=== PATIENT | male | born 1950 | race Caucasian/White ===

== ENCOUNTER 2020-02-24 12:11 | Inpatient (IN) ==
[2020-02-24] MEDS ORDERED: SODIUM CHLORIDE 0.9% 1000ML 1,000 ML IV ONE (12:25)
--- NOTE | 2020-02-24 12:32 | Emergency Department Note ---
Impression & Plan Atrial fibrillation with RVR, Hypertension, Abnormal CT of the abdomen ED Provider Note NAME: ISABELLA RIVAS AGE: 69 SEX: M : 1950 ARRIVES VIA: Walk-In INFORMANT: Patient ED PROVIDER(S): Dominic Victoria DO CHIEF COMPLAINT: Referred in for abnormal CT HPI: Patient is a 69-year-old male who presents to the ER who was referred in as he had a CT of the abdomen pelvis for previous urinary issues. He was referred in for possible gallbladder issue. He has no abdominal pain in the right upper quadrant. He has no pain with eating or drinking. He denies any nausea or vomiting. He has no complaints in regards to his belly or gallbladder at this time. He denies any headache or change in vision. No chest pain or shortness of breath. He denies any palpitations. Denies any history of A. fib or blood thinners. ROS: See above HPI for pertinent positives & negatives. A total of 10 systems reviewed and were otherwise negative. PAST MEDICAL HISTORY:See Below PAST SURGICAL HISTORY:See Below FAMILY HISTORY:See Below SOCIAL HISTORY:See Below HOME MEDICATIONS:See Below ALLERGIES:See Below VITALS:See Below PHYSICAL EXAMINATION: GENERAL: Sitting up in bed, alert, well appearing, well nourished, no distress, non-toxic EYE EXAM: normal conjunctiva. OROPHARYNX: no exudate, no erythema, lips, buccal mucosa, and tongue normal and mucous membranes are moist NECK: supple, no nuchal rigidity, no adenopathy, non-tender LUNGS: Clear to auscultation. Normal chest wall mechanics HEART: Tachycardic and irregular regular, S1 normal and S2 normal ABDOMEN: abdomen soft, non-tender, normo-active bowel sounds, no masses, no rebound or guarding. BACK: Back is symmetrical on inspection and there is no deformity, no midline tenderness, no CVA tenderness. SKIN: no rashes and no bruising UPPER EXTREMITIES: upper extremities are grossly normal. LOWER EXTREMITIES: No pitting edema. NEURO EXAM: Normal sensorium, cranial nerves II-XII grossly intact, normal s peech, no gross weakness of arms, no gross weakness of legs. MEDICAL DECISION MAKING: Patient is a 69-year-old male who was referred in for abnormal CT of his abdomen/pelvis. The CT showed a slightly distended gallbladder with possible cholelithiasis. This gentleman has absolutely no symptoms in regards to his gallbladder. He has completly benign abdomen. However his heart rate was up at 146 he was hypertensive and EKG was obtained which did show A. fib with RVR. Based on this blood work was obtained IV was established. Labs showed no significant leukocytosis or anemia. INR unremarkable. BMP with a slightly elevated glucose. Troponin was negative. Lipase unremarkable. Covid was negative. He was placed on a Cardizem drip and given a Cardizem bolus. Heart rate trended down. He was updated bedside. Discussed with the hospitalist admitted for further work-up of his new onset A. fib with RVR. Discussed with Pt concerning signs and symptoms to watch out for. Pt was instructed to follow up with their PCP and discussed with the patient their option to return to the ED at anytime for persistent or worsening symptoms. The appropriate anticipatory guidance and out-patient management, including indications for return to the emergency department, were explained at length to the patient and understood. Triage Nursing notes reviewed. Prior medical records reviewed Vital Signs: reviewed and remarkable for HTN and tachy Differential diagnosis: Differential diagnoses includes but is not limited to acute coronary syndrome, myocardial infarction, pericarditis, pulmonary embolus, aortic dissection, pneumonia, pneumothorax, musculoskeletal, shingles, esophageal. ER treatment provided: See below Diagnostics interpreted by me: ECG: A. fib RVR rate of 135 Left axis No PVCs QTC 393 Cardiac Monitoring: An order was placed for continuous cardiac monitoring. The monitor shows a rate of 141 with A. fib RVR rhythm. Laboratory studies: As stated above and show below. Imaging studies: Portable AP upright 1 view chest shows no focal infiltrate or pneumothorax Consultation(s): Discussed with the hospitalist for further evaluation ED COURSE: Procedures: none Critical Care: I have personally spent 35 minutes of critical care time in the direct management of this patient. This includes bedside care, interpretation of diagnostic studies, and testing, discussion with consultants, patient, and family members, and other required patient management activities. This 35 minutes is in excess of all separately billable procedures. Past Med/Surg History Medical History Acquired hallux valgus of left foot BPH loc w urin obs/LUTS Calcaneal fracture Diabetes mellitus with diabetic neuropathy Erectile dysfunction Gout Hallux valgus of right foot Hyperlipidemia Hypertension Metabolic syndrome Traumatic rupture of right Achilles tendon Type 2 diabetes mellitus with diabetic polyneuropathy Type 2 diabetes mellitus with foot ulcer Ulcer of left midfoot Surgical History (Updated 02/24/20 @ 14:16 by Haleigh Lawrence PA-C) History of tonsillectomy S/P ORIF (open reduction internal fixation) fracture Family History (Updated 02/24/20 @ 15:13 by Haleigh Lawrence PA-C) Brother Prostate cancer Father Heart disease Brother Melanoma Social History Smoking Status: Current some day smoker Tobacco Type: Cigars Hx Alcohol Use: Yes Alcohol type: hard liquor Hx Substance Use: No Communication Ability: Effective Visual Impairment: Limited Hearing Ability: Normal Beliefs That Will Affect Care: None marital status: Current Living Situation: Spouse current occupational status: employed Feels Safe at Home: Yes Allergies Allergies Allergy/AdvReac Type Severity Reaction Status Date / Time cephalexin [From Keflex] Allergy Unknown Unknown Verified 02/24/20 13:35 amoxicillin AdvReac Severe Gastrointestinal Verified 02/24/20 13:35 Upset Tetanus Vaccines and Toxoid AdvReac Fever Verified 02/24/20 13:35 Home Meds Home Medications Medication Instructions Recorded Confirmed allopurinol [Zyloprim] 100 mg PO DAILY 01/12/19 02/24/20 amlodipine [Norvasc] 10 mg PO DAILY 01/12/19 02/24/20 atorvastatin [Lipitor] 20 mg PO DAILY 01/12/19 02/24/20 benazepril [Lotensin] 40 mg PO DAILY 01/12/19 02/24/20 carvedilol [Coreg] 6.25 mg PO BID 01/12/19 02/24/20 cholecalciferol (vitamin D3) 1,000 unit PO DAILY 01/12/19 02/24/20 [Vitamin D3] cyanocobalamin (vitamin B-12) 1,000 mcg PO DAILY 01/12/19 02/24/20 [Vitamin B-12] epinephrine [EpiPen] 0.3 mg IM UD PRN 01/12/19 02/24/20 furosemide [Lasix] 20 mg PO DAILY 01/12/19 02/24/20 hydralazine 100 mg PO TID 01/12/19 02/24/20 metformin [Glucophage] 1,000 mg PO BID 01/12/19 02/24/20 omeprazole 20 mg PO QAM 01/12/19 02/24/20 tadalafil [Cialis] 5 mg PO UD PRN 01/12/19 02/24/20 thiamine mononitrate (vit B1) 100 mg PO DAILY 01/12/19 02/24/20 [Vitamin B-1 (mononitrate)] folic acid 1 mg tablet 1 mg PO DAILY tab 01/16/19 02/24/20 aspirin [Aspirin Low Dose] 81 mg PO DAILY 02/24/20 02/24/20 tamsulosin 0.4 mg PO HS 02/24/20 02/24/20 Results & Data (ED) Vital Signs Vital Signs - 24 hr 02/24/20 12:12 02/24/20 12:25 02/24/20 12:30 Temperature 36.5 C Temperature Source Oral Pulse Rate 146 H 130 H Pulse Rate from SpO2 Sensor Respiratory Rate 20 12 Blood Pressure 174/116 H 153/118 H Blood Pressure Mean 135 126 Pulse Oximetry 99 97 Oxygen Delivery Method Room Air Sepsis Recent Fever Within 48 Hours No Sepsis New/Unexplained Change in Mental Status N/A Sepsis Action Taken by Nursing No Action Required 02/24/20 12:45 02/24/20 13:00 02/24/20 13:15 Temperature Temperature Source Pulse Rate 128 H 132 H 126 H Pulse Rate from SpO2 Sensor 123 H 122 H 119 H Respiratory Rate Blood Pressure 154/114 H Blood Pressure Mean 122 Pulse Oximetry 96 96 96 Oxygen Delivery Method Sepsis Recent Fever Within 48 Hours Sepsis New/Unexplained Change in Mental Status Sepsis Action Taken by Nursing 02/24/20 13:30 02/24/20 13:45 Temperature Temperature Source Pulse Rate 95 H 97 H Pulse Rate from SpO2 Sensor 121 H 85 Respiratory Rate 15 16 Blood Pressure 174/120 H Blood Pressure Mean 134 Pulse Oximetry 97 96 Oxygen Delivery Method Sepsis Recent Fever Within 48 Hours Sepsis New/Unexplained Change in Mental Status Sepsis Action Taken by Nursing Laboratory Data Result diagrams: 02/24/20 12:35 02/24/20 12:35 Lab Results 02/24/20 02/24/20 02/24/20 Range/Units 12:35 12:35 12:35 WBC 6.81 (4.8-10.8) K/uL RBC 4.89 (4.7-6.1) M/uL Hgb 13.9 L (14.0-18.0) g/dL Hct 42.0 (42-52) % MCV 85.9 (80-100) fL MCH 28.4 (25-34) pg MCHC 33.1 (32-36) g/dL RDW Std Deviation 42.9 (36.4-46.3) fL RDW Coeff of Riley 13.8 (11.5-14.5) % Plt Count 154 (130-400) K/uL MPV 10.0 (7.4-10.4) fL Immature Gran % (Auto) 0.1 % Neut % (Auto) 61.7 % Lymph % (Auto) 23.9 % [place] % (Auto) 10.4 % Eos % (Auto) 3.5 % Baso % (Auto) 0.4 % Neut # (Auto) 4.19 (1.4-6.5) K/uL Lymph # (Auto) 1.63 (1.2-3.4) K/uL [place] # (Auto) 0.71 H (0.11-0.59) K/uL Eos # (Auto) 0.24 (0-0.5) K/uL Baso # (Auto) 0.03 (0-0.2) K/uL Immature Gran # (Auto) 0.01 (0.00-0.02) K/uL PT 10.9 (9.0-12.0) Seconds INR 1.0 (0.9-1.1) APTT 24.2 (21.0-31.0) Seconds PTT Ratio 0.9 Sodium 140 (136-145) mmol/L Potassium 3.8 (3.5-5.1) mmol/L Chloride 106 (98-107) mmol/L Carbon Dioxide 27 (21-32) mmol/L Anion Gap 7.0 (3-11) BUN 11 (7-18) mg/dl Creatinine 1.05 (0.6-1.4) mg/dl Est Cr Clr Drug Dosing 79.1 ml/min Est GFR ( Amer) 83.5 Est GFR (Non-Af Amer) 72.1 BUN/Creatinine Ratio 10.8 (10-20) Glucose 150 H (70-99) mg/dl Calcium 8.9 (8.5-10.1) mg/dl Total Bilirubin 0.9 (0.2-1) mg/dl AST 28 (15-37) U/L ALT 31 (12-78) U/L Alkaline Phosphatase 65 (45-117) U/L Troponin I < 0.015 (0-0.045) ng/ml Total Protein 7.2 (6.4-8.2) gm/dl Albumin 3.7 (3.4-5.0) gm/dl Globulin 3.5 (2.5-4.0) gm/dl Albumin/Globulin Ratio 1.1 (0.9-2) Lipase 229 (73-393) U/L Administered Medications Diltiazem HCl 125 mg/ Dextrose 125 mls @ 5 mls/hr IV .Q24H [facility]; Protocol Stop: 03/25/20 12:59 Last Admin: 02/24/20 13:29 Dose: 5 mg/hr, 5 mls/hr Documented by: [id number] Cosigned by: [id number] Discontinued Medications Diltiazem HCl (Diltiazem Hcl 5 Mg/Ml 5 Ml Vial) 10 mg IV NOW STA Stop: 02/24/20 12:56 Last Admin: 02/24/20 13:28 Dose: 10 mg Documented by: [id number] Cosigned by: [id number] Sodium Chloride (Nss 1000ml) 1,000 mls @ 999 mls/hr IV .Q1H1M ONE Stop: 02/24/20 13:25 Last Infusion: 02/24/20 16:13 Dose: 0 mls/hr Documented by: [id number] Admin: 02/24/20 13:28 Dose: 999 mls/hr Documented by: [id number] Miscellaneous (Stat Iv Infusion Titration Per Protocol) 1 ea N/A NOW STA Stop: 02/24/20 12:56 Last Admin: 02/24/20 13:29 Dose: Not Given Documented by: [id number] Discharge Plan Visit Data Chief Complaint: Abnormal Labs/Diagnostic Testing Stated Complaint: ABNORMAL LAB ED Provider: Dominic Victoria Discharge Problem: Atrial fibrillation with RVR, Hypertension, Abnormal CT of the abdomen Patient Disposition: Admitted As Inpatient Discharge Instructions Interventions: ED Discharge Assessment Last Done: 02/24/20 16:17 Discharge Problem: Hypertension Qualifiers: Hypertension type: unspecified Qualified Code(s): I10 - Essential (primary) hypertension
[2020-02-24 12:48] LABS: Basophils # (auto) 0.03 K/uL (0-0.2); Basophils % (auto) 0.4 %; Eosinophils # (auto) 0.24 K/uL (0-0.5); Eosinophils % (auto) 3.5 %; Hemoglobin 13.9 g/dL (14.0-18.0); Immature Granulocytes # (auto) 0.01 K/uL (0.00-0.02); Immature Granulocytes % (auto) 0.1 %; Lymphocytes # (auto) 1.63 K/uL (1.2-3.4); Lymphocytes % (auto) 23.9 %; Mean Corpuscular Hemoglobin 28.4 pg (25-34); Mean Corpuscular Hgb Conc 33.1 g/dL (32-36); Mean Corpuscular Volume 85.9 fL (80-100); Monocytes # (auto) 0.71 K/uL (0.11-0.59); Monocytes % (auto) 10.4 %; Neutrophils # (auto) 4.19 K/uL (1.4-6.5); Neutrophils % (auto) 61.7 %; Platelet Count 154 K/uL (130-400); RDW Coefficient of Variation 13.8 % (11.5-14.5); RDW Standard Deviation 42.9 fL (36.4-46.3); Red Blood Count 4.89 M/uL (4.7-6.1); White Blood Count 6.81 K/uL (4.8-10.8)
[2020-02-24] MEDS ORDERED: STAT IV Infusion **Titration per Protocol STA (12:55)
[2020-02-24] MEDS ORDERED: dilTIAZem HCl 5 MG/ML 5 ML VIAL IV STA (12:55)
--- NOTE | 2020-02-24 12:55 | XRay Report ---
XR chest 1V portable CLINICAL HISTORY: Atypical chest pain COMPARISON STUDY: 08/02/2015 FINDINGS: The cardiac and mediastinal contours are normal. There is no evidence of focal pulmonary co nsolidation. There is no evidence of failure. No pleural effusions are visualized.[There is no pneumo thorax. Minimal increased left basilar markings likely represent a summation with vessels and rib. IMPRESSION: No active disease in the chest. ACT 112: Negative or not required by law. Electronically signed by: Juan Ramon Velez M.D. 02/24/2020 12:54 PM
[2020-02-24] MEDS ORDERED: dilTIAZem HCL 125 MG in DEXTROSE 5% 100 ML IV SCH (13:00)
[2020-02-24 13:01] LABS: Partial Thromboplastin Ratio 0.9; Partial Thromboplastin Time 24.2 Seconds (21.0-31.0); Prothrombin Time 10.9 Seconds (9.0-12.0)
[2020-02-24 13:06] LABS: Alanine Aminotransferase 31 U/L (12-78); Albumin Level 3.7 gm/dl (3.4-5.0); Aspartate Aminotransferase 28 U/L (15-37); BUN Creatinine Ratio 10.8 (10-20); Blood Urea Nitrogen 11 mg/dl (7-18); Calcium 8.9 mg/dl (8.5-10.1); Carbon Dioxide 27 mmol/L (21-32); Chloride 106 mmol/L (98-107); Creatinine Clr Calc Pharmacy 79.1 ml/min; Est GFR (African American) 83.5; Est GFR (Non-African American) 72.1; Glucose 150 mg/dl (70-99); Lipase 229 U/L (73-393); Potassium 3.8 mmol/L (3.5-5.1); Sodium 140 mmol/L (136-145)
[2020-02-24 13:11] LABS: Albumin Globulin Ratio 1.1 (0.9-2); Alkaline Phosphatase 65 U/L (45-117); Bilirubin,Total 0.9 mg/dl (0.2-1); Globulin 3.5 gm/dl (2.5-4.0); Total Protein 7.2 gm/dl (6.4-8.2); Troponin I < 0.015 ng/ml (0-0.045)
--- NOTE | 2020-02-24 14:12 | History & Physical Report ---
Date of Service February 24, 2020 Assessment & Plan (1) Atrial fibrillation with RVR: Pt is asymptomatic at present - cannot recall every being diagnosed with this previously. - Cardizem gtt - Monitor on telemetry - Cardiology consult - Check ECHO - Heparin gtt until seen by cardiology (2) Abnormal CT of the abdomen: CT with possible GB wall thickening and choledocholithiasis but pt currently completely asymptomatic - will defer additional work-up to outpatient. (3) BPH loc w urin obs/LUTS: - Continue Flomax as patient has noted dramatic improvement on this medication (4) Hypertension: - Continue home meds and cardizem gtt for now - await cardiology input - Elevated at present - continue to monitor (5) Diabetes: HOLD Metformin x [address] - Sliding scale insulin - Diabetic diet (6) Hyperlipidemia: - Continue outpatient statin therapy (7) Gout: - Continue allopurinol Pt seen and reviewed with collaborating physician, Dr. Pena. Plan of care discussed and as outlined above. Felipa Lawrence PA-C History of Present Illness Chief Complaint: Abnormal CT Primary Care Provider: Eloy Mcgraw MD This is a 69 y/o male with a PMH of DM2 with polyneuropathy, HTN, traumatic rupture of right Achilles tendon, gout, and alcohol use who presented to the ED today after he was found to have a thickened GB wall with potential choledocholithiasis on CT done outpatient today. In the ED, pt was found to be in new-onset atrial fibrillation with RVR in the 140s. In the ED, pt currently reports feeling well. He is on a cardizem gtt with improvement in the rate to the 90s to low 100s. He denies chest pain, palpitations, sensation of heart racing, dyspnea, syncope or feeling light-headed at present. He did have a transient episode of lightheadedness around Thanksgiving but this resolved within a few minutes without intervention. He does not recall ever being hayley gnosed with atrial fibrillation before. He also denies any GI symptoms including nausea, vomiting, abdominal pain, change in bowel habits, acholic stools or hematochezia. Appetite is at baseline. Denies prior history of gallbladder problems. He does have a history of diabetes but does not routinely check his blood sugar at home. He does drink three whiskeys daily, smokes the occasional cigar (last time today). Allergies Allergy/AdvReac Type Severity Reaction Status Date / Time cephalexin [From Keflex] Allergy Unknown Unknown Verified 02/24/20 13:35 amoxicillin AdvReac Severe Gastrointestinal Verified 02/24/20 13:35 Upset Tetanus Vaccines and Toxoid AdvReac Fever Verified 02/24/20 13:35 Home Medications Medication Instructions Recorded Confirmed Type allopurinol [Zyloprim] 100 mg PO DAILY 01/12/19 02/24/20 History amlodipine [Norvasc] 10 mg PO DAILY 01/12/19 02/24/20 History atorvastatin [Lipitor] 20 mg PO DAILY 01/12/19 02/24/20 History benazepril [Lotensin] 40 mg PO DAILY 01/12/19 02/24/20 History carvedilol [Coreg] 6.25 mg PO BID 01/12/19 02/24/20 History cholecalciferol (vitamin D3) 1,000 unit PO DAILY 01/12/19 02/24/20 History [Vitamin D3] cyanocobalamin (vitamin B-12) 1,000 mcg PO DAILY 01/12/19 02/24/20 History [Vitamin B-12] epinephrine [EpiPen] 0.3 mg IM UD PRN 01/12/19 02/24/20 History furosemide [Lasix] 20 mg PO DAILY 01/12/19 02/24/20 History hydralazine 100 mg PO TID 01/12/19 02/24/20 History metformin [Glucophage] 1,000 mg PO BID 01/12/19 02/24/20 History omeprazole 20 mg PO QAM 01/12/19 02/24/20 History tadalafil [Cialis] 5 mg PO UD PRN 01/12/19 02/24/20 History thiamine mononitrate (vit B1) 100 mg PO DAILY 01/12/19 02/24/20 History [Vitamin B-1 (mononitrate)] folic acid 1 mg tablet 1 mg PO DAILY tab 01/16/19 02/24/20 History aspirin [Aspirin Low Dose] 81 mg PO DAILY 02/24/20 02/24/20 History tamsulosin 0.4 mg PO HS 02/24/20 02/24/20 History Past Med/Surg History Medical History Acquired hallux valgus of left foot BPH loc w urin obs/LUTS Calcaneal fracture Diabetes mellitus with diabetic neuropathy Erectile dysfunction Gout Hallux valgus of right foot Hyperlipidemia Hypertension Metabolic syndrome Traumatic rupture of right Achilles tendon Type 2 diabetes mellitus with diabetic polyneuropathy Type 2 diabetes mellitus with foot ulcer Ulcer of left midfoot Surgical History (Updated 02/24/20 @ 14:16 by Haleigh Lawrence PA-C) History of tonsillectomy S/P ORIF (open reduction internal fixation) fracture Family History (Updated 02/24/20 @ 15:13 by Haleigh Lawrence PA-C) Brother Prostate cancer Father Heart disease Brother Melanoma Social History Smoking Status: Current some day smoker Tobacco Type: Cigars Hx Alcohol Use: Yes Alcohol type: hard liquor Hx Substance Use: No Communication Ability: Effective Visual Impairment: Limited Hearing Ability: Normal Beliefs That Will Affect Care: None marital status: Current Living Situation: Spouse current occupational status: employed Feels Safe at Home: Yes Review of Systems Review of Systems: All systems reviewed & are unremarkable except as noted in HPI & below Constitutional: no fever, no chills, no sweats, no fatigue and no anorexia Eyes: no diplopia Ear, Nose, Mouth, Throat: no nasal congestion, no nasal discharge and no sore throat Respiratory: no cough, no dyspnea, no hemoptysis and no wheezing Cardiovascular: as per Subjective / HPI; no chest pain, no palpitations, no syncope and no edema Gastrointestinal: no abdominal pain, no heartburn, no nausea, no vomiting, no change in bowel habits and no blood in stools Genitourinary: + nocturia (dramatic improvement with Flomax - now resolved as long as continues the medication); no dysuria and no hematuria Musculoskeletal: no back pain, no neck pain, no myalgia and no muscle weakness Integumentary: no rash Neurologic: no localized weakness, no tremor(s), no seizure-like activity and no headache(s) Chronic neuropathy in lower extremities Physical Exam Constitutional: WD/WN, vitals as above no acute distress Eyes: + anicteric sclerae Neck: trachea midline Respiratory: no respiratory distress and no labored breathing Auscultation: lungs clear to auscultation bilaterally; no rales, no rhonchi and no wheezes Cardiovascular: Rate/Rhythm: + tachycardic and + irregularly irregular Vessels: dorsalis pedis pulses present Extremities: no pedal edema Gastrointestinal (Abdomen): Inspection/Auscultation: normal bowel sounds; abdomen not distended Percussion/Palpation: abdomen soft; abdomen nontender Musculoskeletal: Head/Neck/Chest: normocephalic, head atraumatic and neck supple Extremities: no cyanosis and no clubbing Skin: no rashes, warm and dry Neurologic: no focal motor deficits Speech / Cognition: normal speech Psychiatric: A+Ox3, euthymic affect Results & Data Results & Data ([facility]) Vital Signs (Past 12 Hours) Vital Signs Temp Pulse Resp BP Pulse Ox 02/24/20 14:00 91 H 178/95 H 97 02/24/20 13:45 97 H 16 96 02/24/20 13:30 95 H 15 174/120 H 97 02/24/20 13:15 126 H 96 02/24/20 13:00 132 H 154/114 H 96 02/24/20 12:45 128 H 96 02/24/20 12:30 130 H 12 153/118 H 02/24/20 12:25 97 02/24/20 12:12 36.5 C 146 H 20 174/116 H 99 Laboratory Results Laboratory Results - last 24 hr 02/24/20 02/24/20 02/24/20 12:35 12:35 12:35 WBC 6.81 RBC 4.89 Hgb 13.9 L Hct 42.0 MCV 85.9 MCH 28.4 MCHC 33.1 RDW Std Deviation 42.9 RDW Coeff of Riley 13.8 Plt Count 154 MPV 10.0 Immature Gran % (Auto) 0.1 Neut % (Auto) 61.7 Lymph % (Auto) 23.9 [place] % (Auto) 10.4 Eos % (Auto) 3.5 Baso % (Auto) 0.4 Neut # (Auto) 4.19 Lymph # (Auto) 1.63 [place] # (Auto) 0.71 H Eos # (Auto) 0.24 Baso # (Auto) 0.03 Immature Gran # (Auto) 0.01 PT 10.9 INR 1.0 APTT 24.2 PTT Ratio 0.9 Sodium 140 Potassium 3.8 Chloride 106 Carbon Dioxide 27 Anion Gap 7.0 BUN 11 Creatinine 1.05 Est Cr Clr Drug Dosing 79.1 Est GFR ( Amer) 83.5 Est GFR (Non-Af Amer) 72.1 BUN/Creatinine Ratio 10.8 Glucose 150 H Calcium 8.9 Total Bilirubin 0.9 AST 28 ALT 31 Alkaline Phosphatase 65 Troponin I < 0.015 Total Protein 7.2 Albumin 3.7 Globulin 3.5 Albumin/Globulin Ratio 1.1 Lipase 229 Diagnostic Findings Chest X-ray 02/24/20 - IMPRESSION: No active disease in the chest. CT Abd/Pel 02/24/20 - IMPRESSION: 1. Unremarkable CT urogram assessment of the kidneys and ureters. 2. Prostatomegaly with evidence of chronic bladder outlet obstruction. 3. The gallbladder wall is mildly thickened and choledocholithiasis is suspected. No surrounding inflammation is seen and clinical correlation will be required. Consider GI follow-up. 4. Mild to moderate colonic diverticulosis without CT evidence of acute diverticulitis. 5. Additional findings as above. Medications Administered Diltiazem HCl 125 mg/ Dextrose 125 mls @ 5 mls/hr IV .Q24H [facility]; Protocol Stop: 03/25/20 12:59 Last Admin: 02/24/20 13:29 Dose: 5 mg/hr, 5 mls/hr Documented by: [id number] Cosigned by: [id number] Discontinued Medications Diltiazem HCl (Diltiazem Hcl 5 Mg/Ml 5 Ml Vial) 10 mg IV NOW STA Stop: 02/24/20 12:56 Last Admin: 02/24/20 13:28 Dose: 10 mg Documented by: [id number] Cosigned by: [id number] Sodium Chloride (Nss 1000ml) 1,000 mls @ 999 mls/hr IV .Q1H1M ONE Stop: 02/24/20 13:25 Last Admin: 02/24/20 13:28 Dose: 999 mls/hr Documented by: [id number] Miscellaneous (Stat Iv Infusion Titration Per Protocol) 1 ea N/A NOW STA Stop: 02/24/20 12:56 Last Admin: 02/24/20 13:29 Dose: Not Given Documented by: [id number] Code Status & VTE Plan VTE Prophylaxis Plan VTE Prophylaxis will be ordered: Yes Supervising Physician Co-Signing Physician Notes Pt was seen and examined. Agreed with Pavel ELDER exam, assessment and plan. 69 y/o male with a PMH of DM2 with polyneuropathy, HTN, traumatic rupture of right Achilles tendon, gout, and alcohol use was sent to the ER for abnormal outpatient CT scan that showed thickened GB wall with potential choledocholithiasis; then he was found to be in afib with RVR in the 140's. Pt said that he does not have any symptom. He said that he had the CT scan was ordered by urology after developing urinary symptoms few weeks ago. He said that he feels good now. He said that during gi he had a brief episode of dizziness nut that resolved. Denies any chest pain, palpitation, dizziness and SOB. EKG on admission showed Afib with RVR. Received Cardizem IV 10mg x1 then starting on IV cardizem drip. Continue beta iron for now. Will get a resting ECHO. [id number] score 3, will start on heparin drip while in the hospital. Denies any hematuria or blood in stool . Will monitor for any bleeding while on heparin drip. Cardiology consult. Will monitor closely in tele. MD Becky (1) Diabetes Diabetes mellitus complication detail: with polyneuropathy Diabetes mellitus complication status: with neurologic complications Diabetes mellitus terminal carman insulin use: without shelter use Diabetes mellitus type: type 2 Qualified Code(s): E11.42 - Type 2 diabetes mellitus with diabetic polyneuropathy (2) Gout Chronicity: unspecified Gout etiology: unspecified cause Gout site: unspecified site Qualified Code(s): M10.9 - Gout, unspecified (3) Hyperlipidemia Hyperlipidemia type: unspecified Qualified Code(s): E78.5 - Hyperlipidemia, unspecified (4) Hypertension Hypertension type: essential hypertension Qualified Code(s): I10 - Essential (primary) hypertension
[2020-02-24] MEDS ORDERED: LORazepam 1 MG TAB PO PRN (16:58)
[2020-02-24] MEDS ORDERED: CARBOHYDRATES FOR HYPOGLYCEMIA PO PRN (16:58)
[2020-02-24] MEDS ORDERED: GLUCOSE 10 TABS/TUBE PO PRN (16:58)
[2020-02-24] MEDS ORDERED: GLUCOSE 40% GEL 15 GM TUBE PO PRN (16:58)
[2020-02-24] MEDS ORDERED: GLUCAGON FOR INJ 1 MG VIAL SQ PRN (16:58)
[2020-02-24] MEDS ORDERED: DEXTROSE 50% 50 ML SYRINGE IV PRN (16:58)
[2020-02-24] MEDS ORDERED: HEPARIN IV BOLUS 7,000 UNITS in SYRINGE 0 ML IV STA (18:43)
[2020-02-24] MEDS: THIAMINE HCL 100 MG TAB PO SCH (19:02)
[2020-02-24] MEDS: FOLIC ACID 1 MG TAB PO SCH (19:02)
[2020-02-24] MEDS: HEPARIN SODIUM/DEXTROSE 25,000 UNITS/500 ML BAG IV SCH (19:03)
[2020-02-24] MEDS: INSULIN ASPART 100 UNITS/ML 3 ML PEN SC SCH ×2 (19:06→21:08)
[2020-02-24] MEDS: hydrALAZINE TAB 50 MG TAB PO SCH (21:09)
[2020-02-24] MEDS: carvediloL 6.25 MG TAB PO SCH (21:10)
[2020-02-24] MEDS: TAMSULOSIN HCL 0.4 MG CAP PO SCH (21:11)
[2020-02-25 01:22] LABS: Partial Thromboplastin Ratio 2.8
[2020-02-25 01:48] LABS: Partial Thromboplastin Time 79.1 Seconds (21.0-31.0)
--- NOTE | 2020-02-25 06:44 | Electrocardiogram Report ---
Test Reason : Blood Pressure : / mmHG Vent. Rate : 135 BPM Atrial Rate : 441 BPM P-R Int : 000 ms QRS Dur : 082 ms QT Int : 262 ms P-R-T Axes : 000 -27 086 degrees QTc Int : 393 ms Atrial fibrillation with rapid ventricular response Anteroseptal infarct (cited on or before 03-JUN-2012) Possible Inferior infarct Abnormal ECG When compared with ECG of 02-AUG-2015 17:32, Atrial fibrillation has replaced Sinus rhythm Questionable change in initial forces of Anterior leads Confirmed by Bryce Rome ([id number]) on 02/25/2020 6:44:45 AM Referred By: Confirmed By:Bryce Rome
[2020-02-25] MEDS: INSULIN ASPART 100 UNITS/ML 3 ML PEN SC SCH ×5 (08:00→20:54)
[2020-02-25] MEDS: ASPIRIN 81 MG ECTAB PO SCH (08:15)
[2020-02-25] MEDS: amLODIPine BESYLATE 5 MG TAB PO SCH (08:15)
[2020-02-25] MEDS: ATORVASTATIN 20 MG TAB PO SCH (08:16)
[2020-02-25] MEDS: allopurinoL 100 MG TAB PO SCH (08:16)
[2020-02-25] MEDS: FOLIC ACID 1 MG TAB PO SCH (08:16)
[2020-02-25] MEDS: THIAMINE HCL 100 MG TAB PO SCH (08:16)
[2020-02-25] MEDS: CHOLECALCIFEROL 1,000 UNITS 25 MCG TAB PO SCH (08:16)
[2020-02-25] MEDS: CYANOCOBALAMIN 500 MCG TABLET (VITAMIN B-12) PO SCH (08:16)
[2020-02-25] MEDS: carvediloL 6.25 MG TAB PO SCH (08:16)
[2020-02-25] MEDS: PANTOprazole 40 MG TAB PO SCH (08:17)
[2020-02-25] MEDS: hydrALAZINE TAB 50 MG TAB PO SCH ×3 (08:17→20:52)
[2020-02-25] MEDS: ENALAPRIL MALEATE 10 MG TAB PO SCH (08:17)
[2020-02-25] MEDS: FUROSEMIDE 20 MG TAB PO SCH (08:17)
[2020-02-25 09:19] LABS: Basophils # (auto) 0.01 K/uL (0-0.2); Basophils % (auto) 0.3 %; Eosinophils # (auto) 0.19 K/uL (0-0.5); Eosinophils % (auto) 4.9 %; Hematocrit (blood only) 36.8 % (42-52); Hemoglobin 12.3 g/dL (14.0-18.0); Immature Granulocytes # (auto) 0.01 K/uL (0.00-0.02); Immature Granulocytes % (auto) 0.3 %; Lymphocytes # (auto) 1.27 K/uL (1.2-3.4); Lymphocytes % (auto) 32.6 %; Mean Corpuscular Hemoglobin 28.7 pg (25-34); Mean Corpuscular Hgb Conc 33.4 g/dL (32-36); Mean Corpuscular Volume 85.8 fL (80-100); Mean Platelet Volume 10.7 fL (7.4-10.4); Monocytes # (auto) 0.37 K/uL (0.11-0.59); Monocytes % (auto) 9.5 %; Neutrophils # (auto) 2.04 K/uL (1.4-6.5); Neutrophils % (auto) 52.4 %; Platelet Count 128 K/uL (130-400); RDW Standard Deviation 43.3 fL (36.4-46.3); Red Blood Count 4.29 M/uL (4.7-6.1); White Blood Count 3.89 K/uL (4.8-10.8)
[2020-02-25 09:40] LABS: Partial Thromboplastin Ratio 2.1
[2020-02-25 09:45] LABS: Partial Thromboplastin Time 57.5 Seconds (21.0-31.0)
[2020-02-25 09:50] LABS: Calcium 8.5 mg/dl (8.5-10.1); Creatinine Clr Calc Pharmacy 84.7 ml/min; Est GFR (African American) 91.9; Est GFR (Non-African American) 79.3; Potassium 3.6 mmol/L (3.5-5.1)
[2020-02-25 09:53] LABS: Albumin Globulin Ratio 0.9 (0.9-2); Bilirubin,Total 0.6 mg/dl (0.2-1); Globulin 3.2 gm/dl (2.5-4.0); Total Protein 6.2 gm/dl (6.4-8.2)
[2020-02-25] MEDS ORDERED: POTASSIUM CHLORIDE CRTAB 20 MEQ TABCR PO ONE (10:15)
[2020-02-25] MEDS: carvediloL 12.5 MG TAB PO SCH ×2 (10:25→20:52)
[2020-02-25] MEDS: HEPARIN SODIUM/DEXTROSE 25,000 UNITS/500 ML BAG IV SCH (11:20)
--- NOTE | 2020-02-25 15:15 | Cardiology Consultation ---
Date of Consultation February 25, 2020 Assessment & Plan (1) Atrial fibrillation with RVR: This patient has newly discovered asymptomatic atrial fibrillation. His echocardiogram does not show any significant valvular pathology and he has normal left and right ventricular function. It is uncertain as to how long he has been in the atrial fibrillation so he can either be anticoagulated for several weeks and then return for an elective cardioversion or we would have to proceed with a ELLEN guided cardioversion before discharge. The patient would like to go home and I think a good option would be to put him on Eliquis along with his current dosage of Coreg. His heart rates are controlled on this dosage and I am told by nursing that his diltiazem drip was stopped earlier in the day. So he could go home on the current dose of carvedilol. I explained the pathophysiology of atrial fibrillation and potential treatments including just rate control and anticoagulation. I would see him in follow-up and then arrange for an elective cardioversion. History of Present Illness Attending Physician: Eduardo Haddad MD History of Present Illness This is a 69-year-old male patient with no prior history of heart disease. He has had some orthopedic problems with a torn Achilles tendon but states he has been very active including hunting and performing chores around the house without difficulty. He has had no shortness of breath, orthopnea, chest pain, dizziness or lightheadedness. This past summer he traveled to [place] and finished and when he returned he developed Covid. He was sick with a fever for approximately 3 days and then it completely resolved. The patient had a CT of the abdomen. Uncertain to me why this study was completed, however after returning home he was called by radiology and told that he had a bad gallbladder and needed to go right to the hospital. Seems like the work-up has been thus far benign. He was noted after admission to be in atrial fibrillation which comes as a complete surprise to the patient. Uncertain as to how long the patient has been in atrial fibrillation but currently he is on carvedilol with rate control. Allergies Allergy/AdvReac Type Severity Reaction Status Date / Time cephalexin [From Keflex] Allergy Unknown Unknown Verified 02/24/20 13:35 amoxicillin AdvReac Severe Gastrointestinal Verified 02/24/20 13:35 Upset Tetanus Vaccines and Toxoid AdvReac Fever Verified 02/24/20 13:35 Home Medications Medication Instructions Recorded Confirmed Type allopurinol [Zyloprim] 100 mg PO DAILY 01/12/19 02/24/20 History amlodipine [Norvasc] 10 mg PO DAILY 01/12/19 02/24/20 History atorvastatin [Lipitor] 20 mg PO DAILY 01/12/19 02/24/20 History benazepril [Lotensin] 40 mg PO DAILY 01/12/19 02/24/20 History carvedilol [Coreg] 6.25 mg PO BID 01/12/19 02/24/20 History cholecalciferol (vitamin D3) 1,000 unit PO DAILY 01/12/19 02/24/20 History [Vitamin D3] cyanocobalamin (vitamin B-12) 1,000 mcg PO DAILY 01/12/19 02/24/20 History [Vitamin B-12] epinephrine [EpiPen] 0.3 mg IM UD PRN 01/12/19 02/24/20 History furosemide [Lasix] 20 mg PO DAILY 01/12/19 02/24/20 History hydralazine 100 mg PO TID 01/12/19 02/24/20 History metformin [Glucophage] 1,000 mg PO BID 01/12/19 02/24/20 History omeprazole 20 mg PO QAM 01/12/19 02/24/20 History tadalafil [Cialis] 5 mg PO UD PRN 01/12/19 02/24/20 History thiamine mononitrate (vit B1) 100 mg PO DAILY 01/12/19 02/24/20 History [Vitamin B-1 (mononitrate)] folic acid 1 mg tablet 1 mg PO DAILY tab 01/16/19 02/24/20 History aspirin [Aspirin Low Dose] 81 mg PO DAILY 02/24/20 02/24/20 History tamsulosin 0.4 mg PO HS 02/24/20 02/24/20 History apixaban [Eliquis] 5 mg PO BID #60 tab 02/26/20 Rx carvedilol 12.5 mg PO BID #60 tab 02/26/20 Rx Patient History Medical History Acquired hallux valgus of left foot BPH loc w urin obs/LUTS Calcaneal fracture Diabetes mellitus with diabetic neuropathy Erectile dysfunction Gout Hallux valgus of right foot Hyperlipidemia Hypertension Metabolic syndrome Traumatic rupture of right Achilles tendon Type 2 diabetes mellitus with diabetic polyneuropathy Type 2 diabetes mellitus with foot ulcer Ulcer of left midfoot Surgical History History of tonsillectomy S/P ORIF (open reduction internal fixation) fracture Family History Brother Prostate cancer Father Heart disease Brother Melanoma Social History Smoking Status: Current some day smoker Tobacco Type: Cigars Hx Alcohol Use: Yes Alcohol type: hard liquor Hx Substance Use: No Preferred Language: Kazakh Communication Ability: Effective Visual Impairment: Limited Hearing Ability: Normal Beliefs That Will Affect Care: None marital status: Current Living Situation: Spouse current occupational status: employed Feels Safe at Home: Yes Safety Concerns: Feels Safe At This Time Assistive Devices: Glasses Review of Systems Review of Systems: All systems reviewed & are unremarkable except as noted in HPI & below Nothing additional to add Physical Exam Physical Exam: General: no acute distress and stated age Head: normocephalic, no masses, lesions, tenderness or abnormalities Eyes: conjunctiva are pink and non-injected, sclera clear Neck: supple, no adenopathy, no bruits, normal jugular venous pulse, no hepatojugular reflux Chest: normal shape and normal respiratory effort Lungs: clear to auscultation and percussion Cardiac Exam: - regular rate & rhythm, no murmurs gallops or rubs - normal S1, normal S2 Pulses: 2(+) throughout Abdomen: abdomen soft, non-tender, no abnormal masses and no hepatosplenomegaly Musculoskeletal: no gait disturbance, no joint inflammation, no deforming arthritis Extremities: no edema and no cyanosis Neuro: grossly normal exam Results & Data ([facility]) Vital Signs (Past 12 Hours) Vital Signs Temp Pulse Pulse Resp BP Pulse Ox 02/25/20 15:01 36.7 C 107 H 81 18 125/87 97 02/25/20 10:53 36.5 C 101 H 18 150/85 H 99 02/25/20 09:01 94 H 02/25/20 07:45 36.7 C 94 H 18 146/91 H 97 Laboratory Results Laboratory Results - last 24 hr 02/24/20 02/24/20 02/25/20 17:00 20:36 00:44 WBC RBC Hgb Hct MCV MCH MCHC RDW Std Deviation RDW Coeff of Riley Plt Count MPV Immature Gran % (Auto) Neut % (Auto) Lymph % (Auto) Grainger % (Auto) Eos % (Auto) Baso % (Auto) Neut # (Auto) Lymph # (Auto) Grainger # (Auto) Eos # (Auto) Baso # (Auto) Immature Gran # (Auto) APTT 79.1 H* PTT Ratio 2.8 Sodium Potassium Chloride Carbon Dioxide Anion Gap BUN Creatinine Est Cr Clr Drug Dosing Est GFR ( Amer) Est GFR (Non-Af Amer) BUN/Creatinine Ratio Glucose POC Glucose 122 H 151 H Calcium Total Bilirubin AST ALT Alkaline Phosphatase Total Protein Albumin Globulin Albumin/Globulin Ratio 02/25/20 02/25/20 02/25/20 07:14 08:49 08:49 WBC 3.89 L RBC 4.29 L Hgb 12.3 L Hct 36.8 L MCV 85.8 MCH 28.7 MCHC 33.4 RDW Std Deviation 43.3 RDW Coeff of Riley 14.0 Plt Count 128 L MPV 10.7 H Immature Gran % (Auto) 0.3 Neut % (Auto) 52.4 Lymph % (Auto) 32.6 Grainger % (Auto) 9.5 Eos % (Auto) 4.9 Baso % (Auto) 0.3 Neut # (Auto) 2.04 Lymph # (Auto) 1.27 Grainger # (Auto) 0.37 Eos # (Auto) 0.19 Baso # (Auto) 0.01 Immature Gran # (Auto) 0.01 APTT PTT Ratio Sodium 141 Potassium 3.6 Chloride 107 Carbon Dioxide 26 Anion Gap 8.0 BUN 9 Creatinine 0.97 Est Cr Clr Drug Dosing 84.7 Est GFR ( Amer) 91.9 Est GFR (Non-Af Amer) 79.3 BUN/Creatinine Ratio 9.0 L Glucose 204 H POC Glucose 140 H Calcium 8.5 Total Bilirubin 0.6 AST 23 ALT 26 Alkaline Phosphatase 55 Total Protein 6.2 L Albumin 3.0 L Globulin 3.2 Albumin/Globulin Ratio 0.9 02/25/20 02/25/20 02/25/20 08:49 11:03 11:03 WBC RBC Hgb Hct MCV MCH MCHC RDW Std Deviation RDW Coeff of Riley Plt Count MPV Immature Gran % (Auto) Neut % (Auto) Lymph % (Auto) Grainger % (Auto) Eos % (Auto) Baso % (Auto) Neut # (Auto) Lymph # (Auto) Grainger # (Auto) Eos # (Auto) Baso # (Auto) Immature Gran # (Auto) APTT 57.5 H* PTT Ratio 2.1 Sodium Potassium Chloride Carbon Dioxide Anion Gap BUN Creatinine Est Cr Clr Drug Dosing Est GFR ( Amer) Est GFR (Non-Af Amer) BUN/Creatinine Ratio Glucose POC Glucose 185 H 185 H Calcium Total Bilirubin AST ALT Alkaline Phosphatase Total Protein Albumin Globulin Albumin/Globulin Ratio Diagnostic Findings Echocardiogram reveals normal cardiac chamber sizes with normal left and right ventricular systolic function and no significant valvular pathology. Medications Administered Current Inpatient Medications Allopurinol (Allopurinol 100 Mg Tab) 100 mg PO DAILY LATA Stop: 03/26/20 08:59 Last Admin: 02/25/20 08:16 Dose: 100 mg Documented by: Amlodipine Besylate (Amlodipine Besylate 5 Mg Tab) 10 mg PO DAILY LATA Stop: 03/26/20 08:59 Last Admin: 02/25/20 08:15 Dose: 10 mg Documented by: Aspirin (Aspirin 81 Mg Ectab) 81 mg PO DAILY LATA Stop: 03/26/20 08:59 Last Admin: 02/25/20 08:15 Dose: 81 mg Documented by: Atorvastatin Calcium (Atorvastatin 20 Mg Tab) 20 mg PO DAILY LATA Stop: 03/26/20 08:59 Last Admin: 02/25/20 08:16 Dose: 20 mg Documented by: Carvedilol (Carvedilol 12.5 Mg Tab) 12.5 mg PO BID LATA Stop: 03/26/20 09:29 Last Admin: 02/25/20 10:25 Dose: 12.5 mg Documented by: Cyanocobalamin (Cyanocobalamin 500 Mcg Tablet (Vitamin B-12)) 1,000 mcg PO DAILY LATA Stop: 03/26/20 08:59 Last Admin: 02/25/20 08:16 Dose: 1,000 mcg Documented by: Dextrose (Dextrose 50% 50 Ml Syringe) 25 - 50 ml IV UD PRN; Protocol PRN Reason: Hypoglycemia Protocol Stop: 03/25/20 16:57 Enalapril Maleate (Enalapril Maleate 10 Mg Tab) 40 mg PO DAILY [facility] Stop: 03/26/20 08:59 Last Admin: 02/25/20 08:17 Dose: 40 mg Documented by: Folic Acid (Folic Acid 1 Mg Tab) 1 mg PO QAM [facility] Stop: 03/25/20 16:57 Last Admin: 02/25/20 08:16 Dose: 1 mg Documented by: Furosemide (Furosemide 20 Mg Tab) 20 mg PO DAILY [facility]ATA Stop: 03/26/20 08:59 Last Admin: 02/25/20 08:17 Dose: 20 mg Documented by: Glucagon (Glucagon For Inj 1 Mg Vial) 1 mg SQ UD PRN; Protocol PRN Reason: Hypoglycemia Protocol Stop: 03/25/20 16:57 Glucose (Glucose 10 Tabs/Tube) 4 - 8 tabs PO UD PRN; Protocol PRN Reason: Hypoglycemia Protocol Stop: 03/25/20 16:57 Glucose (Glucose 40% Gel 15 Gm Tube) 15 - 30 gm PO UD PRN; Protocol PRN Reason: Hypoglycemia Protocol Stop: 03/25/20 16:57 Hydralazine HCl (Hydralazine Tab 50 Mg Tab) 100 mg PO TID [facility] Stop: 03/25/20 20:59 Last Admin: 02/25/20 13:32 Dose: 100 mg Documented by: Diltiazem HCl 125 mg/ Dextrose 125 mls @ 0 mls/hr IV .Q0M [facility]; Protocol Stop: 03/25/20 12:59 Last Titration: 02/24/20 23:14 Dose: 0 mg/hr, 0 mls/hr Documented by: Heparin Sodium/Dextrose (Heparin Sodium/Dextrose) 25,000 units in 500 mls @ 28 mls/hr IV .[id number] [facility]; Protocol Stop: 03/25/20 16:57 Last Admin: 02/25/20 11:20 Dose: 1,400 units/hr, 28 mls/hr Documented by: Insulin Aspart (Insulin Aspart 100 Units/Ml 3 Ml Pen) 0 units SC ACHS [facility] Stop: 03/25/20 17:44 Last Admin: 02/25/20 11:13 Dose: Not Given Documented by: Lorazepam (Lorazepam 1 Mg Tab) 1 mg PO ONE PRN; Protocol PRN Reason: EtoH Withdrawal AWSS 6-10 Miscellaneous (Carbohydrates For Hypoglycemia ) 15 - 30 gm PO UD PRN PRN Reason: Hypoglycemia Protocol Stop: 03/25/20 16:57 Pantoprazole Sodium (Pantoprazole 40 Mg Tab) [facility] [place]: 03/26/20 08:59 Last Admin: 02/25/20 08:17 Dose: 40 mg Documented by: Tamsulosin HCl (Tamsulosin Hcl 0.4 Mg Cap) 0.4 mg PO HS [facility] Stop: 03/25/20 20:59 Last Admin: 02/24/20 21:11 Dose: 0.4 mg Documented by: Thiamine HCl (Thiamine Hcl 100 Mg Tab) 100 mg PO QAM [facility] Stop: 03/25/20 16:57 Last Admin: 02/25/20 08:16 Dose: 100 mg Documented by: Vitamin D (Cholecalciferol 1,000 Units 25 Mcg Tab) 1,000 units PO DAILY [facility] Stop: 03/26/20 08:59 Last Admin: 02/25/20 08:16 Dose: 1,000 units Documented by:
--- NOTE | 2020-02-25 17:10 | Hospitalist Progress Note ---
Date of Service February 25, 2020 Assessment & Plan (1) Atrial fibrillation with RVR: A. fib RVR Unclear duration of onset Asymptomatic ECHO: EF 50 to 55%. Right ventricular systolic function is normal. Left atrium is mildly dilated. Right atrial size is normal. There is mild mitral regu rgitation. Cardizem drip discontinued Continue carvedilol increased to 12.5 mg twice daily On IV heparin--plan to transition to [facility] after insurance covers Appreciate cardiology input Likely needs elective cardioversion as outpatient Needs follow-up with cardiology upon discharge Monitor and replace electrolytes as needed (2) Abnormal CT of the abdomen: --CT ABD:Unremarkable CT urogram assessment of the kidneys and ureters. Prostatomegaly with evidence of chronic bladder outlet obstruction. The gallbladder wall is mildly thickened and choledocholithiasis is suspected. No surrounding inflammation is seen and clinical correlation will be required. Consider GI follow-up. Mild to moderate colonic diverticulosis without CT evidence of acute diverticulitis. --Asymptomatic currently Advised to follow-up with GI as outpatient (3) BPH loc w urin obs/LUTS: Continue Flomax Follows with urology as outpatient (4) Hypertension: Continue amlodipine, carvedilol, Enalapril (5) Diabetes: HOLD Metformin x [address] -Sliding scale insulin -Diabetic diet (6) Hyperlipidemia: - Continue Lipitor (7) Gout: - Continue allopurinol DVT Px: On IV Heparin Code Status Full Code Disposition Plan to discharge home when stable Admission and Anticipated Discharge Date Admission Date: February 24, 2020 Subjective Patient is seen and examined at bedside Denies chest pain, shortness of breath, dizziness, nausea, abdominal pain Remains in A. fib Currently on IV heparin, no bleeding issues Eager to get discharged Discussed with cardiology today Review of Systems Review of Systems: All systems reviewed & are unremarkable except as noted in HPI & below Physical Exam Physical Exam: Physical Exam: Vitals signs as noted above General Appearance:Moderately built and nourished, no apparent distress Head: normocephalic, Atraumatic Eyes: normal inspection, EOMI Neck: supple, Trachea midline Respiratory/Chest: Normal breath sounds, CTA, No accessory muscle use Cardiovascular: Irregularly irregular, No murmur Abdomen/GI:Soft, Non tender, Bowel sounds present Extremities/Musculoskelatal:normal inspection, Trace edema Neurologic/Psych:AAOX3, grossly no focal neurological deficits Skin: normal color, warm Results & Data Results & Data ([facility]) Vital Signs (Past 12 Hours) Vital Signs Temp Pulse Pulse Resp BP Pulse Ox 02/25/20 15:01 36.7 C 107 H 81 18 125/87 97 02/25/20 10:53 36.5 C 101 H 18 150/85 H 99 02/25/20 09:01 94 H 02/25/20 07:45 36.7 C 94 H 18 146/91 H 97 Laboratory Results Short CBC 02/25/20 Range/Units 08:49 WBC 3.89 L (4.8-10.8) K/uL Hgb 12.3 L (14.0-18.0) g/dL Hct 36.8 L (42-52) % Plt Count 128 L (130-400) K/uL BMP 02/25/20 08:49 Sodium 141 Potassium 3.6 Chloride 107 Carbon Dioxide 26 BUN 9 Creatinine 0.97 Glucose 204 H Calcium 8.5 Liver Function 02/25/20 Range/Units 08:49 Total Bilirubin 0.6 (0.2-1) mg/dl AST 23 (15-37) U/L ALT 26 (12-78) U/L Alkaline Phosphatase 55 (45-117) U/L Albumin 3.0 L (3.4-5.0) gm/dl (1) Hypertension Hypertension type: essential hypertension Qualified Code(s): I10 - Essential (primary) hypertension (2) Diabetes Diabetes mellitus type: type 2 Diabetes mellitus shelter insulin use: without terminal operator use Diabetes mellitus complication status: with neurologic complications Diabetes mellitus complication detail: with polyneuropathy Qualified Code(s): E11.42 - Type 2 diabetes mellitus with diabetic polyneuropathy (3) Hyperlipidemia Hyperlipidemia type: unspecified Qualified Code(s): E78.5 - Hyperlipidemia, unspecified (4) Gout Gout site: unspecified site Gout etiology: unspecified cause Chronicity: unspecified Qualified Code(s): M10.9 - Gout, unspecified
[2020-02-25] MEDS: TAMSULOSIN HCL 0.4 MG CAP PO SCH (20:52)
[2020-02-26] MEDS: HEPARIN SODIUM/DEXTROSE 25,000 UNITS/500 ML BAG IV SCH (05:19)
[2020-02-26 06:55] LABS: Partial Thromboplastin Ratio 1.8
[2020-02-26 07:02] LABS: Partial Thromboplastin Time 51.4 Seconds (21.0-31.0)
[2020-02-26 07:04] LABS: BUN Creatinine Ratio 9.5 (10-20); Calcium 8.9 mg/dl (8.5-10.1); Creatinine Clr Calc Pharmacy 79.3 ml/min; Est GFR (African American) 85.5; Est GFR (Non-African American) 73.8; Magnesium 1.7 mg/dl (1.8-2.4); Potassium 3.5 mmol/L (3.5-5.1)
[2020-02-26] MEDS: hydrALAZINE TAB 50 MG TAB PO SCH ×2 (08:01→13:10)
[2020-02-26] MEDS: THIAMINE HCL 100 MG TAB PO SCH (08:01)
[2020-02-26] MEDS: CYANOCOBALAMIN 500 MCG TABLET (VITAMIN B-12) PO SCH (08:01)
[2020-02-26] MEDS: ASPIRIN 81 MG ECTAB PO SCH (08:01)
[2020-02-26] MEDS: CHOLECALCIFEROL 1,000 UNITS 25 MCG TAB PO SCH (08:01)
[2020-02-26] MEDS: ATORVASTATIN 20 MG TAB PO SCH (08:01)
[2020-02-26] MEDS: FOLIC ACID 1 MG TAB PO SCH (08:01)
[2020-02-26] MEDS: amLODIPine BESYLATE 5 MG TAB PO SCH (08:01)
[2020-02-26] MEDS: ENALAPRIL MALEATE 10 MG TAB PO SCH (08:02)
[2020-02-26] MEDS: PANTOprazole 40 MG TAB PO SCH (08:02)
[2020-02-26] MEDS: FUROSEMIDE 20 MG TAB PO SCH (08:02)
[2020-02-26] MEDS: allopurinoL 100 MG TAB PO SCH (08:02)
[2020-02-26] MEDS: carvediloL 12.5 MG TAB PO SCH (08:02)
[2020-02-26] MEDS: INSULIN ASPART 100 UNITS/ML 3 ML PEN SC SCH ×2 (08:15→12:43)
[2020-02-26] MEDS ORDERED: POTASSIUM CHLORIDE CRTAB 20 MEQ TABCR PO ONE (09:30)
[2020-02-26] MEDS ORDERED: MAGNESIUM SULFATE / D5W 1 GM/100 ML BAG IV ONE (09:45)
--- NOTE | 2020-02-26 12:06 | Hospitalist Progress Note ---
Date of Service February 26, 2020 Assessment & Plan (1) Atrial fibrillation with RVR: A. fib RVR Unclear duration of onset Asymptomatic ECHO: EF 50 to 55%. Right ventricular systolic function is normal. Left atrium is mildly dilated. Right atrial size is normal. There is mild mitral regu rgitation. Cardizem drip discontinued Continue carvedilol increased to 12.5 mg twice daily On IV heparin--plan to transition to Eliquis today Appreciate cardiology input Likely needs elective cardioversion as outpatient Needs follow-up with cardiology upon discharge Monitor and replace electrolytes as needed Hypomagnesemia Replace electrolytes as needed (2) Abnormal CT of the abdomen: --CT ABD:Unremarkable CT urogram assessment of the kidneys and ureters. Prostatomegaly with evidence of chronic bladder outlet obstruction. The gallbladder wall is mildly thickened and choledocholithiasis is suspected. No surrounding inflammation is seen and clinical correlation will be required. Consider GI follow-up. Mild to moderate colonic diverticulosis without CT evidence of acute diverticulitis. --Asymptomatic currently Advised to follow-up with GI as outpatient (3) BPH loc w urin obs/LUTS: Continue Flomax Follows with urology as outpatient (4) Hypertension: Continue amlodipine, carvedilol, Enalapril (5) Diabetes: HOLD Metformin x [address] -Sliding scale insulin -Diabetic diet (6) Hyperlipidemia: - Continue Lipitor (7) Gout: - Continue allopurinol DVT Px: Eliquis Code Status Full Code Disposition Plan to discharge home today Admission and Anticipated Discharge Date Admission Date: February 24, 2020 Subjective Patient is seen and examined at bedside Offers no complaints Eager to get discharged Denies chest pain, dyspnea, dizziness, nausea, abdominal pain, bleeding issues Review of Systems Review of Systems: All systems reviewed & are unremarkable except as noted in HPI & below Physical Exam Physical Exam: Physical Exam: Vitals signs as noted above General Appearance:Moderately built and nourished, no apparent distress Head: normocephalic, Atraumatic Eyes: normal inspection, EOMI Neck: supple, Trachea midline Respiratory/Chest: Normal breath sounds, CTA, No accessory muscle use Cardiovascular: Irregularly irregular, No murmur Abdomen/GI:Soft, Non tender, Bowel sounds present Extremities/Musculoskelatal:normal inspection, Trace edema Neurologic/Psych:AAOX3, grossly no focal neurological deficits Skin: normal color, warm Results & Data Results & Data ([facility]) Vital Signs (Past 12 Hours) Vital Signs Temp Pulse Resp BP Pulse Ox 02/26/20 11:09 37.0 C 81 20 137/79 96 02/26/20 08:11 36.7 C 86 20 161/99 H 96 02/26/20 03:24 36.7 C 71 16 121/82 96 02/26/20 00:31 36.6 C 74 16 148/80 H 95 Laboratory Results [facility] 02/26/20 06:01 Sodium 143 Potassium 3.5 Chloride 110 H Carbon Dioxide 27 BUN 10 Creatinine 1.03 Glucose 136 H Calcium 8.9 (1) Hypertension Hypertension type: essential hypertension Qualified Code(s): I10 - Essential (primary) hypertension (2) Diabetes Diabetes mellitus type: type 2 Diabetes mellitus middle or intermediate school principal insulin use: without care home use Diabetes mellitus complication status: with neurologic co mplications Diabetes mellitus complication detail: with polyneuropathy Qualified Code(s): E11.42 - Type 2 diabetes mellitus with diabetic polyneuropathy (3) Hyperlipidemia Hyperlipidemia type: unspecified Qualified Code(s): E78.5 - Hyperlipidemia, unspecified (4) Gout Gout site: unspecified site Gout etiology: unspecified cause Chronicity: unspecified Qualified Code(s): M10.9 - Gout, unspecified
[2020-02-26] MEDS ORDERED: APIXABAN 5 MG TABLET PO SCH (12:30)
--- NOTE | 2020-02-26 12:56 | Cardiology Progress Note ---
Date of Service February 26, 2020 Assessment & Plan (1) Atrial fibrillation with controlled ventricular response: The patient is doing well and should continue with carvedilol for heart rate control. He will need to go home on anticoagulation. I would prefer Eliquis if his insurance company will allow. Is a previously noted, I have discussed options with the patient and he would prefer to return home and come back in a few weeks for an elective cardioversion after he has been anticoag ulated for several weeks. I do not believe that this is a bad option and I will arrange follow-up through our office. Admission and Anticipated Discharge Date Admission Date: February 24, 2020 Subjective The patient had an uneventful night. He is in a rate controlled atrial fibrillation. Review of Systems Review of Systems: All systems reviewed & are unremarkable except as noted in Subjective Physical Exam Physical Exam: General: no acute distress and stated age Head: normocephalic, no masses, lesions, tenderness or abnormalities Eyes: conjunctiva are pink and non-injected, sclera clear Neck: supple, no adenopathy, no bruits, normal jugular venous pulse, no hepatojugular reflux Chest: normal shape and normal respiratory effort Lungs: clear to auscultation and percussion Cardiac Exam: - irregular rate & rhythm, no murmurs gallops or rubs - normal S1, normal S2 Pulses: 2(+) throughout Abdomen: abdomen soft, non-tender, no abnormal masses and no hepatosplenomegaly Musculoskeletal: no gait disturbance, no joint inflammation, no deforming arthritis Extremities: no edema and no cyanosis Neuro: grossly normal exam Results & Data ([facility]) Vital Signs (Past 12 Hours) Vital Signs Temp Pulse Resp BP Pulse Ox 02/26/20 11:09 37.0 C 81 20 137/79 96 02/26/20 08:11 36.7 C 86 20 161/99 H 96 02/26/20 03:24 36.7 C 71 16 121/82 96 Laboratory Results Laboratory Results - last 24 hr 02/25/20 02/25/20 02/26/20 15:57 20:02 06:01 APTT PTT Ratio Sodium 143 Potassium 3.5 Chloride 110 H Carbon Dioxide 27 Anion Gap 6.0 BUN 10 Creatinine 1.03 Est Cr Clr Drug Dosing 79.3 Est GFR ( Amer) 85.5 Est GFR (Non-Af Amer) 73.8 BUN/Creatinine Ratio 9.5 L Glucose 136 H POC Glucose 158 H 133 H Calcium 8.9 Magnesium 1.7 L 02/26/20 02/26/20 02/26/20 06:01 07:12 11:15 APTT 51.4 H* PTT Ratio 1.8 Sodium Potassium Chloride Carbon Dioxide Anion Gap BUN Creatinine Est Cr Clr Drug Dosing Est GFR ( Amer) Est GFR (Non-Af Amer) BUN/Creatinine Ratio Glucose POC Glucose 148 H 231 H Calcium Magnesium Medications Administered Current Inpatient Medications Allopurinol (Allopurinol 100 Mg Tab) 100 mg PO DAILY LATA Stop: 03/26/20 08:59 Last Admin: 02/26/20 08:02 Dose: 100 mg Documented by: Amlodipine Besylate (Amlodipine Besylate 5 Mg Tab) 10 mg PO DAILY LATA Stop: 03/26/20 08:59 Last Admin: 02/26/20 08:01 Dose: 10 mg Documented by: Apixaban (Apixaban 5 Mg Tablet) 5 mg PO BID LATA Stop: 03/27/20 12:29 Aspirin (Aspirin 81 Mg Ectab) 81 mg PO DAILY LATA Stop: 03/26/20 08:59 Last Admin: 02/26/20 08:01 Dose: 81 mg Documented by: Atorvastatin Calcium (Atorvastatin 20 Mg Tab) 20 mg PO DAILY LATA Stop: 03/26/20 08:59 Last Admin: 02/26/20 08:01 Dose: 20 mg Documented by: Carvedilol (Carvedilol 12.5 Mg Tab) 12.5 mg PO BID LATA Stop: 03/26/20 09:29 Last Admin: 02/26/20 08:02 Dose: 12.5 mg Documented by: Cyanocobalamin (Cyanocobalamin 500 Mcg Tablet (Vitamin B-12)) 1,000 mcg PO DAILY LATA Stop: 03/26/20 08:59 Last Admin: 02/26/20 08:01 Dose: 1,000 mcg Documented by: Dextrose (Dextrose 50% 50 Ml Syringe) 25 - 50 ml IV UD PRN; Protocol PRN Reason: Hypoglycemia Protocol Stop: 03/25/20 16:57 Enalapril Maleate (Enalapril Maleate 10 Mg Tab) 40 mg PO DAILY LATA Stop: 03/26/20 08:59 Last Admin: 02/26/20 08:02 Dose: 40 mg Documented by: Folic Acid (Folic Acid 1 Mg Tab) 1 mg PO QAM [facility] Stop: 03/25/20 16:57 Last Admin: 02/26/20 08:01 Dose: 1 mg Documented by: Furosemide (Furosemide 20 Mg Tab) 20 mg PO DAILY [facility] Stop: 03/26/20 08:59 Last Admin: 02/26/20 08:02 Dose: 20 mg Documented by: Glucagon (Glucagon For Inj 1 Mg Vial) 1 mg SQ UD PRN; Protocol PRN Reason: Hypoglycemia Protocol Stop: 03/25/20 16:57 Glucose (Glucose 10 Tabs/Tube) 4 - 8 tabs PO UD PRN; Protocol PRN Reason: Hypoglycemia Protocol Stop: 03/25/20 16:57 Glucose (Glucose 40% Gel 15 Gm Tube) 15 - 30 gm PO UD PRN; Protocol PRN Reason: Hypoglycemia Protocol Stop: 03/25/20 16:57 Hydralazine HCl (Hydralazine Tab 50 Mg Tab) 100 mg PO TID [facility] Stop: 03/25/20 20:59 Last Admin: 02/26/20 08:01 Dose: 100 mg Documented by: Insulin Aspart (Insulin Aspart 100 Units/Ml 3 Ml Pen) 0 units SC ACHS [facility] Stop: 03/25/20 17:44 Last Admin: 02/26/20 12:43 Dose: Not Given Documented by: Lorazepam (Lorazepam 1 Mg Tab) 1 mg PO ONE PRN; Protocol PRN Reason: EtoH Withdrawal AWSS 6-10 Miscellaneous (Carbohydrates For Hypoglycemia ) 15 - 30 gm PO UD PRN PRN Reason: Hypoglycemia Protocol Stop: 03/25/20 16:57 Pantoprazole Sodium (Pantoprazole 40 Mg Tab) 40 mg PO QAM [facility] Stop: 03/26/20 08:59 Last Admin: 02/26/20 08:02 Dose: 40 mg Documented by: Tamsulosin HCl (Tamsulosin Hcl 0.4 Mg Cap) 0.4 mg PO HS [facility] Stop: 03/25/20 20:59 Last Admin: 02/25/20 20:52 Dose: 0.4 mg Documented by: Thiamine HCl (Thiamine Hcl 100 Mg Tab) 100 mg PO QAM [facility] Stop: 03/25/20 16:57 Last Admin: 02/26/20 08:01 Dose: 100 mg Documented by: Vitamin D (Cholecalciferol 1,000 Units 25 Mcg Tab) 1,000 units PO DAILY [facility] Stop: 03/26/20 08:59 Last Admin: 02/26/20 08:01 Dose: 1,000 units Documented by:
--- NOTE | 2020-02-26 12:59 | Discharge Summary ---
Date of Service February 26, 2020 Admission HPI Per Admitting Provider This is a 69 y/o male with a PMH of DM2 with polyneuropathy, HTN, traumatic rupture of right Achilles tendon, gout, and alcohol use who presented to the ED today after he was found to have a thickened GB wall with potential choledocholithiasis on CT done outpatient today. In the ED, pt was found to be in new-onset atrial fibrillation with RVR in the 140s. In the ED, pt currently reports feeling well. He is on a cardizem gtt with improvement in the rate to the 90s to low 100s. He denies chest pain, palpitations, sensation of heart racing, dyspnea, syncope or feeling light-headed at present. He did have a transient episode of lightheadedness around Thanksgiving but this resolved within a few minutes without intervention. He does not recall ever being diagnosed with atrial fibrillation before. He also denies any GI symptoms including nausea, vomiting, abdominal pain, change in bowel habits, acholic stools or hematochezia. Appetite is at baseline. Denies prior history of gallbladder problems. He does have a history of diabetes but does not routinely check his blood sugar at home. He does drink three whiskeys daily, smokes the occasional cigar (last time today). Principal Diagnosis Atrial fibrillation with RVR Choledocholithiasis Discharge Data Allergies Allergy/AdvReac Type Severity Reaction Status Date / Time cephalexin [From Keflex] Allergy Unknown Unknown Verified 02/24/20 13:35 amoxicillin AdvReac Severe Gastrointestinal Verified 02/24/20 13:35 Upset Tetanus Vaccines and Toxoid AdvReac Fever Verified 02/24/20 13:35 Consultations 02/24/20 13:22 ED Decision to Admit Stat 02/24/20 15:00 Consult Cardiology Routine Hospital Course (1) Atrial fibrillation with RVR: A. fib RVR Unclear duration of onset Asymptomatic ECHO: EF 50 to 55%. Right ventricular systolic function is normal. Left atrium is mildly dilated. Right atrial size is normal. There is mild mitral regurgitation. Cardizem drip discontinued Continue carvedilol increased to 12.5 mg twice daily On IV heparin--plan to transition to Eliquis today Appreciate cardiology input Likely needs elective cardioversion as outpatient Needs follow-up with cardiology upon discharge Monitor and replace electrolytes as needed Hypomagnesemia Replace electrolytes as needed (2) Abnormal CT of the abdomen: --CT ABD:Unremarkable CT urogram assessment of the kidneys and ureters. Prostatomegaly with evidence of chronic bladder outlet obstruction. The gallbladder wall is mildly thickened and choledocholithiasis is suspected. No surrounding inflammation is seen and clinical correlation will be required. Consider GI follow-up. Mild to moderate colonic diverticulosis without CT evidence of acute diverticulitis. --Asymptomatic currently Advised to follow-up with GI as outpatient (3) BPH loc w urin obs/LUTS: Continue Flomax Follows with urology as outpatient (4) Hypertension: Continue amlodipine, carvedilol, Enalapril (5) Diabetes: HOLD Metformin x [address] -Sliding scale insulin -Diabetic diet (6) Hyperlipidemia: - Continue Lipitor (7) Gout: - Continue allopurinol DVT Px: Eliquis Code Status Full Code Disposition Plan to discharge home today Total Time Total Time Spent Total Time Spent (In Minutes): 38 minutes Total Time Includes: Examination of the Patient, Discharge Planning, Medication Reconciliation, Communication With Other Providers and Other Discharge Plan Discharge Items Patient Disposition: Home - Self-Care Reason For Visit: AFIB WITH RVR Discharge Diagnosis: Atrial fibrillation with RVR Choledocholithiasis Activity: Per Instructions section Exercise/Sports: Gradually increase as tolerated Non-emergency contact: Primary Care Provider, Food Checker and Tassel Making Machine Operator Call non-emergency contact if: you have any medication questions, your symptoms worsen, your pain is not controlled, your pain is worsening, your pain is unusual for you, your pain is concerning for you and you have a fever Follow-up/Referrals: Eloy Mcgraw MD [Primary Care Provider] - (Date & Time 03/02/2020 10:00 AM Provider Eloy Mcgraw MD Department Family Practice [facility] ) Diet: Carb Consistent or DM2 and Heart Healthy Addtl Attending Provider Instructions: Follow up with your Primary Care Physician on 03/02/2020 10:00 AM Follow up with your Food Checker Reba Urena in 2 weeks as recommended Follow up with your Tassel Making Machine Operator for further evaluation of gall bladder wall thickening and choledocholithiasis--Incidentally noted on CT scan Get Blood test (Basic Metabolic Panel and Magnesium levels) in 1 week and follow up with your physician Seek immediate medical attention if your symptoms reoccur or worsen Pending Studies at Discharge: No Stand-Alone Forms: My [facility], Smoking Cessation Medications and DC Order Prescriptions: New Eliquis 5 mg Tablet 5 mg PO BID Qty: 60 RF: 1 carvedilol 12.5 mg Tablet 12.5 mg PO BID Qty: 60 RF: 1 Continued atorvastatin [Lipitor] 20 mg tablet 20 mg PO DAILY RF: 0 cyanocobalamin (vitamin B-12) [Vitamin B-12] 1,000 mcg Tablet 1,000 mcg PO DAILY RF: 0 allopurinol [Zyloprim] 100 mg tablet 100 mg PO DAILY RF: 0 amlodipine [Norvasc] 10 mg tablet 10 mg PO DAILY RF: 0 hydralazine 100 mg tablet 100 mg PO TID RF: 0 metformin [Glucophage] 1,000 mg tablet 1,000 mg PO BID RF: 0 omeprazole 20 mg capsule,delayed release(DR/EC) 20 mg PO QAM RF: 0 furosemide [Lasix] 20 mg tablet 20 mg PO DAILY RF: 0 epinephrine [EpiPen] 0.3 mg/0.3 mL Auto-Injector 0.3 mg IM UD PRN (Reason: Allergic Reaction) RF: 0 benazepril [Lotensin] 40 mg tablet 40 mg PO DAILY RF: 0 cholecalciferol (vitamin D3) [Vitamin D3] 1,000 unit Capsule 1,000 unit PO DAILY RF: 0 tadalafil [Cialis] 5 mg tablet 5 mg PO UD PRN (Reason: before sex) RF: 0 thiamine mononitrate (vit B1) [Vitamin B-1 (mononitrate)] 100 mg tablet 100 mg PO DAILY RF: 0 folic acid 1 mg tablet 1 mg PO DAILY RF: 0 aspirin [Aspirin Low Dose] 81 mg Tablet,Delayed Release (Dr/Ec) 81 mg PO DAILY RF: 0 tamsulosin 0.4 mg capsule 0.4 mg PO HS RF: 0 Discontinued carvedilol [Coreg] 6.25 mg tablet 6.25 mg PO BID RF: 0 Discharge Orders: Discharge Order (Routine); Ordered 02/26/20 Ordered By: Eduardo Haddad Admission Data Admit Date/Time: 02/24/20 13:53 Attending Provider: Eduardo Haddad Admit Provider: Bella Pena Primary Care Provider: Eloy Mcgraw Other Providers: Sathish Britton ; Bella Pena Other Interventions: Discharge Summary Assessment (RN) Last Done: 02/26/20 13:14
== END 2020-02-26 14:18 | disposition home or self-care (01) | DRG 310 ==
LOC: ED 12:11 → 2S 13:53 → SUATTDRO 13:53 → 2S 16:17

== ENCOUNTER 2020-06-06 10:50 | Inpatient (IN) ==
[2020-06-06] MEDS ORDERED: ALUMINUM/MAGNESIUM SUSP 30 ML UDC PO PRN (11:16)
[2020-06-06] MEDS ORDERED: NITROGLYCERIN SL 0.4 MG/TAB TAB SL PRN (11:16)
[2020-06-06] MEDS ORDERED: ONDANSETRON INJ 2 MG/ML 2 ML VIAL IV PRN (11:16)
[2020-06-06] MEDS ORDERED: POLYETHYLENE (MIRALAX) 17 GM PACK PO PRN (11:16)
[2020-06-06] MEDS ORDERED: ACETAMINOPHEN 325 MG TAB PO PRN (11:16)
[2020-06-06] MEDS ORDERED: MAGNESIUM HYDROXIDE SUSP 30 ML UDC PO PRN (11:16)
--- NOTE | 2020-06-06 11:37 | History & Physical Report ---
Date of Service June 06, 2020 Assessment & Plan (1) Atrial fibrillation: The patient is here for a sotalol load. His carvedilol will be decreased to 12.5 mg twice daily for the start of sotalol. He will receive sotalol 80 mg twice daily. We will check a QT interval daily by EKG. If all goes well the plan is to repeat the cardioversion this hospital admission. Patient is taking Eliquis as an outpatient which she will continue. (2) Diabetes: Continue Metformin. (3) Hypertension: Continue antihypertensive medications. History of Present Illness Chief Complaint: Admission for antiarrhythmic start Primary Care Provider: Eloy Mcgraw MD This is a 69-year-old male patient with history of diabetes and persistent atrial fibrillation. Several weeks ago we attempted a cardioversion which was successful in placing the patient back in sinus mechanism. He returned to the office and was once again in atrial fibrillation. After long discussion explained the risk versus benefits of starting antiarrhythmic medication and repeating the cardioversion, the patient in a shared decision-making process wanted to be admitted to the hospital for the start of sotalol and repeat cardioversion if possible. Allergies Allergy/AdvReac Type Severity Reaction Status Date / Time cephalexin [From Keflex] Allergy Unknown Unknown Verified 06/06/20 11:47 amoxicillin AdvReac Severe Gastrointestinal Verified 06/06/20 11:47 Upset Tetanus Vaccines and Toxoid AdvReac Fever Verified 06/06/20 11:47 Home Medications Medication Instructions Recorded Confirmed Type allopurinol [Zyloprim] 100 mg PO QAM 01/12/19 06/06/20 History amlodipine [Norvasc] 10 mg PO HS 01/12/19 06/06/20 History atorvastatin [Lipitor] 20 mg PO QAM 01/12/19 06/06/20 History benazepril [Lotensin] 40 mg PO QAM 01/12/19 06/06/20 History cholecalciferol (vitamin D3) 1,000 unit PO QAM 01/12/19 06/06/20 History [Vitamin D3] cyanocobalamin (vitamin B-12) 1,000 mcg PO QAM 01/12/19 06/06/20 History [Vitamin B-12] metformin [Glucophage] 1,000 mg PO BID 01/12/19 06/06/20 History tadalafil [Cialis] 5 mg PO UD PRN 01/12/19 06/06/20 History thiamine mononitrate (vit B1) 100 mg PO QAM 01/12/19 06/06/20 History [Vitamin B-1 (mononitrate)] folic acid 1 mg tablet 1 mg PO QAM tab 01/16/19 06/06/20 History Eliquis 5 mg PO BID #60 tab 02/26/20 06/06/20 Rx carvedilol 25 mg PO BID 06/06/20 06/06/20 History epinephrine [EpiPen] 0.3 mg IM Q4H PRN 06/06/20 06/06/20 History furosemide 20 mg PO DAILY 06/06/20 06/06/20 History gabapentin 100 mg PO TID 06/06/20 06/06/20 History hydralazine 100 mg PO BID 06/06/20 06/06/20 History omeprazole 20 mg PO DAILY 06/06/20 06/06/20 History tamsulosin 0.4 mg PO DAILY 06/06/20 06/06/20 History Past Med/Surg History Medical History (Updated 06/06/20 @ 14:37 by Corrie Mackay PA-C) Atrial fibrillation new onset BPH (benign prostatic hyperplasia) Diabetes mellitus, type II GERD (gastroesophageal reflux disease) Gout Hyperlipidemia Hypertension On anticoagulant therapy Type 2 diabetes mellitus with diabetic polyneuropathy NIDDM Surgical History History of colonoscopy History of tonsillectomy S/P ORIF (open reduction internal fixation) fracture Left Ankle/Heel Family History Brother Prostate cancer Father Heart disease Brother Melanoma Social History Smoking Status: Never smoker Tobacco Type: Cigars Cigarettes Per Day: 5-7 cigars weekly; Second Hand Exposure: No; Hx Alcohol Use: Yes Alcohol type: hard liquor Hx Substance Use: No Preferred Language: Salvadorean Communication Ability: Effective Visual Impairment: Limited Hearing Ability: Normal Fibreglass Lay Up Worker Required: No Beliefs That Will Affect Care: None marital status: Current Living Situation: Spouse current occupational status: employed Other Information That Helps Us Care for You: No Feels Safe at Home: Yes Safety Concerns: Feels Safe At This Time Assistive Devices: Glasses Review of Systems Review of Systems: All systems reviewed & are unremarkable except as noted in HPI & below Nothing additional to add Physical Exam Physical Exam: General: no acute distress and stated age Head: normocephalic, no masses, lesions, tenderness or abnormalities Eyes: conjunctiva are pink and non-injected, sclera clear Neck: supple, no adenopathy, no bruits, normal jugular venous pulse, no hepatojugular reflux Chest: normal shape and normal respiratory effort Lungs: clear to auscultation and percussion Cardiac Exam: - irregular rate & rhythm, no murmurs gallops or rubs - normal S1, normal S2 Pulses: 2(+) throughout Abdomen: abdomen soft, non-tender, no abnormal masses and no hepatosplenomegaly Musculoskeletal: no gait disturbance, no joint inflammation, no deforming arthritis Extremities: no edema and no cyanosis Neuro: grossly normal exam Results & Data Results & Data ([facility]) Vital Signs (Past 12 Hours) Vital Signs Temp Pulse Resp BP Pulse Ox 06/06/20 11:00 36.8 C 116 H 18 114/65 96 Code Status & VTE Plan VTE Prophylaxis Plan VTE Prophylaxis will be ordered: Yes (1) Diabetes Diabetes mellitus complication detail: with polyneuropathy Diabetes mellitus complication status: with neurologic complications Diabetes mellitus half-way insulin use: without half-way use Diabetes mellitus type: type 2 Qualified Code(s): E11.42 - Type 2 diabetes mellitus with diabetic polyneuropathy (2) Hypertension Hypertension type: essential hypertension Qualified Code(s): I10 - Essential (primary) hypertension
[2020-06-06 12:39] LABS: Hematocrit (blood only) 40.4 % (42-52); Hemoglobin 13.5 g/dL (14.0-18.0); Mean Corpuscular Hemoglobin 28.5 pg (25-34); Mean Corpuscular Hgb Conc 33.4 g/dL (32-36); Mean Corpuscular Volume 85.2 fL (80-100); Mean Platelet Volume 11.1 fL (7.4-10.4); Platelet Count 168 K/uL (130-400); RDW Coefficient of Variation 13.9 % (11.5-14.5); RDW Standard Deviation 43.4 fL (36.4-46.3); Red Blood Count 4.74 M/uL (4.7-6.1); White Blood Count 6.37 K/uL (4.8-10.8)
[2020-06-06 12:44] LABS: Albumin Level 3.5 gm/dl (3.4-5.0); BUN Creatinine Ratio 9.4 (10-20); Creatinine Clr Calc Pharmacy 71.2 ml/min; Est GFR (African American) 78.1; Est GFR (Non-African American) 67.4; Potassium 4.1 mmol/L (3.5-5.1)
[2020-06-06 12:47] LABS: Bilirubin,Total 0.6 mg/dl (0.2-1); Globulin 3.5 gm/dl (2.5-4.0)
--- NOTE | 2020-06-06 12:48 | Electrocardiogram Report ---
Test Reason : Blood Pressure : / mmHG Vent. Rate : 077 BPM Atrial Rate : 138 BPM P-R Int : 000 ms QRS Dur : 088 ms QT Int : 354 ms P-R-T Axes : 000 -16 032 degrees QTc Int : 400 ms Atrial fibrillation Anteroseptal infarct (cited on or before 03-JUN-2012) Abnormal ECG When compared with ECG of 30-MAR-2020 07:43, Atrial fibrillation has replaced Sinus rhythm Vent. rate has increased BY 29 BPM Serial changes of Anteroseptal infarct Present Confirmed by Dontae Gonzalez ([id number]) on 06/06/2020 12:47:56 PM Referred By: Confirmed By:Dontae Gonzalez
[2020-06-06 12:51] LABS: Influenza A virus by PCR Negative (Neg); Influenza B virus by PCR Negative (Neg); RSV by PCR Negative (Neg); SARS CoV2 RNA(COVID-19) InHosp NEGATIVE (Negative)
[2020-06-06] MEDS ORDERED: DEXTROSE 50% 50 ML SYRINGE IV PRN (13:57)
[2020-06-06] MEDS ORDERED: GLUCAGON FOR INJ 1 MG VIAL SQ PRN (13:57)
[2020-06-06] MEDS ORDERED: GLUCOSE 10 TABS/TUBE PO PRN (13:57)
[2020-06-06] MEDS ORDERED: GLUCOSE 40% GEL 15 GM TUBE PO PRN (13:57)
[2020-06-06] MEDS ORDERED: CARBOHYDRATES FOR HYPOGLYCEMIA PO PRN (13:57)
--- NOTE | 2020-06-06 13:58 | Hospitalist Consultation ---
Date of Consultation June 06, 2020 Assessment & Plan (1) Persistent atrial fibrillation: This is a 69yo M with a PMH of persistent atrial fibrillation, DM II, HTN, history of alcohol abuse and other medical problems listed below who was admitted by Dr. Britton for sotalol loading for persistent A Fib. Sotalol load per by Dr. Britton Decreased Carvedilol dose to 12.5mg BID Checking QT interval with daily ECG Plan to repeat cardioversion during admission Continue Eliquis for anticoagulation Monitor on telemetry (2) Hypertension: Continue Hydralazine, Carvedilol, Benazepril (3) Diabetes mellitus, type II: A1c 6.8 in 02/27. 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 Plan to return home once medically stable. Patient seen in collaboration with Dr. Camacho. Please see addendum. Supervising Physician Co-Signing Physician Notes Care coordinated with Corrie Mackay PA-C. Agree with above note. Patient seen and examined. Please refer to her notes for full details. Vital signs reviewed. Physical exam: General exam: Alert and oriented. Not in acute distress. CVS: S1 and S2 heard, regular rate and rhythm, no murmurs. RS: Clear to auscultation, no wheezing or crackles. ABD: Soft, bowel sounds present, nontender, no distention. RESIDENTIAL COORDINATOR: Nonfocal. EXT: No edema, no erythema. Labs: Reviewed. Assessment and plan: Admitted for sotalol loading. A fib started on sotalol qt monitoring coreq dose adjustment on eliquis cardiology to optimize meds DM iss will follow Other diagnosis and plan of care as per Corrie Mackay PA-C. Tobi aclles MD. History of Present Illness Reason for Consultation: diabetes mgmt Attending Physician: Sathish Britton DO History of Present Illness This is a 69yo M with a PMH of persistent atrial fibrillation, DM II, HTN, history of alcohol abuse and other medical problems listed below who was admitted by Dr. Britton for sotalol loading for persistent A Fib. Underwent a cardioversion several weeks ago that successfully converted patient into sinus rhythm. When he returned to the office which was successful in placing the patient back in sinus mechanism. He has since returned to the office and was once again in atrial fibrillation. Was admitted by way of ED for sotalol loading and repeat cardioversion if possible. Seen on the floor in 238-1. Feeling well. Denies any lightheadedness, visual changes, chest pain or palpitations. No SOB. No nausea, vomiting, abdominal paim, dysuria, hematuria or diarrhea. Only new medication is gabapentin. Has not been drinking any alcohol over Lent. Allergies Allergy/AdvReac Type Severity Reaction Status Date / Time cephalexin [From Keflex] Allergy Unknown Unknown Verified 06/06/20 11:47 amoxicillin AdvReac Severe Gastrointestinal Verified 06/06/20 11:47 Upset Tetanus Vaccines and Toxoid AdvReac Fever Verified 06/06/20 11:47 Home Medications Medication Instructions Recorded Confirmed Type allopurinol [Zyloprim] 100 mg PO QAM 01/12/19 06/06/20 History amlodipine [Norvasc] 10 mg PO HS 01/12/19 06/06/20 History atorvastatin [Lipitor] 20 mg PO QAM 01/12/19 06/06/20 History benazepril [Lotensin] 40 mg PO QAM 01/12/19 06/06/20 History cholecalciferol (vitamin D3) 1,000 unit PO QAM 01/12/19 06/06/20 History [Vitamin D3] cyanocobalamin (vitamin B-12) 1,000 mcg PO QAM 01/12/19 06/06/20 History [Vitamin B-12] metformin [Glucophage] 1,000 mg PO BID 01/12/19 06/06/20 History tadalafil [Cialis] 5 mg PO UD PRN 01/12/19 06/06/20 History thiamine mononitrate (vit B1) 100 mg PO QAM 01/12/19 06/06/20 History [Vitamin B-1 (mononitrate)] folic acid 1 mg tablet 1 mg PO QAM tab 01/16/19 06/06/20 History Eliquis 5 mg PO BID #60 tab 02/26/20 06/06/20 Rx carvedilol 25 mg PO BID 06/06/20 06/06/20 History epinephrine [EpiPen] 0.3 mg IM Q4H PRN 06/06/20 06/06/20 History furosemide 20 mg PO DAILY 06/06/20 06/06/20 History gabapentin 100 mg PO TID 06/06/20 06/06/20 History hydralazine 100 mg PO BID 06/06/20 06/06/20 History omeprazole 20 mg PO DAILY 06/06/20 06/06/20 History tamsulosin 0.4 mg PO DAILY 06/06/20 06/06/20 History Patient History Medical History (Updated 06/06/20 @ 14:37 by Corrie Mackay PA-C) Atrial fibrillation new onset BPH (benign prostatic hyperplasia) Diabetes mellitus, type II GERD (gastroesophageal reflux disease) Gout Hyperlipidemia Hypertension On anticoagulant therapy Type 2 diabetes mellitus with diabetic polyneuropathy NIDDM Surgical History History of colonoscopy History of tonsillectomy S/P ORIF (open reduction internal fixation) fracture Left Ankle/Heel Family History Brother Prostate cancer Father Heart disease Brother Melanoma Social History Smoking Status: Never smoker Tobacco Type: Cigars Cigarettes Per Day: 5-7 cigars weekly; Second Hand Exposure: No; Hx Alcohol Use: Yes Alcohol type: hard liquor Hx Substance Use: No Preferred Language: Maldivian Communication Ability: Effective Visual Impairment: Limited Hearing Ability: Normal 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 Physical Exam Physical Exam: General Appearance: WD/WN, vitals as above, NAD, sitting up in bed, pleasant, conversing easily Head: normocephalic, atraumatic Eyes: normal inspection, PERRL, conjunctivae normal, anicteric sclerae ENT: external ear and nose normal, oropharynx normal Neck: normal visual inspection, trachea midline, no thyromegaly Respiratory: normal respiratory effort, lungs clear to auscultation, no wheeze, rales, rhonchi. No accessory muscle use Cardiovascular: irregular rate & rhythm, no murmur appreciated, normal peripheral pulses, no BLE edema. Vessels: no JVD Chest: normal inspection of chest Abdomen/GI: normal bowel sounds, soft, nontender, no hepatosplenomegaly Extremities/Musculoskeletal: no cyanosis or clubbing, extremities motor strength 5/5 Neurologic: PERRL, EOMI, accommodation nl, no face palsy, no dysarthria, CN's II-XI intact bilaterally and moves all extremities Psychiatric: A+Ox3, euthymic affect Skin: no rashes, normal color, warm/dry Results & Data Results & Data ([facility]) Vital Signs (Past 12 Hours) Vital Signs Temp Pulse Resp BP Pulse Ox 06/06/20 13:31 88 11 L 96 06/06/20 13:30 88 13 138/93 96 06/06/20 13:01 81 14 98 06/06/20 13:00 79 12 136/85 97 06/06/20 12:31 86 12 99 06/06/20 12:30 89 18 140/85 98 06/06/20 12:01 79 16 96 06/06/20 12:00 89 145/74 H 97 06/06/20 11:31 66 12 97 06/06/20 11:30 86 12 131/75 98 06/06/20 11:13 79 10 L 134/84 98 06/06/20 11:12 92 H 26 H 06/06/20 11:00 36.8 C 116 H 18 114/65 96 Laboratory Results Short CBC 06/06/20 Range/Units 11:13 WBC 6.37 (4.8-10.8) K/uL Hgb 13.5 L (14.0-18.0) g/dL Hct 40.4 L (42-52) % Plt Count 168 (130-400) K/uL BMP 06/06/20 11:13 Sodium 140 Potassium 4.1 Chloride 107 Carbon Dioxide 29 BUN 10 Creatinine 1.11 Glucose 199 H Calcium 9.0 Liver Function 06/06/20 Range/Units 11:13 Total Bilirubin 0.6 (0.2-1) mg/dl AST 14 L (15-37) U/L ALT 25 (12-78) U/L Alkaline Phosphatase 61 (45-117) U/L Albumin 3.5 (3.4-5.0) gm/dl (1) Gout Chronicity: unspecified Gout etiology: unspecified cause Gout site: unspecified site Qualified Code(s): M10.9 - Gout, unspecified (2) Hyperlipidemia Hyperlipidemia type: unspecified Qualified Code(s): E78.5 - Hyperlipidemia, unspecified (3) Hypertension Hypertension type: essential hypertension Qualified Code(s): I10 - Essential (primary) hypertension
[2020-06-06] MEDS ORDERED: MAGNESIUM SULFATE / D5W 1 GM/100 ML BAG IV ONE (14:45)
[2020-06-06] MEDS: INSULIN ASPART 100 UNITS/ML 3 ML PEN SC SCH ×2 (16:50→20:21)
[2020-06-06] MEDS: SOTALOL HCL 80 MG TAB PO SCH (16:55)
[2020-06-06] MEDS ORDERED: metFORMIN HCL 500 MG TAB PO SCH (17:00)
[2020-06-06] MEDS: TAMSULOSIN HCL 0.4 MG CAP PO SCH (19:51)
[2020-06-06] MEDS: carvediloL 12.5 MG TAB PO SCH (19:51)
[2020-06-06] MEDS: APIXABAN 5 MG TABLET PO SCH (19:51)
[2020-06-06] MEDS: hydrALAZINE TAB 50 MG TAB PO SCH (19:52)
[2020-06-06] MEDS ORDERED: carvediloL 12.5 MG TAB PO SCH (21:00)
[2020-06-06] MEDS ORDERED: APIXABAN 5 MG TABLET PO SCH (21:00)
[2020-06-06] MEDS ORDERED: amLODIPine BESYLATE 5 MG TAB PO SCH (21:00)
[2020-06-06] MEDS ORDERED: APIXABAN 2.5 MG TAB PO SCH (21:00)
[2020-06-06] MEDS ORDERED: hydrALAZINE TAB 50 MG TAB PO SCH (21:00)
[2020-06-06] MEDS: GABAPENTIN 100 MG CAP PO SCH (21:39)
[2020-06-07 07:03] LABS: Hematocrit (blood only) 36.2 % (42-52); Hemoglobin 11.9 g/dL (14.0-18.0); Mean Corpuscular Hemoglobin 28.1 pg (25-34); Mean Corpuscular Hgb Conc 32.9 g/dL (32-36); Mean Corpuscular Volume 85.4 fL (80-100); Mean Platelet Volume 10.3 fL (7.4-10.4); Platelet Count 133 K/uL (130-400); RDW Coefficient of Variation 13.9 % (11.5-14.5); RDW Standard Deviation 43.4 fL (36.4-46.3); Red Blood Count 4.24 M/uL (4.7-6.1); White Blood Count 5.95 K/uL (4.8-10.8)
[2020-06-07 07:36] LABS: Estimated Average Glucose 148 mg/dl; Hemoglobin A1C 6.8 % (4.5-5.6)
[2020-06-07] MEDS: INSULIN ASPART 100 UNITS/ML 3 ML PEN SC SCH ×4 (07:40→20:23)
[2020-06-07 07:46] LABS: Calcium 8.3 mg/dl (8.5-10.1); Creatinine Clr Calc Pharmacy 79.8 ml/min; Est GFR (African American) 85.5; Est GFR (Non-African American) 73.8; Magnesium 1.9 mg/dl (1.8-2.4); Potassium 3.6 mmol/L (3.5-5.1)
[2020-06-07] MEDS: THIAMINE HCL 100 MG TAB PO SCH (08:46)
[2020-06-07] MEDS: ATORVASTATIN 20 MG TAB PO SCH (08:46)
[2020-06-07] MEDS: PANTOprazole 40 MG TAB PO SCH (08:46)
[2020-06-07] MEDS: ENALAPRIL MALEATE 10 MG TAB PO SCH (08:46)
[2020-06-07] MEDS: FUROSEMIDE 20 MG TAB PO SCH (08:46)
[2020-06-07] MEDS: GABAPENTIN 100 MG CAP PO SCH ×3 (08:46→20:20)
[2020-06-07] MEDS: CYANOCOBALAMIN 500 MCG TABLET (VITAMIN B-12) PO SCH (08:46)
[2020-06-07] MEDS: allopurinoL 100 MG TAB PO SCH (08:46)
[2020-06-07] MEDS: FOLIC ACID 1 MG TAB PO SCH (08:46)
[2020-06-07] MEDS: amLODIPine BESYLATE 5 MG TAB PO SCH (08:46)
[2020-06-07] MEDS: SOTALOL HCL 80 MG TAB PO SCH ×2 (08:47→20:19)
[2020-06-07] MEDS: hydrALAZINE TAB 50 MG TAB PO SCH ×2 (08:47→20:20)
[2020-06-07] MEDS: carvediloL 12.5 MG TAB PO SCH ×2 (08:47→20:21)
[2020-06-07] MEDS: APIXABAN 5 MG TABLET PO SCH ×2 (08:47→20:21)
[2020-06-07] MEDS: CHOLECALCIFEROL 1,000 UNITS 25 MCG TAB PO SCH (08:47)
[2020-06-07] MEDS ORDERED: PRILOSEC 20 MG PO SCH (09:00)
[2020-06-07] MEDS ORDERED: allopurinoL 100 MG TAB PO SCH (09:00)
[2020-06-07] MEDS ORDERED: ATORVASTATIN 20 MG TAB PO SCH (09:00)
[2020-06-07] MEDS ORDERED: TAMSULOSIN HCL 0.4 MG CAP PO SCH (09:00)
[2020-06-07] MEDS ORDERED: FUROSEMIDE 20 MG TAB PO SCH (09:00)
[2020-06-07] MEDS ORDERED: FOLIC ACID 1 MG TAB PO SCH (09:00)
[2020-06-07] MEDS ORDERED: [UNRECOGNIZED DRUG - OTHER] PO SCH (09:00)
--- NOTE | 2020-06-07 09:02 | Hospitalist Progress Note ---
Date of Service June 07, 2020 Assessment & Plan (1) Persistent atrial fibrillation: Sotalol load per by Dr. Britton Decreased Carvedilol dose to 12.5mg BID Checking QT interval with daily ECG Plan to repeat cardioversion during admission if no spontaneous conversion Continue Eliquis for anticoagulation Monitor on telemetry (2) Hypertension: Continue Hydralazine, Carvedilol, Benazepril (3) Diabetes mellitus, type II: A1c 6.8 in 02/27. Repeat a1c in AM Hold home agents SSI while in-patient BSG AC HS (4) Hyperlipidemia: Continue statin (5) Gout: Continue allopurinol (6) BPH (benign prostatic hyperplasia): Continue Flomax (7) DVT prophylaxis: DVT Ppx: Eliquis Code status: FULL PCP: Mariluz Dispo: Admitted to PCU. Plan to return home once medically stable. Thank you for this consultation. We will continue to follow this patient throughout the hospital stay. Arlet Clayton DO [facility] Hospitalist Admission and Anticipated Discharge Date Admission Date: June 06, 2020 Subjective 69 yo M with h/o atrial fibrillation with recent unsuccessful cardioversion as outpatient, here for sotalol loading. He is asymptomatic and doing well today Telemetry review reveals persistent atrial fibrillation overnight. Review of Systems Review of Systems: All systems reviewed & are unremarkable except as noted in Subjective Physical Exam Physical Exam: CONSTITUTIONAL: WNWD, vitals as above, generally well- appearing EYES: normal conjunctivae, no scleral icterus ENT: external ear and nose normal, MMM RESPIRATORY: clear to auscultation bilaterally, no crackles, rales or wheezes, normal respiratory effort CARDIOVASCULAR: regular rate and irreg rhythm, S1 and 2 heard without murmurs, gallops or rubs, no JVD, no peripheral edema GASTROINTESTINAL: soft, nontender, nondistended MUSCULOSKELETAL: strength 5/5 throughout, head is normocephalic and atraumatic SKIN: warm and dry NEUROLOGIC: CN 2-12 grossly intact, no sensory deficit, normal cognition, normal speech PSYCHIATRIC: alert cooperative and oriented to person, place and time. Results & Data Results & Data ([facility]) Vital Signs (Past 12 Hours) Vital Signs Temp Pulse Pulse Resp BP Pulse Ox 06/07/20 07:00 92 H 06/07/20 06:59 36.7 C 114 H 20 146/75 H 95 06/07/20 03:15 36.7 C 83 18 128/74 95 06/07/20 00:29 77 06/06/20 23:33 37.0 C 99 H 18 121/74 95 Laboratory Results Short CBC 06/06/20 06/07/20 Range/Units 11:13 06:20 WBC 6.37 5.95 (4.8-10.8) K/uL Hgb 13.5 L 11.9 L (14.0-18.0) g/dL Hct 40.4 L 36.2 L (42-52) % Plt Count 168 133 (130-400) K/uL BMP 06/06/20 06/07/20 11:13 06:20 Sodium 140 141 Potassium 4.1 3.6 Chloride 107 108 H Carbon Dioxide 29 28 BUN 10 11 Creatinine 1.11 1.03 Glucose 199 H 129 H Calcium 9.0 8.3 L Liver Function 06/06/20 Range/Units 11:13 Total Bilirubin 0.6 (0.2-1) mg/dl AST 14 L (15-37) U/L ALT 25 (12-78) U/L Alkaline Phosphatase 61 (45-117) U/L Albumin 3.5 (3.4-5.0) gm/dl Medications Administered Current Inpatient Medications Acetaminophen (Acetaminophen 325 Mg Tab) 650 mg PO Q4H PRN PRN Reason: Pain or Fever Stop: 07/06/20 11:15 Al Hydrox/Mg Hydrox/Simethicone (Aluminum/Magnesium Susp 30 Ml Udc) 15 ml PO Q4H PRN PRN Reason: Dyspepsia Stop: 07/06/20 11:15 Allopurinol (Allopurinol 100 Mg Tab) 100 mg PO DAILY [facility] Stop: 07/07/20 08:59 Last Admin: 06/07/20 08:46 Dose: 100 mg Documented by: Amlodipine Besylate (Amlodipine Besylate 5 Mg Tab) 10 mg PO QAM [facility] Stop: 07/07/20 08:59 Last Admin: 06/07/20 08:46 Dose: 10 mg Documented by: Apixaban (Apixaban 5 Mg Tablet) 5 mg PO BID [facility] Stop: 07/06/20 20:59 Last Admin: 06/07/20 08:47 Dose: 5 mg Documented by: Atorvastatin Calcium (Atorvastatin 20 Mg Tab) 20 mg PO QAM [facility] Stop: 07/07/20 08:59 Last Admin: 06/07/20 08:46 Dose: 20 mg Documented by: Carvedilol (Carvedilol 12.5 Mg Tab) 12.5 mg PO BID [facility] Stop: 07/06/20 20:59 Last Admin: 06/07/20 08:47 Dose: 12.5 mg Documented by: Cyanocobalamin (Cyanocobalamin 500 Mcg Tablet (Vitamin B-12)) 1,000 mcg PO QAM [facility] Stop: 07/07/20 08:59 Last Admin: 06/07/20 08:46 Dose: 1,000 mcg Documented by: Dextrose (Dextrose 50% 50 Ml Syringe) 25 - 50 ml IV UD PRN; Protocol PRN Reason: Hypoglycemia Protocol Stop: 07/06/20 13:56 Enalapril Maleate (Enalapril Maleate 10 Mg Tab) 40 mg PO [facility]; Protocol Stop: 07/07/20 08:59 Last Admin: 06/07/20 08:46 Dose: 40 mg Documented by: Folic Acid (Folic Acid 1 Mg Tab) [facility] [place]: 07/07/20 08:59 Last Admin: 06/07/20 08:46 Dose: 1 mg Documented by: Furosemide (Furosemide 20 Mg Tab) 20 mg PO [facility] Stop: 07/07/20 08:59 Last Admin: 06/07/20 08:46 Dose: 20 mg Documented by: Gabapentin (Gabapentin 100 Mg Cap) 100 mg PO TID [facility] Stop: 07/06/20 20:59 Last Admin: 06/07/20 08:46 Dose: 100 mg Documented by: Glucagon (Glucagon For Inj 1 Mg Vial) 1 mg SQ UD PRN; Protocol PRN Reason: Hypoglycemia Protocol Stop: 07/06/20 13:56 Glucose (Glucose 10 Tabs/Tube) 4 - 8 tabs PO UD PRN; Protocol PRN Reason: Hypoglycemia Protocol Stop: 07/06/20 13:56 Glucose (Glucose 40% Gel 15 Gm Tube) 15 - 30 gm PO UD PRN; Protocol PRN Reason: Hypoglycemia Protocol Stop: 07/06/20 13:56 Hydralazine HCl (Hydralazine Tab 50 Mg Tab) 100 mg PO BID [facility] Stop: 07/06/20 20:59 Last Admin: 06/07/20 08:47 Dose: 100 mg Documented by: Insulin Aspart (Insulin Aspart 100 Units/Ml 3 Ml Pen) 0 units SC ACHS [facility] Stop: 07/06/20 16:29 Last Admin: 06/06/20 20:21 Dose: Not Given Documented by: Magnesium Hydroxide (Magnesium Hydroxide Susp 30 Ml Udc) 30 ml PO Q12H PRN PRN Reason: Constipation Stop: 07/06/20 11:15 Miscellaneous (Carbohydrates For Hypoglycemia ) 15 - 30 gm PO UD PRN PRN Reason: Hypoglycemia Protocol Stop: 07/06/20 13:56 Nitroglycerin (Nitroglycerin Sl 0.4 Mg/Tab Tab) 0.4 mg SL UD PRN PRN Reason: Chest Pain Stop: 07/06/20 11:15 Pantoprazole Sodium (Pantoprazole 40 Mg Tab) 40 mg PO [facility]; Protocol Stop: 07/07/20 08:59 Last Admin: 06/07/20 08:46 Dose: 40 mg Documented by: Polyethylene Glycol (Polyethylene (Miralax) 17 Gm Pack) 17 gm PO DAILY PRN PRN Reason: Constipation Stop: 07/06/20 11:15 Sotalol HCl (Sotalol Hcl 80 Mg Tab) 80 mg PO BID [facility] Stop: 07/06/20 15:59 Last Admin: 06/07/20 08:47 Dose: 80 mg Documented by: Tamsulosin HCl (Tamsulosin Hcl 0.4 Mg Cap) 0.4 mg PO HS [facility] Stop: 07/06/20 20:59 Last Admin: 06/06/20 19:51 Dose: 0.4 mg Documented by: Thiamine HCl (Thiamine Hcl 100 Mg Tab) 100 mg PO [facility] Stop: 07/07/20 08:59 Last Admin: 06/07/20 08:46 Dose: 100 mg Documented by: Vitamin D (Cholecalciferol 1,000 Units 25 Mcg Tab) 1,000 units PO [facility] Stop: 07/07/20 08:59 Last Admin: 06/07/20 08:47 Dose: 1,000 units Documented by: (1) Gout Chronicity: unspecified Gout etiology: unspecified cause Gout site: unspecified site Qualified Code(s): M10.9 - Gout, unspecified (2) Hyperlipidemia Hyperlipidemia type: unspecified Qualified Code(s): E78.5 - Hyperlipidemia, unspecified (3) Hypertension Hypertension type: essential hypertension Qualified Code(s): I10 - Essential (primary) hypertension
--- NOTE | 2020-06-07 09:19 | Cardiology Progress Note ---
Date of Service June 07, 2020 Assessment & Plan (1) Persistent atrial fibrillation: The patient has received a second dose of sotalol. His QTC this morning is 450. He remains in atrial fibrillation with a controlled heart rate. At this point we will continue the sotalol load. (2) Diabetes mellitus, type II: Patient had been on Metformin as an outpatient. Medicine service has been consulted to manage diabetes (3) BPH (benign prostatic hyperplasia): Continue current medications. Admission and Anticipated Discharge Date Admission Date: June 06, 2020 Subjective The patient had an uneventful night. He just received his second sotalol dose. He is tolerating medication so far. Review of Systems Review of Systems: All systems reviewed & are unremarkable except as noted in Subjective Physical Exam Physical Exam: General: no acute distress and stated age Head: normocephalic, no masses, lesions, tenderness or abnormalities Eyes: conjunctiva are pink and non-injected, sclera clear Neck: supple, no adenopathy, no bruits, normal jugular venous pulse, no hepatojugular reflux Chest: normal shape and normal respiratory effort Lungs: clear to auscultation and percussion Cardiac Exam: - irregular rate & rhythm, no murmurs gallops or rubs - normal S1, normal S2 Pulses: 2(+) throughout Abdomen: abdomen soft, non-tender, no abnormal masses and no hepatosplenomegaly Musculoskeletal: no gait disturbance, no joint inflammation, no deforming arthritis Extremities: no edema and no cyanosis Neuro: grossly normal exam Results & Data ([facility]) Vital Signs (Past 12 Hours) Vital Signs Temp Pulse Pulse Resp BP Pulse Ox 06/07/20 07:00 92 H 06/07/20 06:59 36.7 C 114 H 20 146/75 H 95 06/07/20 03:15 36.7 C 83 18 128/74 95 06/07/20 00:29 77 06/06/20 23:33 37.0 C 99 H 18 121/74 95 Laboratory Results Laboratory Results - last 24 hr 06/06/20 06/06/20 06/06/20 11:13 11:13 11:13 WBC 6.37 RBC 4.74 Hgb 13.5 L Hct 40.4 L MCV 85.2 MCH 28.5 MCHC 33.4 RDW Std Deviation 43.4 RDW Coeff of Riley 13.9 Plt Count 168 MPV 11.1 H Sodium 140 Potassium 4.1 Chloride 107 Carbon Dioxide 29 Anion Gap 4.0 BUN 10 Creatinine 1.11 Est Cr Clr Drug Dosing 71.2 Est GFR ( Amer) 78.1 Est GFR (Non-Af Amer) 67.4 BUN/Creatinine Ratio 9.4 L Glucose 199 H POC Glucose Estimat Average Glucose Hemoglobin A1c Calcium 9.0 Magnesium 1.7 L Total Bilirubin 0.6 AST 14 L ALT 25 Alkaline Phosphatase 61 Total Protein 7.0 Albumin 3.5 Globulin 3.5 Albumin/Globulin Ratio 1.0 COVID-19 Eval Order SARS-CoV-2 (PCR) Influenza Type A (PCR) Influenza Type B (PCR) RSV (RT-PCR) 06/06/20 06/06/20 06/06/20 11:44 11:44 13:52 WBC RBC Hgb Hct MCV MCH MCHC RDW Std Deviation RDW Coeff of Riley Plt Count MPV Sodium Potassium Chloride Carbon Dioxide Anion Gap BUN Creatinine Est Cr Clr Drug Dosing Est GFR ( Amer) Est GFR (Non-Af Amer) BUN/Creatinine Ratio Glucose POC Glucose 123 H Estimat Average Glucose Hemoglobin A1c Calcium Magnesium Total Bilirubin AST ALT Alkaline Phosphatase Total Protein Albumin Globulin Albumin/Globulin Ratio COVID-19 Eval Order CovFluRsv at [facility] SARS-CoV-2 (PCR) NEGATIVE Influenza Type A (PCR) Negative Influenza Type B (PCR) Negative RSV (RT-PCR) Negative 06/06/20 06/07/20 06/07/20 20:07 04:17 06:20 WBC RBC Hgb Hct MCV MCH MCHC RDW Std Deviation RDW Coeff of Riley Plt Count MPV Sodium 141 Potassium 3.6 Chloride 108 H Carbon Dioxide 28 Anion Gap 5.0 BUN 11 Creatinine 1.03 Est Cr Clr Drug Dosing 79.8 Est GFR ( Amer) 85.5 Est GFR (Non-Af Amer) 73.8 BUN/Creatinine Ratio 11.0 Glucose 129 H POC Glucose 160 H 135 H Estimat Average Glucose Hemoglobin A1c Calcium 8.3 L Magnesium 1.9 Total Bilirubin AST ALT Alkaline Phosphatase Total Protein Albumin Globulin Albumin/Globulin Ratio COVID-19 Eval Order SARS-CoV-2 (PCR) Influenza Type A (PCR) Influenza Type B (PCR) RSV (RT-PCR) 06/07/20 06/07/20 06/07/20 06:20 06:20 07:11 WBC 5.95 RBC 4.24 L Hgb 11.9 L Hct 36.2 L MCV 85.4 MCH 28.1 MCHC 32.9 RDW Std Deviation 43.4 RDW Coeff of Riley 13.9 Plt Count 133 MPV 10.3 Sodium Potassium Chloride Carbon Dioxide Anion Gap BUN Creatinine Est Cr Clr Drug Dosing Est GFR ( Amer) Est GFR (Non-Af Amer) BUN/Creatinine Ratio Glucose POC Glucose 133 H Estimat Average Glucose 148 Hemoglobin A1c 6.8 H Calcium Magnesium Total Bilirubin AST ALT Alkaline Phosphatase Total Protein Albumin Globulin Albumin/Globulin Ratio COVID-19 Eval Order SARS-CoV-2 (PCR) Influenza Type A (PCR) Influenza Type B (PCR) RSV (RT-PCR) Medications Administered Current Inpatient Medications Acetaminophen (Acetaminophen 325 Mg Tab) 650 mg PO Q4H PRN PRN Reason: Pain or Fever Stop: 07/06/20 11:15 Al Hydrox/Mg Hydrox/Simethicone (Aluminum/Magnesium Susp 30 Ml Udc) 15 ml PO Q4H PRN PRN Reason: Dyspepsia Stop: 07/06/20 11:15 Allopurinol (Allopurinol 100 Mg Tab) 100 mg PO DAILY [facility] Stop: 07/07/20 08:59 Last Admin: 06/07/20 08:46 Dose: 100 mg Documented by: Amlodipine Besylate (Amlodipine Besylate 5 Mg Tab) 10 mg PO QAM [facility] Stop: 07/07/20 08:59 Last Admin: 06/07/20 08:46 Dose: 10 mg Documented by: Apixaban (Apixaban 5 Mg Tablet) 5 mg PO BID [facility] Stop: 07/06/20 20:59 Last Admin: 06/07/20 08:47 Dose: 5 mg Documented by: Atorvastatin Calcium (Atorvastatin 20 Mg Tab) 20 mg PO QAM [facility] Stop: 07/07/20 08:59 Last Admin: 06/07/20 08:46 Dose: 20 mg Documented by: Carvedilol (Carvedilol 12.5 Mg Tab) 12.5 mg PO BID [facility] Stop: 07/06/20 20:59 Last Admin: 06/07/20 08:47 Dose: 12.5 mg Documented by: Cyanocobalamin (Cyanocobalamin 500 Mcg Tablet (Vitamin B-12)) 1,000 mcg PO QAM [facility] Stop: 07/07/20 08:59 Last Admin: 06/07/20 08:46 Dose: 1,000 mcg Documented by: Dextrose (Dextrose 50% 50 Ml Syringe) 25 - 50 ml IV UD PRN; Protocol PRN Reason: Hypoglycemia Protocol Stop: 07/06/20 13:56 Enalapril Maleate (Enalapril Maleate 10 Mg Tab) 40 mg PO [facility]; Protocol Stop: 07/07/20 08:59 Last Admin: 06/07/20 08:46 Dose: 40 mg Documented by: Folic Acid (Folic Acid 1 Mg Tab) 1 mg PO [facility] Stop: 07/07/20 08:59 Last Admin: 06/07/20 08:46 Dose: 1 mg Documented by: Furosemide (Furosemide 20 Mg Tab) 20 mg PO [facility] Stop: 07/07/20 08:59 Last Admin: 06/07/20 08:46 Dose: 20 mg Documented by: Gabapentin (Gabapentin 100 Mg Cap) 100 mg PO TID [facility] Stop: 07/06/20 20:59 Last Admin: 06/07/20 08:46 Dose: 100 mg Documented by: Glucagon (Glucagon For Inj 1 Mg Vial) 1 mg SQ UD PRN; Protocol PRN Reason: Hypoglycemia Protocol Stop: 07/06/20 13:56 Glucose (Glucose 10 Tabs/Tube) 4 - 8 tabs PO UD PRN; Protocol PRN Reason: Hypoglycemia Protocol Stop: 07/06/20 13:56 Glucose (Glucose 40% Gel 15 Gm Tube) 15 - 30 gm PO UD PRN; Protocol PRN Reason: Hypoglycemia Protocol Stop: 07/06/20 13:56 Hydralazine HCl (Hydralazine Tab 50 Mg Tab) 100 mg PO BID [facility] Stop: 07/06/20 20:59 Last Admin: 06/07/20 08:47 Dose: 100 mg Documented by: Insulin Aspart (Insulin Aspart 100 Units/Ml 3 Ml Pen) 0 units SC ACHS [facility] Stop: 07/06/20 16:29 Last Admin: 06/07/20 07:40 Dose: Not Given Documented by: Magnesium Hydroxide (Magnesium Hydroxide Susp 30 Ml Udc) 30 ml PO Q12H PRN PRN Reason: Constipation Stop: 07/06/20 11:15 Miscellaneous (Carbohydrates For Hypoglycemia ) 15 - 30 gm PO UD PRN PRN Reason: Hypoglycemia Protocol Stop: 07/06/20 13:56 Nitroglycerin (Nitroglycerin Sl 0.4 Mg/Tab Tab) 0.4 mg SL UD PRN PRN Reason: Chest Pain Stop: 07/06/20 11:15 Pantoprazole Sodium (Pantoprazole 40 Mg Tab) 40 mg PO [facility]; Protocol Stop: 07/07/20 08:59 Last Admin: 06/07/20 08:46 Dose: 40 mg Documented by: Polyethylene Glycol (Polyethylene (Miralax) 17 Gm Pack) 17 gm PO DAILY PRN PRN Reason: Constipation Stop: 07/06/20 11:15 Sotalol HCl (Sotalol Hcl 80 Mg Tab) 80 mg PO BID [facility] Stop: 07/06/20 15:59 Last Admin: 06/07/20 08:47 Dose: 80 mg Documented by: Tamsulosin HCl (Tamsulosin Hcl 0.4 Mg Cap) 0.4 mg PO HS [facility] Stop: 07/06/20 20:59 Last Admin: 06/06/20 19:51 Dose: 0.4 mg Documented by: Thiamine HCl (Thiamine Hcl 100 Mg Tab) 100 mg PO [facility] Stop: 07/07/20 08:59 Last Admin: 06/07/20 08:46 Dose: 100 mg Documented by: Vitamin D (Cholecalciferol 1,000 Units 25 Mcg Tab) 1,000 units PO [facility] Stop: 07/07/20 08:59 Last Admin: 06/07/20 08:47 Dose: 1,000 units Documented by:
--- NOTE | 2020-06-07 15:09 | Electrocardiogram Report ---
Test Reason : Blood Pressure : / mmHG Vent. Rate : 077 BPM Atrial Rate : 202 BPM P-R Int : 000 ms QRS Dur : 092 ms QT Int : 398 ms P-R-T Axes : 000 -18 035 degrees QTc Int : 450 ms Atrial fibrillation Septal infarct (cited on or before 03-JUN-2012) Abnormal ECG When compared with ECG of 06-JUN-2020 11:09, No significant change was found Confirmed by Dontae Gonzalez ([id number]) on 06/07/2020 3:09:10 PM Referred By: Sathish Britton Confirmed By:Dontae Gonzalez
[2020-06-07] MEDS: TAMSULOSIN HCL 0.4 MG CAP PO SCH (20:22)
[2020-06-08 08:24] LABS: BUN Creatinine Ratio 11.4 (10-20); Calcium 8.4 mg/dl (8.5-10.1); Creatinine Clr Calc Pharmacy 79.8 ml/min; Est GFR (African American) 85.5; Est GFR (Non-African American) 73.8; Magnesium 1.9 mg/dl (1.8-2.4); Potassium 3.9 mmol/L (3.5-5.1)
--- NOTE | 2020-06-08 08:44 | Hospitalist Progress Note ---
Date of Service June 08, 2020 Assessment & Plan (1) Persistent atrial fibrillation: Sotalol load per cardiology (Dr. Britton) Decreased Carvedilol dose to 12.5mg BID Checking QT interval with daily ECG Plan to repeat cardioversion during admission if no spontaneous conversion Continue Eliquis for anticoagulation Monitor on telemetry (2) Hypertension: Continue Hydralazine, Carvedilol, Benazepril (3) Diabetes mellitus, type II: A1c 6.8 in 02/27. Repeat a1c in AM Hold home agents SSI while in-patient BSG AC HS (4) Hyperlipidemia: Continue statin (5) Gout: Continue allopurinol (6) BPH (benign prostatic hyperplasia): Continue Flomax (7) DVT prophylaxis: DVT Ppx: Eliquis Code status: FULL PCP: Maril[facility] Dispo: Admitted to PCU. Plan to return home once medically stable. Thank you for this consultation. We will continue to follow this patient throughout the hospital stay. Admission and Anticipated Discharge Date Admission Date: June 06, 2020 Subjective 69 yo M with h/o atrial fibrillation with recent unsuccessful cardioversion as outpatient, here for sotalol loading. He is asymptomatic and doing well today No acute events overnight. Pt denies any palpitations, chest pain, shortness of breath or headache. Review of Systems Review of Systems: All systems reviewed & are unremarkable except as noted in HPI & below Constitutional: no fever and no chills Respiratory: no cough and no dyspnea Cardiovascular: no chest pain, no palpitations and no edema Gastrointestinal: no abdominal pain, no nausea and no vomiting Physical Exam Physical Exam: CONSTITUTIONAL: WNWD, vitals as above, generally well-appearing EYES: normal conjunctivae, no scleral icterus ENT: external ear and nose normal, MMM RESPIRATORY: clear to auscultation bilaterally, no crackles, rales or wheezes, normal respiratory effort CARDIOVASCULAR: irregular rhythm, S1 and 2 heard without murmurs, gallops or rubs, no JVD, no peripheral edema GASTROINTESTINAL: soft, nontender, nondistended MUSCULOSKELETAL: strength 5/5 throughout, head is normocephalic and atraumatic SKIN: warm and dry NEUROLOGIC: CN 2-12 grossly intact, no sensory deficit, normal cognition, normal speech, moves extremities spontaneously PSYCHIATRIC: alert cooperative and oriented to person, place and time. Results & Data Results & Data ([facility]) Vital Signs (Past 12 Hours) Vital Signs Temp Pulse Pulse Resp BP BP Pulse Ox 06/08/20 07:56 36.6 C 78 18 141/77 H 100 06/08/20 04:06 36.7 C 99 H 16 143/80 H 92 06/08/20 00:01 36.7 C 97 H 18 134/80 97 06/08/20 00:00 92 H Laboratory Results 06/08/20 06/08/20 06/07/20 Range/Units 07:25 07:05 20:17 Sodium 141 (136-145) mmol/L Potassium 3.9 (3.5-5.1) mmol/L Chloride 109 H (98-107) mmol/L Carbon Dioxide 27 (21-32) mmol/L Anion Gap 4.0 (3-11) BUN 12 (7-18) mg/dl Creatinine 1.03 (0.6-1.4) mg/dl Est Cr Clr Drug Dosing 79.8 ml/min Est GFR ( Amer) 85.5 Est GFR (Non-Af Amer) 73.8 BUN/Creatinine Ratio 11.4 (10-20) Glucose 138 H (70-99) mg/dl POC Glucose 140 H 144 H (70-99) mg/dl Calcium 8.4 L (8.5-10.1) mg/dl Magnesium 1.9 (1.8-2.4) mg/dl 06/07/20 06/07/20 Range/Units 16:13 11:17 Sodium (136-145) mmol/L Potassium (3.5-5.1) mmol/L Chloride (98-107) mmol/L Carbon Dioxide (21-32) mmol/L Anion Gap (3-11) BUN (7-18) mg/dl Creatinine (0.6-1.4) mg/dl Est Cr Clr Drug Dosing ml/min Est GFR ( Amer) Est GFR (Non-Af Amer) BUN/Creatinine Ratio (10-20) Glucose (70-99) mg/dl POC Glucose 273 H 198 H (70-99) mg/dl Calcium (8.5-10.1) mg/dl Magnesium (1.8-2.4) mg/dl Medications Administered Current Inpatient Medications Acetaminophen (Acetaminophen 325 Mg Tab) 650 mg PO Q4H PRN PRN Reason: Pain or Fever Stop: 07/06/20 11:15 Al Hydrox/Mg Hydrox/Simethicone (Aluminum/Magnesium Susp 30 Ml Udc) 15 ml PO Q4H PRN PRN Reason: Dyspepsia Stop: 07/06/20 11:15 Allopurinol (Allopurinol 100 Mg Tab) 100 mg PO DAILY [facility] Stop: 07/07/20 08:59 Last Admin: 06/07/20 08:46 Dose: 100 mg Documented by: Amlodipine Besylate (Amlodipine Besylate 5 Mg Tab) [facility] Stop: 07/07/20 08:59 Last Admin: 06/07/20 08:46 Dose: 10 mg Documented by: Apixaban (Apixaban 5 Mg Tablet) 5 mg PO BID [facility] Stop: 07/06/20 20:59 Last Admin: 06/07/20 20:21 Dose: 5 mg Documented by: Atorvastatin Calcium (Atorvastatin 20 Mg Tab) 20 mg PO [facility] Stop: 07/07/20 08:59 Last Admin: 06/07/20 08:46 Dose: 20 mg Documented by: Carvedilol (Carvedilol 12.5 Mg Tab) 12.5 mg PO BID [facility] Stop: 07/06/20 20:59 Last Admin: 06/07/20 20:21 Dose: 12.5 mg Documented by: Cyanocobalamin (Cyanocobalamin 500 Mcg Tablet (Vitamin B-12)) 1,000 mcg PO [facility] Stop: 07/07/20 08:59 Last Admin: 06/07/20 08:46 Dose: 1,000 mcg Documented by: Dextrose (Dextrose 50% 50 Ml Syringe) 25 - 50 ml IV UD PRN; Protocol PRN Reason: Hypoglycemia Protocol Stop: 07/06/20 13:56 Enalapril Maleate (Enalapril Maleate 10 Mg Tab) 40 mg PO [facility]; Protocol Stop: 07/07/20 08:59 Last Admin: 06/07/20 08:46 Dose: 40 mg Documented by: Folic Acid (Folic Acid 1 Mg Tab) [facility] Stop: 07/07/20 08:59 Last Admin: 06/07/20 08:46 Dose: 1 mg Documented by: Furosemide (Furosemide 20 Mg Tab) 20 mg PO [facility] Stop: 07/07/20 08:59 Last Admin: 06/07/20 08:46 Dose: 20 mg Documented by: Gabapentin (Gabapentin 100 Mg Cap) 100 mg PO TID [facility] Stop: 07/06/20 20:59 Last Admin: 06/07/20 20:20 Dose: 100 mg Documented by: Glucagon (Glucagon For Inj 1 Mg Vial) 1 mg SQ UD PRN; Protocol PRN Reason: Hypoglycemia Protocol Stop: 07/06/20 13:56 Glucose (Glucose 10 Tabs/Tube) 4 - 8 tabs PO UD PRN; Protocol PRN Reason: Hypoglycemia Protocol Stop: 07/06/20 13:56 Glucose (Glucose 40% Gel 15 Gm Tube) 15 - 30 gm PO UD PRN; Protocol PRN Reason: Hypoglycemia Protocol Stop: 07/06/20 13:56 Hydralazine HCl (Hydralazine Tab 50 Mg Tab) 100 mg PO BID [facility] Stop: 07/06/20 20:59 Last Admin: 06/07/20 20:20 Dose: 100 mg Documented by: Insulin Aspart (Insulin Aspart 100 Units/Ml 3 Ml Pen) 0 units SC ACHS [facility] Stop: 07/06/20 16:29 Last Admin: 06/07/20 20:23 Dose: Not Given Documented by: Magnesium Hydroxide (Magnesium Hydroxide Susp 30 Ml Udc) 30 ml PO Q12H PRN PRN Reason: Constipation Stop: 07/06/20 11:15 Miscellaneous (Carbohydrates For Hypoglycemia ) 15 - 30 gm PO UD PRN PRN Reason: Hypoglycemia Protocol Stop: 07/06/20 13:56 Nitroglycerin (Nitroglycerin Sl 0.4 Mg/Tab Tab) 0.4 mg SL UD PRN PRN Reason: Chest Pain Stop: 07/06/20 11:15 Pantoprazole Sodium (Pantoprazole 40 Mg Tab) 40 mg PO QAM [facility]; Protocol Stop: 07/07/20 08:59 Last Admin: 06/07/20 08:46 Dose: 40 mg Documented by: Polyethylene Glycol (Polyethylene (Miralax) 17 Gm Pack) 17 gm PO DAILY PRN PRN Reason: Constipation Stop: 07/06/20 11:15 Sotalol HCl (Sotalol Hcl 80 Mg Tab) 80 mg PO BID [facility] Stop: 07/06/20 15:59 Last Admin: 06/07/20 20:19 Dose: 80 mg Documented by: Tamsulosin HCl (Tamsulosin Hcl 0.4 Mg Cap) 0.4 mg PO HS [facility] Stop: 07/06/20 20:59 Last Admin: 06/07/20 20:22 Dose: 0.4 mg Documented by: Thiamine HCl (Thiamine Hcl 100 Mg Tab) 100 mg PO QAM [facility] Stop: 07/07/20 08:59 Last Admin: 06/07/20 08:46 Dose: 100 mg Documented by: Vitamin D (Cholecalciferol 1,000 Units 25 Mcg Tab) 1,000 units PO QAM [facility] Stop: 07/07/20 08:59 Last Admin: 06/07/20 08:47 Dose: 1,000 units Documented by: (1) Hypertension Hypertension type: essential hypertension Qualified Code(s): I10 - Essential (primary) hypertension (2) Hyperlipidemia Hyperlipidemia type: unspecified Qualified Code(s): E78.5 - Hyperlipidemia, unspecified (3) Gout Gout site: unspecified site Gout etiology: unspecified cause Chronicity: unspecified Qualified Code(s): M10.9 - Gout, unspecified
[2020-06-08] MEDS: FUROSEMIDE 20 MG TAB PO SCH (08:58)
[2020-06-08] MEDS: allopurinoL 100 MG TAB PO SCH (08:58)
[2020-06-08] MEDS: APIXABAN 5 MG TABLET PO SCH ×2 (08:59→19:48)
[2020-06-08] MEDS: GABAPENTIN 100 MG CAP PO SCH ×4 (08:59→19:48)
[2020-06-08] MEDS: PANTOprazole 40 MG TAB PO SCH (08:59)
[2020-06-08] MEDS: hydrALAZINE TAB 50 MG TAB PO SCH ×2 (08:59→19:48)
[2020-06-08] MEDS: CHOLECALCIFEROL 1,000 UNITS 25 MCG TAB PO SCH (08:59)
[2020-06-08] MEDS: carvediloL 12.5 MG TAB PO SCH ×2 (08:59→19:48)
[2020-06-08] MEDS: THIAMINE HCL 100 MG TAB PO SCH (09:00)
[2020-06-08] MEDS: amLODIPine BESYLATE 5 MG TAB PO SCH (09:00)
[2020-06-08] MEDS: SOTALOL HCL 80 MG TAB PO SCH ×2 (09:00→19:48)
[2020-06-08] MEDS: CYANOCOBALAMIN 500 MCG TABLET (VITAMIN B-12) PO SCH (09:00)
[2020-06-08] MEDS: ATORVASTATIN 20 MG TAB PO SCH (09:00)
[2020-06-08] MEDS: FOLIC ACID 1 MG TAB PO SCH (09:00)
[2020-06-08] MEDS: ENALAPRIL MALEATE 10 MG TAB PO SCH (09:01)
[2020-06-08] MEDS: INSULIN ASPART 100 UNITS/ML 3 ML PEN SC SCH ×4 (09:06→20:19)
[2020-06-08] MEDS ORDERED: POTASSIUM CHLORIDE CRTAB 20 MEQ TABCR PO STA (10:08)
--- NOTE | 2020-06-08 10:39 | Cardiology Progress Note ---
Date of Service June 08, 2020 Assessment & Plan (1) Persistent atrial fibrillation: The patient has now had 4 doses of sotalol. By my calculation from the telemetry and utilizing Bizzet and Hodgeson method the QTc interval is 44 ms. The plan is to continue the sotalol and recheck the QTC tomorrow. I will also plan for cardioversion in the morning. Plan to supplement the potassium today. Heart rates are adequate. He did have 1 4 beat wide-complex in the middle the night that was asymptomatic. Otherwise his rhythm has been a steady and persistent atrial fibrillation with rate control. (2) Diabetes mellitus, type II: Patient had been on Metformin as an outpatient. Medicine service has been consulted to manage diabetes (3) BPH (benign prostatic hyperplasia): Continue current medications. Admission and Anticipated Discharge Date Admission Date: June 06, 2020 Subjective The patient had an uneventful night. He is tolerating his medications. Review of Systems Review of Systems: All systems reviewed & are unremarkable except as noted in Subjective Physical Exam Physical Exam: General: no acute distress and stated age Head: normocephalic, no masses, lesions, tenderness or abnormalities Eyes: conjunctiva are pink and non-injected, sclera clear Neck: supple, no adenopathy, no bruits, normal jugular venous pulse, no hepatojugular reflux Chest: normal shape and normal respiratory effort Lungs: clear to auscultation and percussion Cardiac Exam: - irregular rate & rhythm, no murmurs gallops or rubs - normal S1, normal S2 Pulses: 2(+) throughout Abdomen: abdomen soft, non-tender, no abnormal masses and no hepatosplenomegaly Musculoskeletal: no gait disturbance, no joint inflammation, no deforming arthritis Extremities: no edema and no cyanosis Neuro: grossly normal exam Results & Data ([facility]) Vital Signs (Past 12 Hours) Vital Signs Temp Pulse Pulse Resp BP BP Pulse Ox 06/08/20 07:56 36.6 C 78 18 141/77 H 100 06/08/20 04:06 36.7 C 99 H 16 143/80 H 92 06/08/20 00:01 36.7 C 97 H 18 134/80 97 06/08/20 00:00 92 H Laboratory Results Laboratory Results - last 24 hr 06/07/20 06/07/20 06/07/20 11:17 16:13 20:17 Sodium Potassium Chloride Carbon Dioxide Anion Gap BUN Creatinine Est Cr Clr Drug Dosing Est GFR ( Amer) Est GFR (Non-Af Amer) BUN/Creatinine Ratio Glucose POC Glucose 198 H 273 H 144 H Calcium Magnesium 06/08/20 06/08/20 07:05 07:25 Sodium 141 Potassium 3.9 Chloride 109 H Carbon Dioxide 27 Anion Gap 4.0 BUN 12 Creatinine 1.03 Est Cr Clr Drug Dosing 79.8 Est GFR ( Amer) 85.5 Est GFR (Non-Af Amer) 73.8 BUN/Creatinine Ratio 11.4 Glucose 138 H POC Glucose 140 H Calcium 8.4 L Magnesium 1.9 Medications Administered Current Inpatient Medications Acetaminophen (Acetaminophen 325 Mg Tab) 650 mg PO Q4H PRN PRN Reason: Pain or Fever Stop: 07/06/20 11:15 Al Hydrox/Mg Hydrox/Simethicone (Aluminum/Magnesium Susp 30 Ml Udc) 15 ml PO Q4H PRN PRN Reason: Dyspepsia Stop: 07/06/20 11:15 Allopurinol (Allopurinol 100 Mg Tab) 100 mg PO DAILY [facility] Stop: 07/07/20 08:59 Last Admin: 06/08/20 08:58 Dose: 100 mg Documented by: Amlodipine Besylate (Amlodipine Besylate 5 Mg Tab) 10 mg PO QAM [facility] Stop: 07/07/20 08:59 Last Admin: 06/08/20 09:00 Dose: 10 mg Documented by: Apixaban (Apixaban 5 Mg Tablet) 5 mg PO BID [facility] Stop: 07/06/20 20:59 Last Admin: 06/08/20 08:59 Dose: 5 mg Documented by: Atorvastatin Calcium (Atorvastatin 20 Mg Tab) 20 mg PO QAM [facility] Stop: 07/07/20 08:59 Last Admin: 06/08/20 09:00 Dose: 20 mg Documented by: Carvedilol (Carvedilol 12.5 Mg Tab) 12.5 mg PO BID [facility] Stop: 07/06/20 20:59 Last Admin: 06/08/20 08:59 Dose: 12.5 mg Documented by: Cyanocobalamin (Cyanocobalamin 500 Mcg Tablet (Vitamin B-12)) 1,000 mcg PO QAM [facility] Stop: 07/07/20 08:59 Last Admin: 06/08/20 09:00 Dose: 1,000 mcg Documented by: Dextrose (Dextrose 50% 50 Ml Syringe) 25 - 50 ml IV UD PRN; Protocol PRN Reason: Hypoglycemia Protocol Stop: 07/06/20 13:56 Enalapril Maleate (Enalapril Maleate 10 Mg Tab) [facility] [place] Protocol Stop: 07/07/20 08:59 Last Admin: 06/08/20 09:01 Dose: 40 mg Documented by: Folic Acid (Folic Acid 1 Mg Tab) 1 mg PO QAM [facility] Stop: 07/07/20 08:59 Last Admin: 06/08/20 09:00 Dose: 1 mg Documented by: Furosemide (Furosemide 20 Mg Tab) 20 mg PO QAM [facility] Stop: 07/07/20 08:59 Last Admin: 06/08/20 08:58 Dose: 20 mg Documented by: Gabapentin (Gabapentin 100 Mg Cap) 100 mg PO TID [facility] Stop: 07/06/20 20:59 Last Admin: 06/08/20 08:59 Dose: 100 mg Documented by: Glucagon (Glucagon For Inj 1 Mg Vial) 1 mg SQ UD PRN; Protocol PRN Reason: Hypoglycemia Protocol Stop: 07/06/20 13:56 Glucose (Glucose 10 Tabs/Tube) 4 - 8 tabs PO UD PRN; Protocol PRN Reason: Hypoglycemia Protocol Stop: 07/06/20 13:56 Glucose (Glucose 40% Gel 15 Gm Tube) 15 - 30 gm PO UD PRN; Protocol PRN Reason: Hypoglycemia Protocol Stop: 07/06/20 13:56 Hydralazine HCl (Hydralazine Tab 50 Mg Tab) 100 mg PO BID [facility] Stop: 07/06/20 20:59 Last Admin: 06/08/20 08:59 Dose: 100 mg Documented by: Insulin Aspart (Insulin Aspart 100 Units/Ml 3 Ml Pen) 0 units SC ACHS [facility] Stop: 07/06/20 16:29 Last Admin: 06/08/20 09:06 Dose: Not Given Documented by: Magnesium Hydroxide (Magnesium Hydroxide Susp 30 Ml Udc) 30 ml PO Q12H PRN PRN Reason: Constipation Stop: 07/06/20 11:15 Miscellaneous (Carbohydrates For Hypoglycemia ) 15 - 30 gm PO UD PRN PRN Reason: Hypoglycemia Protocol Stop: 07/06/20 13:56 Nitroglycerin (Nitroglycerin Sl 0.4 Mg/Tab Tab) 0.4 mg SL UD PRN PRN Reason: Chest Pain Stop: 07/06/20 11:15 Pantoprazole Sodium (Pantoprazole 40 Mg Tab) 40 mg PO [facility]; Protocol Stop: 07/07/20 08:59 Last Admin: 06/08/20 08:59 Dose: 40 mg Documented by: Polyethylene Glycol (Polyethylene (Miralax) 17 Gm Pack) 17 gm PO DAILY PRN PRN Reason: Constipation Stop: 07/06/20 11:15 Sotalol HCl (Sotalol Hcl 80 Mg Tab) 80 mg PO BID [facility] Stop: 07/06/20 15:59 Last Admin: 06/08/20 09:00 Dose: 80 mg Documented by: Tamsulosin HCl (Tamsulosin Hcl 0.4 Mg Cap) 0.4 mg PO [facility] Stop: 07/06/20 20:59 Last Admin: 06/07/20 20:22 Dose: 0.4 mg Documented by: Thiamine HCl (Thiamine Hcl 100 Mg Tab) 100 mg PO [facility] Stop: 07/07/20 08:59 Last Admin: 06/08/20 09:00 Dose: 100 mg Documented by: Vitamin D (Cholecalciferol 1,000 Units 25 Mcg Tab) 1,000 units PO [facility] Stop: 07/07/20 08:59 Last Admin: 06/08/20 08:59 Dose: 1,000 units Documented by:
--- NOTE | 2020-06-08 14:38 | Electrocardiogram Report ---
Test Reason : Blood Pressure : / mmHG Vent. Rate : 084 BPM Atrial Rate : 117 BPM P-R Int : 000 ms QRS Dur : 096 ms QT Int : 404 ms P-R-T Axes : 000 200 163 degrees QTc Int : 477 ms Suspect arm lead reversal, interpretation assumes no reversal Atrial fibrillation Septal infarct (cited on or before 03-JUN-2012) Lateral infarct (cited on or before 03-JUN-2012) Abnormal ECG When compared with ECG of 07-JUN-2020 04:13, QRS axis Shifted left Serial changes of Septal infarct Present Confirmed by Dontae Gonzalez ([id number]) on 06/08/2020 2:38:48 PM Referred By: Sathish Britton Confirmed By:Dontae Gonzalez
[2020-06-08] MEDS: TAMSULOSIN HCL 0.4 MG CAP PO SCH (19:48)
[2020-06-09] MEDS: INSULIN ASPART 100 UNITS/ML 3 ML PEN SC SCH (05:45)
[2020-06-09] MEDS ORDERED: LIDOCAINE HCL 2% 2 ML VIAL/AMP(20MG/ML) INFIL ONE (06:22)
[2020-06-09] MEDS ORDERED: PROPOFOL IV EMULSION 10 MG/ML 20 ML VIAL IV ONE (06:22)
[2020-06-09] MEDS ORDERED: ATROPINE SULFATE 0.1 MG/ML 10ML SYR IV PRN (07:34)
[2020-06-09] MEDS ORDERED: ePHEDrine sulfate 50 MG/ML AMP IV PRN (07:34)
--- NOTE | 2020-06-09 07:34 | Anesthesiology Consultation ---
Date of Service June 09, 2020 Assessment & Plan Chart Review Chart Review: Acceptable Risk for Surgery and Patient NOT seen in Pre Admission Testing Consults Requested none ASA ASA4 Proposed Anesthesia Anesthesia Type: General Risk / Benefits Reviewed With: PT / POA / Parent / Guardian, Accepts Plan and Informed Consent Obtained Additional Comments: covid test negtive History Surgery Operation Date: 06/09/20 07:30 Proposed Procedures p Cardioversion Knapsack Sprayer w/Anesthesia - Sathish Britton, DO Height/Weight Height: 5 ft 10 in Weight: 99 kg Allergies Allergy/AdvReac Type Severity Reaction Status Date / Time cephalexin [From Keflex] Allergy Unknown Unknown Verified 06/06/20 11:47 amoxicillin AdvReac Severe Gastrointestinal Verified 06/06/20 11:47 Upset Tetanus Vaccines and Toxoid AdvReac Fever Verified 06/06/20 11:47 Medications Home Medications Medication Instructions Recorded Confirmed Last Taken allopurinol [Zyloprim] 100 mg PO QAM 01/12/19 06/06/20 06/06/20 amlodipine [Norvasc] 10 mg PO HS 01/12/19 06/06/20 06/05/20 atorvastatin [Lipitor] 20 mg PO QAM 01/12/19 06/06/20 06/06/20 benazepril [Lotensin] 40 mg PO QAM 01/12/19 06/06/20 06/06/20 cholecalciferol (vitamin D3) 1,000 unit PO QAM 01/12/19 06/06/20 06/06/20 [Vitamin D3] cyanocobalamin (vitamin B-12) 1,000 mcg PO QAM 01/12/19 06/06/20 06/06/20 [Vitamin B-12] metformin [Glucophage] 1,000 mg PO BID 01/12/19 06/06/20 06/06/20 tadalafil [Cialis] 5 mg PO UD PRN 01/12/19 06/06/20 Unknown thiamine mononitrate (vit B1) 100 mg PO QAM 01/12/19 06/06/20 06/06/20 [Vitamin B-1 (mononitrate)] folic acid 1 mg tablet 1 mg PO QAM tab 01/16/19 06/06/20 06/06/20 Eliquis 5 mg PO BID #60 tab 02/26/20 06/06/2006/06/21 carvedilol 25 mg PO BID 06/06/20 06/06/20 Unknown epinephrine [EpiPen] 0.3 mg IM Q4H PRN 06/06/20 06/06/20 Unknown furosemide 20 mg PO DAILY 06/06/20 06/06/20 Unknown gabapentin 100 mg PO TID 06/06/20 06/06/20 Unknown hydralazine 100 mg PO BID 06/06/20 06/06/20 Unknown omeprazole 20 mg PO DAILY 06/06/20 06/06/20 Unknown tamsulosin 0.4 mg PO DAILY 06/06/20 06/06/20 Unknown Active Medications Generic Name Dose Route Start Last Admin Trade Name Freq PRN Reason Stop Dose Admin Allopurinol 100 mg 06/07/20 09:00 06/08/20 08:58 Allopurinol 100 Mg Tab PO 07/07/20 08:59 100 mg DAILY [facility] Administration Amlodipine Besylate 10 mg 06/07/20 09:00 06/08/20 09:00 Amlodipine Besylate 5 Mg Tab PO 07/07/20 08:59 10 mg QAM [facility] Administration Apixaban 5 mg 06/06/20 21:00 06/08/20 19:48 Apixaban 5 Mg Tablet PO 07/06/20 20:59 5 mg BID [facility] Administration Atorvastatin Calcium 20 mg 06/07/20 09:00 06/08/20 09:00 Atorvastatin 20 Mg Tab PO 07/07/20 08:59 20 mg QAM [facility] Administration Carvedilol 12.5 mg 06/06/20 21:00 06/08/20 19:48 Carvedilol 12.5 Mg Tab PO 07/06/20 20:59 12.5 mg BID [facility]ATA Administration Cyanocobalamin 1,000 mcg 06/07/20 09:00 06/08/20 09:00 Cyanocobalamin 500 Mcg Tablet (Vitamin B-12) PO 07/07/20 08:59 1,000 mcg QAM [facility] Administration Enalapril Maleate 40 mg 06/07/20 09:00 06/08/20 09:01 Enalapril Maleate 10 Mg Tab PO 07/07/20 08:59 40 mg QAM [facility] Administration Protocol Folic Acid 1 mg 06/07/20 09:00 06/08/20 09:00 Folic Acid 1 Mg Tab PO 07/07/20 08:59 1 mg QAM [facility] Administration Furosemide 20 mg 06/07/20 09:00 06/08/20 08:58 Furosemide 20 Mg Tab PO 07/07/20 08:59 20 mg QAM [facility] Administration Gabapentin 100 mg 06/06/20 21:00 06/08/20 19:48 Gabapentin 100 Mg Cap PO 07/06/20 20:59 100 mg TID [facility] Administration Hydralazine HCl 100 mg 06/06/20 21:00 06/08/20 19:48 Hydralazine Tab 50 Mg Tab PO 07/06/20 20:59 100 mg BID [facility] Administration Insulin Aspart 0 units 06/06/20 16:30 06/09/20 05:45 Insulin Aspart 100 Units/Ml 3 Ml Pen SC 07/06/20 16:29 Not Given ACHS [facility] Pantoprazole Sodium 40 mg 06/07/20 09:00 06/08/20 08:59 Pantoprazole 40 Mg Tab PO 07/07/20 08:59 40 mg QAM [facility] Administration Protocol Sotalol HCl 80 mg 06/06/20 16:00 06/08/20 19:48 Sotalol Hcl 80 Mg Tab PO 07/06/20 15:59 80 mg BID [facility] Administration Tamsulosin HCl 0.4 mg 06/06/20 21:00 06/08/20 19:48 Tamsulosin Hcl 0.4 Mg Cap PO 07/06/20 20:59 0.4 mg HS LATA Administration Thiamine HCl 100 mg 06/07/20 09:00 06/08/20 09:00 Thiamine Hcl 100 Mg Tab PO 07/07/20 08:59 100 mg QAM [facility] Administration Vitamin D 1,000 units 06/07/20 09:00 06/08/20 08:59 Cholecalciferol 1,000 Units 25 Mcg Tab PO 07/07/20 08:59 1,000 units QAM [facility] Administration NPO Date Last Intake of Fluids: 06/08/20 Time Last Intake of Fluids: 23:45 Date Last Intake of Solids: 06/08/20 Time Last Intake of Solids: 18:00 Past Medical History Medical History Atrial fibrillation new onset BPH (benign prostatic hyperplasia) Diabetes mellitus, type II GERD (gastroesophageal reflux disease) Gout Hyperlipidemia Hypertension On anticoagulant therapy Type 2 diabetes mellitus with diabetic polyneuropathy NIDDM Exercise / Class Metabolic Activity III < 4 Walking/Shop/Light housework Past Family History Family History Brother Prostate cancer Father Heart disease Brother Melanoma Past Surgical History Surgical History History of colonoscopy History of tonsillectomy S/P ORIF (open reduction internal fixation) fracture Left Ankle/Heel Past Anesthesia History No Hx of Anesthesia Complications and No Family Hx of Anesthesia Complications History of PONV No Hx of PONV and No Hx of Motion Sickness Social History Smoking Status: Current some day smoker tobacco type: cigars Smoking cigarettes per day: 5-7 cigars weekly Hx Alcohol Use: Yes Alcohol type: hard liquor alcohol intake frequency: holidays/special occasions only Hx Substance Use: No substance use type: does not use Physical Exam Vital Signs Last Vital Signs Temp 36.7 C 06/09/20 03:50 Pulse 73 06/09/20 07:11 Resp 16 06/09/20 07:11 BP 146/98 H 06/09/20 07:11 Pulse Ox 96 06/09/20 07:11 Constitutional + obese ENMT Mouth: + poor dentition; no dentition abnormality Thyromental Distance: > or= 3.5 Finger Breadths Mallampati Class: II Neck normal visual inspection, trachea midline and + limited neck extension Respiratory normal respiratory effort Auscultation: lungs clear to auscultation bilaterally Cardiovascular Rate/Rhythm: + irregularly irregular; + abnormal rate (irregular/afib) and + abnormal rhythm (irregular/afib) Heart Sounds: no murmur Vessels: no carotid bruit Musculoskeletal Spine: normal cervical ROM Extremities: extremities normal to inspection Neurologic moves all extremities Motor/Sensory: + sensory deficit (feet) Psychiatric Orientation: alert and oriented x 3 Testing Laboratory Results 06/07/20 06:20 Hemoglobin A1c 6.8 % (4.5-5.6) H 06/07/20 06:20 06/09/20 06/08/20 05:38 20:13 POC Glucose 126 H 191 H Electrocardiogram Date: 06/09/20 Findings: + AFIB @ (at 75) Echocardiogram Date: 12/16/20 EF: 50% LV Function: normal RWMA: + none Other Findings: + atrial enlargement (LA mild) Valvular Disease: + MR (mild MR)
[2020-06-09 07:42] LABS: BUN Creatinine Ratio 10.7 (10-20); Calcium 8.2 mg/dl (8.5-10.1); Creatinine Clr Calc Pharmacy 79.1 ml/min; Est GFR (African American) 84.5; Est GFR (Non-African American) 72.9; Potassium 3.6 mmol/L (3.5-5.1)
--- NOTE | 2020-06-09 07:48 | Cardioversion ---
Date of Service June 09, 2020 Electrical Cardioversion Rpt Electrical Cardioversion Report The patient was brought to the [facility] recovery area. Sedation was given by anesthesia. The patient then received 300 J of synchronized energy which converted him to a sinus mechanism. The patient was recovered and then returned to his room in stable condition.
--- NOTE | 2020-06-09 08:05 | Anesthesiology Progress Note ---
Date of Service June 09, 2020 Anesthesia Post Procedure Vital Signs Vital Signs: Temp Pulse Pulse Resp BP Pulse Ox 06/09/20 07:11 73 16 146/98 H 96 06/09/20 03:50 36.7 C 78 18 129/77 98 06/08/20 23:38 36.8 C 81 16 134/97 95 06/08/20 18:53 36.7 C 87 18 149/76 H 97 06/08/20 15:32 36.9 C 88 18 124/69 99 06/08/20 12:00 36.8 C 78 18 117/80 97 Transfer of Care Handoff Completed per policy Notes Mental Status: alert / awake / arousable Patient Amnestic to Procedure: Yes Nausea / Vomiting: adequately controlled Pain: adequately controlled Airway Patency, RR, SpO2: stable & adequate BP & HR: stable & adequate Hydration State: stable & adequate Anesthetic Complications: no major complications apparent
[2020-06-09] MEDS: allopurinoL 100 MG TAB PO SCH (08:22)
[2020-06-09] MEDS: FOLIC ACID 1 MG TAB PO SCH (08:22)
[2020-06-09] MEDS: GABAPENTIN 100 MG CAP PO SCH (08:22)
[2020-06-09] MEDS: SOTALOL HCL 80 MG TAB PO SCH (08:23)
[2020-06-09] MEDS: amLODIPine BESYLATE 5 MG TAB PO SCH (08:23)
[2020-06-09] MEDS: APIXABAN 5 MG TABLET PO SCH (08:23)
[2020-06-09] MEDS: hydrALAZINE TAB 50 MG TAB PO SCH (08:23)
[2020-06-09] MEDS: ENALAPRIL MALEATE 10 MG TAB PO SCH (08:24)
[2020-06-09] MEDS: CHOLECALCIFEROL 1,000 UNITS 25 MCG TAB PO SCH (08:24)
[2020-06-09] MEDS: carvediloL 12.5 MG TAB PO SCH (08:24)
[2020-06-09] MEDS: ATORVASTATIN 20 MG TAB PO SCH (08:24)
[2020-06-09] MEDS: THIAMINE HCL 100 MG TAB PO SCH (08:25)
[2020-06-09] MEDS: CYANOCOBALAMIN 500 MCG TABLET (VITAMIN B-12) PO SCH (08:25)
[2020-06-09] MEDS: FUROSEMIDE 20 MG TAB PO SCH (08:25)
[2020-06-09] MEDS: PANTOprazole 40 MG TAB PO SCH (08:25)
[2020-06-09] MEDS ORDERED: POTASSIUM CHLORIDE CRTAB 20 MEQ TABCR PO STA (09:30)
--- NOTE | 2020-06-09 09:31 | Hospitalist Progress Note ---
Date of Service June 09, 2020 Assessment & Plan (1) Persistent atrial fibrillation: Sotalol load per cardiology (Dr. Britton) Checking QT interval with daily ECG Patient is now status post cardioversion on 06/09/20 STOP Carvedilol on discharge. Plan to discharge on sotalol 80 mg twice daily Continue Eliquis for anticoagulation Monitor on telemetry (2) Hypertension: Continue Hydralazine, Carvedilol, Benazepril (3) Diabetes mellitus, type II: A1c 6.8 in 02/27. 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 Mcgraw Dispo: Admitted to PCU. Plan to return home today. Thank you for this consultation. Admission and Anticipated Discharge Date Admission Date: June 06, 2020 Subjective Patient seen in follow-up of persistent A. fib, now status post cardioversion this morning Patient is sitting up in bed, in no acute distress Reports he is feeling well, no chest pain, palpitations, shortness of breath Discussed with Dr. Britton, from cardiology, likely discharge this afternoon Review of Systems Review of Systems: All systems reviewed & are unremarkable except as noted in HPI & below Constitutional: no fever and no chills Respiratory: no cough and no dyspnea Cardiovascular: no chest pain and no palpitations Gastrointestinal: no abdominal pain, no nausea and no vomiting Physical Exam Physical Exam: CONSTITUTIONAL: WNWD, vitals as above, generally well-appearing EYES: normal conjunctivae, no scleral icterus ENT: external ear and nose normal, MMM RESPIRATORY: clear to auscultation bilaterally, no crackles, rales or wheezes, normal respiratory effort CARDIOVASCULAR: regular, HR in 50s, S1 and 2 heard without murmurs, gallops or rubs, no JVD, no peripheral edema GASTROINTESTINAL: soft, nontender, nondistended MUSCULOSKELETAL: strength 5/5 throughout, head is normocephalic and atraumatic SKIN: warm and dry NEUROLOGIC: CN 2-12 grossly intact, no sensory deficit, normal cognition, normal speech, moves extremities spontaneously PSYCHIATRIC: alert cooperative and oriented to person, place and time. Results & Data Results & Data ([facility]) Vital Signs (Past 12 Hours) Vital Signs Temp Pulse Pulse Resp BP Pulse Ox 06/09/20 08:33 36.5 C 47 L 18 134/69 94 06/09/20 07:11 73 16 146/98 H 96 06/09/20 03:50 36.7 C 78 18 129/77 98 06/08/20 23:38 36.8 C 81 16 134/97 95 Laboratory Results 06/09/20 06/09/20 06/08/20 Range/Units 06:01 05:38 20:13 Sodium 143 (136-145) mmol/L Potassium 3.6 (3.5-5.1) mmol/L Chloride 112 H (98-107) mmol/L Carbon Dioxide 27 (21-32) mmol/L Anion Gap 4.0 (3-11) BUN 11 (7-18) mg/dl Creatinine 1.04 (0.6-1.4) mg/dl Est Cr Clr Drug Dosing 79.1 ml/min Est GFR ( Amer) 84.5 Est GFR (Non-Af Amer) 72.9 BUN/Creatinine Ratio 10.7 (10-20) Glucose 124 H (70-99) mg/dl POC Glucose 126 H 191 H (70-99) mg/dl Calcium 8.2 L (8.5-10.1) mg/dl Magnesium 2.0 (1.8-2.4) mg/dl 06/08/20 Range/Units 16:20 Sodium (136-145) mmol/L Potassium (3.5-5.1) mmol/L Chloride (98-107) mmol/L Carbon Dioxide (21-32) mmol/L Anion Gap (3-11) BUN (7-18) mg/dl Creatinine (0.6-1.4) mg/dl Est Cr Clr Drug Dosing ml/min Est GFR ( Amer) Est GFR (Non-Af Amer) BUN/Creatinine Ratio (10-20) Glucose (70-99) mg/dl POC Glucose 132 H (70-99) mg/dl Calcium (8.5-10.1) mg/dl Magnesium (1.8-2.4) mg/dl Medications Administered Current Inpatient Medications Acetaminophen (Acetaminophen 325 Mg Tab) 650 mg PO Q4H PRN PRN Reason: Pain or Fever Stop: 07/06/20 11:15 Al Hydrox/Mg Hydrox/Simethicone (Aluminum/Magnesium Susp 30 Ml Udc) 15 ml PO Q4H PRN PRN Reason: Dyspepsia Stop: 07/06/20 11:15 Allopurinol (Allopurinol 100 Mg Tab) 100 mg PO DAILY [facility] Stop: 07/07/20 08:59 Last Admin: 06/09/20 08:22 Dose: 100 mg Documented by: Amlodipine Besylate (Amlodipine Besylate 5 Mg Tab) 10 mg PO QAM [facility] Stop: 07/07/20 08:59 Last Admin: 06/09/20 08:23 Dose: 10 mg Documented by: Apixaban (Apixaban 5 Mg Tablet) 5 mg PO BID [facility] Stop: 07/06/20 20:59 Last Admin: 06/09/20 08:23 Dose: 5 mg Documented by: Atorvastatin Calcium (Atorvastatin 20 Mg Tab) 20 mg PO QAM [facility] Stop: 07/07/20 08:59 Last Admin: 06/09/20 08:24 Dose: 20 mg Documented by: Atropine Sulfate (Atropine Sulfate 0.1 Mg/Ml 10ml Syr) 0.5 mg IV Q1M PRN PRN Reason: PACU Use-HR<40 &/or Bradycardi Stop: 06/09/20 15:34 Carvedilol (Carvedilol 12.5 Mg Tab) 12.5 mg PO BID [facility] Stop: 07/06/20 20:59 Last Admin: 06/09/20 08:24 Dose: 12.5 mg Documented by: Cyanocobalamin (Cyanocobalamin 500 Mcg Tablet (Vitamin B-12)) 1,000 mcg PO QAM [facility] Stop: 07/07/20 08:59 Last Admin: 06/09/20 08:25 Dose: 1,000 mcg Documented by: Dextrose (Dextrose 50% 50 Ml Syringe) 25 - 50 ml IV UD PRN; Protocol PRN Reason: Hypoglycemia Protocol Stop: 07/06/20 13:56 Enalapril Maleate (Enalapril Maleate 10 Mg Tab) 40 mg PO QAM [facility]; Protocol Stop: 07/07/20 08:59 Last Admin: 06/09/20 08:24 Dose: 40 mg Documented by: Ephedrine Sulfate (Ephedrine Sulfate 50 Mg/Ml Amp) 5 mg IV Q5M PRN PRN Reason: PACU Use Only-SBP<90 mmHg Stop: 06/09/20 15:34 Folic Acid (Folic Acid 1 Mg Tab) 1 mg PO QAM [facility] Stop: 07/07/20 08:59 Last Admin: 06/09/20 08:22 Dose: 1 mg Documented by: Furosemide (Furosemide 20 Mg Tab) 20 mg PO QAM [facility] Stop: 07/07/20 08:59 Last Admin: 06/09/20 08:25 Dose: 20 mg Documented by: Gabapentin (Gabapentin 100 Mg Cap) 100 mg PO TID [facility] Stop: 07/06/20 20:59 Last Admin: 06/09/20 08:22 Dose: 100 mg Documented by: Glucagon (Glucagon For Inj 1 Mg Vial) 1 mg SQ UD PRN; Protocol PRN Reason: Hypoglycemia Protocol Stop: 07/06/20 13:56 Glucose (Glucose 10 Tabs/Tube) 4 - 8 tabs PO UD PRN; Protocol PRN Reason: Hypoglycemia Protocol Stop: 07/06/20 13:56 Glucose (Glucose 40% Gel 15 Gm Tube) 15 - 30 gm PO UD PRN; Protocol PRN Reason: Hypoglycemia Protocol Stop: 07/06/20 13:56 Hydralazine HCl (Hydralazine Tab 50 Mg Tab) 100 mg PO BID [facility] Stop: 07/06/20 20:59 Last Admin: 06/09/20 08:23 Dose: 100 mg Documented by: Insulin Aspart (Insulin Aspart 100 Units/Ml 3 Ml Pen) 0 units SC ACHS [facility] Stop: 07/06/20 16:29 Last Admin: 06/09/20 05:45 Dose: Not Given Documented by: Magnesium Hydroxide (Magnesium Hydroxide Susp 30 Ml Udc) 30 ml PO Q12H PRN PRN Reason: Constipation Stop: 07/06/20 11:15 Miscellaneous (Carbohydrates For Hypoglycemia ) 15 - 30 gm PO UD PRN PRN Reason: Hypoglycemia Protocol Stop: 07/06/20 13:56 Nitroglycerin (Nitroglycerin Sl 0.4 Mg/Tab Tab) 0.4 mg SL UD PRN PRN Reason: Chest Pain Stop: 07/06/20 11:15 Pantoprazole Sodium (Pantoprazole 40 Mg Tab) 40 mg PO QAM [facility]; Protocol Stop: 07/07/20 08:59 Last Admin: 06/09/20 08:25 Dose: 40 mg Documented by: Polyethylene Glycol (Polyethylene (Miralax) 17 Gm Pack) 17 gm PO DAILY PRN PRN Reason: Constipation Stop: 07/06/20 11:15 Potassium Chloride (Potassium Chloride Crtab 20 Meq Tabcr) 20 meq PO NOW STA Stop: 06/09/20 09:31 Sotalol HCl (Sotalol Hcl 80 Mg Tab) 80 mg PO BID LATA Stop: 07/06/20 15:59 Last Admin: 06/09/20 08:23 Dose: 80 mg Documented by: Tamsulosin HCl (Tamsulosin Hcl 0.4 Mg Cap) 0.4 mg PO HS LATA Stop: 07/06/20 20:59 Last Admin: 06/08/20 19:48 Dose: 0.4 mg Documented by: Thiamine HCl (Thiamine Hcl 100 Mg Tab) 100 mg PO QAM LATA Stop: 07/07/20 08:59 Last Admin: 06/09/20 08:25 Dose: 100 mg Documented by: Vitamin D (Cholecalciferol 1,000 Units 25 Mcg Tab) 1,000 units PO QAM LATA Stop: 07/07/20 08:59 Last Admin: 06/09/20 08:24 Dose: 1,000 units Documented by: (1) Gout Chronicity: unspecified Gout etiology: unspecified cause Gout site: unspecified site Qualified Code(s): M10.9 - Gout, unspecified (2) Hyperlipidemia Hyperlipidemia type: unspecified Qualified Code(s): E78.5 - Hyperlipidemia, unspecified (3) Hypertension Hypertension type: essential hypertension Qualified Code(s): I10 - Essential (primary) hypertension
--- NOTE | 2020-06-09 10:50 | Electrocardiogram Report ---
Test Reason : Blood Pressure : / mmHG Vent. Rate : 075 BPM Atrial Rate : 258 BPM P-R Int : 000 ms QRS Dur : 088 ms QT Int : 394 ms P-R-T Axes : 000 -17 031 degrees QTc Int : 439 ms Atrial fibrillation Anteroseptal infarct (cited on or before 03-JUN-2012) Abnormal ECG When compared with ECG of 08-JUN-2020 04:12, QRS axis Shifted right (likely lead reversal on prior EKG) Serial changes of Anteroseptal infarct Present Confirmed by Fidel Kelly ([id number]) on 06/09/2020 10:49:57 AM Referred By: Sathish Britton Confirmed By:Ken Kelly
--- NOTE | 2020-06-09 11:06 | Electrocardiogram Report ---
Test Reason : Blood Pressure : / mmHG Vent. Rate : 044 BPM Atrial Rate : 044 BPM P-R Int : 188 ms QRS Dur : 088 ms QT Int : 436 ms P-R-T Axes : 042 -27 019 degrees QTc Int : 372 ms Marked sinus bradycardia Poor R wave progression, consider anterior SD vs. lead placement vs. LVH Abnormal ECG When compared with ECG of 09-JUN-2020 04:10, (unconfirmed) Sinus rhythm has replaced Atrial fibrillation Vent. rate has decreased BY 31 BPM Nonspecific T wave abnormality, worse in Lateral leads Slight change in R wave progression QT has shortened Confirmed by Fidel Kelly ([id number]) on 06/09/2020 11:06:08 AM Referred By: Sathish Britton Confirmed By:Ken Kelly
--- NOTE | 2020-06-09 11:28 | Discharge Summary ---
Date of Service June 09, 2020 Admission HPI Per Admitting Provider The patient was admitted for sotalol load and potential cardioversion for persistent atrial fibrillation. Principal Diagnosis Persistent atrial fibrillation Discharge Exam General: no acute distress and stated age Head: normocephalic, no masses, lesions, tenderness or abnormalities Eyes: conjunctiva are pink and non-injected, sclera clear Neck: supple, no adenopathy, no bruits, normal jugular venous pulse, no hepatojugular reflux Chest: normal shape and normal respiratory effort Lungs: clear to auscultation and percussion Cardiac Exam: - regular rate & rhythm, no murmurs gallops or rubs - normal S1, normal S2 Pulses: 2(+) throughout Abdomen: abdomen soft, non-tender, no abnormal masses and no hepatosplenomegaly Musculoskeletal: no gait disturbance, no joint inflammation, no deforming arthritis Extremities: no edema and no cyanosis Neuro: grossly normal exam Discharge Data Allergies Allergy/AdvReac Type Severity Reaction Status Date / Time cephalexin [From Keflex] Allergy Unknown Unknown Verified 06/06/20 11:47 amoxicillin AdvReac Severe Gastrointestinal Verified 06/06/20 11:47 Upset Tetanus Vaccines and Toxoid AdvReac Fever Verified 06/06/20 11:47 Consultations 06/06/20 12:35 Consult Hospitalist Stat 06/08/20 10:39 Consult Anesthesiology Routine Procedures Performed Operation Date: 06/09/20 07:30 Actual Procedures p Cardioversion Marking Clerk w/Anesthesia - Sathish Britton DO Hospital Course (1) Persistent atrial fibrillation: The patient was admitted for sotalol load. His QTC was monitored throughout his hospital stay. After the required loading dose of sotalol he underwent a successful cardioversion to sinus rhythm. (2) Diabetes mellitus, type II: The patient can restart Metformin after discharge. (3) BPH (benign prostatic hyperplasia): Continue current medications. Total Time Total Time Spent Total Time Spent (In Minutes): 30 minutes Discharge Plan Discharge Items Patient Disposition: Home - Self-Care Reason For Visit: AFIB Discharge Diagnosis: Persistent atrial fibrillation now status post cardioversion Activity: Per Instructions section Non-emergency contact: Primary Care Provider and Employee Benefits Administrator Call non-emergency contact if: you have any medication questions and your symptoms worsen Follow-up/Referrals: Eloy Mcgraw MD [Primary Care Provider] - (Date & Time 06/14/2020 12:20 PM Provider Eloy Mcgraw MD Department Family [facility] ) Diet: Carb Consistent or DM2 and Heart Healthy Addtl Attending Provider Instructions: Follow-up with your primary care doctor, the appointment was scheduled for you for June 14. 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 Start taking your new medication, sotalol, 80 mg twice a day. Stop taking carvedilol/Coreg. Make sure to bring all your medications to your next appointments, so it is clear what you are taking. Pending Studies at Discharge: No Stand-Alone Forms: My [facility] [employer], Smoking Cessation Medications and DC Order Prescriptions: New atorvastatin 20 mg Tablet 20 mg PO QAM Qty: 30 RF: 0 sotalol 80 mg Tablet 80 mg PO BID Qty: 60 RF: 0 Continued atorvastatin [Lipitor] 20 mg tablet 20 mg PO QAM RF: 0 cyanocobalamin (vitamin B-12) [Vitamin B-12] 1,000 mcg Tablet 1,000 mcg PO QAM RF: 0 allopurinol [Zyloprim] 100 mg tablet 100 mg PO QAM RF: 0 amlodipine [Norvasc] 10 mg tablet 10 mg PO HS RF: 0 metformin [Glucophage] 1,000 mg tablet 1,000 mg PO BID RF: 0 benazepril [Lotensin] 40 mg tablet 40 mg PO QAM RF: 0 cholecalciferol (vitamin D3) [Vitamin D3] 1,000 unit Capsule 1,000 unit PO QAM RF: 0 tadalafil [Cialis] 5 mg tablet 5 mg PO UD PRN (Reason: before sex) RF: 0 thiamine mononitrate (vit B1) [Vitamin B-1 (mononitrate)] 100 mg tablet 100 mg PO QAM RF: 0 folic acid 1 mg tablet 1 mg PO QAM RF: 0 Eliquis 5 mg Tablet 5 mg PO BID Qty: 60 RF: 1 epinephrine [EpiPen] 0.3 mg/0.3 mL Auto-Injector 0.3 mg IM Q4H PRN (Reason: Anaphylaxis) RF: 0 tamsulosin 0.4 mg capsule 0.4 mg PO DAILY RF: 0 hydralazine 100 mg tablet 100 mg PO BID RF: 0 omeprazole 20 mg capsule,delayed release(DR/EC) 20 mg PO DAILY RF: 0 furosemide 20 mg tablet 20 mg PO DAILY RF: 0 gabapentin 100 mg capsule 100 mg PO TID RF: 0 Discontinued carvedilol 25 mg tablet 25 mg PO BID RF: 0 Discharge Orders: Discharge Order (Routine); Ordered 06/09/20 Ordered By: Sathish Bailey/Other Patient Handouts: Managing Type 2 Diabetes, Managing Diabetes: The A1C Test Admission Data Admit Date/Time: 06/06/20 11:16 Attending Provider: Sathish Britton Admit Provider: Sathish Britton Primary Care Provider: Eloy Mcgraw Other Providers: Bárbara Antonio ; Aida Cummins ; Bella Pena ; Akosua Aguilera ; Haleigh Lawrence ; Mercedes Woods ; Kerry Colbert ; Corrie Mackay ; Carlos Walker ; Tobi Camacho ; Livan Ding ; Sharon Porter ; Eduardo Haddad ; Letty Hoskins ; Yumiko Morton ; Vitaly Doan ; Buffy Urrutia ; Brenda Zarate ; Rocio Ortiz ; Madison Reynolds I. ; Douglas Calabrese ; Pete Webb
== END 2020-06-09 14:06 | disposition home or self-care (01) | DRG 310 ==
LOC: ED 10:50 → 2S 11:16

== ENCOUNTER 2024-12-17 23:05 | Inpatient (IN) ==
--- NOTE | 2024-12-17 23:23 | Emergency Department Note ---
Impression & Plan GIB (gastrointestinal bleeding) ADMIT ED Provider Note HPI: History obtained from patient. The patient is a 74-year-old gentleman with history of persistent atrial fibrillation, currently on Eliquis, hypertension, hyperlipidemia, who presents to the emergency department with chief complaint of hematemesis. Patient states that he had an EGD on Saturday morning with Dr. Pee Davalos at [facility], he states that he had several biopsies performed of polyps in his stomach. Patient states that he has not resumed his Eliquis since the procedure. Patient states that earlier this evening he was watching TV when he felt an acute onset episode of nausea and some diaphoresis. Patient states he had an episode of emesis at that time that had blood in it. Patient states that he had not had any previous episodes of hematemesis until this evening. On arrival here to the ED the patient is mildly tachycardic with blood pressure of 93/69. He is saturating well on room air on arrival and otherwise appears to be in no acute distress. Patient denies any current abdominal pain. ROS: - Per HPI Differential Diagnosis: Upper GI bleeding, perforated viscus, small bowel obstruction, esophageal variceal bleed, peptic ulcer disease, viral gastroenteritis, acute appendicitis, acute cholecystitis, amongst other potential pathologies. *Outpatient medications and allergy history reviewed. PE: General: Alert HEENT: Normocephalic, trachea midline Eyes: Extraocular eye movement is intact, no scleral erythema Pulmonary: Clear to auscultation bilaterally, no wheezing Cardio: Tachycardic rate with irregular rhythm GI: Abdomen is soft to palpation, nondistended : No suprapubic tenderness MSK: No evidence of trauma or malformation of the extremities, no edema Skin: No evidence of rash Neuro: Alert, no focal deficits Psychiatric: Cooperative INDEPENDENT INTERPRETATIONS: hall monitor: (As interpreted by myself): - An order was placed for continuous cardiac monitoring - Patient was noted to be in atrial fibrillation with a rate of 122 EKG: (As interpreted by myself): Rate: 138 Rhythm: Atrial fibrillation Intervals: Within normal limits ST changes: No ST elevation Time: 2333 Interventions provided in ED: - IV Protonix bolus and drip, IV fluid bolus Medical Decision Making: IV was established and lab work obtained, patient was placed on hall monitor. Lab work shows no leukocytosis, hemoglobin is stable at 12.8, platelet count is normal, CMP does not show any evidence of any critical findings. There is note of an elevated creatinine of 2.15 which appears to be above the patient's baseline, BUN is also elevated at 27. CT imaging of the abdomen pelvis was obtained that shows some nonspecific debris within the stomach, also changes of gastritis. Patient was placed on a Protonix bolus and drip as well as IV fluids. Blood pressure remained mostly in the 90 systolic and tachycardia improved into the low 100s. On my reassessment the patient remains well- appearing, he is alert and appears to be in no acute distress. He has not had any further hematemesis here in the ED. He states he has not taken his Eliquis for the past 5 days. I did reach out to on-call gastroenterology, Dr. Knapp, he recommends admission and continuation of Protonix drip, at this time he recommends holding off on blood transfusion given that the patient has a stable hemoglobin. I discussed this with the patient and his family, they are in agreement for admission. They expressed an understanding of the above. I then discussed the patient's presentation with the on-call hospitalist for [facility], Dr. Camacho, and the patient was placed for admission in stable condition with gastroenterology consultation. Consultants/Discussions held with other healthcare providers: - Gastroenterology, Dr. Knapp - Hospitalist, Dr. Camacho Disposition discussion held by myself with: - Patient and patient's family at the bedside Diagnosis: 1. Upper GI bleed, acute 2. Acute kidney injury 3. Elevated BUN Disposition: Admission Jesu Del Valle DO Emergency Medicine Past Med/Surg History Problem List (Updated 12/18/24 @ 04:46 by Jesu Del Valle DO) GIB (gastrointestinal bleeding) (Acute) COVID-19 (Acute) DVT prophylaxis Persistent atrial fibrillation BPH (benign prostatic hyperplasia) Diabetes mellitus, type II (Chronic) Atrial fibrillation (Acute) Hypertension (Chronic) Gout Hyperlipidemia (Chronic) Medical History Atrial fibrillation new onset BPH (benign prostatic hyperplasia) Diabetes mellitus, type II GERD (gastroesophageal reflux disease) Gout Hyperlipidemia Hypertension On anticoagulant therapy Type 2 diabetes mellitus with diabetic polyneuropathy NIDDM Surgical History History of colonoscopy History of tonsillectomy S/P ORIF (open reduction internal fixation) fracture Left Ankle/Heel Family History Brother Prostate cancer Father Heart disease Brother Melanoma Social History Smoking Status: Never smoker Tobacco Type: Cigars Cigarettes Per Day: 5-7 cigars weekly; Second Hand Exposure: No; Do You Dip or Chew Tobacco: No; Hx Alcohol Use: Yes Alcohol type: hard liquor Hx Substance Use: No Preferred Language: Pakistani Communication Ability: Effective Visual Impairment: Limited Hearing Ability: Normal Automotive Exhaust Emissions Technician Required: No Beliefs That Will Affect Care: None marital status: Current Living Situation: Spouse current occupational status: employed Feels Safe at Home: Yes Assistive Devices: None Allergies Allergies Allergy/AdvReac Type Severity Reaction Status Date / Time amoxicillin Allergy Intermediate Rash Verified 12/17/24 23:38 cephalexin [From Keflex] Allergy Unknown ON Verified 12/17/24 23:38 [facility] Tetanus Vaccines and Toxoid AdvReac Intermediate FEVER 104F Verified 12/17/24 23:38 Home Meds Home Medications Medication Instructions Recorded Confirmed allopurinol 100 mg tablet 100 mg PO QAM 01/12/19 12/18/24 (Zyloprim) amlodipine 10 mg tablet (Norvasc) 10 mg PO HS 01/12/19 12/18/24 atorvastatin 20 mg tablet (Lipitor) 20 mg PO QAM 01/12/19 12/18/24 benazepril 40 mg tablet (Lotensin) 40 mg PO QAM 01/12/19 12/18/24 cholecalciferol (vitamin D3) 25 1,000 unit PO QAM 01/12/19 12/18/24 mcg (1,000 unit) capsule (Vitamin D3) cyanocobalamin (vitamin B-12) 1,000 mcg PO QAM 01/12/19 12/18/24 1,000 mcg tablet (Vitamin B-12) tadalafil 5 mg tablet (Cialis) 5 mg PO DIRECTED PRN Sexual 01/12/19 12/18/24 Activity thiamine mononitrate (vit B1) 100 100 mg PO QAM 01/12/19 12/18/24 mg tablet (Vitamin B-1 (mononitrate)) folic acid 1 mg tablet 1 mg PO QAM 01/16/19 12/18/24 epinephrine 0.3 mg/0.3 mL 0.3 mg IM DIRECTED PRN 06/06/20 12/18/24 injection, auto-injector (EpiPen) Anaphylaxis furosemide 20 mg tablet 20 mg PO BID 06/06/20 12/18/24 gabapentin 100 mg capsule 100 mg PO TID 06/06/20 12/18/24 hydralazine 100 mg tablet 100 mg PO TID 06/06/20 12/18/24 omeprazole 20 mg capsule,delayed 20 mg PO DAILYBB 06/06/20 12/18/24 release tamsulosin 0.4 mg capsule 0.4 mg PO HS 06/06/20 12/18/24 carvedilol 12.5 mg tablet 12.5 mg PO BID 12/17/24 12/18/24 metformin 1,000 mg tablet 1,000 mg PO BIDM 12/17/24 12/18/24 naproxen sodium 220 mg tablet 220 mg PO BIDM 12/17/24 12/18/24 (Aleve) omega 7-[id number]-[id number]-fish oil 1,000 mg 1 cap PO DAILY 12/17/24 12/18/24 (120 mg-180 mg) capsule (Fish Oil) pantoprazole 40 mg tablet,delayed 40 mg PO BID 12/17/24 12/18/24 release Previous Rx's Medication Instructions Recorded apixaban 5 mg tablet (Eliquis) 5 mg PO BID #60 tabs 02/26/20 Results & Data (ED) Vital Signs Vital Signs - 24 hr 12/17/24 23:09 12/17/24 23:09 12/17/24 23:27 Temperature 36.6 C Temperature Source Oral Pulse Rate 121 H Pulse Rate [Apical] Pulse Rate from SpO2 Sensor Pulse Rhythm Regular Pulse Strength Normal Respiratory Rate 18 Respiratory Effort / Characteristics Non-Labored Spontaneous Respiratory Depth Normal Respiratory Pattern Regular Blood Pressure 93/69 L Blood Pressure [Right Arm] Blood Pressure Mean 77 Blood Pressure Mean [Right Arm] Blood Pressure Position Semi-fowlers Pulse Oximetry 97 97 Oxygen Delivery Method Room Air Room Air Room Air Sepsis Recent Fever Within 48 Hours No Sepsis New/Unexplained Change in Mental Status N/A Sepsis Action Taken by Nursing Physician Notified 12/18/24 01:02 12/18/24 03:00 12/18/24 03:00 Temperature Temperature Source Pulse Rate 103 H Pulse Rate [Apical] 119 H 120 H Pulse Rate from SpO2 Sensor 91 H Pulse Rhythm Pulse Strength Respiratory Rate 18 18 17 Respiratory Effort / Characteristics Respiratory Depth Respiratory Pattern Blood Pressure 140/68 Blood Pressure [Right Arm] 93/65 L 140/68 Blood Pressure Mean 92 Blood Pressure Mean [Right Arm] 74 92 Blood Pressure Position Pulse Oximetry 97 95 96 Oxygen Delivery Method Room Air Sepsis Recent Fever Within 48 Hours Sepsis New/Unexplained Change in Mental Status Sepsis Action Taken by Nursing 12/18/24 03:45 Temperature Temperature Source Pulse Rate 108 H Pulse Rate [Apical] Pulse Rate from SpO2 Sensor Pulse Rhythm Pulse Strength Respiratory Rate 16 Respiratory Effort / Characteristics Respiratory Depth Respiratory Pattern Blood Pressure 130/89 Blood Pressure [Right Arm] Blood Pressure Mean 102 Blood Pressure Mean [Right Arm] Blood Pressure Position Pulse Oximetry 97 Oxygen Delivery Method Room Air Sepsis Recent Fever Within 48 Hours Sepsis New/Unexplained Change in Mental Status Sepsis Action Taken by Nursing Laboratory Data 12/17/24 23:16 12/17/24 23:16 Lab Results 12/17/24 12/17/24 Range/Units 23:16 23:21 WBC 10.49 (4.8-10.8) K/ul RBC 4.09 L (4.70-6.10) M/uL Hgb 12.8 L (14.0-18.0) g/dl POC Hgb 12.9 L (14.0-18.0) g/dl Hct 37.9 L (42.0-52.0) % POC Hct 38 L (42-52) % MCV 92.7 (80.0-100.0) fL MCH 31.3 (25.0-34.0) pg MCHC 33.8 (32.0-36.0) g/dL RDW Std Deviation 45.3 (36.4-46.3) fL RDW Coeff of Riley 13.4 (11.5-14.5) % Plt Count 184 (130-400) K/uL MPV 11.4 (9.4-12.4) fL Immature Gran % (Auto) 0.7 % Neut % (Auto) 78.8 % Lymph % (Auto) 11.2 % [place] % (Auto) 7.2 % Eos % (Auto) 1.7 % Baso % (Auto) 0.4 % Neut # (Auto) 8.26 H (1.40-6.50) K/uL Lymph # (Auto) 1.18 L (1.20-3.40) K/uL [place] # (Auto) 0.76 H (0.11-0.59) K/uL Eos # (Auto) 0.18 (0.00-0.50) K/uL Baso # (Auto) 0.04 (0.00-0.20) K/uL Immature Gran # (Auto) 0.07 (0.01-0.20) K/uL PT 11.9 (9.0-12.0) Seconds INR 1.1 (0.9-1.1) POC Sodium 140 (135-144) mmol/L Sodium 139 (136-145) mmol/L POC Potassium 3.4 (3.3-5.0) mmol/L Potassium 3.5 (3.5-5.1) mmol/L POC Chloride 104 (101-112) mmol/L Chloride 103 (98-107) mmol/L Carbon Dioxide 21 (21-32) mmol/L POC Total CO2 20 L (24-31) mmol/L Anion Gap 15 H (3-11) POC Anion Gap 21.0 (16-25) mmol/L POC BUN 27 H (7-18) mg/dl BUN 27 H (6-23) mg/dl Creatinine 2.15 H (0.6-1.4) mg/dl POC Creatinine 2.3 H (0.6-1.3) mg/dl Est Cr Clr Drug Dosing Not Reportable eGFR 31.52 BUN/Creatinine Ratio 12.6 (10-20) Glucose 253 H (70-99(Fasting)) mg/dl POC Glucose (other) 248 H (70-99) mg/dl Calcium 8.8 (8.6-10.3) mg/dl POC Ioniz Calcium Ko 1.05 L (1.12-1.32) mmol/l Total Bilirubin 1.1 H (0.2-1.0) mg/dl AST 16 (13-39) U/L ALT 13 (7-52) U/L Alkaline Phosphatase 47 (34-104) U/L Troponin I High Sens 10.4 (0-20) pg/ml Total Protein 6.3 (6.0-8.3) gm/dl Albumin 3.2 L (3.4-5.0) gm/dl Globulin 3.1 (2.5-4.0) gm/dl Albumin/Globulin Ratio 1.0 (0.9-2) Lipase 47 (11-82) U/L Blood Type O Positive Antibody Screen NEGATIVE Administered Medications Pantoprazole Sodium 40 mg/ (Dextrose) 100 mls @ 20 mls/hr IV Q5H LATA Stop: 01/16/25 23:44 Last Admin: 12/18/24 00:18 Dose: 8 mg/hr, 20 mls/hr Documented By: PANCHO Discontinued Medications Sodium Chloride (Nss) 500 mls @ 999 mls/hr IV .Q31M STA Stop: 12/17/24 23:39 Last Infusion: 12/18/24 00:22 Dose: Infused Documented By: Admin: 12/17/24 23:51 Dose: 999 mls/hr Documented By: PANCHO Pantoprazole Sodium 80 mg/ (Dextrose) 120 mls @ 480 mls/hr IV NOW ONE Stop: 12/17/24 23:34 Last Infusion: 12/18/24 00:06 Dose: Infused Documented By: Admin: 12/17/24 23:51 Dose: 480 mls/hr Documented By: PANCHO Sodium Chloride (Nss) 1,000 mls @ 999 mls/hr IV .Q1H1M ONE Stop: 12/18/24 02:54 Last Infusion: 12/18/24 03:00 Dose: Infused Documented By: Admin: 12/18/24 01:59 Dose: 999 mls/hr Documented By: PANCHO Pantoprazole Sodium (Pantoprazole Bolus/Drip) 1 each IV NOW STA Stop: 12/17/24 23:21 Last Admin: 12/18/24 00:18 Dose: 1 each Documented By: PANCHO Imaging Data Radiologist's Impression: Abdomen/Pelvis CT 12/17/24 23:20 EXAM: CT abd pelvis wo con CLINICAL HISTORY: recent endoscopy, hematemesis TECHNIQUE: Contiguous axial images were obtained from the level of the diaphragm to the pubic symphysis without intravenous or oral contrast. Coronal and sagittal reconstructions were also performed and are indicated to increase the sensitivity for detecting clinically relevant pathology. The CT scan was performed according to MAGED (as low as reasonably achievable) guidelines. 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 FINDINGS: The visualized lung bases are clear. Evaluation of the abdominal and pelvic visceral organs is limited without intravenous contrast. The unenhanced liver, spleen, pancreas, and adrenal glands are grossly unremarkable. The gallbladder is present. The kidneys are normal in size and attenuation without obvious calcification. There is no hydronephrosis. Mild bilateral perinephric stranding is noted. A 5 x 4 cm cyst is noted involving or in relation to the right kidney, which is stable. The ureters are normal in caliber. No adenopathy or fluid collections are seen. No evidence of focal or diffuse bowel wall thickening or evidence of bowel obstruction is identified. No imaging evidence of appendicitis. The aorta is normal in caliber. The urinary bladder is normal in contour. The pelvic viscera are grossly unremarkable. No aggressive appearing osseous lesions are identified. The stomach is grossly distended and demonstrates intraluminal hyperdense foreign bodies/material. Clinical correlation is suggested. The stomach shows concentric mural thickening, predominantly involving the antrum, with a maximum wall thickness measuring approximately 19 mm. This may represent changes of gastritis. There are multiple small uncomplicated colonic diverticula. The prostate is enlarged, measuring approximately 50 x 48 mm. There are bilateral fat-containing inguinal hernias. IMPRESSION: The stomach is grossly distended and demonstrates intraluminal hyperdense foreign bodies/material. Clinical correlation is suggested. The stomach shows concentric mural thickening, predominantly involving the antrum, with a maximum wall thickness measuring approximately 19 mm. This may represent changes of gastritis. Endoscopic correlation is suggested. This is a new finding. There are multiple small uncomplicated colonic diverticula, stable. The prostate is enlarged, measuring approximately 50 x 48 mm; stable. Bilateral fat-containing inguinal hernias, stable. Mild bilateral perinephric stranding, stable. Electronically signed by Sebastian Trujillo 12-18-2024 01:[address] 12/18/24 00:07 EXAM: CT chest diagnostic wo con CLINICAL HISTORY: Hematemesis, recent EGD. TECHNIQUE: Contiguous axial images were obtained from the base of the neck through the upper abdomen without contrast. In addition, sagittal and coronal reconstructions were performed to potentially increase the sensitivity for the detection of disease. CT scan was performed according to ALARA (as low as reasonably achievable). COMPARISON: None. FINDINGS: Mild interlobular septal thickening are noted involving bilateral lung bases. The remainder of both lungs is clear. The central airways are patent. There are no pleural effusions. No pneumothorax is seen. Evaluation of the mediastinum and cody is limited due to the lack of intravenous contrast. No axillary or mediastinal adenopathy is identified. The thyroid is unremarkable. The heart, aorta, and pulmonary arteries are of normal size and configuration. Atherosclerotic changes in arch of aorta. No pericardial effusion is identified. Imaged portions of the upper abdomen are unremarkable. No aggressive-appearing osseous lesions are identified. IMPRESSION: Mild interlobular septal thickening are noted involving bilateral lung bases.- sequelae of previous infection likely. No other abnormality seen. Electronically signed by Sebastian Trujillo 12-18-2024 01:13 AM Discharge Plan Visit Data Chief Complaint: Weakness Stated Complaint: Weakness, Nausea, Vomiting Blood ED Provider: Jesu Del Valle Discharge Problem: GIB (gastrointestinal bleeding) Patient Disposition: Admitted As Inpatient Condition: Fair Forms Stand Alone Forms: [facility] Prescriptions Prescriptions: No Action atorvastatin [Lipitor] 20 mg tablet 20 mg PO QAM cyanocobalamin (vitamin B-12) [Vitamin B-12] 1,000 mcg Tablet 1,000 mcg PO QAM allopurinol [Zyloprim] 100 mg tablet 100 mg PO QAM amlodipine [Norvasc] 10 mg tablet 10 mg PO HS benazepril [Lotensin] 40 mg tablet 40 mg PO QAM cholecalciferol (vitamin D3) [Vitamin D3] 1,000 unit Capsule 1,000 unit PO QAM tadalafil [Cialis] 5 mg tablet 5 mg PO DIRECTED PRN (Reason: Sexual Activity) thiamine mononitrate (vit B1) [Vitamin B-1 (mononitrate)] 100 mg tablet 100 mg PO QAM folic acid 1 mg tablet 1 mg PO QAM Eliquis 5 mg Tablet 5 mg PO BID Qty: 60 1RF epinephrine [EpiPen] 0.3 mg/0.3 mL Auto-Injector 0.3 mg IM DIRECTED PRN (Reason: Anaphylaxis) Rx Instructions: FOR BEE STINGS tamsulosin 0.4 mg capsule 0.4 mg PO HS hydralazine 100 mg tablet 100 mg PO TID omeprazole 20 mg capsule,delayed release(DR/EC) 20 mg PO DAILYBB furosemide 20 mg tablet 20 mg PO BID gabapentin 100 mg capsule 100 mg PO TID carvedilol 12.5 mg tablet 12.5 mg PO BID pantoprazole 40 mg tablet,delayed release (DR/EC) 40 mg PO BID metformin 1,000 mg tablet 1,000 mg PO BIDM naproxen sodium [Aleve] 220 mg Tablet 220 mg PO BIDM omega [id number]-fish oil [Fish Oil] 1,000 (120-180) mg Capsule 1 cap PO DAILY Referrals Referrals: Eloy Mcgraw MD [Primary Care Provider] -
[2024-12-17 23:49] LABS: Hematocrit (blood only) 37.9 % (42.0-52.0); Hemoglobin 12.8 g/dl (14.0-18.0); Immature Granulocytes # (auto) 0.07 K/uL (0.01-0.20); Immature Granulocytes % (auto) 0.7 %; Mean Corpuscular Hemoglobin 31.3 pg (25.0-34.0); Mean Corpuscular Volume 92.7 fL (80.0-100.0); Platelet Count 184 K/uL (130-400); RDW Standard Deviation 45.3 fL (36.4-46.3); Red Blood Count 4.09 M/uL (4.70-6.10); White Blood Count 10.49 K/ul (4.8-10.8)
[2024-12-17] MEDS: SODIUM CHLORIDE 0.9% 500 ML IV STA (23:51)
[2024-12-18 00:05] LABS: Alanine Aminotransferase 13 U/L (7-52); Albumin Globulin Ratio 1.0 (0.9-2); Albumin Level 3.2 gm/dl (3.4-5.0); Alkaline Phosphatase 47 U/L (34-104); Anion Gap 15 (3-11); Bilirubin,Total 1.1 mg/dl (0.2-1.0); Blood Urea Nitrogen 27 mg/dl (6-23); Calcium 8.8 mg/dl (8.6-10.3); Carbon Dioxide 21 mmol/L (21-32); Chloride 103 mmol/L (98-107); Globulin 3.1 gm/dl (2.5-4.0); Glucose 253 mg/dl (70-99(Fasting)); Lipase 47 U/L (11-82); Potassium 3.5 mmol/L (3.5-5.1); Sodium 139 mmol/L (136-145); Total Protein 6.3 gm/dl (6.0-8.3)
[2024-12-18] MEDS: PANTOPRAZOLE BOLUS/DRIP IV STA (00:18)
[2024-12-18] MEDS: PANTOprazole 40 MG in DEXTROSE 5% MINI-B 100 ML IV SCH (00:18)
[2024-12-18 00:22] LABS: INR 1.1 (0.9-1.1); Prothrombin Time 11.9 Seconds (9.0-12.0)
--- NOTE | 2024-12-18 01:14 | CT Scan Report ---
EXAM: CT chest diagnostic wo con CLINICAL HISTORY: Hematemesis, recent EGD. TECHNIQUE: Contiguous axial images were obtained from the base of the neck through the upper abdomen without contrast. In addition, sagittal and coronal reconstructions were performed to potentially increase the sensitivity for the detection of disease. CT scan was performed according to ALARA (as low as reasonably achievable). COMPARISON: None. FINDINGS: Mild interlobular septal thickening are noted involving bilateral lung bases. The remainder of both lungs is clear. The central airways are patent. There are no pleural effusions. No pneumothorax is seen. Evaluation of the mediastinum and cody is limited due to the lack of intravenous contrast. No axillary or mediastinal adenopathy is identified. The thyroid is unremarkable. The heart, aorta, and pulmonary arteries are of normal size and configuration. Atherosclerotic changes in arch of aorta. No pericardial effusion is identified. Imaged portions of the upper abdomen are unremarkable. No aggressive-appearing osseous lesions are identified. IMPRESSION: Mild interlobular septal thickening are noted involving bilateral lung bases.- sequelae of previous infection likely. No other abnormality seen. Electronically signed by Sebastian Trujillo 12-18-2024 01:13 AM
--- NOTE | 2024-12-18 01:22 | CT Scan Report ---
EXAM: CT abd pelvis wo con CLINICAL HISTORY: recent endoscopy, hematemesis TECHNIQUE: Contiguous axial images were obtained from the level of the diaphragm to the pubic symphysis without intravenous or oral contrast. Coronal and sagittal reconstructions were also performed and are indicated to increase the sensitivity for detecting clinically relevant pathology. The CT scan was performed according to ALARA (as low as reasonably achievable) guidelines. 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 FINDINGS: The visualized lung bases are clear. Evaluation of the abdominal and pelvic visceral organs is limited without intravenous contrast. The unenhanced liver, spleen, pancreas, and adrenal glands are grossly unremarkable. The gallbladder is present. The kidneys are normal in size and attenuation without obvious calcification. There is no hydronephrosis. Mild bilateral perinephric stranding is noted. A 5 x 4 cm cyst is noted involving or in relation to the right kidney, which is stable. The ureters are normal in caliber. No adenopathy or fluid collections are seen. No evidence of focal or diffuse bowel wall thickening or evidence of bowel obstruction is identified. No imaging evidence of appendicitis. The aorta is normal in caliber. The urinary bladder is normal in contour. The pelvic viscera are grossly unremarkable. No aggressive appearing osseous lesions are identified. The stomach is grossly distended and demonstrates intraluminal hyperdense foreign bodies/material. Clinical correlation is suggested. The stomach shows concentric mural thickening, predominantly involving the antrum, with a maximum wall thickness measuring approximately 19 mm. This may represent changes of gastritis. There are multiple small uncomplicated colonic diverticula. The prostate is enlarged, measuring approximately 50 x 48 mm. There are bilateral fat-containing inguinal hernias. IMPRESSION: The stomach is grossly distended and demonstrates intraluminal hyperdense foreign bodies/material. Clinical correlation is suggested. The stomach shows concentric mural thickening, predominantly involving the antrum, with a maximum wall thickness measuring approximately 19 mm. This may represent changes of gastritis. Endoscopic correlation is suggested. This is a new finding. There are multiple small uncomplicated colonic diverticula, stable. The prostate is enlarged, measuring approximately 50 x 48 mm; stable. Bilateral fat-containing inguinal hernias, stable. Mild bilateral perinephric stranding, stable. Electronically signed by Sebastian Trujillo 12-18-2024 01:21 AM
[2024-12-18] MEDS: SODIUM CHLORIDE 0.9% 1,000 ML IV ONE (01:59)
--- NOTE | 2024-12-18 05:11 | History & Physical Report ---
Date of Service December 18, 2024 Assessment & Plan (1) Hematemesis: Plan: 74-year-old male with past medical history significant for type 2 diabetes, metabolic syndrome, gout, dyslipidemia, chronic rhinitis, chronic atrial fibrillation, hypertension, thiamine deficiency, gallstones, right Achilles rupture, degenerative disc disease, neuropathy, iron deficiency anemia, cervical spinal stenosis, alcohol abuse presents with hematemesis. Patient recently on 12/14/2024 had an upper endoscopy for gastric polyps and 6 gastric polyps were resected and retrieved and clips were placed. Eliquis was held prior to procedure and advised to hold Eliquis for 4 more days and advised no aspirin and other NSAIDs for 5 days and the patient was placed on Protonix twice daily for 2 months. Patient has not started Eliquis yet and supposed to start it today morning. Last night around 10:30 PM patient felt dizzy, nauseous and was sweating and vomited large amount of blood. He also notes some blood coming from his nose. He had a bowel movement but not sure if any blood in the stools.. Complains of mild abdominal discomfort and nausea. When he came to the ER he was hypotensive and tachycardic, received fluids and currently hemodynamics are okay. Denies any chest pain. No shortness of breath. No cough. No runny nose or sore throat. No fevers. Normal bowel and bladder movements. States not drinking alcohol for about a week. States not taking NSAIDs for about a week. Hematemesis Recently on 12/14/2024 had EGD and 6 gastric polyps were resected and clips were placed Eliquis is on hold Not taking NSAIDs for about a week Had a large hematemesis tonight Initially tachycardic and hypotensive but improved Hemoglobin stable at 12.8 GI was notified by the ER N.p.o., IV fluids, IV Protonix drip Blood consent obtained Will follow H&H closely Telemetry GI consult Close monitoring Chronic atrial fibrillation Currently holding all p.o. medications IV Lopressor as needed Close monitor Diabetes Sliding scale Monitor Hypertension Was hypotensive on presentation Holding home p.o. medications of hydralazine, Lasix, Coreg, amlodipine, and benazepril Close monitor History of thiamine deficiency P.o. thiamine when able to take History of gout To restart allopurinol when able to Hyperlipidemia Restart Lipitor when able to. BPH Restart Flomax when able to Monitor for urinary tension Alcoholism States drinks 3 drinks every day but did not drink for last 1 week Patient does not think that he will go through withdrawal Monitor DVT prophylaxis SCDs Disposition Telemetry Full code. History of Present Illness Chief Complaint: Hematemesis Primary Care Provider: lEoy Mcgraw MD 74-year-old male with past medical history significant for type 2 diabetes, metabolic syndrome, gout, dyslipidemia, chronic rhinitis, chronic atrial fibrillation, hypertension, thiamine deficiency, gallstones, right Achilles rupture, degenerative disc disease, neuropathy, iron deficiency anemia, cervical spinal stenosis, alcohol abuse presents with hematemesis. Patient recently on 12/14/2024 had an upper endoscopy for gastric polyps and 6 gastric polyps were resected and retrieved and clips were placed. Eliquis was held prior to procedure and advised to hold Eliquis for 4 more days and advised no aspirin and other NSAIDs for 5 days and the patient was placed on Protonix twice daily for 2 months. Patient has not started Eliquis yet and supposed to start it today morning. Last night around 10:30 PM patient felt dizzy, nauseous and was sweating and vomited large amount of blood. He also notes some blood coming from his nose. He had a bowel movement but not sure if any blood in the st ools.. Complains of mild abdominal discomfort and nausea. When he came to the ER he was hypotensive and tachycardic, received fluids and currently hemodynamics are okay. Denies any chest pain. No shortness of breath. No cough. No runny nose or sore throat. No fevers. Normal bowel and bladder movements. States not drinking alcohol for about a week. States not taking NSAIDs for about a week. Past medical history. As mentioned above. Past surgical history. Colonoscopy with polypectomy. EGD. Likely cardioversion. Tonsillectomy. Bilateral cataracts. Social history. . Smokes cigars occasionally. Drinks 3 shots daily but did not drink for last 1 week. Rarely marijuana as per records. Family history. Brother had colon cancer. Brother had throat cancer. Mother had diabetes. Hypertension. Father had liver disorder. Heart disorder. Brother had prostate cancer. Allergies Allergy/AdvReac Type Severity Reaction Status Date / Time amoxicillin Allergy Intermediate Rash Verified 12/17/24 23:38 cephalexin [From Keflex] Allergy Unknown ON Verified 12/17/24 23:38 [facility] Tetanus Vaccines and Toxoid AdvReac Intermediate FEVER 104F Verified 12/17/24 23:38 Home Medications Medication Instructions Recorded Confirmed Type allopurinol 100 mg tablet 100 mg PO QAM 01/12/19 12/18/24 History (Zyloprim) amlodipine 10 mg tablet (Norvasc) 10 mg PO HS 01/12/19 12/18/24 History atorvastatin 20 mg tablet (Lipitor) 20 mg PO QAM 01/12/19 12/18/24 History benazepril 40 mg tablet (Lotensin) 40 mg PO QAM 01/12/19 12/18/24 History cholecalciferol (vitamin D3) 25 1,000 unit PO QAM 01/12/19 12/18/24 History mcg (1,000 unit) capsule (Vitamin D3) cyanocobalamin (vitamin B-12) 1,000 mcg PO QAM 01/12/19 12/18/24 History 1,000 mcg tablet (Vitamin B-12) tadalafil 5 mg tablet (Cialis) 5 mg PO DIRECTED PRN Sexual 01/12/19 12/18/24 History Activity thiamine mononitrate (vit B1) 100 100 mg PO QAM 01/12/19 12/18/24 History mg tablet (Vitamin B-1 (mononitrate)) folic acid 1 mg tablet 1 mg PO QAM 01/16/19 12/18/24 History apixaban 5 mg tablet (Eliquis) 5 mg PO BID #60 tabs 02/26/20 12/18/24 Rx epinephrine 0.3 mg/0.3 mL 0.3 mg IM DIRECTED PRN 06/06/20 12/18/24 History injection, auto-injector (EpiPen) Anaphylaxis furosemide 20 mg tablet 20 mg PO BID 06/06/20 12/18/24 History gabapentin 100 mg capsule 100 mg PO TID 06/06/20 12/18/24 History hydralazine 100 mg tablet 100 mg PO TID 06/06/20 12/18/24 History omeprazole 20 mg capsule,delayed 20 mg PO DAILYBB 06/06/20 12/18/24 History release tamsulosin 0.4 mg capsule 0.4 mg PO HS 06/06/20 12/18/24 History carvedilol 12.5 mg tablet 12.5 mg PO BID 12/17/24 12/18/24 History metformin 1,000 mg tablet 1,000 mg PO BIDM 12/17/24 12/18/24 History naproxen sodium 220 mg tablet 220 mg PO BIDM 12/17/24 12/18/24 History (Aleve) omega 2-fgf-flw-fish oil 1,000 mg 1 cap PO DAILY 12/17/24 12/18/24 History (120 mg-180 mg) capsule (Fish Oil) pantoprazole 40 mg tablet,delayed 40 mg PO BID 12/17/24 12/18/24 History release Past Med/Surg History Problem List (Updated 12/18/24 @ 05:35 by Tobi Camacho MD) Hematemesis GIB (gastrointestinal bleeding) (Acute) COVID-19 (Acute) DVT prophylaxis Persistent atrial fibrillation BPH (benign prostatic hyperplasia) Diabetes mellitus, type II (Chronic) Atrial fibrillation (Acute) Hypertension (Chronic) Gout Hyperlipidemia (Chronic) Medical History Atrial fibrillation new onset BPH (benign prostatic hyperplasia) Diabetes mellitus, type II GERD (gastroesophageal reflux disease) Gout Hyperlipidemia Hypertension On anticoagulant therapy Type 2 diabetes mellitus with diabetic polyneuropathy NIDDM Surgical History History of colonoscopy History of tonsillectomy S/P ORIF (open reduction internal fixation) fracture Left Ankle/Heel Family History Brother Prostate cancer Father Heart disease Brother Melanoma Social History Smoking Status: Current some day smoker Tobacco Type: Cigars Cigarettes Per Day: 5-7 cigars weekly; Second Hand Exposure: No; Do You Dip or Chew Tobacco: No; Tobacco Cessation Education Requested by Patient: No Hx Alcohol Use: Yes Alcohol type: hard liquor Hx Substance Use: No Preferred Language: Danish Communication Ability: Effective Visual Impairment: Limited Hearing Ability: Normal Real Estate Asset Manager Required: No Beliefs That Will Affect Care: None marital status: Current Living Situation: Spouse Current Living Situation Comment: lives at home w/ current occupational status: employed Other Information That Helps Us Care for You: No Feels Safe at Home: Yes Safety Concerns: Feels Safe At This Time Assistive Devices: Glasses Review of Systems Review of Systems: All systems reviewed & are unremarkable except as noted in HPI & below Physical Exam Physical Exam: General- Not in acute distress. Head- atraumatic Eyes- PERRL. ENT- oropharynx clear Neck- supple, no JVD. Lungs- clear to auscultation no wheezing or crackles Heart- regular rhythm;tachycardia no murmur, no gallop. Abdomen- normal bowel sounds, soft, mild diffuse discomfort, no distension. Extremities- no pretibial edema, no erythema seen. Neuro- alert, oriented PERRL, no facial palsy; no dysarthria; moves extremities Results & Data Results & Data Vital Signs (Past 12 Hours) Vital Signs Temp Pulse Pulse Resp BP BP Pulse Ox 12/18/24 03:45 108 H 16 130/89 97 12/18/24 03:00 103 H 17 140/68 96 12/18/24 03:00 120 H 18 140/68 95 12/18/24 01:02 119 H 18 93/65 L 97 12/17/24 23:27 12/17/24 23:09 97 12/17/24 23:09 36.6 C 121 H 18 93/69 L 97 O2 Del Method 12/18/24 03:45 Room Air 12/18/24 03:00 Room Air 12/18/24 03:00 12/18/24 01:02 12/17/24 23:27 Room Air 12/17/24 23:09 Room Air 12/17/24 23:09 Room Air Diagnostic Findings Laboratory Results WBC 10.49 K/ul (4.8-10.8) 12/17/24 23:16 RBC 4.09 M/uL (4.70-6.10) L 12/17/24 23:16 Hgb 12.8 g/dl (14.0-18.0) L 12/17/24 23:16 POC Hgb 12.9 g/dl (14.0-18.0) L 12/17/24 23:21 Hct 37.9 % (42.0-52.0) L 12/17/24 23:16 POC Hct 38 % (42-52) L 12/17/24 23:21 MCV 92.7 fL (80.0-100.0) 12/17/24 23:16 MCH 31.3 pg (25.0-34.0) 12/17/24 23:16 MCHC 33.8 g/dL (32.0-36.0) 12/17/24 23:16 RDW Std Deviation 45.3 fL (36.4-46.3) 12/17/24 23:16 RDW Coeff of Riley 13.4 % (11.5-14.5) 12/17/24 23:16 Plt Count 184 K/uL (130-400) 12/17/24 23:16 MPV 11.4 fL (9.4-12.4) 12/17/24 23:16 Immature Gran % (Auto) 0.7 % 12/17/24 23:16 Neut % (Auto) 78.8 % 12/17/24 23:16 Lymph % (Auto) 11.2 % 12/17/24 23:16 [place] % (Auto) 7.2 % 12/17/24 23:16 Eos % (Auto) 1.7 % 12/17/24 23:16 Baso % (Auto) 0.4 % 12/17/24 23:16 Neut # (Auto) 8.26 K/uL (1.40-6.50) H 12/17/24 23:16 Lymph # (Auto) 1.18 K/uL (1.20-3.40) L 12/17/24 23:16 [place] # (Auto) 0.76 K/uL (0.11-0.59) H 12/17/24 23:16 Eos # (Auto) 0.18 K/uL (0.00-0.50) 12/17/24 23:16 Baso # (Auto) 0.04 K/uL (0.00-0.20) 12/17/24 23:16 Immature Gran # (Auto) 0.07 K/uL (0.01-0.20) 12/17/24 23:16 PT 11.9 Seconds (9.0-12.0) 12/17/24 23:16 INR 1.1 (0.9-1.1) 12/17/24 23:16 POC Sodium 140 mmol/L (135-144) 12/17/24 23:21 Sodium 139 mmol/L (136-145) 12/17/24 23:16 POC Potassium 3.4 mmol/L (3.3-5.0) 12/17/24 23:21 Potassium 3.5 mmol/L (3.5-5.1) 12/17/24 23:16 POC Chloride 104 mmol/L (101-112) 12/17/24 23:21 Chloride 103 mmol/L (98-107) 12/17/24 23:16 Carbon Dioxide 21 mmol/L (21-32) 12/17/24 23:16 POC Total CO2 20 mmol/L (24-31) L 12/17/24 23:21 Anion Gap 15 (3-11) H 12/17/24 23:16 POC Anion Gap 21.0 mmol/L (16-25) 12/17/24 23:21 POC BUN 27 mg/dl (7-18) H 12/17/24 23:21 BUN 27 mg/dl (6-23) H 12/17/24 23:16 Creatinine 2.15 mg/dl (0.6-1.4) H 12/17/24 23:16 POC Creatinine 2.3 mg/dl (0.6-1.3) H 12/17/24 23:21 Est Cr Clr Drug Dosing Not Reportable 12/17/24 23:16 eGFR 31.52 12/17/24 23:16 BUN/Creatinine Ratio 12.6 (10-20) 12/17/24 23:16 Glucose 253 mg/dl (70-99(Fasting)) H 12/17/24 23:16 POC Glucose (other) 248 mg/dl (70-99) H 12/17/24 23:21 Calcium 8.8 mg/dl (8.6-10.3) 12/17/24 23:16 POC Ioniz Calcium Ko 1.05 mmol/l (1.12-1.32) L 12/17/24 23:21 Total Bilirubin 1.1 mg/dl (0.2-1.0) H 12/17/24 23:16 AST 16 U/L (13-39) 12/17/24 23:16 ALT 13 U/L (7-52) 12/17/24 23:16 Alkaline Phosphatase 47 U/L (34-104) 12/17/24 23:16 Troponin I High Sens 10.4 pg/ml (0-20) 12/17/24 23:16 Total Protein 6.3 gm/dl (6.0-8.3) 12/17/24 23:16 Albumin 3.2 gm/dl (3.4-5.0) L 12/17/24 23:16 Globulin 3.1 gm/dl (2.5-4.0) 12/17/24 23:16 Albumin/Globulin Ratio 1.0 (0.9-2) 12/17/24 23:16 Lipase 47 U/L (11-82) 12/17/24 23:16 Blood Type O Positive 12/17/24 23:16 Antibody Screen NEGATIVE 12/17/24 23:16 Impressions Abdomen/Pelvis CT 12/17/24 23:20 EXAM: CT abd pelvis wo con CLINICAL HISTORY: recent endoscopy, hematemesis TECHNIQUE: Contiguous axial images were obtained from the level of the diaphragm to the pubic symphysis without intravenous or oral contrast. Coronal and sagittal reconstructions were also performed and are indicated to increase the sensitivity for detecting clinically relevant pathology. The CT scan was performed according to ALARA (as low as reasonably achievable) guidelines. COMPARISON: 09:19:18 PRODUCTION DISPATCHER. FINDINGS: The visualized lung bases are clear. Evaluation of the abdominal and pelvic visceral organs is limited without intravenous contrast. The unenhanced liver, spleen, pancreas, and adrenal glands are grossly unremarkable. The gallbladder is present. The kidneys are normal in size and attenuation without obvious calcification. There is no hydronephrosis. Mild bilateral perinephric stranding is noted. A 5 x 4 cm cyst is noted involving or in relation to the right kidney, which is stable. The ureters are normal in caliber. No adenopathy or fluid collections are seen. No evidence of focal or diffuse bowel wall thickening or evidence of bowel obstruction is identified. No imaging evidence of appendicitis. The aorta is normal in caliber. The urinary bladder is normal in contour. The pelvic viscera are grossly unremarkable. No aggressive appearing osseous lesions are identified. The stomach is grossly distended and demonstrates intraluminal hyperdense foreign bodies/material. Clinical correlation is suggested. The stomach shows concentric mural thickening, predominantly involving the antrum, with a maximum wall thickness measuring approximately 19 mm. This may represent changes of gastritis. There are multiple small uncomplicated colonic diverticula. The prostate is enlarged, measuring approximately 50 x 48 mm. There are bilateral fat-containing inguinal hernias. IMPRESSION: The stomach is grossly distended and demonstrates intraluminal hyperdense foreign bodies/material. Clinical correlation is suggested. The stomach shows concentric mural thickening, predominantly involving the antrum, with a maximum wall thickness measuring approximately 19 mm. This may represent changes of gastritis. Endoscopic correlation is suggested. This is a new finding. There are multiple small uncomplicated colonic diverticula, stable. The prostate is enlarged, measuring approximately 50 x 48 mm; stable. Bilateral fat-containing inguinal hernias, stable. Mild bilateral perinephric stranding, stable. Electronically signed by Sebastian Trujillo 12-18-2024 01:[address] 12/18/24 00:07 EXAM: CT chest diagnostic wo con CLINICAL HISTORY: Hematemesis, recent EGD. TECHNIQUE: Contiguous axial images were obtained from the base of the neck through the upper abdomen without contrast. In addition, sagittal and coronal reconstructions were performed to potentially increase the sensitivity for the detection of disease. CT scan was performed according to ALARA (as low as reasonably achievable). COMPARISON: None. FINDINGS: Mild interlobular septal thickening are noted involving bilateral lung bases. The remainder of both lungs is clear. The central airways are patent. There are no pleural effusions. No pneumothorax is seen. Evaluation of the mediastinum and cody is limited due to the lack of intravenous contrast. No axillary or mediastinal adenopathy is identified. The thyroid is unremarkable. The heart, aorta, and pulmonary arteries are of normal size and configuration. Atherosclerotic changes in arch of aorta. No pericardial effusion is identified. Imaged portions of the upper abdomen are unremarkable. No aggressive-appearing osseous lesions are identified. IMPRESSION: Mild interlobular septal thickening are noted involving bilateral lung bases.- sequelae of previous infection likely. No other abnormality seen. Electronically signed by Sebastian Trujillo 12-18-2024 01:13 AM ECG Additional Comments: ECG. Atrial fibrillation with rapid ventricular response rate of 132. No acute ST changes seen. Code Status & VTE Plan VTE Prophylaxis Plan VTE Prophylaxis will be ordered: Yes
[2024-12-18] MEDS ORDERED: METOPROLOL TARTRATE 1 MG/ML VIAL IV PRN (06:21)
[2024-12-18] MEDS ORDERED: GLUCOSE 10 TAB/TUBE PO PRN (06:21)
[2024-12-18] MEDS ORDERED: ACETAMINOPHEN 325 MG TAB PO PRN (06:21)
[2024-12-18] MEDS ORDERED: GLUCOSE 40% GEL 15 GM TUBE PO PRN (06:21)
[2024-12-18] MEDS ORDERED: NITROGLYCERIN SL 0.4 MG/TAB TAB SL PRN (06:21)
[2024-12-18] MEDS ORDERED: POLYETHYLENE (MIRALAX) 17 GM PACK PO PRN (06:21)
[2024-12-18] MEDS ORDERED: CARBOHYDRATES FOR HYPOGLYCEMIA PO PRN (06:21)
[2024-12-18] MEDS ORDERED: GLUCAGON FOR INJ 1 MG VIAL SQ PRN (06:21)
[2024-12-18] MEDS ORDERED: DEXTROSE 50% 50 ML SYRINGE IV PRN (06:21)
[2024-12-18] MEDS: SODIUM CHLORIDE 0.9% 1,000 ML IV SCH (06:53)
[2024-12-18] MEDS: INSULIN ASPART PER UNIT CHARGE SC SCH (06:58)
[2024-12-18 07:11] LABS: Hematocrit (blood only) 30.5 % (42.0-52.0); Hemoglobin 10.6 g/dl (14.0-18.0); Immature Granulocytes # (auto) 0.05 K/uL (0.01-0.20); Immature Granulocytes % (auto) 0.7 %; Mean Corpuscular Hemoglobin 32.4 pg (25.0-34.0); Mean Corpuscular Volume 93.3 fL (80.0-100.0); Platelet Count 136 K/uL (130-400); RDW Standard Deviation 44.9 fL (36.4-46.3); Red Blood Count 3.27 M/uL (4.70-6.10); White Blood Count 7.21 K/ul (4.8-10.8)
[2024-12-18 07:30] LABS: Anion Gap 6.0 (3-11); Blood Urea Nitrogen 44.0 mg/dl (6-23); Calcium 8.2 mg/dl (8.6-10.3); Carbon Dioxide 28.0 mmol/L (21-32); Chloride 108.0 mmol/L (98-107); Creatinine Clr Calc Pharmacy 35.8 ml/min; Glucose 111.0 mg/dl (70-99(Fasting)); Magnesium 1.2 mg/dl (1.7-2.4); Potassium 4.0 mmol/L (3.5-5.1); Sodium 142.0 mmol/L (136-145)
[2024-12-18 07:43] LABS: Hemoglobin A1C 5.6 % (4.5-5.6)
[2024-12-18] MEDS: MAGNESIUM SULFATE / D5W 1 GM/100 ML BAG IV SCH (08:59)
--- NOTE | 2024-12-18 10:22 | Gastrointestinal Consultation ---
Date of Consultation December 18, 2024 Assessment & Plan (1) GIB (gastrointestinal bleeding): -Keep NPO for EGD today. -Continue to hold Eliquis. -Continue IV PPI gtt. -Continue to monitor H/H. -Continue to monitor for overt GI bleeding. Supervising Physician Co-Signing Physician Notes I saw and examined this patient with our nurse practitioner and agree with her assessment and plan. Hemodynamically stable no further hematemesis or melena. Suspect post polypectomy bleeding status post gastric polyp resection several days ago. Will proceed with endoscopy. History of Present Illness Reason for Consultation: GIB/Hematemesis Attending Physician: Irasema Head MD History of Present Illness Patient is a 74 yo male who presented to the ED with an abrupt onset of hematemesis. On 12/14/24 he underwent an EGD with Dr. Escamilla of [facility] during which 6 gastric polyps were removed. Biopsies were performed and results are still pending. Clips were placed. Patient notes he was feeling well, but then on the evening of 12/17/24, he developed chills, nausea, and hematemesis. He notes dark red blood. No further emesis today. He notes he had held his Eliquis from 12/11 to present. He had not yet restarted it after the EGD. His current H/H is 10.6/30.5. BUN 44/Cr 1.93. He does take Pantoprazole 40 mg BID at home, and notes that this dosage was recently increased to the BID dosing from once daily. Patient's medical history otherwise includes permanent A fib and DM2. He notes he feels bloated, but does not have lingering abdominal pain. He denies melena or hematochezia. IMPRESSION: The stomach is grossly distended and demonstrates intraluminal hyperdense foreign bodies/material. Clinical correlation is suggested. The stomach shows concentric mural thickening, predominantly involving the antrum, with a maximum wall thickness measuring approximately 19 mm. This may represent changes of gastritis. Endoscopic correlation is suggested. This is a new finding. There are multiple small uncomplicated colonic diverticula, stable. The prostate is enlarged, measuring approximately 50 x 48 mm; stable. Bilateral fat-containing inguinal hernias, stable. Mild bilateral perinephric stranding, stable. Allergies Allergy/AdvReac Type Severity Reaction Status Date / Time amoxicillin Allergy Intermediate Rash Verified 12/17/24 23:38 cephalexin [From Keflex] Allergy Unknown ON Verified 12/17/24 23:38 [facility] LIST Tetanus Vaccines and Toxoid AdvReac Intermediate FEVER 104F Verified 12/17/24 23:38 Home Medications Medication Instructions Recorded Confirmed Type allopurinol 100 mg tablet 100 mg PO QAM 01/12/19 12/18/24 History (Zyloprim) amlodipine 10 mg tablet (Norvasc) 10 mg PO HS 01/12/19 12/18/24 History atorvastatin 20 mg tablet (Lipitor) 20 mg PO QAM 01/12/19 12/18/24 History benazepril 40 mg tablet (Lotensin) 40 mg PO QAM 01/12/19 12/18/24 History cholecalciferol (vitamin D3) 25 1,000 unit PO QAM 01/12/19 12/18/24 History mcg (1,000 unit) capsule (Vitamin D3) cyanocobalamin (vitamin B-12) 1,000 mcg PO QAM 01/12/19 12/18/24 History 1,000 mcg tablet (Vitamin B-12) tadalafil 5 mg tablet (Cialis) 5 mg PO DIRECTED PRN Sexual 01/12/19 12/18/24 History Activity thiamine mononitrate (vit B1) 100 100 mg PO QAM 01/12/19 12/18/24 History mg tablet (Vitamin B-1 (mononitrate)) folic acid 1 mg tablet 1 mg PO QAM 01/16/19 12/18/24 History apixaban 5 mg tablet (Eliquis) 5 mg PO BID #60 tabs 02/26/20 12/18/24 Rx epinephrine 0.3 mg/0.3 mL 0.3 mg IM DIRECTED PRN 06/06/20 12/18/24 History injection, auto-injector (EpiPen) Anaphylaxis furosemide 20 mg tablet 20 mg PO BID 06/06/20 12/18/24 History gabapentin 100 mg capsule 100 mg PO TID 06/06/20 12/18/24 History hydralazine 100 mg tablet 100 mg PO TID 06/06/20 12/18/24 History omeprazole 20 mg capsule,delayed 20 mg PO DAILYBB 06/06/20 12/18/24 History release tamsulosin 0.4 mg capsule 0.4 mg PO HS 06/06/20 12/18/24 History carvedilol 12.5 mg tablet 12.5 mg PO BID 12/17/24 12/18/24 History metformin 1,000 mg tablet 1,000 mg PO BIDM 12/17/24 12/18/24 History naproxen sodium 220 mg tablet 220 mg PO BIDM 12/17/24 12/18/24 History (Aleve) omega 0-too-hsp-fish oil 1,000 mg 1 cap PO DAILY 12/17/24 12/18/24 History (120 mg-180 mg) capsule (Fish Oil) pantoprazole 40 mg tablet,delayed 40 mg PO BID 12/17/24 12/18/24 History release Patient History Medical History (Updated 12/18/24 @ 12:04 by Frankie Pickett MD) Encounter for pre-operative examination Hematemesis GIB (gastrointestinal bleeding) On anticoagulant therapy GERD (gastroesophageal reflux disease) Atrial fibrillation new onset Hypertension Type 2 diabetes mellitus with diabetic polyneuropathy NIDDM Surgical History History of colonoscopy History of tonsillectomy S/P ORIF (open reduction internal fixation) fracture Left Ankle/Heel Family History Brother Prostate cancer Father Heart disease Brother Melanoma Social History Smoking Status: Current some day smoker Tobacco Type: Cigars Cigarettes Per Day: 5-7 cigars weekly; Second Hand Exposure: No; Do You Dip or Chew Tobacco: No; Tobacco Cessation Education Requested by Patient: No Hx Alcohol Use: Yes Alcohol type: hard liquor Hx Substance Use: No Preferred Language: Persian Communication Ability: Effective Visual Impairment: Limited Hearing Ability: Normal Machine Binding Folder Required: No Beliefs That Will Affect Care: None marital status: Current Living Situation: Spouse Current Living Situation Comment: lives at home w/ current occupational status: employed Other Information That Helps Us Care for You: No Feels Safe at Home: Yes Safety Concerns: Feels Safe At This Time Assistive Devices: Glasses Review of Systems Constitutional: no fever and no chills Respiratory: no cough and no dyspnea Cardiovascular: no chest pain Gastrointestinal: + bloating, + heartburn, + vomiting and + hematemesis; no diarrhea/loose stools, no blood in stools and no melena Physical Exam Constitutional: well developed Respiratory: normal respiratory effort Cardiovascular: Rate/Rhythm: + tachycardic Gastrointestinal (Abdomen): normal bowel sounds, soft, nontender, no hepatosplenomegaly Psychiatric: Orientation: alert and oriented x 3 Results & Data Vital Signs (Past 12 Hours) Vital Signs Temp Pulse Pulse Resp BP BP Pulse Ox 12/18/24 07:46 36.9 C 101 H 10 L 130/74 97 12/18/24 06:39 36.9 C 88 18 131/83 96 12/18/24 06:23 12/18/24 05:56 100 H 16 108/74 95 12/18/24 05:16 106 H 12/18/24 04:30 92 H 15 125/66 97 12/18/24 03:45 108 H 16 130/89 97 12/18/24 03:00 103 H 17 140/68 96 12/18/24 03:00 120 H 18 140/68 95 12/18/24 01:02 119 H 18 93/65 L 97 12/17/24 23:27 12/17/24 23:16 123 H 12/17/24 23:09 97 12/17/24 23:09 36.6 C 121 H 18 93/69 L 97 O2 Del Method 12/18/24 07:46 Room Air 12/18/24 06:39 Room Air 12/18/24 06:23 Room Air 12/18/24 05:56 Room Air 12/18/24 05:16 12/18/24 04:30 Room Air 12/18/24 03:45 Room Air 12/18/24 03:00 Room Air 12/18/24 03:00 12/18/24 01:02 12/17/24 23:27 Room Air 12/17/24 23:16 12/17/24 23:09 Room Air 12/17/24 23:09 Room Air Laboratory Results Laboratory Results - last 48 hr 12/17/24 12/17/24 12/18/24 23:16 23:21 06:44 WBC 10.49 7.21 RBC 4.09 L 3.27 L Hgb 12.8 L 10.6 L POC Hgb 12.9 L Hct 37.9 L 30.5 L POC Hct 38 L MCV 92.7 93.3 MCH 31.3 32.4 MCHC 33.8 34.8 RDW Std Deviation 45.3 44.9 RDW Coeff of Riley 13.4 13.2 Plt Count 184 136 MPV 11.4 11.1 Immature Gran % (Auto) 0.7 0.7 Neut % (Auto) 78.8 68.9 Lymph % (Auto) 11.2 14.0 Hardin % (Auto) 7.2 15.1 Eos % (Auto) 1.7 0.7 Baso % (Auto) 0.4 0.6 Neut # (Auto) 8.26 H 4.97 Lymph # (Auto) 1.18 L 1.01 L Hardin # (Auto) 0.76 H 1.09 H Eos # (Auto) 0.18 0.05 Baso # (Auto) 0.04 0.04 Immature Gran # (Auto) 0.07 0.05 PT 11.9 INR 1.1 POC Sodium 140 Sodium 139 142 POC Potassium 3.4 Potassium 3.5 4.0 POC Chloride 104 Chloride 103 108 H Carbon Dioxide 21 28 POC Total CO2 20 L Anion Gap 15 H 6 POC Anion Gap 21.0 POC BUN 27 H BUN 27 H 44 H Creatinine 2.15 H 1.93 H POC Creatinine 2.3 H Est Cr Clr Drug Dosing Not Reportable 35.8 eGFR 31.52 35.88 BUN/Creatinine Ratio 12.6 22.8 H Glucose 253 H 111 H POC Glucose POC Glucose (other) 248 H Estimat Average Glucose 114 Hemoglobin A1c 5.6 Calcium 8.8 8.2 L POC Ioniz Calcium Ko 1.05 L Magnesium 1.2 L Total Bilirubin 1.1 H AST 16 ALT 13 Alkaline Phosphatase 47 Troponin I High Sens 10.4 Total Protein 6.3 Albumin 3.2 L Globulin 3.1 Albumin/Globulin Ratio 1.0 Lipase 47 Blood Type O Positive Antibody Screen NEGATIVE 12/18/24 06:57 WBC RBC Hgb POC Hgb Hct POC Hct MCV MCH MCHC RDW Std Deviation RDW Coeff of Riley Plt Count MPV Immature Gran % (Auto) Neut % (Auto) Lymph % (Auto) Hardin % (Auto) Eos % (Auto) Baso % (Auto) Neut # (Auto) Lymph # (Auto) Hardin # (Auto) Eos # (Auto) Baso # (Auto) Immature Gran # (Auto) PT INR POC Sodium Sodium POC Potassium Potassium POC Chloride Chloride Carbon Dioxide POC Total CO2 Anion Gap POC Anion Gap POC BUN BUN Creatinine POC Creatinine Est Cr Clr Drug Dosing eGFR BUN/Creatinine Ratio Glucose POC Glucose 115 H POC Glucose (other) Estimat Average Glucose Hemoglobin A1c Calcium POC Ioniz Calcium Ko Magnesium Total Bilirubin AST ALT Alkaline Phosphatase Troponin I High Sens Total Protein Albumin Globulin Albumin/Globulin Ratio Lipase Blood Type Antibody Screen Diagnostic Findings Abdomen/Pelvis CT 12/17/24 23:20 EXAM: CT abd pelvis wo con CLINICAL HISTORY: recent endoscopy, hematemesis TECHNIQUE: Contiguous axial images were obtained from the level of the diaphragm to the pubic symphysis without intravenous or oral contrast. Coronal and sagittal reconstructions were also performed and are indicated to increase the sensitivity for detecting clinically relevant pathology. The CT scan was performed according to ALARA (as low as reasonably achievable) guidelines. COMPARISON: 09:19:18 [employer]. FINDINGS: The visualized lung bases are clear. Evaluation of the abdominal and pelvic visceral organs is limited without intravenous contrast. The unenhanced liver, spleen, pancreas, and adrenal glands are grossly unremarkable. The gallbladder is present. The kidneys are normal in size and attenuation without obvious calcification. There is no hydronephrosis. Mild bilateral perinephric stranding is noted. A 5 x 4 cm cyst is noted involving or in relation to the right kidney, which is stable. The ureters are normal in caliber. No adenopathy or fluid collections are seen. No evidence of focal or diffuse bowel wall thickening or evidence of bowel obstruction is identified. No imaging evidence of appendicitis. The aorta is normal in caliber. The urinary bladder is normal in contour. The pelvic viscera are grossly unremarkable. No aggressive appearing osseous lesions are identified. The stomach is grossly distended and demonstrates intraluminal hyperdense foreign bodies/material. Clinical correlation is suggested. The stomach shows concentric mural thickening, predominantly involving the antrum, with a maximum wall thickness measuring approximately 19 mm. This may represent changes of gastritis. There are multiple small uncomplicated colonic diverticula. The prostate is enlarged, measuring approximately 50 x 48 mm. There are bilateral fat-containing inguinal hernias. IMPRESSION: The stomach is grossly distended and demonstrates intraluminal hyperdense foreign bodies/material. Clinical correlation is suggested. The stomach shows concentric mural thickening, predominantly involving the antrum, with a maximum wall thickness measuring approximately 19 mm. This may represent changes of gastritis. Endoscopic correlation is suggested. This is a new finding. There are multiple small uncomplicated colonic diverticula, stable. The prostate is enlarged, measuring approximately 50 x 48 mm; stable. Bilateral fat-containing inguinal hernias, stable. Mild bilateral perinephric stranding, stable. Electronically signed by Sebastian Trujillo 12-18-2024 01:[address] 12/18/24 00:07 EXAM: CT chest diagnostic wo con CLINICAL HISTORY: Hematemesis, recent EGD. TECHNIQUE: Contiguous axial images were obtained from the base of the neck through the upper abdomen without contrast. In addition, sagittal and coronal reconstructions were performed to potentially increase the sensitivity for the detection of disease. CT scan was performed according to ALARA (as low as reasonably achievable). COMPARISON: None. FINDINGS: Mild interlobular septal thickening are noted involving bilateral lung bases. The remainder of both lungs is clear. The central airways are patent. There are no pleural effusions. No pneumothorax is seen. Evaluation of the mediastinum and cody is limited due to the lack of intravenous contrast. No axillary or mediastinal adenopathy is identified. The thyroid is unremarkable. The heart, aorta, and pulmonary arteries are of normal size and configuration. Atherosclerotic changes in arch of aorta. No pericardial effusion is identified. Imaged portions of the upper abdomen are unremarkable. No aggressive-appearing osseous lesions are identified. IMPRESSION: Mild interlobular septal thickening are noted involving bilateral lung bases.- sequelae of previous infection likely. No other abnormality seen. Electronically signed by Sebastian Trujillo 12-18-2024 01:13 AM PG Care Time/CCT Total # of Minutes Spent Total Time Spent with Patient: Total time spent is greater than 50% in coordination of care (as documented) at patient's floor/unit and/or counseling patient: Coding Level of Care Code 58018 INT INP/OBS CARE 3/75MIN Diagnoses GIB (gastrointestinal bleeding) K92.2
[2024-12-18] MEDS: METOCLOPRAMIDE HCL INJ 5 MG/ML 2 ML VIAL IV ONE (11:31)
--- NOTE | 2024-12-18 12:03 | Anesthesiology Consultation ---
Date of Service December 18, 2024 Assessment & Plan (1) Encounter for pre-operative examination: Chart Review Chart Review: Acceptable Risk for Surgery and Patient NOT seen in Pre Admission Testing Consults Requested none History Surgery Operation Date: 12/18/24 16:30 Proposed Procedures p Esophagogastroduodenoscopy Dr. Diana Ortiz MD Height/Weight Height: 5 ft 11 in Weight: 87.906 kg Allergies Allergy/AdvReac Type Severity Reaction Status Date / Time amoxicillin Allergy Intermediate Rash Verified 12/17/24 23:38 cephalexin [From Keflex] Allergy Unknown ON Verified 12/17/24 23:38 [employer] LIST Tetanus Vaccines and Toxoid AdvReac Intermediate FEVER 104F Verified 12/17/24 23:38 Medications Home Medications Medication Instructions Recorded Confirmed Last Taken allopurinol 100 mg tablet 100 mg PO QAM 01/12/19 12/18/24 12/17/24 (Zyloprim) amlodipine 10 mg tablet (Norvasc) 10 mg PO HS 01/12/19 12/18/24 12/16/24 atorvastatin 20 mg tablet (Lipitor) 20 mg PO QAM 01/12/19 12/18/24 12/17/24 benazepril 40 mg tablet (Lotensin) 40 mg PO QAM 01/12/19 12/18/24 12/17/24 cholecalciferol (vitamin D3) 25 1,000 unit PO QAM 01/12/19 12/18/24 12/17/24 mcg (1,000 unit) capsule (Vitamin D3) cyanocobalamin (vitamin B-12) 1,000 mcg PO QAM 01/12/19 12/18/24 12/17/24 1,000 mcg tablet (Vitamin B-12) tadalafil 5 mg tablet (Cialis) 5 mg PO DIRECTED PRN Sexual 01/12/19 12/18/24 Unknown Activity thiamine mononitrate (vit B1) 100 100 mg PO QAM 01/12/19 12/18/24 12/17/24 mg tablet (Vitamin B-1 (mononitrate)) folic acid 1 mg tablet 1 mg PO QAM 01/16/19 12/18/24 12/17/24 apixaban 5 mg tablet (Eliquis) 5 mg PO BID #60 tabs 02/26/20 12/18/24 12/17/24 08:00 epinephrine 0.3 mg/0.3 mL 0.3 mg IM DIRECTED PRN 06/06/20 12/18/24 Unknown injection, auto-injector (EpiPen) Anaphylaxis furosemide 20 mg tablet 20 mg PO BID 06/06/20 12/18/24 12/17/24 08:00 gabapentin 100 mg capsule 100 mg PO TID 06/06/20 12/18/24 12/17/24 12:00 hydralazine 100 mg tablet 100 mg PO TID 06/06/20 12/18/24 12/17/24 12:00 omeprazole 20 mg capsule,delayed 20 mg PO DAILYBB 06/06/20 12/18/24 12/17/24 release tamsulosin 0.4 mg capsule 0.4 mg PO HS 06/06/20 12/18/24 12/16/24 carvedilol 12.5 mg tablet 12.5 mg PO BID 12/17/24 12/18/24 12/17/24 08:00 metformin 1,000 mg tablet 1,000 mg PO BIDM 12/17/24 12/18/24 12/17/24 naproxen sodium 220 mg tablet 220 mg PO BIDM 12/17/24 12/18/24 12/18/24 (Aleve) omega 2-qbe-ltm-fish oil 1,000 mg 1 cap PO DAILY 12/17/24 12/18/24 12/18/24 (120 mg-180 mg) capsule (Fish Oil) pantoprazole 40 mg tablet,delayed 40 mg PO BID 12/17/24 12/18/24 12/17/24 08:00 release Active Medications Generic Name Dose Route Start Last Admin Trade Name Martinq PRN Reason Stop Dose Admin Pantoprazole Sodium 40 mg/ 100 mls @ 20 mls/hr 12/17/24 23:45 12/18/24 10:04 Dextrose IV 01/16/25 23:44 8 mg/hr Q5H LATA 20 mls/hr Administration 8 MG/HR Sodium Chloride 1,000 mls @ 125 mls/hr 12/18/24 06:21 12/18/24 06:53 Nss IV 12/21/24 06:20 125 mls/hr .Q8H LATA Administration Magnesium Sulfate/Dextrose 1 gm in 100 mls @ 50 mls/hr 12/18/24 07:45 12/18/24 10:54 Magnesium Sulfate / D5w IV 12/18/24 15:44 50 mls/hr Q2H LATA Administration Insulin Aspart 0 units 12/18/24 06:21 12/18/24 06:58 Insulin Aspart Per Unit Charge SC 01/17/25 06:20 Not Given Q6H LATA Past Medical History Medical History (Updated 12/18/24 @ 12:04 by Frankie Pickett MD) Encounter for pre-operative examination Hematemesis GIB (gastrointestinal bleeding) On anticoagulant therapy GERD (gastroesophageal reflux disease) Atrial fibrillation new onset Hypertension Type 2 diabetes mellitus with diabetic polyneuropathy NIDDM Exercise / Class Metabolic Activity II 4-5 Yardwork/Stairs/Walk up hill Past Family History Family History Brother Prostate cancer Father Heart disease Brother Melanoma Past Surgical History Surgical History History of colonoscopy History of tonsillectomy S/P ORIF (open reduction internal fixation) fracture Left Ankle/Heel Past Anesthesia History No Hx of Anesthesia Complications and No Family Hx of Anesthesia Complications Social History Smoking Status: Current some day smoker tobacco type: cigars Smoking cigarettes per day: 5-7 cigars weekly Do You Dip or Chew Tobacco: No Hx Alcohol Use: Yes Alcohol type: hard liquor alcohol intake frequency: 3 or more drinks per day Alcohol Intake Frequency Comment: x3 glasses of whiskey a day Hx Substance Use: No substance use type: does not use Physical Exam Vital Signs Last Vital Signs Temp 36.7 C 12/18/24 12:00 Pulse 86 12/18/24 12:00 Resp 16 12/18/24 12:00 BP 127/73 12/18/24 12:00 Pulse Ox 99 12/18/24 12:00 O2 Del Method Room Air 12/18/24 12:00 Testing Laboratory Results 12/18/24 06:44 12/18/24 06:44 PT 11.9 Seconds (9.0-12.0) 12/17/24 23:16 INR 1.1 (0.9-1.1) 12/17/24 23:16 Hemoglobin A1c 5.6 % (4.5-5.6) 12/18/24 06:44 Blood Type O Positive 12/17/24 23:16 Antibody Screen NEGATIVE 12/17/24 23:16 12/18/24 06:57 POC Glucose 115 H Electrocardiogram Date: 12/17/24 Findings: + AFIB @ (rvr. hr 138)
--- NOTE | 2024-12-18 12:53 | GI REPORT ---
[facility] Patient: ISABELLA RIVAS : 1950 Sex at : Male Age: 74 Years Procedure: Upper GI endoscopy Date: 12/18/2024 Attending Physician: Tadeo Ortiz MD Referring MD: Referred Self; Irasema Head Md Indications: - Suspected upper gastrointestinal bleeding Medications: - Monitored Anesthesia Care Complications: - No immediate complications. Procedure: - Prior to the procedure, a History and Physical was performed, and patient medications and allergies were reviewed. The patient's tolerance of previous anesthesia was also reviewed. The risks and benefits of the procedure and the sedation options and risks were discussed with the patient. All questions were answered, and informed consent was obtained. [Anticoagulant Agents] [Days Prior to Procedure]. [ASA Grade]. After reviewing the risks and benefits, the patient was deemed in satisfactory condition to undergo the procedure. - The EGD Scope was introduced through the mouth and advanced to the second part of the duodenum. - The upper GI endoscopy was accomplished without difficulty. - The patient tolerated the procedure well. Findings: - The examined esophagus was normal. - Hematin (altered blood/wyipij-jmthjz-qqcp material) was found in the gastric body and in the gastric fundus. There were multiple postpolypectomy sites in the body and fundus with multiple endoclips. Post polypectomy sites had ulceration without stigmata of recent hemorrhage. No active bleeding no visible vessel no adherent clot. No evidence of active bleeding. - Hematin (altered blood/lpohjc-jtjkmy-losz material) was found in the first portion of the duodenum and in the second portion of the duodenum. Impression: - Normal esophagus. - Hematin (altered blood/zfcjok-hdyoek-mwvg material) in the gastric body and in the gastric fundus. Resolved post polypectomy bleed. - Old blood in the second portion of the duodenum. - No specimens collected. Recommendation: - Resume previous diet. Continue to hold Eliquis. Clear liquid diet today. Continue PPI drip. - Patient has a contact number available for emergencies. The signs and symptoms of potential delayed complications were discussed with the patient. Return to normal activities tomorrow. Written discharge instructions were provided to the patient. Procedure Code(s): - 72657, Esophagogastroduodenoscopy, flexible, transoral; diagnostic, including collection of specimen(s) by brushing or washing, when performed (separate procedure) Diagnosis Code(s): - K92.2, Gastrointestinal hemorrhage, unspecified CPT(R) - 2022 copyright [employer] [place] [employer]. All Rights Reserved. The CPT codes, CCI edits and ICD codes generated are intended as suggestions and were generated based on input data. These codes are preliminary and upon manager corporate marketing review may be revised to meet current compliance and payer requirements. The provider is responsible for the final determination of appropriate codes, and modifiers. Tadeo Ortiz MD This document has been electronically signed. Note Initiated:12/18/2024 Note Completed:12/18/2024 12:53 PM [id number]
[2024-12-18] MEDS: LIDOCAINE 2% 2 ML VIAL/AMP(20MG/ML) INFIL ONE (13:26)
[2024-12-18] MEDS: PROPOFOL IV EMULSION 10 MG/ML 20 ML VIAL IV ONE (13:26)
[2024-12-18] MEDS: METOPROLOL TARTRATE 1 MG/ML VIAL IV ONE (13:26)
--- NOTE | 2024-12-18 13:26 | Anesthesiology Progress Note ---
Date of Service December 18, 2024 Anesthesia Post Procedure Vital Signs Vital Signs: Temp Pulse Pulse Pulse Resp BP BP 12/18/24 13:10 76 16 121/68 12/18/24 12:48 87 16 99/54 L 12/18/24 12:00 36.7 C 86 16 127/73 12/18/24 11:12 110 H 12/18/24 10:42 36.8 C 99 H 21 112/88 12/18/24 07:46 36.9 C 101 H 10 L 130/74 12/18/24 06:39 36.9 C 88 18 131/83 12/18/24 06:23 12/18/24 05:56 100 H 16 108/74 12/18/24 05:16 106 H 12/18/24 04:30 92 H 15 125/66 12/18/24 03:45 108 H 16 130/89 12/18/24 03:00 103 H 17 140/68 12/18/24 03:00 120 H 18 140/68 12/18/24 01:02 119 H 18 93/65 L 12/17/24 23:27 12/17/24 23:16 123 H 12/17/24 23:09 12/17/24 23:09 36.6 C 121 H 18 93/69 L Pulse Ox O2 Del Method 12/18/24 13:10 98 Room Air 12/18/24 12:48 96 Room Air 12/18/24 12:00 99 Room Air 12/18/24 11:12 12/18/24 10:42 99 Room Air 12/18/24 07:46 97 Room Air 12/18/24 06:39 96 Room Air 12/18/24 06:23 Room Air 12/18/24 05:56 95 Room Air 12/18/24 05:16 12/18/24 04:30 97 Room Air 12/18/24 03:45 97 Room Air 12/18/24 03:00 96 Room Air 12/18/24 03:00 95 12/18/24 01:02 97 12/17/24 23:27 Room Air 12/17/24 23:16 12/17/24 23:09 97 Room Air 12/17/24 23:09 97 Room Air Transfer of Care Handoff Completed per policy Notes Mental Status: alert / awake / arousable and participated in evaluation Patient Amnestic to Procedure: Yes Nausea / Vomiting: adequately controlled Pain: adequately controlled Airway Patency, RR, SpO2: stable & adequate BP & HR: stable & adequate Hydration State: stable & adequate Anesthetic Complications: no major complications apparent and Pt Satisfied with anesthetic care
--- NOTE | 2024-12-18 13:27 | Electrocardiogram Report ---
Test Reason : Blood Pressure : */* mmHG Vent. Rate : 138 BPM Atrial Rate : * BPM P-R Int : * ms QRS Dur : 80 ms QT Int : 282 ms P-R-T Axes : * -11 167 degrees QTcB Int : 427 ms Atrial fibrillation with rapid ventricular response Septal infarct (cited on or before 03-Jun-2012) Inferior infarct , age undetermined Abnormal ECG When compared with ECG of 11-Jul-2023 15:31, Nonspecific T wave abnormality, improved in Lateral leads Confirmed by Dontae Gonzalez ([id number]) on 12/18/2024 1:27:09 PM Referred By: REFERRED SELF Confirmed By: Dontae Gonzalez
[2024-12-18 14:54] LABS: Hematocrit (blood only) 32.6 % (42.0-52.0); Hemoglobin 10.9 g/dl (14.0-18.0)
[2024-12-18 15:06] VITALS: RESP 18
[2024-12-18 15:35] LABS: Appearance Urine Clear (Clear); Glucose Urine UA Negative (Negative)
--- NOTE | 2024-12-18 16:45 | Communication Note ---
Date of Service: December 18, 2024 evaluated patient at bedside after egd patient awake and denies any chest pain, stomach pain, further nausea/vomiting tolerating clears at bedside--discussed egd findings per report plan to continue clear for now continue PPI drip trend HH
[2024-12-19 06:20] LABS: Hematocrit (blood only) 26.3 % (42.0-52.0); Hemoglobin 9.2 g/dl (14.0-18.0); Mean Corpuscular Hemoglobin 32.7 pg (25.0-34.0); Mean Corpuscular Volume 93.6 fL (80.0-100.0); Platelet Count 120 K/uL (130-400); RDW Standard Deviation 45.1 fL (36.4-46.3); Red Blood Count 2.81 M/uL (4.70-6.10); White Blood Count 5.02 K/ul (4.8-10.8)
[2024-12-19 06:47] LABS: Anion Gap 5.0 (3-11); Blood Urea Nitrogen 31.0 mg/dl (6-23); Calcium 7.9 mg/dl (8.6-10.3); Carbon Dioxide 25.0 mmol/L (21-32); Chloride 114.0 mmol/L (98-107); Creatinine Clr Calc Pharmacy 53.9 ml/min; Glucose 117.0 mg/dl (70-99(Fasting)); Magnesium 1.9 mg/dl (1.7-2.4); Potassium 3.5 mmol/L (3.5-5.1); Sodium 144.0 mmol/L (136-145)
[2024-12-19] MEDS: INFLUENZA VACC TS2025-26(65y+)/PF (IIV3) 0.5mL Syr IM ONE (08:51)
[2024-12-19 12:02] VITALS: BP 137/90; TEMP 97.7; O2SAT 94
[2024-12-19 13:17] LABS: Hematocrit (blood only) 27.4 % (42.0-52.0); Hemoglobin 9.4 g/dl (14.0-18.0)
--- NOTE | 2024-12-19 13:18 | Discharge Summary ---
Discharge Summary Date of Service December 19, 2024 Principal Dx & Hospital Course #1 = Principal Diagnosis (1) Hematemesis: Mr. Sims is a 74-year-old male with past medical history significant for type 2 diabetes, metabolic syndrome, gout, dyslipidemia, chronic rhinitis, chronic atrial fibrillation, hypertension, thiamine deficiency, gallstones, right Achilles rupture, degenerative disc disease, neuropathy, iron deficiency anemia, cervical spinal stenosis, alcohol abuse presents admitted with hematemesis. Patient's Hgb dropped from baseline of ~ 12 to 9.2. Patient underwent endoscopy and revealed ulceration of postpolypectomy areas. Patient was maintained on PPI drip for 24 hours. Patient transitioned to oral PPI bid and sucralfate. On day of discharge, patient tolerating po. Hgb plateaued at 9.4. Patient advised to hold eliquis until repeat CBC on Saturday. Patient instructed to resume home antihypertensive regimen in a stepwise manner. Discussed that patient will need to discontinue nsaids completely. Patient and verbalized unders tanding.. On day of discharge, patient denied orthostasis, reported good diet and denied any other acute concerns. #Hematemesis #Post polypectomy ulceration Recently on 12/14/2024 had EGD and 6 gastric polyps were resected and clips were placed Eliquis is on hold Not taking NSAIDs for about a week Hemoglobin at 12.8--> down to 9.2 24 hours PPI drip transitioned to PPI BID and sucralafate upon DC gastro follow up to be coordinated continue to hold eliquis with repeat HH on Saturday #Chronic atrial fibrillation resume coreg hold eliquis #Diabetes resume home metformin #Hypertension resume home p.o. medications of lasix, amlodipine, and coreg hold hydralazine, benazepril, resume as bp >140 discussed blood pressure checks with patient and at bedside Close monitor #History of thiamine deficiency P.o. thiamine when able to take #History of gout resume allopurinol #Hyperlipidemia continue Lipitor #BPH continue flomax #Alcohol use States drinks 3 drinks every day but did not drink for last 1 week Patient does not think that he will go through withdrawal Monitor Notes For Next Care Provider Medication Changes From Visit Hold eliquis, repeat CBC on saturday Hold hydralazine and benzapril, resume as bp increases >140 start sucralfate x 28 days Admission HPI Per Admitting Provider 74-year-old male with past medical history significant for type 2 diabetes, metabolic syndrome, gout, dyslipidemia, chronic rhinitis, chronic atrial fibrillation, hypertension, thiamine deficiency, gallstones, right Achilles rupture, degenerative disc disease, neuropathy, iron deficiency anemia, cervical spinal stenosis, alcohol abuse presents with hematemesis. Patient recently on 12/14/2024 had an upper endoscopy for gastric polyps and 6 gastric polyps were resected and retrieved and clips were placed. Eliquis was held prior to procedure and advised to hold Eliquis for 4 more days and advised no aspirin and other NSAIDs for 5 days and the patient was placed on Protonix twice daily for 2 months. Patient has not started Eliquis yet and supposed to start it today morning. Last night around 10:30 PM patient felt dizzy, nauseous and was sweating and vomited large amount of blood. He also notes some blood coming from his nose. He had a bowel movement but not sure if any blood in the stools.. Complains of mild abdominal discomfort and nausea. When he came to the ER he was hypotensive and tachycardic, received fluids and currently hemodynamics are okay. Denies any chest pain. No shortness of breath. No cough. No runny nose or sore throat. No fevers. Normal bowel and bladder movements. States not drinking alcohol for about a week. States not taking NSAIDs for about a week. Past medical history. As mentioned above. Past surgical history. Colonoscopy with polypectomy. EGD. Likely cardioversion. Tonsillectomy. Bilateral cataracts. Social history. . Smokes cigars occasionally. Drinks 3 shots daily but did not drink for last 1 week. Rarely marijuana as per records. Family history. Brother had colon cancer. Brother had throat cancer. Mother had diabetes. Hypertension. Father had liver disorder. Heart disorder. Brother had prostate cancer. Admission Exam Per Admitting Provider General- Not in acute distress. Head- atraumatic Eyes- PERRL. ENT- oropharynx clear Neck- supple, no JVD. Lungs- clear to auscultation no wheezing or crackles Heart- regular rhythm;tachycardia no murmur, no gallop. Abdomen- normal bowel sounds, soft, mild diffuse discomfort, no distension. Extremities- no pretibial edema, no erythema seen. Neuro- alert, oriented PERRL, no facial palsy; no dysarthria; moves extremities Discharge Exam Constitutional WD/WN, vitals as above Respiratory normal respiratory effort, lungs clear to auscultation Cardiovascular irregularly irregular Gastrointestinal (Abdomen) normal bowel sounds, soft, nontender, no hepatosplenomegaly Updated Medication List Medication Instructions Recorded Confirmed Type allopurinol 100 mg tablet 100 mg PO QAM 01/12/19 12/18/24 History (Zyloprim) amlodipine 10 mg tablet (Norvasc) 10 mg PO HS 01/12/19 12/18/24 History atorvastatin 20 mg tablet (Lipitor) 20 mg PO QAM 01/12/19 12/18/24 History benazepril 40 mg tablet (Lotensin) 40 mg PO QAM 01/12/19 12/18/24 History cholecalciferol (vitamin D3) 25 1,000 unit PO QAM 01/12/19 12/18/24 History mcg (1,000 unit) capsule (Vitamin D3) cyanocobalamin (vitamin B-12) 1,000 mcg PO QAM 01/12/19 12/18/24 History 1,000 mcg tablet (Vitamin B-12) tadalafil 5 mg tablet (Cialis) 5 mg PO DIRECTED PRN Sexual 01/12/19 12/18/24 History Activity thiamine mononitrate (vit B1) 100 100 mg PO QAM 01/12/19 12/18/24 History mg tablet (Vitamin B-1 (mononitrate)) folic acid 1 mg tablet 1 mg PO QAM 01/16/19 12/18/24 History apixaban 5 mg tablet (Eliquis) 5 mg PO BID #60 tabs 02/26/20 12/18/24 Rx epinephrine 0.3 mg/0.3 mL 0.3 mg IM DIRECTED PRN 06/06/20 12/18/24 History injection, auto-injector (EpiPen) Anaphylaxis furosemide 20 mg tablet 20 mg PO BID 06/06/20 12/18/24 History gabapentin 100 mg capsule 100 mg PO TID 06/06/20 12/18/24 History hydralazine 100 mg tablet 100 mg PO TID 06/06/20 12/18/24 History omeprazole 20 mg capsule,delayed 20 mg PO DAILYBB 06/06/20 12/18/24 History release tamsulosin 0.4 mg capsule 0.4 mg PO HS 06/06/20 12/18/24 History carvedilol 12.5 mg tablet 12.5 mg PO BID 12/17/24 12/18/24 History metformin 1,000 mg tablet 1,000 mg PO BIDM 12/17/24 12/18/24 History omega [id number]-fish oil 1,000 mg 1 cap PO DAILY 12/17/24 12/18/24 History (120 mg-180 mg) capsule (Fish Oil) pantoprazole 40 mg tablet,delayed 40 mg PO BID #60 tabs 12/19/24 Rx release sucralfate 1 gram tablet 1 g PO ACHS 4 weeks #28 tabs 12/19/24 Rx Hospital Stay Data Consultations 12/18/24 01:59 Consult Gastroenterology Routine 12/18/24 02:01 ED Decision to Admit Stat Procedures Performed Operation Date: 12/18/24 16:30 Actual Procedures p Esophagogastroduodenoscopy - Tadeo Ortiz MD Diagnostic Imagining Performed 12/17/24 23:20 CT abd pelvis wo con Stat 12/18/24 00:07 CT chest diagnostic wo con Stat Pending Results Patient Have Any Pending Studies at Discharge: No Discharge Instructions Given to Patient (Per Discharging Provider) You were admitted for vomiting blood You were noted to have ulcerations around the area of recent polypectomy with old blood noted. You will continue pantoprazole 40mg two times a day you will start sucralfate 1gm with meals and bedtime for 4 weeks You will continue your coreg You should hold your benazepril and hydralazine unless your blood pressure is >140 on the top number -If 140-150, please take your benazepril tomorrow -If your blood pressures in the afternoon remain >140 (top number), please resume your hydralazine Please hold eliquis until Saturday when you get your labs drawn. You will be contacted with your results. It is important you discontinue all NSAIDs (naproxen, ibuprofen, aleve, motrin, etc). Total Time Total Time Spent Total Time Spent (In Minutes): 45
[2024-12-19 14:38] VITALS: PULSE 90
--- NOTE | 2024-12-19 17:01 | Communication Note ---
Date of Service: December 19, 2024 By CMS guidelines, a determination that the admission or continued stay is not medically necessary has been made by a member of the UR committee and michael hirsch for this hospital stay, therefore a Code 44 will be completed and the Inpatient admission will be changed to outpatient.
== END 2024-12-19 14:41 | disposition home or self-care (01) | DRG 920 ==
LOC: ED 23:05 → 2E 12-18 04:52

== ENCOUNTER 2024-12-24 15:38 | Inpatient (IN) ==
--- NOTE | 2024-12-24 16:39 | Emergency Department Note ---
Impression & Plan Near syncope, Acute upper gastrointestinal bleeding, Melena, Atrial fibrillation with rapid ventricular response, Hypomagnesemia ED Provider Note HISTORY OF PRESENT ILLNESS: Patient is a 74-year-old male presenting with lightheadedness and dizziness. Patient reports that since getting up this morning that every time he tries to stand up he feels very lightheaded like he is going to pass out. He denies actually passing out yet. Denies any chest pain or shortness of breath. He was recently admitted to the hospital last week for an upper GI bleed and his Eliquis was held up until 3 days ago when he restarted it. He denies any recent fevers or chills. He denies noting any dark discolored stool. Denies any dysuria or hematuria. He has been taking his medications as instructed since discharge. ROS: as above PHYSICAL EXAM: Constitutional: Patient appears in no acute distress. HENT: Head: Normocephalic and atraumatic. Eyes: EOMI, PERRL Mouth/Throat: Mucous membranes moist. Neck: Trachea midline. Neck supple. Cardiovascular: Tachycardic with irregularly irregular rhythm. No murmurs, rubs or gallops. Intact distal pulses. Pulmonary/Chest: No respiratory distress. Breath sounds clear and equal bilaterally. No wheezes or rales. Abdominal: Abdomen soft, no tenderness, rebound or guarding. Rectal: Chaperoned by nursing staff. No palpable masses or hemorrhoids. Wilber melena on glove. Hemoccult positive. Musculoskeletal: No edema, tenderness or deformity noted. Skin: Warm and dry. No rash, erythema, pallor or cyanosis Psychiatric: Appropriate mood and affect for situation. Neurological: Alert and keenly responsive. CN II-XII grossly intact, moving all extremities equally and fully. MDM: - Vitals signs stable. However, the patient flipped into [facility] with RVR with a heart rate of 140s to 150s while in the waiting room and while he was getting his triage protocol labs performed. - History obtained via patient. History as above. - Chronic conditions affecting care: HTN; HLD; DM-2 - Differential diagnoses include, but are not limited to: GI bleed; anemia; dysrhythmia; electrolyte abnormality; ACS; dehydration; pneumonia; UTI - Order placed for continuous cardiac monitoring. At this time, monitor showed rate of 125 bpm with irregular rhythm, per my interpretation. - External medical records reviewed. Discharge summary dated 12/19/2024 was reviewed. Patient was admitted at that time secondary to gross hematemesis. His hemoglobin had dropped from a baseline of 12-9.2. He underwent endoscopy which revealed ulceration of post polypectomy areas. He was on a PPI drip for 24 hours and transition to oral PPI twice daily and sucralfate. His hemoglobin plateaued at 9.4. He was advised to hold his Eliquis until Saturday of this week. - EKG image interpreted by myself showed atrial fibrillation. Rate tachycardic at 143 bpm. QT 308. No acute ischemic changes. - Laboratory workup interpreted by myself showed normal WBC; stable hemoglobin (Hgb 10.4); elevated BUN (32); hypomagnesemia (Mg 1.2); normal troponin - Rectal exam showed gross melena. - IV access obtained - Patient given 20 mg IV pepcid and 80 mg IV protonix. Started on protonix drip - Type and screen ordered. 2 units PRBC ordered for standby. - Patient had 3-4 episodes of grossly melenatic stool while in ER. - Discussed case with GI housing liaison, Dr. Knapp, at 17:52. He was in agreement with the medication plans that have commenced and agrees with admission to medicine. No plans for scope at this time. - Given 2g IV magnesium for electrolyte replacement - CXR image read interpreted by myself as no for pneumonia, per my interpretation. - Discussion was had with case making machine operator about patient's case and need for admission - Hospitalist consulted for admission - [facility] for further evaluation and management. I have personally spent 61 minutes of critical care time in the direct management of this patient. This includes bedside care, interpretation of diagnostic studies, and testing, discussion with consultants, patient, and family members, and other required patient management activities. This 61 minutes is in excess of all separately billable procedures. ASSESSMENT AND PLAN: Diagnosis: near syncope; acute upper GI bleed; melena; hypomagnesemia; Afib with RVR Plan: admit Past Med/Surg History Problem List (Updated 12/24/24 @ 18:37 by Astrid Mcallister MD) Hypomagnesemia (Acute) Atrial fibrillation with rapid ventricular response (Acute) Melena (Acute) Acute upper gastrointestinal bleeding (Acute) Near syncope (Acute) COVID-19 (Acute) DVT prophylaxis Persistent atrial fibrillation BPH (benign prostatic hyperplasia) Diabetes mellitus, type II (Chronic) Atrial fibrillation (Acute) Hypertension (Chronic) Gout Hyperlipidemia (Chronic) Medical History (Updated 12/24/24 @ 18:37 by Astrid Mcallister MD) Encounter for pre-operative examination Hematemesis GIB (gastrointestinal bleeding) On anticoagulant therapy GERD (gastroesophageal reflux disease) Atrial fibrillation new onset Hypertension Type 2 diabetes mellitus with diabetic polyneuropathy NIDDM Surgical History History of colonoscopy History of tonsillectomy S/P ORIF (open reduction internal fixation) fracture Left Ankle/Heel Family History Brother Prostate cancer Father Heart disease Brother Melanoma Social History Smoking Status: Current some day smoker Tobacco Type: Cigars Cigarettes Per Day: 5-7 cigars weekly; Second Hand Exposure: No; Do You Dip or Chew Tobacco: No; Hx Alcohol Use: Yes Alcohol type: hard liquor Hx Substance Use: No Preferred Language: Hungarian Communication Ability: Effective Visual Impairment: Limited Hearing Ability: Normal Onion Topper Required: No Beliefs That Will Affect Care: None marital status: Current Living Situation: Spouse Current Living Situation Comment: lives at home w/ current occupational status: employed Feels Safe at Home: Yes Assistive Devices: Glasses Allergies Allergies Allergy/AdvReac Type Severity Reaction Status Date / Time amoxicillin Allergy Intermediate Rash Verified 12/17/24 23:38 cephalexin [From Keflex] Allergy Unknown ON Verified 12/17/24 23:38 SustainUISINGData Symmetry MED LIST Tetanus Vaccines and Toxoid AdvReac Intermediate FEVER 104F Verified 12/17/24 23:38 Home Meds Home Medications Medication Instructions Recorded Confirmed allopurinol 100 mg tablet 100 mg PO QAM 01/12/19 12/24/24 (Zyloprim) amlodipine 10 mg tablet (Norvasc) 10 mg PO HS 01/12/19 12/24/24 atorvastatin 20 mg tablet (Lipitor) 20 mg PO QAM 01/12/19 12/24/24 benazepril 40 mg tablet (Lotensin) 40 mg PO QAM 01/12/19 12/24/24 cholecalciferol (vitamin D3) 25 1,000 unit PO QAM 01/12/19 12/24/24 mcg (1,000 unit) capsule (Vitamin D3) cyanocobalamin (vitamin B-12) 1,000 mcg PO QAM 01/12/19 12/24/24 1,000 mcg tablet (Vitamin B-12) tadalafil 5 mg tablet (Cialis) 5 mg PO DIRECTED PRN Sexual 01/12/19 12/24/24 Activity thiamine mononitrate (vit B1) 100 100 mg PO QAM 01/12/19 12/24/24 mg tablet (Vitamin B-1 (mononitrate)) folic acid 1 mg tablet 1 mg PO QAM 01/16/19 12/24/24 epinephrine 0.3 mg/0.3 mL 0.3 mg IM DIRECTED PRN 06/06/20 12/24/24 injection, auto-injector (EpiPen) Anaphylaxis furosemide 20 mg tablet 20 mg PO BID 06/06/20 12/24/24 gabapentin 100 mg capsule 100 mg PO TID 06/06/20 12/24/24 hydralazine 100 mg tablet 100 mg PO TID 06/06/20 12/24/24 omeprazole 20 mg capsule,delayed 20 mg PO DAILYBB 06/06/20 12/24/24 release tamsulosin 0.4 mg capsule 0.4 mg PO HS 06/06/20 12/24/24 carvedilol 12.5 mg tablet 12.5 mg PO BID 12/17/24 12/24/24 metformin 1,000 mg tablet 1,000 mg PO BIDM 12/17/24 12/24/24 omega 9-[id number]-fish oil 1,000 mg 1 cap PO DAILY 12/17/24 12/24/24 (120 mg-180 mg) capsule (Fish Oil) Previous Rx's Medication Instructions Recorded apixaban 5 mg tablet (Eliquis) 5 mg PO BID #60 tabs 02/26/20 pantoprazole 40 mg tablet,delayed 40 mg PO BID #60 tabs 12/19/24 release sucralfate 1 gram tablet 1 g PO ACHS 4 weeks #28 tabs 12/19/24 Results & Data (ED) Vital Signs Vital Signs - 24 hr 12/24/24 15:53 12/24/24 16:52 12/24/24 16:55 Temperature 36.8 C Temperature Source Oral Pulse Rate 79 Pulse Rate [Apical] 150 H Pulse Rate from SpO2 Sensor Respiratory Rate 18 16 Respiratory Effort / Characteristics Non-Labored Spontaneous Non-Labored Spontaneous Respiratory Depth Normal Normal Respiratory Pattern Regular Regular Blood Pressure 100/61 Blood Pressure [Left Arm] 101/80 Blood Pressure Mean 74 Blood Pressure Mean [Left Arm] 87 Blood Pressure Position Sitting Pulse Oximetry 99 98 99 Oxygen Delivery Method Room Air Room Air Room Air Sepsis Recent Fever Within 48 Hours No Sepsis New/Unexplained Change in Mental Status No Sepsis Action Taken by Nursing No Action Required 12/24/24 16:57 12/24/24 17:09 Temperature Temperature Source Pulse Rate 133 H 139 H Pulse Rate [Apical] Pulse Rate from SpO2 Sensor 125 H Respiratory Rate 18 Respiratory Effort / Characteristics Respiratory Depth Respiratory Pattern Blood Pressure 141/95 H Blood Pressure [Left Arm] Blood Pressure Mean 110 Blood Pressure Mean [Left Arm] Blood Pressure Position Pulse Oximetry 99 Oxygen Delivery Method Room Air Sepsis Recent Fever Within 48 Hours Sepsis New/Unexplained Change in Mental Status Sepsis Action Taken by Nursing Laboratory Data 12/24/24 16:37 12/24/24 16:37 Lab Results 12/24/24 12/24/24 12/24/24 Range/Units 16:37 16:45 16:53 WBC 9.44 (4.8-10.8) K/ul RBC 3.18 L (4.70-6.10) M/uL Hgb 10.4 L (14.0-18.0) g/dl POC Hgb 10.5 L (14.0-18.0) g/dl Hct 29.3 L (42.0-52.0) % POC Hct 31 L (42-52) % MCV 92.1 (80.0-100.0) fL MCH 32.7 (25.0-34.0) pg MCHC 35.5 (32.0-36.0) g/dL RDW Std Deviation 44.2 (36.4-46.3) fL RDW Coeff of Riley 13.2 (11.5-14.5) % Plt Count 261 (130-400) K/uL MPV 11.0 (9.4-12.4) fL Immature Gran % (Auto) 2.4 % Neut % (Auto) 70.9 % Lymph % (Auto) 14.8 % Motley % (Auto) 9.6 % Eos % (Auto) 1.8 % Baso % (Auto) 0.5 % Neut # (Auto) 6.68 H (1.40-6.50) K/uL Lymph # (Auto) 1.40 (1.20-3.40) K/uL Motley # (Auto) 0.91 H (0.11-0.59) K/uL Eos # (Auto) 0.17 (0.00-0.50) K/uL Baso # (Auto) 0.05 (0.00-0.20) K/uL Immature Gran # (Auto) 0.23 H (0.01-0.20) K/uL PT 12.6 H (9.0-12.0) Seconds INR 1.2 H (0.9-1.1) POC Sodium 138 (135-144) mmol/L Sodium 139 (136-145) mmol/L POC Potassium 3.6 (3.3-5.0) mmol/L Potassium 3.8 (3.5-5.1) mmol/L POC Chloride 98 L (101-112) mmol/L Chloride 100 (98-107) mmol/L Carbon Dioxide 26 (21-32) mmol/L POC Total CO2 25 (24-31) mmol/L Anion Gap 13 H (3-11) POC Anion Gap 20.0 (16-25) mmol/L POC BUN 34 H (7-18) mg/dl BUN 32 H (6-23) mg/dl Creatinine 1.34 (0.6-1.4) mg/dl POC Creatinine 1.5 H (0.6-1.3) mg/dl Est Cr Clr Drug Dosing 54.0 ml/min eGFR 55.59 BUN/Creatinine Ratio 23.9 H (10-20) Glucose 141 H (70-99(Fasting)) mg/dl POC Glucose (other) 138 H (70-99) mg/dl Calcium 9.0 (8.6-10.3) mg/dl POC Ioniz Calcium Ko 1.10 L (1.12-1.32) mmol/l Magnesium 1.2 L (1.7-2.4) mg/dl Total Bilirubin 0.5 (0.2-1.0) mg/dl AST 19 (13-39) U/L ALT 20 (7-52) U/L Alkaline Phosphatase 51 (34-104) U/L Troponin I High Sens 6.5 (0-20) pg/ml Total Protein 6.7 (6.0-8.3) gm/dl Albumin 3.4 (3.4-5.0) gm/dl Globulin 3.3 (2.5-4.0) gm/dl Albumin/Globulin Ratio 1.0 (0.9-2) POC Stool Occult Blood Positive A (Negative) Blood Type Antibody Screen Crossmatch 12/24/24 Range/Units 17:03 WBC (4.8-10.8) K/ul RBC (4.70-6.10) M/uL Hgb (14.0-18.0) g/dl POC Hgb (14.0-18.0) g/dl Hct (42.0-52.0) % POC Hct (42-52) % MCV (80.0-100.0) fL MCH (25.0-34.0) pg MCHC (32.0-36.0) g/dL RDW Std Deviation (36.4-46.3) fL RDW Coeff of Riley (11.5-14.5) % Plt Count (130-400) K/uL MPV (9.4-12.4) fL Immature Gran % (Auto) % Neut % (Auto) % Lymph % (Auto) % Motley % (Auto) % Eos % (Auto) % Baso % (Auto) % Neut # (Auto) (1.40-6.50) K/uL Lymph # (Auto) (1.20-3.40) K/uL Motley # (Auto) (0.11-0.59) K/uL Eos # (Auto) (0.00-0.50) K/uL Baso # (Auto) (0.00-0.20) K/uL Immature Gran # (Auto) (0.01-0.20) K/uL PT (9.0-12.0) Seconds INR (0.9-1.1) POC Sodium (135-144) mmol/L Sodium (136-145) mmol/L POC Potassium (3.3-5.0) mmol/L Potassium (3.5-5.1) mmol/L POC Chloride (101-112) mmol/L Chloride (98-107) mmol/L Carbon Dioxide (21-32) mmol/L POC Total CO2 (24-31) mmol/L Anion Gap (3-11) POC Anion Gap (16-25) mmol/L POC BUN (7-18) mg/dl BUN (6-23) mg/dl Creatinine (0.6-1.4) mg/dl POC Creatinine (0.6-1.3) mg/dl Est Cr Clr Drug Dosing ml/min eGFR BUN/Creatinine Ratio (10-20) Glucose (70-99(Fasting)) mg/dl POC Glucose (other) (70-99) mg/dl Calcium (8.6-10.3) mg/dl POC Ioniz Calcium Ko (1.12-1.32) mmol/l Magnesium (1.7-2.4) mg/dl Total Bilirubin (0.2-1.0) mg/dl AST (13-39) U/L ALT (7-52) U/L Alkaline Phosphatase (34-104) U/L Troponin I High Sens (0-20) pg/ml Total Protein (6.0-8.3) gm/dl Albumin (3.4-5.0) gm/dl Globulin (2.5-4.0) gm/dl Albumin/Globulin Ratio (0.9-2) POC Stool Occult Blood (Negative) Blood Type O Positive Antibody Screen NEGATIVE Crossmatch See Detail Administered Medications Pantoprazole Sodium 40 mg/ (Dextrose) 100 mls @ 20 mls/hr IV Q5H LATA Stop: 01/23/25 17:14 Last Admin: 12/24/24 18:18 Dose: 8 mg/hr, 20 mls/hr Documented By: JENNIFER Magnesium Sulfate/Dextrose (Magnesium Sulfate / D5w) 1 gm in 100 mls @ 100 mls/hr IV Q1H LATA Stop: 12/24/24 20:02 Last Admin: 12/24/24 18:16 Dose: 100 mls/hr Documented By: JENNIFER Discontinued Medications Famotidine (Pepcid 20mg Iv Push) 20 mg in 5 mls @ 2.5 mls/min IV NOW STA Stop: 12/24/24 16:51 Last Admin: 10/16/25 17:16 Dose: 2.5 mls/min Documented By: JITENDRA Co-signed By: LEE Pantoprazole Sodium 80 mg/ (Dextrose) 120 mls @ 480 mls/hr IV NOW ONE Stop: 12/24/24 17:04 Last Infusion: 12/24/24 18:10 Dose: Infused Documented By: Admin: 12/24/24 17:16 Dose: 480 mls/hr Documented By: JITENDRA Co-signed By: LEE Discharge Plan Visit Data Chief Complaint: Vertigo Stated Complaint: DIZZINESS, VERTIGO, GASTRIC HEMORRHAGE ~1 WK AGO ED Provider: Astrid Mcallister Discharge Problem: Near syncope, Acute upper gastrointestinal bleeding, Melena, Atrial fibrillation with rapid ventricular response, Hypomagnesemia Condition: Serious Forms Stand Alone Forms: [facility] [place] Labs Prescriptions Prescriptions: No Action atorvastatin [Lipitor] 20 mg tablet 20 mg PO QAM cyanocobalamin (vitamin B-12) [Vitamin B-12] 1,000 mcg Tablet 1,000 mcg PO QAM allopurinol [Zyloprim] 100 mg tablet 100 mg PO QAM amlodipine [Norvasc] 10 mg tablet 10 mg PO HS benazepril [Lotensin] 40 mg tablet 40 mg PO QAM Hold Instructions: Resume Saturday cholecalciferol (vitamin D3) [Vitamin D3] 1,000 unit Capsule 1,000 unit PO QAM tadalafil [Cialis] 5 mg tablet 5 mg PO DIRECTED PRN (Reason: Sexual Activity) thiamine mononitrate (vit B1) [Vitamin B-1 (mononitrate)] 100 mg tablet 100 mg PO QAM folic acid 1 mg tablet 1 mg PO QAM Eliquis 5 mg Tablet 5 mg PO BID Qty: 60 1RF Hold Instructions: Until labs on saturday epinephrine [EpiPen] 0.3 mg/0.3 mL Auto-Injector 0.3 mg IM DIRECTED PRN (Reason: Anaphylaxis) Rx Instructions: FOR BEE STINGS tamsulosin 0.4 mg capsule 0.4 mg PO HS hydralazine 100 mg tablet 100 mg PO TID Hold Instructions: Resume Saturday omeprazole 20 mg capsule,delayed release(DR/EC) 20 mg PO DAILYBB furosemide 20 mg tablet 20 mg PO BID gabapentin 100 mg capsule 100 mg PO TID carvedilol 12.5 mg tablet 12.5 mg PO BID metformin 1,000 mg tablet 1,000 mg PO BIDM omega [id number]-fish oil [Fish Oil] 1,000 (120-180) mg Capsule 1 cap PO DAILY sucralfate 1 gram tablet 1 g PO ACHS 28 Days Qty: 28 0RF pantoprazole 40 mg tablet,delayed release (DR/EC) 40 mg PO BID Qty: 60 0RF Referrals Referrals: Eloy Mcgraw MD [Primary Care Provider] -
[2024-12-24 17:01] LABS: Hematocrit (blood only) 29.3 % (42.0-52.0); Hemoglobin 10.4 g/dl (14.0-18.0); Immature Granulocytes # (auto) 0.23 K/uL (0.01-0.20); Immature Granulocytes % (auto) 2.4 %; Mean Corpuscular Hemoglobin 32.7 pg (25.0-34.0); Mean Corpuscular Volume 92.1 fL (80.0-100.0); Platelet Count 261 K/uL (130-400); RDW Standard Deviation 44.2 fL (36.4-46.3); Red Blood Count 3.18 M/uL (4.70-6.10); White Blood Count 9.44 K/ul (4.8-10.8)
[2024-12-24 17:14] LABS: Alanine Aminotransferase 20.0 U/L (7-52); Albumin Globulin Ratio 1.0 (0.9-2); Albumin Level 3.4 gm/dl (3.4-5.0); Alkaline Phosphatase 51.0 U/L (34-104); Anion Gap 13.0 (3-11); Bilirubin,Total 0.5 mg/dl (0.2-1.0); Blood Urea Nitrogen 32.0 mg/dl (6-23); Calcium 9.0 mg/dl (8.6-10.3); Carbon Dioxide 26.0 mmol/L (21-32); Chloride 100.0 mmol/L (98-107); Creatinine Clr Calc Pharmacy 54.0 ml/min; Globulin 3.3 gm/dl (2.5-4.0); Glucose 141.0 mg/dl (70-99(Fasting)); Magnesium 1.2 mg/dl (1.7-2.4); Potassium 3.8 mmol/L (3.5-5.1); Sodium 139.0 mmol/L (136-145); Total Protein 6.7 gm/dl (6.0-8.3)
[2024-12-24] MEDS: FAMOTIDINE 20MG IV PUSH 20 MG/5 ML SYR IV STA (17:16)
[2024-12-24] MEDS ORDERED: SODIUM CHLORIDE 0.9% 100 ML IV PRN (17:20)
[2024-12-24 18:10] LABS: INR 1.2 (0.9-1.1); Prothrombin Time 12.6 Seconds (9.0-12.0)
--- NOTE | 2024-12-24 18:12 | History & Physical Report ---
<Statement entered by Edu Miller DO - 12/24/24 19:32> I have seen and examined the patient and have discussed the case with the advance practice provider. I have reviewed the advanced practitioner's documentation, and I agree with, and take responsibility for that plan of care. Patient resting comfortably in the emergency department. He reports that he really only had 1 good stools since he was discharged from the hospital on Saturday. That was yesterday. He reports that it was mostly brown. He states he can never feel his atrial fibrillation. He cannot tell if he is in rapid ventricular response. Usually has no symptoms. I suspect patient's symptoms this morning may be related to the rapid ventricular response much more than any acute or recurrent GI bleeding. Hemoglobin has actually improved since discharge, low suspicion for active bleed. Agree with monitoring hemoglobin Increase Coreg for better rate control, monitor blood pressure with medication changes. Continue to hold Eliquis while determining if recurrent GI bleed. I spent a total of 20 minutes coordinating, documenting, and providing care for this patient excluding time spent by another provider/QHP. Date of Service December 24, 2024 Assessment & Plan (1) Atrial fibrillation with rapid ventricular response: (2) Hypomagnesemia: (3) GIB (gastrointestinal bleeding): (4) Melena: (5) Diabetes mellitus, type II: (6) Hypertension: (7) Hyperlipidemia: (8) Gout: (9) BPH (benign prostatic hyperplasia): Plan 74-year-old male with past medical history significant for type 2 diabetes, metabolic syndrome, gout, dyslipidemia, chronic rhinitis, chronic atrial fibrillation, hypertension, thiamine deficiency, gallstones, right Achilles rupture, degenerative disc disease, neuropathy, iron deficiency anemia, cervical spinal stenosis, alcohol abuse who presents to the ED on 12/24/2024 with dizziness. Possible upper GI bleed Melena Patient recently admitted from 12/18-12/19/2024 with hematemesis s/p EGD with no evidence of active bleeding, hematin in gastric body/fundus and duodenum Hemoglobin stable at 10.4 for now (lowest 9.2 last week) -> monitor H&H q6hr Continue protonix drip NPO Hold eliquis Consult GI: appreciate recs Atrial fibrillation RVR EKG revealed Afib RVR at a rate of 143 BP stable and patient asymptomatic aside from dizziness Hold eliquis as above Continue carvedilol at increased dose (12.5mg bid increased to 25mg bid) Echo ordered (previous in 2019 revealed LVEF 50-55%, mild dilated left atrium, mild MR) Cardiology consulted: appreciate recs Hypomagnesemia Mag 1.2 on presentation Replete 4g total Recheck Mag in am Type 2 diabetes Metformin on hold BSG q6hr while NPO SSI and glycemic consult due to NPO Hypertension Hold amlodipine, hydralazine, benazepril Continue lasix Monitor BP closely Gout Continue allopurinol Hyperlipidemia Continue atorvastatin BPH Continue tamsulosin DVT Prophylaxis: SCDs Code Status: FULL CODE - As per discussion at bedside with the patient. PCP: Eloy Mcgraw Disposition: admit to PCU Patient seen in collaboration with Dr. Miller. Please see addendum. I spent a total of 70 minutes coordinating, documenting and providing care for this patient excluding time spent in the performance of separately billed services or time spent by another provider/QHP. History of Present Illness Chief Complaint: dizziness Primary Care Provider: Eloy Mcgraw MD 74-year-old male with past medical history significant for type 2 diabetes, metabolic syndrome, gout, dyslipidemia, chronic rhinitis, chronic atrial fibrillation, hypertension, thiamine deficiency, gallstones, right Achilles rupture, degenerative disc disease, neuropathy, iron deficiency anemia, cervical spinal stenosis, alcohol abuse who presents to the ED on 12/24/2024 with dizziness. Patient reports he was in his usual state of health yesterday until this morning when he felt dizzy upon waking. He notes he feels okay if he is resting but as soon as he starts to walk he feels dizzy and near syncopal. Denies any actual syncope. Checked his BP multiple times today with readings 100-120/60-70s. Has been taking his medications as instructed. Denies fevers, cough, cold symptoms, chest pain, palpitations, SOB, abdominal pain, N/V/D. Has been having one normal bowel movement per day for the past few days. No signs of bleeding in the stool until today in the ED when he had a black tarry stool. Allergies Allergy/AdvReac Type Severity Reaction Status Date / Time amoxicillin Allergy Intermediate Rash Verified 12/17/24 23:38 cephalexin [From Keflex] Allergy Unknown ON Verified 12/17/24 23:38 [employer] LIST Tetanus Vaccines and Toxoid AdvReac Intermediate FEVER 104F Verified 12/17/24 23:38 Home Medications Medication Instructions Recorded Confirmed Type allopurinol 100 mg tablet 100 mg PO QAM 01/12/19 12/24/24 History (Zyloprim) amlodipine 10 mg tablet (Norvasc) 10 mg PO HS 01/12/19 12/24/24 History atorvastatin 20 mg tablet (Lipitor) 20 mg PO QAM 01/12/19 12/24/24 History benazepril 40 mg tablet (Lotensin) 40 mg PO QAM 01/12/19 12/24/24 History cholecalciferol (vitamin D3) 25 1,000 unit PO QAM 01/12/19 12/24/24 History mcg (1,000 unit) capsule (Vitamin D3) cyanocobalamin (vitamin B-12) 1,000 mcg PO QAM 01/12/19 12/24/24 History 1,000 mcg tablet (Vitamin B-12) tadalafil 5 mg tablet (Cialis) 5 mg PO DIRECTED PRN Sexual 01/12/19 12/24/24 History Activity thiamine mononitrate (vit B1) 100 100 mg PO QAM 01/12/19 12/24/24 History mg tablet (Vitamin B-1 (mononitrate)) folic acid 1 mg tablet 1 mg PO QAM 01/16/19 12/24/24 History apixaban 5 mg tablet (Eliquis) 5 mg PO BID #60 tabs 02/26/20 12/24/24 Rx epinephrine 0.3 mg/0.3 mL 0.3 mg IM DIRECTED PRN 06/06/20 12/24/24 History injection, auto-injector (EpiPen) Anaphylaxis furosemide 20 mg tablet 20 mg PO BID 06/06/20 12/24/24 History gabapentin 100 mg capsule 100 mg PO TID 06/06/20 12/24/24 History hydralazine 100 mg tablet 100 mg PO TID 06/06/20 12/24/24 History omeprazole 20 mg capsule,delayed 20 mg PO DAILYBB 06/06/20 12/24/24 History release tamsulosin 0.4 mg capsule 0.4 mg PO HS 06/06/20 12/24/24 History carvedilol 12.5 mg tablet 12.5 mg PO BID 12/17/24 12/24/24 History metformin 1,000 mg tablet 1,000 mg PO BIDM 12/17/24 12/24/24 History omega 6-ebv-bgy-fish oil 1,000 mg 1 cap PO DAILY 12/17/24 12/24/24 History (120 mg-180 mg) capsule (Fish Oil) pantoprazole 40 mg tablet,delayed 40 mg PO BID #60 tabs 12/19/24 12/24/24 Rx release sucralfate 1 gram tablet 1 g PO ACHS 4 weeks #28 tabs 12/19/24 12/24/24 Rx Past Med/Surg History Problem List (Updated 12/24/24 @ 18:37 by Astrid Mcallister MD) Hypomagnesemia (Acute) Atrial fibrillation with rapid ventricular response (Acute) Melena (Acute) Acute upper gastrointestinal bleeding (Acute) Near syncope (Acute) COVID-19 (Acute) DVT prophylaxis Persistent atrial fibrillation BPH (benign prostatic hyperplasia) Diabetes mellitus, type II (Chronic) Atrial fibrillation (Acute) Hypertension (Chronic) Gout Hyperlipidemia (Chronic) Medical History (Updated 12/24/24 @ 18:37 by Astrid Mcallister MD) Encounter for pre-operative examination Hematemesis GIB (gastrointestinal bleeding) On anticoagulant therapy GERD (gastroesophageal reflux disease) Atrial fibrillation new onset Hypertension Type 2 diabetes mellitus with diabetic polyneuropathy NIDDM Surgical History History of colonoscopy History of tonsillectomy S/P ORIF (open reduction internal fixation) fracture Left Ankle/Heel Family History Brother Prostate cancer Father Heart disease Brother Melanoma Social History Smoking Status: Current some day smoker Tobacco Type: Cigars Cigarettes Per Day: 5-7 cigars weekly; Second Hand Exposure: No; Do You Dip or Chew Tobacco: No; Hx Alcohol Use: Yes Alcohol type: hard liquor Hx Substance Use: No Preferred Language: Ukrainian Communication Ability: Effective Visual Impairment: Limited Hearing Ability: Normal [employer] Required: No Beliefs That Will Affect Care: None marital status: Current Living Situation: Spouse Current Living Situation Comment: lives at home w/ current occupational status: employed Feels Safe at Home: Yes Assistive Devices: Glasses Review of Systems Review of Systems: All systems reviewed & are unremarkable except as noted in HPI & below Physical Exam Physical Exam: General/Psych: WD/WN, sitting up in bed, NAD, conversing easily Head: normocephalic, atraumatic Eyes: normal inspection, PERRL, conjunctivae pink ENT: external ear and nose normal, oropharynx normal Neck: normal visual inspection, trachea midline Respiratory: normal respiratory effort, lungs clear to auscultation, no wheeze/rales/rhonchi, no accessory muscle use Cardiovascular: irregularly irregular rate and rhythm, no murmur/rub/gallop Extremities: no cyanosis or clubbing, normal peripheral pulses, no BLE edema Abdomen/GI: normal bowel sounds, soft, nontender Neurologic/MSK: A+Ox3, motor strength 5/5, moves all extremities Skin: no rashes, normal color, warm and dry Results & Data Results & Data Vital Signs (Past 12 Hours) Vital Signs Temp Pulse Pulse Resp BP BP Pulse Ox 12/24/24 17:09 139 H 18 141/95 H 99 12/24/24 16:57 133 H 12/24/24 16:55 150 H 16 101/80 99 12/24/24 16:52 98 12/24/24 15:53 36.8 C 79 18 100/61 99 O2 Del Method 12/24/24 17:09 Room Air 12/24/24 16:57 12/24/24 16:55 Room Air 12/24/24 16:52 Room Air 12/24/24 15:53 Room Air Laboratory Results Short CBC 12/24/24 Range/Units 16:37 WBC 9.44 (4.8-10.8) K/ul Hgb 10.4 L (14.0-18.0) g/dl Hct 29.3 L (42.0-52.0) % Plt Count 261 (130-400) K/uL BMP 12/24/24 16:37 Sodium 139 Potassium 3.8 Chloride 100 Carbon Dioxide 26 BUN 32 H Creatinine 1.34 Glucose 141 H Calcium 9.0 Liver Function 12/24/24 Range/Units 16:37 Total Bilirubin 0.5 (0.2-1.0) mg/dl AST 19 (13-39) U/L ALT 20 (7-52) U/L Alkaline Phosphatase 51 (34-104) U/L Albumin 3.4 (3.4-5.0) gm/dl I have independently reviewed and interpreted patient's admitting labs including CBC, CMP, PTT, PT/INR, mag and troponin. ECG Additional Comments: I have independently reviewed and interpreted patient's admitting EKG which revealed: A fib with RVR at a rate of 143bpm Code Status & VTE Plan Code Status Full Code (6) Hypertension Hypertension type: essential hypertension Qualified Code(s): I10 - Essential (primary) hypertension (7) Hyperlipidemia Hyperlipidemia type: unspecified Qualified Code(s): E78.5 - Hyperlipidemia, unspecified (8) Gout Chronicity: unspecified Gout etiology: unspecified cause Gout site: unspecified site Qualified Code(s): M10.9 - Gout, unspecified
[2024-12-24] MEDS: MAGNESIUM SULFATE / D5W 1 GM/100 ML BAG IV SCH ×2 (18:16→22:03)
[2024-12-24] MEDS: PANTOprazole 40 MG in DEXTROSE 5% MINI-B 100 ML IV SCH (18:18)
[2024-12-24] MEDS: PANTOPRAZOLE BOLUS/DRIP IV STA (18:42)
[2024-12-24] MEDS: METOPROLOL TARTRATE 1 MG/ML VIAL IV STA (18:47)
--- NOTE | 2024-12-24 20:00 | XRay Report ---
EXAM: X-ray chest one-view portable CLINICAL HISTORY: Near syncope PRIORS: 08/02/2023 TECHNIQUE: AP portable erect FINDINGS: The chest is well-expanded. No airspace consolidation, effusion or congestive changes. Cardiac silhouette moderately enlarged, unchanged. No pneumothorax. Trachea is patent. Atherosclerotic disease of the aortic knob. Osseous structures demonstrate no acute abnormality. No radiopaque foreign body. IMPRESSION: N 1. No plain film evidence of an acute cardiopulmonary process. 2. Moderate enlargement of the cardiac silhouette, unchanged. Electronically signed by Claudia Velazquez 12-24-2024 7:59 PM
[2024-12-24] MEDS ORDERED: GLUCOSE 40% GEL 15 GM TUBE PO PRN (21:50)
[2024-12-24] MEDS ORDERED: GLUCAGON FOR INJ 1 MG VIAL SQ PRN (21:50)
[2024-12-24] MEDS ORDERED: ACETAMINOPHEN 325 MG TAB PO PRN (21:50)
[2024-12-24] MEDS ORDERED: ONDANSETRON INJ 2 MG/ML 2 ML VIAL IV PRN (21:50)
[2024-12-24] MEDS ORDERED: PHARMACY GLYCEMIC MGMT CONSULT PRN (21:50)
[2024-12-24] MEDS ORDERED: CARBOHYDRATES FOR HYPOGLYCEMIA PO PRN (21:50)
[2024-12-24] MEDS ORDERED: GLUCOSE 10 TAB/TUBE PO PRN (21:50)
[2024-12-24] MEDS ORDERED: DEXTROSE 50% 50 ML SYRINGE IV PRN (21:50)
[2024-12-24] MEDS: GABAPENTIN 100 MG CAP PO SCH (22:13)
[2024-12-24] MEDS: FUROSEMIDE 20 MG TAB PO SCH (22:13)
[2024-12-24] MEDS: TAMSULOSIN HCL 0.4 MG CAP PO SCH (22:14)
[2024-12-24] MEDS: INSULIN ASPART PER UNIT CHARGE SC SCH (22:16)
[2024-12-24 23:19] LABS: Hematocrit (blood only) 23.7 % (42.0-52.0); Hemoglobin 8.2 g/dl (14.0-18.0)
[2024-12-25] MEDS: POTASSIUM CHLORIDE 20 MEQ in LACTATED RINGER'S 1,000 ML IV ONE (04:01)
[2024-12-25 05:58] LABS: Hematocrit (blood only) 22.9 % (42.0-52.0); Hemoglobin 8.3 g/dl (14.0-18.0); Mean Corpuscular Hemoglobin 32.7 pg (25.0-34.0); Mean Corpuscular Volume 90.2 fL (80.0-100.0); Platelet Count 197 K/uL (130-400); RDW Standard Deviation 42.7 fL (36.4-46.3); Red Blood Count 2.54 M/uL (4.70-6.10); White Blood Count 6.41 K/ul (4.8-10.8)
[2024-12-25 06:17] LABS: Anion Gap 11.0 (3-11); Blood Urea Nitrogen 34.0 mg/dl (6-23); Calcium 8.3 mg/dl (8.6-10.3); Carbon Dioxide 27.0 mmol/L (21-32); Chloride 103.0 mmol/L (98-107); Creatinine Clr Calc Pharmacy 50.3 ml/min; Glucose 119.0 mg/dl (70-99(Fasting)); Magnesium 1.9 mg/dl (1.7-2.4); Potassium 2.8 mmol/L (3.5-5.1); Sodium 141.0 mmol/L (136-145)
[2024-12-25] MEDS: POTASSIUM CHLORIDE / WTR 10 MEQ/100 ML PLCT IV SCH (08:07)
[2024-12-25] MEDS: POTASSIUM CHLORIDE CRTAB 20 MEQ TABCR PO STA (08:07)
[2024-12-25] MEDS: ATORVASTATIN 20 MG TAB PO SCH (08:08)
[2024-12-25] MEDS: THIAMINE HCL 100 MG TAB PO SCH (08:08)
[2024-12-25] MEDS: CYANOCOBALAMIN (B-12) 500 MCG TABLET PO SCH (08:08)
[2024-12-25] MEDS: CHOLECALCIFEROL 25 MCG (1000 UNITS) TAB PO SCH (08:08)
[2024-12-25] MEDS: FOLIC ACID 1 MG TAB PO SCH (08:09)
--- NOTE | 2024-12-25 08:31 | Gastrointestinal Consultation ---
Date of Consultation December 25, 2024 Assessment & Plan (1) Atrial fibrillation with rapid ventricular response: 74 year old male w/ history of type 2 diabetes, metabolic syndrome, gout, dyslipidemia, chronic rhinitis, chronic atrial fibrillation, hypertension, thiamine deficiency, gallstones, right Achilles rupture, degenerative disc disease, neuropathy, iron deficiency anemia, cervical spinal stenosis, alcohol abuse presenting to the ED w/ lightheadedness/dizziness - admitted w/ Atrial fibrillation with rapid ventricular response. GI was asked to evaluate given his recent GI bleed and report of heme positive stool. He suggests his stools are dark brown w/ pieces of black specs in color. S/P EGD 12/14/24 six 12 to 20 mm sessile polyps with no bleeding and stigmata of recent bleeding were found in the gastric body and in the gastric antrum repeat EGD 12/18/24 w/ hematin in the gastric body old blood in the second portion of the duodenum. Trend H&H. Monitor GI output. Transfuse PRN per primary service. Appreciate cardiology consultation. IV PPI bolus/drip. Hold Eliquis. Correct K. Tentative plan for EGD over the weekend if signs of active GI bleeding unless more urgently indicated. I spent a total of 60 minutes on the date of service in review of patient's record, and previously obtained information in person and appropriate medical visit, discussion and education of plan, with patient and/or caregiver, placing orders for tests/referral/procedures as medically necessary and documentation of pertinent clinical information in patient's medical records for their visit today. Supervising Physician Co-Signing Physician Notes Gentleman with a history of iron deficiency anemia. Endoscopy showed multiple gastric polyps. He is post polypectomy x 6 gastric polyps. He had post polypectomy bleeding. Recent endoscope 3 days ago showed multiple polypectomy sites no definite bleeding source no active hemorrhage. He was discharged home now comes back with further melena dizziness weakness consistent with significant upper GI bleeding. Hemoglobin down to 7.5. He has not resumed his Eliquis at present. For repeat endoscopy today to evaluate polypectomy sites potential endoscopic intervention via BiCap coagulation or further clip placement. Risk benefits explained ablation which includes further bleeding and/or perforation. Informed consent obtained History of Present Illness Attending Physician: Eduardo Haddad MD History of Present Illness 74 year old male w/ history of type 2 diabetes, metabolic syndrome, gout, dyslipidemia, chronic rhinitis, chronic atrial fibrillation, hypertension, thiamine deficiency, gallstones, right Achilles rupture, degenerative disc disease, neuropathy, iron deficiency anemia, cervical spinal stenosis, alcohol abuse admitted through the ED w/ dizziness - GI asked to evaluate for evaluation of melena and FOBT+. He suggests he resumed his Eliquis 12/21. Suggests he was feeling well until 12/24 when he presented through the ED w/ lightheadedness/dizziness - admitted w/ Atrial fibrillation with rapid ventricular response. GI was asked to evaluate given his recent GI bleed and report of heme positive stool. He suggests his stools are dark brown w/ pieces of black specs in color. He denies any episodes of melena or BRBPR to me. He notes his last BM was yesterday, after he had a rectal examination in the ER. No abd pain. No nausea/vomiting. HGB 8.3 BUN 34 K 2.8 EGD 12/18/24: - Normal esophagus. Hematin (altered blood/jjjyzu-brovtq-xgua material) in the gastric body and in the gastric fundus. Resolved post polypectomy bleed. Old blood in the second portion of the duodenum. No specimens collected. EGD 12/14/24: Six 12 to 20 mm sessile polyps with no bleeding and stigmata of recent bleeding were found in the gastric body and in the gastric antrum. Preparations were made for mucosal resection. Chromoscopy with indigo carmine using irrigation chromoendoscopy technique was done to jaqui the borders of the lesion. Demarcation of the lesion was performed to clearly identify boundaries of the lesion. 10 mL of saline with indigo carmine was injected with adequate lift of the lesion from the muscularis propria. Snare mucosal resection with Rosales net retrieval was performed. Resection and retrieval were complete. There was no bleeding at the end of the procedure. Verification of patient identification for the specimen was done by the physician and nurse using the patient's name and date. The pathology specimen was placed into Bottle A. To prevent bleeding after the polypectomy, sixteen hemostatic clips were successfully placed (MR conditional). The duodenal bulb and second portion of the duodenum were normal. Allergies Allergy/AdvReac Type Severity Reaction Status Date / Time amoxicillin Allergy Intermediate Rash Verified 12/17/24 23:38 cephalexin [From Keflex] Allergy Unknown ON Verified 12/17/24 23:38 [facility] L[facility] Tetanus Vaccines and Toxoid AdvReac Intermediate FEVER 104F Verified 12/17/24 23:38 Home Medications Medication Instructions Recorded Confirmed Type allopurinol 100 mg tablet 100 mg PO QAM 01/12/19 12/24/24 History (Zyloprim) amlodipine 10 mg tablet (Norvasc) 10 mg PO HS 01/12/19 12/24/24 History atorvastatin 20 mg tablet (Lipitor) 20 mg PO QAM 01/12/19 12/24/24 History benazepril 40 mg tablet (Lotensin) 40 mg PO QAM 01/12/19 12/24/24 History cholecalciferol (vitamin D3) 25 1,000 unit PO QAM 01/12/19 12/24/24 History mcg (1,000 unit) capsule (Vitamin D3) cyanocobalamin (vitamin B-12) 1,000 mcg PO QAM 01/12/19 12/24/24 History 1,000 mcg tablet (Vitamin B-12) tadalafil 5 mg tablet (Cialis) 5 mg PO DIRECTED PRN Sexual 01/12/19 12/24/24 History Activity thiamine mononitrate (vit B1) 100 100 mg PO QAM 01/12/19 12/24/24 History mg tablet (Vitamin B-1 (mononitrate)) folic acid 1 mg tablet 1 mg PO QAM 01/16/19 12/24/24 History apixaban 5 mg tablet (Eliquis) 5 mg PO BID #60 tabs 02/26/20 12/24/24 Rx epinephrine 0.3 mg/0.3 mL 0.3 mg IM DIRECTED PRN 06/06/20 12/24/24 History injection, auto-injector (EpiPen) Anaphylaxis furosemide 20 mg tablet 20 mg PO BID 06/06/20 12/24/24 History gabapentin 100 mg capsule 100 mg PO TID 06/06/20 12/24/24 History hydralazine 100 mg tablet 100 mg PO TID 06/06/20 12/24/24 History omeprazole 20 mg capsule,delayed 20 mg PO DAILYBB 06/06/20 12/24/24 History release tamsulosin 0.4 mg capsule 0.4 mg PO HS 06/06/20 12/24/24 History carvedilol 12.5 mg tablet 12.5 mg PO BID 12/17/24 12/24/24 History metformin 1,000 mg tablet 1,000 mg PO BIDM 12/17/24 12/24/24 History omega 0-qjr-bmk-fish oil 1,000 mg 1 cap PO DAILY 12/17/24 12/24/24 History (120 mg-180 mg) capsule (Fish Oil) pantoprazole 40 mg tablet,delayed 40 mg PO BID #60 tabs 12/19/24 12/24/24 Rx release sucralfate 1 gram tablet 1 g PO ACHS 4 weeks #28 tabs 12/19/24 12/24/24 Rx Patient History Medical History (Updated 12/25/24 @ 16:59 by Frankie Pickett MD) Acute upper gastrointestinal bleeding Acute blood loss anemia Hypomagnesemia Hypokalemia Encounter for pre-operative examination Hematemesis GIB (gastrointestinal bleeding) On anticoagulant therapy GERD (gastroesophageal reflux disease) Atrial fibrillation new onset Hypertension Type 2 diabetes mellitus with diabetic polyneuropathy NIDDM Surgical History History of colonoscopy History of tonsillectomy S/P ORIF (open reduction internal fixation) fracture Left Ankle/Heel Family History Brother Prostate cancer Father Heart disease Brother Melanoma Social History Smoking Status: Current some day smoker Tobacco Type: Cigars Cigarettes Per Day: 5-7 cigars weekly; Second Hand Exposure: No; Do You Dip or Chew Tobacco: No; Tobacco Cessation Education Requested by Patient: No Hx Alcohol Use: Yes Alcohol type: hard liquor Hx Substance Use: No Preferred Language: Romanian Communication Ability: Effective Visual Impairment: Limited Hearing Ability: Normal Clinical Documentation Specialist Required: No Beliefs That Will Affect Care: None and Amish marital status: Current Living Situation: Spouse Current Living Situation Comment: lives at home w/ current occupational status: employed Other Information That Helps Us Care for You: No Feels Safe at Home: Yes Safety Concerns: Feels Safe At This Time Assistive Devices: None Review of Systems Review of Systems: All other findings negative except as noted in HPI. Physical Exam Constitutional: WD/WN, vitals as above Respiratory: normal respiratory effort, lungs clear to auscultation Cardiovascular: Rate/Rhythm: + tachycardic Gastrointestinal (Abdomen): normal bowel sounds, soft, nontender, no hepatosplenomegaly Skin: no rashes, warm and dry Results & Data Vital Signs (Past 12 Hours) Vital Signs Temp Pulse Pulse Resp BP BP Pulse Ox 12/25/24 07:16 97.9 F 94 H 16 116/68 97 12/25/24 05:49 148/84 H 12/25/24 02:32 98.6 F 89 18 93/55 L 99 12/24/24 22:20 100 H 145/94 H 12/24/24 21:25 144 H 12/24/24 21:10 98.2 F 95 H 20 145/94 H 99 O2 Del Method 12/25/24 07:16 Room Air 12/25/24 05:49 12/25/24 02:32 Room Air 12/24/24 22:20 12/24/24 21:25 12/24/24 21:10 Room Air Laboratory Results 12/25/24 12/24/24 12/24/24 Range/Units 05:18 22:47 22:15 WBC 6.41 (4.8-10.8) K/ul RBC 2.54 L (4.70-6.10) M/uL Hgb 8.3 L 8.2 L (14.0-18.0) g/dl POC Hgb (14.0-18.0) g/dl Hct 22.9 L 23.7 L (42.0-52.0) % POC Hct (42-52) % MCV 90.2 (80.0-100.0) fL MCH 32.7 (25.0-34.0) pg MCHC 36.2 H (32.0-36.0) g/dL RDW Std Deviation 42.7 (36.4-46.3) fL RDW Coeff of Riley 13.2 (11.5-14.5) % Plt Count 197 (130-400) K/uL MPV 10.5 (9.4-12.4) fL Immature Gran % (Auto) % Neut % (Auto) % Lymph % (Auto) % [place] % (Auto) % Eos % (Auto) % Baso % (Auto) % Neut # (Auto) (1.40-6.50) K/uL Lymph # (Auto) (1.20-3.40) K/uL [place] # (Auto) (0.11-0.59) K/uL Eos # (Auto) (0.00-0.50) K/uL Baso # (Auto) (0.00-0.20) K/uL Immature Gran # (Auto) (0.01-0.20) K/uL PT (9.0-12.0) Seconds INR (0.9-1.1) POC Sodium (135-144) mmol/L Sodium 141 (136-145) mmol/L POC Potassium (3.3-5.0) mmol/L Potassium 2.8 L D (3.5-5.1) mmol/L POC Chloride (101-112) mmol/L Chloride 103 (98-107) mmol/L Carbon Dioxide 27 (21-32) mmol/L POC Total CO2 (24-31) mmol/L Anion Gap 11 (3-11) POC Anion Gap (16-25) mmol/L POC BUN (7-18) mg/dl BUN 34 H (6-23) mg/dl Creatinine 1.33 (0.6-1.4) mg/dl POC Creatinine (0.6-1.3) mg/dl Est Cr Clr Drug Dosing 50.3 ml/min eGFR 56.09 BUN/Creatinine Ratio 25.6 H (10-20) Glucose 119 H (70-99(Fasting)) mg/dl POC Glucose 160 H (70-99) mg/dl POC Glucose (other) (70-99) mg/dl Calcium 8.3 L (8.6-10.3) mg/dl POC Ioniz Calcium Ko (1.12-1.32) mmol/l Phosphorus 3.9 (2.5-4.9) mg/dl Magnesium 1.9 (1.7-2.4) mg/dl Total Bilirubin (0.2-1.0) mg/dl AST (13-39) U/L ALT (7-52) U/L Alkaline Phosphatase (34-104) U/L Troponin I High Sens (0-20) pg/ml Total Protein (6.0-8.3) gm/dl Albumin (3.4-5.0) gm/dl Globulin (2.5-4.0) gm/dl Albumin/Globulin Ratio (0.9-2) POC Stool Occult Blood (Negative) Blood Type Antibody Screen Crossmatch 12/24/24 12/24/24 12/24/24 Range/Units 17:03 16:53 16:45 WBC (4.8-10.8) K/ul RBC (4.70-6.10) M/uL Hgb (14.0-18.0) g/dl POC Hgb 10.5 L (14.0-18.0) g/dl Hct (42.0-52.0) % POC Hct 31 L (42-52) % MCV (80.0-100.0) fL MCH (25.0-34.0) pg MCHC (32.0-36.0) g/dL RDW Std Deviation (36.4-46.3) fL RDW Coeff of Riley (11.5-14.5) % Plt Count (130-400) K/uL MPV (9.4-12.4) fL Immature Gran % (Auto) % Neut % (Auto) % Lymph % (Auto) % [place] % (Auto) % Eos % (Auto) % Baso % (Auto) % Neut # (Auto) (1.40-6.50) K/uL Lymph # (Auto) (1.20-3.40) K/uL [place] # (Auto) (0.11-0.59) K/uL Eos # (Auto) (0.00-0.50) K/uL Baso # (Auto) (0.00-0.20) K/uL Immature Gran # (Auto) (0.01-0.20) K/uL PT 12.6 H (9.0-12.0) Seconds INR 1.2 H (0.9-1.1) POC Sodium 138 (135-144) mmol/L Sodium (136-145) mmol/L POC Potassium 3.6 (3.3-5.0) mmol/L Potassium (3.5-5.1) mmol/L POC Chloride 98 L (101-112) mmol/L Chloride (98-107) mmol/L Carbon Dioxide (21-32) mmol/L POC Total CO2 25 (24-31) mmol/L Anion Gap (3-11) POC Anion Gap 20.0 (16-25) mmol/L POC BUN 34 H (7-18) mg/dl BUN (6-23) mg/dl Creatinine (0.6-1.4) mg/dl POC Creatinine 1.5 H (0.6-1.3) mg/dl Est Cr Clr Drug Dosing ml/min eGFR BUN/Creatinine Ratio (10-20) Glucose (70-99(Fasting)) mg/dl POC Glucose (70-99) mg/dl POC Glucose (other) 138 H (70-99) mg/dl Calcium (8.6-10.3) mg/dl POC Ioniz Calcium Ko 1.10 L (1.12-1.32) mmol/l Phosphorus (2.5-4.9) mg/dl Magnesium (1.7-2.4) mg/dl Total Bilirubin (0.2-1.0) mg/dl AST (13-39) U/L ALT (7-52) U/L Alkaline Phosphatase (34-104) U/L Troponin I High Sens (0-20) pg/ml Total Protein (6.0-8.3) gm/dl Albumin (3.4-5.0) gm/dl Globulin (2.5-4.0) gm/dl Albumin/Globulin Ratio (0.9-2) POC Stool Occult Blood Positive A (Negative) Blood Type O Positive Antibody Screen NEGATIVE Crossmatch See Detail 12/24/24 Range/Units 16:37 WBC 9.44 (4.8-10.8) K/ul RBC 3.18 L (4.70-6.10) M/uL Hgb 10.4 L (14.0-18.0) g/dl POC Hgb (14.0-18.0) g/dl Hct 29.3 L (42.0-52.0) % POC Hct (42-52) % MCV 92.1 (80.0-100.0) fL MCH 32.7 (25.0-34.0) pg MCHC 35.5 (32.0-36.0) g/dL RDW Std Deviation 44.2 (36.4-46.3) fL RDW Coeff of Riley 13.2 (11.5-14.5) % Plt Count 261 (130-400) K/uL MPV 11.0 (9.4-12.4) fL Immature Gran % (Auto) 2.4 % Neut % (Auto) 70.9 % Lymph % (Auto) 14.8 % [place] % (Auto) 9.6 % Eos % (Auto) 1.8 % Baso % (Auto) 0.5 % Neut # (Auto) 6.68 H (1.40-6.50) K/uL Lymph # (Auto) 1.40 (1.20-3.40) K/uL [place] # (Auto) 0.91 H (0.11-0.59) K/uL Eos # (Auto) 0.17 (0.00-0.50) K/uL Baso # (Auto) 0.05 (0.00-0.20) K/uL Immature Gran # (Auto) 0.23 H (0.01-0.20) K/uL PT (9.0-12.0) Seconds INR (0.9-1.1) POC Sodium (135-144) mmol/L Sodium 139 (136-145) mmol/L POC Potassium (3.3-5.0) mmol/L Potassium 3.8 (3.5-5.1) mmol/L POC Chloride (101-112) mmol/L Chloride 100 (98-107) mmol/L Carbon Dioxide 26 (21-32) mmol/L POC Total CO2 (24-31) mmol/L Anion Gap 13 H (3-11) POC Anion Gap (16-25) mmol/L POC BUN (7-18) mg/dl BUN 32 H (6-23) mg/dl Creatinine 1.34 (0.6-1.4) mg/dl POC Creatinine (0.6-1.3) mg/dl Est Cr Clr Drug Dosing 54.0 ml/min eGFR 55.59 BUN/Creatinine Ratio 23.9 H (10-20) Glucose 141 H (70-99(Fasting)) mg/dl POC Glucose (70-99) mg/dl POC Glucose (other) (70-99) mg/dl Calcium 9.0 (8.6-10.3) mg/dl POC Ioniz Calcium Ko (1.12-1.32) mmol/l Phosphorus (2.5-4.9) mg/dl Magnesium 1.2 L (1.7-2.4) mg/dl Total Bilirubin 0.5 (0.2-1.0) mg/dl AST 19 (13-39) U/L ALT 20 (7-52) U/L Alkaline Phosphatase 51 (34-104) U/L Troponin I High Sens 6.5 (0-20) pg/ml Total Protein 6.7 (6.0-8.3) gm/dl Albumin 3.4 (3.4-5.0) gm/dl Globulin 3.3 (2.5-4.0) gm/dl Albumin/Globulin Ratio 1.0 (0.9-2) POC Stool Occult Blood (Negative) Blood Type Antibody Screen Crossmatch PG Care Time/CCT Total # of Minutes Spent Total Time Spent with Patient: Total time spent is greater than 50% in coordination of care (as documented) at patient's floor/unit and/or counseling patient: Coding Level of Care Code 14203 INT INP/OBS CARE 2/55MIN Diagnoses Atrial fibrillation with rapid ventricular response I48.91
--- NOTE | 2024-12-25 09:14 | Cardiology Consultation ---
Date of Consultation December 25, 2024 Assessment & Plan (1) Permanent atrial fibrillation: (2) Acute blood loss anemia: (3) Acute upper gastrointestinal bleeding: (4) Melena: (5) Hypomagnesemia: (6) Hypokalemia: Plan 74-year-old male with permanent atrial fibrillation presenting with lightheadedness in the setting of acute on chronic upper GI bleeding, symptomatic anemia, with subsequent atrial fibrillation and rapid ventricular response. Significant electrolyte abnormalities including profound hypomagnesemia and hypokalemia this a.m. noted. Hold Eliquis. Continue current dose of carvedilol 12.5 mg twice daily. Replace magnesium and potassium IV as indicated. Continue telemetry monitoring during hospitalization. Update resting 2D transthoracic echocardiogram. Transfuse to maintain hemoglobin greater than 8.0g/dL. Monitor serial H&H. No cardiovascular contraindication to repeat endoscopy as needed. Zachery Barton DO, [facility] History of Present Illness Reason for Consultation: Atrial fibrillation with rapid ventricular response. Requesting Physician: Jacqui REA Attending Physician: Eduardo Haddad MD History of Present Illness 74-year-old male with history of chronic atrial fibrillation presents to the ER with lightheadedness, dizziness, and melena. Managed with Eliquis and carvedilol in the outpatient setting. Severe hypomagnesemia on admission treated with 4 g of IV magnesium. Significant hypokalemia this a.m. Initial ECG demonstrating atrial fibrillation with heart rate in the 140s. Recent EGD performed 12/14/2024 and 12/18/2024. 6 gastric polyps noted in the gastric body and antrum. Resection and retrieval completed 16 hemostatic clips were successfully placed 12/14/2024. Repeat EGD 12/19/2019 demonstrating old blood in the second portion of duodenum. No specimens were obtained during that procedure. Apixaban on hold since admission. Hemoglobin trending down from 10.4 on 12/24/2024 -8.3 this morning. Continues to note issues with ongoing black, tarry stools. Denies any abdominal discomfort at this time. No recurrent hematemesis. Initial ECG on admission demonstrate atrial fibrillation with rapid ventricular response. Currently heart rate controlled at rest with resting heart rates in the mid 90s. Denies any lightheadedness or dizziness currently. Apixaban placed on hold appropriately. He has received carvedilol earlier today and blood pressure remains borderline hypotensive. Allergies Allergy/AdvReac Type Severity Reaction Status Date / Time amoxicillin Allergy Intermediate Rash Verified 12/17/24 23:38 cephalexin [From Keflex] Allergy Unknown ON Verified 12/17/24 23:38 [facility] LIST Tetanus Vaccines and Toxoid AdvReac Intermediate FEVER 104F Verified 12/17/24 23:38 Home Medications Medication Instructions Recorded Confirmed Type allopurinol 100 mg tablet 100 mg PO QAM 01/12/19 12/24/24 History (Zyloprim) amlodipine 10 mg tablet (Norvasc) 10 mg PO HS 01/12/19 12/24/24 History atorvastatin 20 mg tablet (Lipitor) 20 mg PO QAM 01/12/19 12/24/24 History benazepril 40 mg tablet (Lotensin) 40 mg PO QAM 01/12/19 12/24/24 History cholecalciferol (vitamin D3) 25 1,000 unit PO QAM 01/12/19 12/24/24 History mcg (1,000 unit) capsule (Vitamin D3) cyanocobalamin (vitamin B-12) 1,000 mcg PO QAM 01/12/19 12/24/24 History 1,000 mcg tablet (Vitamin B-12) tadalafil 5 mg tablet (Cialis) 5 mg PO DIRECTED PRN Sexual 01/12/19 12/24/24 History Activity thiamine mononitrate (vit B1) 100 100 mg PO QAM 01/12/19 12/24/24 History mg tablet (Vitamin B-1 (mononitrate)) folic acid 1 mg tablet 1 mg PO QAM 01/16/19 12/24/24 History apixaban 5 mg tablet (Eliquis) 5 mg PO BID #60 tabs 02/26/20 12/24/24 Rx epinephrine 0.3 mg/0.3 mL 0.3 mg IM DIRECTED PRN 06/06/20 12/24/24 History injection, auto-injector (EpiPen) Anaphylaxis furosemide 20 mg tablet 20 mg PO BID 06/06/20 12/24/24 History gabapentin 100 mg capsule 100 mg PO TID 06/06/20 12/24/24 History hydralazine 100 mg tablet 100 mg PO TID 06/06/20 12/24/24 History omeprazole 20 mg capsule,delayed 20 mg PO DAILYBB 06/06/20 12/24/24 History release tamsulosin 0.4 mg capsule 0.4 mg PO HS 06/06/20 12/24/24 History carvedilol 12.5 mg tablet 12.5 mg PO BID 12/17/24 12/24/24 History metformin 1,000 mg tablet 1,000 mg PO BIDM 12/17/24 12/24/24 History omega 3-muk-grq-fish oil 1,000 mg 1 cap PO DAILY 12/17/24 12/24/24 History (120 mg-180 mg) capsule (Fish Oil) pantoprazole 40 mg tablet,delayed 40 mg PO BID #60 tabs 12/19/24 12/24/24 Rx release sucralfate 1 gram tablet 1 g PO ACHS 4 weeks #28 tabs 12/19/24 12/24/24 Rx Patient History Medical History Encounter for pre-operative examination Hematemesis GIB (gastrointestinal bleeding) On anticoagulant therapy GERD (gastroesophageal reflux disease) Atrial fibrillation new onset Hypertension Type 2 diabetes mellitus with diabetic polyneuropathy NIDDM Surgical History History of colonoscopy History of tonsillectomy S/P ORIF (open reduction internal fixation) fracture Left Ankle/Heel Family History Brother Prostate cancer Father Heart disease Brother Melanoma Social History Smoking Status: Current some day smoker Tobacco Type: Cigars Cigarettes Per Day: 5-7 cigars weekly; Second Hand Exposure: No; Do You Dip or Chew Tobacco: No; Tobacco Cessation Education Requested by Patient: No Hx Alcohol Use: Yes Alcohol type: hard liquor Hx Substance Use: No Preferred Language: Angolan Communication Ability: Effective Visual Impairment: Limited Hearing Ability: Normal Lead Generator Required: No Beliefs That Will Affect Care: None and Hoahaoism marital status: Current Living Situation: Spouse Current Living Situation Comment: lives at home w/ current occupational status: employed Other Information That Helps Us Care for You: No Feels Safe at Home: Yes Safety Concerns: Feels Safe At This Time Assistive Devices: None Review of Systems Review of Systems: All systems reviewed & are unremarkable except as noted in Subjective Physical Exam Constitutional: well nourished and + ill appearing; no acute distress Respiratory: normal respiratory effort; no respiratory distress, no labored breathing and no retractions Auscultation: no crackles, no rales, no rhonchi and no wheezes Cardiovascular: Rate/Rhythm: + irregularly irregular Heart Sounds: normal S1 and normal S2; no murmur Vessels: + carotid bruit; no JVD Extremities: no edema Gastrointestinal (Abdomen): Inspection/Auscultation: abdomen normal to inspection; abdomen not distended Percussion/Palpation: abdomen nontender and no guarding Neurologic: CN's II-XI intact bilaterally and moves all extremities Psychiatric: A+Ox3, euthymic affect Results & Data Vital Signs (Past 12 Hours) Vital Signs Temp Pulse Pulse Resp BP BP Pulse Ox 12/25/24 08:00 101 H 12/25/24 07:16 36.6 C 94 H 16 116/68 97 12/25/24 05:49 148/84 H 12/25/24 02:32 37.0 C 89 18 93/55 L 99 12/24/24 22:20 100 H 145/94 H 12/24/24 21:25 144 H 12/24/24 21:10 36.8 C 95 H 20 145/94 H 99 O2 Del Method 12/25/24 08:00 12/25/24 07:16 Room Air 12/25/24 05:49 12/25/24 02:32 Room Air 12/24/24 22:20 12/24/24 21:25 12/24/24 21:10 Room Air Laboratory Results Cardiac Enzymes 12/24/24 Range/Units 16:37 AST 19 (13-39) U/L Troponin I High Sens 6.5 (0-20) pg/ml Coagulation 12/24/24 Range/Units 16:53 PT 12.6 H (9.0-12.0) Seconds CBC 12/24/24 12/24/24 12/25/24 Range/Units 16:37 22:47 05:18 WBC 9.44 6.41 (4.8-10.8) K/ul RBC 3.18 L 2.54 L (4.70-6.10) M/uL Hgb 10.4 L 8.2 L 8.3 L (14.0-18.0) g/dl Hct 29.3 L 23.7 L 22.9 L (42.0-52.0) % Plt Count 261 197 (130-400) K/uL Neut # (Auto) 6.68 H (1.40-6.50) K/uL Lymph # (Auto) 1.40 (1.20-3.40) K/uL [facility] # (Auto) 0.91 H (0.11-0.59) K/uL Eos # (Auto) 0.17 (0.00-0.50) K/uL Baso # (Auto) 0.05 (0.00-0.20) K/uL Comprehensive Metabolic Panel 12/24/24 12/25/24 Range/Units 16:37 05:18 Sodium 139 141 (136-145) mmol/L Potassium 3.8 2.8 L D (3.5-5.1) mmol/L Chloride 100 103 (98-107) mmol/L Carbon Dioxide 26 27 (21-32) mmol/L BUN 32 H 34 H (6-23) mg/dl Creatinine 1.34 1.33 (0.6-1.4) mg/dl Glucose 141 H 119 H (70-99(Fasting)) mg/dl Calcium 9.0 8.3 L (8.6-10.3) mg/dl AST 19 (13-39) U/L ALT 20 (7-52) U/L Alkaline Phosphatase 51 (34-104) U/L Total Protein 6.7 (6.0-8.3) gm/dl Albumin 3.4 (3.4-5.0) gm/dl Intake and Output 12/24/24 12/25/24 12/25/24 22:59 06:59 14:59 Intake Total 380 / 791.833 411.833 / 791.833 963.917 / 963.917 Output Total 60 600 / 601 Balance 379 / 190.833 -188.167 / 190.833 963.917 / 963.917 Intake: IV 320 / 691.833 371.833 / 691.833 963.917 / 963.917 Magnesium Sulfate / D5w 1 gm In 200 / 385.833 185.833 / 385.833 100 ml @ 50 mls/hr IV Q2H [facility] Rx#:[id number] PANTOprazole 40 mg In Dextrose 186 / 186 82.667 / 82.667 5% Mini-B 100 ml @ 8 MG/HR 20 mls/hr IV Q5H [facility] Rx#:[id number] PANTOprazole 80 mg In Dextrose 120 / 120 5% 100 ml @ 480 mls/hr IV NOW ONE Rx#:[id number] Potassium Chloride / Wtr 10 meq 300 / 300 In 100 ml @ 100 mls/hr IV Q1H [facility] Rx#:[id number] Potassium Chloride 20 meq In 581.25 / 581.25 Lactated Ringer's 1,000 ml @ 75 mls/hr IV .[id number] [facility] Rx#: [id number] Oral 60 / 100 40 / 100 Output: Urine 600 / 600 # Bowel Movements / Other: Other Intake Source NPO # Unmeasured Voids 1 Weight 86.2 kg 82.2 kg Weight Measurement Method Built in Bedscale Standing Scale PG Care Time/CCT Total # of Minutes Spent Total Time Spent with Patient: Total time spent is greater than 50% in coordination of care (as documented) at patient's floor/unit and/or counseling patient: Coding Level of Care Code 86596 INT INP/OBS CARE 3/75MIN Diagnoses Permanent atrial fibrillation I48.21 Acute blood loss anemia D62 Acute upper gastrointestinal bleeding K92.2 Melena K92.1 Hypomagnesemia E83.42 Hypokalemia E87.6
--- NOTE | 2024-12-25 09:58 | Hospitalist Progress Note ---
Date of Service December 25, 2024 Assessment & Plan (1) Atrial fibrillation with rapid ventricular response: (2) Hypomagnesemia: (3) GIB (gastrointestinal bleeding): (4) Melena: (5) Diabetes mellitus, type II: (6) Hypertension: (7) Hyperlipidemia: (8) Gout: (9) BPH (benign prostatic hyperplasia): Plan This is a 74-year-old male with past medical history significant for type 2 diabetes, metabolic syndrome, gout, dyslipidemia, chronic rhinitis, chronic atrial fibrillation, hypertension, thiamine deficiency, gallstones, right Achilles rupture, degenerative disc disease, neuropathy, iron deficiency anemia, cervical spinal stenosis, alcohol abuse who presents to the ED on 12/24/2024 with dizziness. Melena, possible upper GI bleed Acute blood loss anemia Patient recently admitted from 12/18-12/19/2024 with hematemesis s/p EGD with no evidence of active bleeding, hematin in gastric body/fundus and duodenum Hemoglobin stable at 10.4 -> 8.2 -> 8.3 Consulted GI - will continue to trend H&H, monitor GI output, IV PPI, hold Eliquis Tentative plan for EGD over the weekend if signs of active GI bleeding unless more urgently indicated Type and crossed, 2u prbcs held. No indication to transfuse at this time. Continue trending H&H Notified by RN this afternoon that patient had large melanotic bowel movement. Remains clinically stable but H&H has decreased to hgb 7.5 Blood consent was obtained from the patient as delegated by Dr. Haddad. Risks and benefits were explained. All questions were answered. Discussed with GI - stat K lab ordered, made NPO, ordered 1 u prbcs, repeat H&H 2000 Anticipate EGD this evening Atrial fibrillation RVR EKG revealed Afib RVR at a rate of 143 BP stable and patient asymptomatic aside from dizziness Hold eliquis as above Continue carvedilol at 12.5mg BID (decreased overnight due to hypotension) Tele reviewed- rate controlled a fib in 80s Echo ordered (previous in 2019 revealed LVEF 50-55%, mild dilated left atrium, mild MR) Cardiology consulted, appreciate recs Hypomagnesemia Mag 1.2 on presentation, repleted 4gm total with Mag 1.9 today Goal to keep >2 Recheck Mag in am Hypokalemia Potassium WNL on admission down to 2.8 today Repleting today, plan to repeat BMP this evening Goal to keep K >4 given A fib Type 2 diabetes Metformin on hold BSG q6hr while NPO SSI and glycemic consult due to NPO Hypertension Hold amlodipine, hydralazine, benazepril, lasix given hypotensive episodes Monitor BP closely Gout Continue allopurinol Hyperlipidemia Continue atorvastatin BPH Continue tamsulosin DVT Prophylaxis: SCDs Code Status: FULL CODE PCP: Dr. Mcgraw Disposition: admit to PCU Care coordinated with Dr. Haddad. I spent a total of 50 minutes coordinating, documenting and providing care for this patient excluding time spent in the performance of separately billed services or time spent by another provider/QHP. Admission and Anticipated Discharge Date Admission Date: December 24, 2024 Supervising Physician Co-Signing Physician Notes Patient is seen and examined at bedside. States having dizziness with ambulation. Had a large bloody bowel movement today afternoon. GI planning to do EGD today. Patient denies any chest pain, dyspnea, nausea, vomiting, abdominal pain. Family at bedside. On exam patient is moderately built and nourished, no apparent distress, normocephalic atraumatic, EOMI, normal breath sounds, clear to auscultation, irregularly irregular, no murmur, abdomen soft, nontender, normal bowel sounds, alert, awake, oriented, grossly no focal deficits. Patient is being managed for acute GI bleed, blood loss anemia. Anticoagulation on hold. Appreciate GI input. Will transfuse 1 unit PRBC. Monitor H&H. Continue Protonix drip. Further management to be determined based on EGD studies. Agree with replacing electrolytes as needed. I personally interviewed and examined the patient at bedside. I have reviewed the advanced practitioner's documentation on the date of service referred in note and agree with plan. Patient's care is coordinated with Corrie Mackay PA-C. Please refer to the documentation above for details of patient's presentation and for discussion of other issues. I spent a total [id number] coordinating, documenting, and providing care for this patient excluding time spent in the performance of separately billed services or time spent by another provider/QHP. Subjective Seen and examined in 452-1. Feels ok today - fatigued and dizzy with any movement. Passing small "bits" of dark material per rectum but not full bowel movement. No headache, CP, SOB, N/V, abd pain, dysuria overnight. Feels dry. Review of Systems Review of Systems: At least ten systems reviewed and negative except as noted in the HPI. Physical Exam Physical Exam: Gen: WD/WN, NAD, resting in bed, A&Ox3, pale HEENT: Normocephalic, atraumatic, dry mucous membranes of oropharynx Lung: Clear to Auscultation bilaterally, no wheezes/rales/rhonchi Heart: irregular rate and rhythm Abdomen: Soft, NT, ND +BS x 4 Extremities: no edema Skin: Warm, no rash Results & Data Results & Data Vital Signs (Past 12 Hours) Vital Signs Temp Pulse Pulse Resp BP BP Pulse Ox 12/25/24 08:00 101 H 12/25/24 07:16 36.6 C 94 H 16 116/68 97 12/25/24 05:49 148/84 H 12/25/24 02:32 37.0 C 89 18 93/55 L 99 12/24/24 22:20 100 H 145/94 H O2 Del Method 12/25/24 08:00 12/25/24 07:16 Room Air 12/25/24 05:49 12/25/24 02:32 Room Air 12/24/24 22:20 Laboratory Results Short CBC 12/24/24 12/24/24 12/25/24 Range/Units 16:37 22:47 05:18 WBC 9.44 6.41 (4.8-10.8) K/ul Hgb 10.4 L 8.2 L 8.3 L (14.0-18.0) g/dl Hct 29.3 L 23.7 L 22.9 L (42.0-52.0) % Plt Count 261 197 (130-400) K/uL BMP 12/24/24 12/25/24 16:37 05:18 Sodium 139 141 Potassium 3.8 2.8 L D Chloride 100 103 Carbon Dioxide 26 27 BUN 32 H 34 H Creatinine 1.34 1.33 Glucose 141 H 119 H Calcium 9.0 8.3 L Liver Function 12/24/24 Range/Units 16:37 Total Bilirubin 0.5 (0.2-1.0) mg/dl AST 19 (13-39) U/L ALT 20 (7-52) U/L Alkaline Phosphatase 51 (34-104) U/L Albumin 3.4 (3.4-5.0) gm/dl Diagnostic Findings Chest X-Ray 12/24/24 18:07 EXAM: X-ray chest one-view portable CLINICAL HISTORY: Near syncope PRIORS: 08/02/2023 TECHNIQUE: AP portable erect FINDINGS: The chest is well-expanded. No airspace consolidation, effusion or congestive changes. Cardiac silhouette moderately enlarged, unchanged. No pneumothorax. Trachea is patent. Atherosclerotic disease of the aortic knob. Osseous structures demonstrate no acute abnormality. No radiopaque foreign body. IMPRESSION: N 1. No plain film evidence of an acute cardiopulmonary process. 2. Moderate enlargement of the cardiac silhouette, unchanged. Electronically signed by Claudia Velazquez 12-24-2024 7:59 PM (6) Hypertension Hypertension type: essential hypertension Qualified Code(s): I10 - Essential (primary) hypertension (7) Hyperlipidemia Hyperlipidemia type: unspecified Qualified Code(s): E78.5 - Hyperlipidemia, unspecified (8) Gout Chronicity: unspecified Gout etiology: unspecified cause Gout site: unspecified site Qualified Code(s): M10.9 - Gout, unspecified
[2024-12-25] MEDS: MAGNESIUM SULFATE / D5W 1 GM/100 ML BAG IV ONE (11:58)
--- NOTE | 2024-12-25 13:49 | Pharmacy Report ---
Pharmacy Glycemic Short Note 2 - Date of Service December 25, 2024 - Glycemic Short BSG Results (Last 24 hours): 12/24/24 12/24/24 12/24/24 16:37 16:45 22:15 Glucose 141 H POC Glucose 160 H POC Glucose (other) 138 H 12/25/24 12/25/24 05:18 12:02 Glucose 119 H POC Glucose 151 H POC Glucose (other) OUTPATIENT ANTIDIABETIC REGIMEN: * metformin 1000mg po BID HbA1c: 5.6% on 12/18/24 ASSESSMENT: * Sea is a 74 year old male who was admitted 12/24 with a possible upper GI bleed and a.fib with RVR. Pharmacy was consulted for glycemic management while is admitted. * BSG on arrival yesterday was 138mg/dL and vanessa to 160mg/dL at HS. A weight based bolus insulin regimen with a stress of 2 was started at that time. * Fasting BSG on AM labs today was 119mg/dL. Diet was started at lunch time today but to be NPO after midnight for probable EGD tomorrow. No basal insulin is needed at this time and will continue bolus insulin regimen with a CR loosened to ~ a stress of 1 PLAN FOR INPATIENT GLYCEMIC CONTROL: * Hold outpatient oral diabetes medications * Basal insulin * NONE * Bolus insulin * NovoLog per scale ACHS or Q6hrs while NPO * Goal Range: Low 120 mg/dL - High 160 mg/dL * Correction Factor: 25 mg/dL/unit * Nutritional / Prandial insulin per carb ratio of 1 unit per 15 grams CHO consumed
[2024-12-25] MEDS: Nursing to Pharmacy Communication SCH (14:03)
[2024-12-25 14:51] LABS: Hematocrit (blood only) 21.3 % (42.0-52.0); Hemoglobin 7.5 g/dl (14.0-18.0)
[2024-12-25] MEDS ORDERED: Nursing to Pharmacy Communication SCH ×2 (15:45→20:45)
[2024-12-25] MEDS ORDERED: SODIUM CHLORIDE 0.9% 100 ML IV PRN (16:02)
[2024-12-25] MEDS ORDERED: INSULIN ASPART PER UNIT CHARGE SC SCH (16:30)
[2024-12-25] MEDS ORDERED: DEXAMETHASONE SOD INJ 4 MG/ML VIAL ONE (16:42)
[2024-12-25] MEDS ORDERED: PROPOFOL IV EMULSION 10 MG/ML 20 ML VIAL IV ONE ×2 (16:42→18:23)
[2024-12-25] MEDS ORDERED: ONDANSETRON INJ 2 MG/ML 2 ML VIAL ONE ×2 (16:42→18:31)
[2024-12-25] MEDS ORDERED: LIDOCAINE 2% 2 ML VIAL/AMP(20MG/ML) INFIL ONE (16:42)
[2024-12-25] MEDS ORDERED: ATROPINE SULFATE 0.1 MG/ML 10ML SYR IV PRN (16:57)
[2024-12-25] MEDS ORDERED: ONDANSETRON INJ 2 MG/ML 2 ML VIAL IV PRN (16:57)
[2024-12-25] MEDS ORDERED: SUCCINYLCHOLINE CHLORIDE 20 MG/ML 10 ML VIAL IV ONE (17:03)
--- NOTE | 2024-12-25 17:04 | Anesthesiology Consultation ---
Date of Service December 25, 2024 Assessment & Plan (1) Encounter for pre-operative examination: Chart Review Chart Review: Acceptable Risk for Surgery and Patient NOT seen in Pre Admission Testing Patient's potassium has improved with replacement throughout the day. Hemoglobin continues to downtrend, most recent check it was 7.5. Patient to receive 1 unit pRBC. EGD to be done to check for cause of bleeding. Consults Requested none History Surgery Operation Date: 12/25/24 15:00 Proposed Procedures p Esophagogastroduodenoscopy - Rob Velasco MD Height/Weight Height: 5 ft 10 in Weight: 82.2 kg Allergies Allergy/AdvReac Type Severity Reaction Status Date / Time amoxicillin Allergy Intermediate Rash Verified 12/17/24 23:38 cephalexin [From Keflex] Allergy Unknown ON Verified 12/17/24 23:38 Biosyntech LIST Tetanus Vaccines and Toxoid AdvReac Intermediate FEVER 104F Verified 12/17/24 23:38 Medications Home Medications Medication Instructions Recorded Confirmed Last Taken allopurinol 100 mg tablet 100 mg PO QAM 01/12/19 12/24/24 12/17/24 (Zyloprim) amlodipine 10 mg tablet (Norvasc) 10 mg PO HS 01/12/19 12/24/24 12/16/24 atorvastatin 20 mg tablet (Lipitor) 20 mg PO QAM 01/12/19 12/24/24 12/17/24 benazepril 40 mg tablet (Lotensin) 40 mg PO QAM 01/12/19 12/24/24 12/17/24 cholecalciferol (vitamin D3) 25 1,000 unit PO QAM 01/12/19 12/24/24 12/17/24 mcg (1,000 unit) capsule (Vitamin D3) cyanocobalamin (vitamin B-12) 1,000 mcg PO QAM 01/12/19 12/24/24 12/17/24 1,000 mcg tablet (Vitamin B-12) tadalafil 5 mg tablet (Cialis) 5 mg PO DIRECTED PRN Sexual 01/12/19 12/24/24 Unknown Activity thiamine mononitrate (vit B1) 100 100 mg PO QAM 01/12/19 12/24/24 12/17/24 mg tablet (Vitamin B-1 (mononitrate)) folic acid 1 mg tablet 1 mg PO QAM 01/16/19 12/24/24 12/17/24 apixaban 5 mg tablet (Eliquis) 5 mg PO BID #60 tabs 02/26/20 12/24/24 12/17/24 08:00 epinephrine 0.3 mg/0.3 mL 0.3 mg IM DIRECTED PRN 06/06/20 12/24/24 Unknown injection, auto-injector (EpiPen) Anaphylaxis furosemide 20 mg tablet 20 mg PO BID 06/06/20 12/24/24 12/17/24 08:00 gabapentin 100 mg capsule 100 mg PO TID 06/06/20 12/24/24 12/17/24 12:00 hydralazine 100 mg tablet 100 mg PO TID 06/06/20 12/24/24 12/17/24 12:00 omeprazole 20 mg capsule,delayed 20 mg PO DAILYBB 06/06/20 12/24/24 12/17/24 release tamsulosin 0.4 mg capsule 0.4 mg PO HS 06/06/20 12/24/24 12/16/24 carvedilol 12.5 mg tablet 12.5 mg PO BID 12/17/24 12/24/24 12/17/24 08:00 metformin 1,000 mg tablet 1,000 mg PO BIDM 12/17/24 12/24/24 12/17/24 omega 3-cto-quj-fish oil 1,000 mg 1 cap PO DAILY 12/17/24 12/24/24 12/18/24 (120 mg-180 mg) capsule (Fish Oil) pantoprazole 40 mg tablet,delayed 40 mg PO BID #60 tabs 12/19/24 12/24/24 Unknown release sucralfate 1 gram tablet 1 g PO ACHS 4 weeks #28 tabs 12/19/24 12/24/24 Unknown Active Medications Generic Name Dose Route Start Last Admin Trade Name Freq PRN Reason Stop Dose Admin Allopurinol 100 mg 12/25/24 09:00 12/25/24 08:08 Allopurinol 100 Mg Tab PO 01/24/25 08:59 100 mg QAM LATA Administration Atorvastatin Calcium 20 mg 12/25/24 09:00 12/25/24 08:08 Atorvastatin 20 Mg Tab PO 01/24/25 08:59 20 mg QAM LATA Administration Carvedilol 12.5 mg 12/25/24 09:00 12/25/24 08:07 Carvedilol 12.5 Mg Tab PO 01/24/25 08:59 12.5 mg BID LATA Administration Cyanocobalamin 1,000 mcg 12/25/24 09:00 12/25/24 08:08 Cyanocobalamin (B-12) 500 Mcg Tablet PO 01/24/25 08:59 1,000 mcg QAM LATA Administration Folic Acid 1 mg 12/25/24 09:00 12/25/24 08:09 Folic Acid 1 Mg Tab PO 01/24/25 08:59 1 mg QAM LATA Administration Furosemide 20 mg 12/24/24 21:50 12/24/24 22:13 Furosemide 20 Mg Tab PO 01/23/25 21:49 20 mg BID LATA Administration Gabapentin 100 mg 12/24/24 21:50 12/25/24 13:32 Gabapentin 100 Mg Cap PO 01/23/25 21:49 100 mg TID LATA Administration Pantoprazole Sodium 40 mg/ 100 mls @ 20 mls/hr 12/24/24 17:15 12/25/24 13:32 Dextrose IV 01/23/25 17:14 8 mg/hr Q5H LATA 20 mls/hr Administration 8 MG/HR Tamsulosin HCl 0.4 mg 12/24/24 21:50 12/24/24 22:14 Tamsulosin Hcl 0.4 Mg Cap PO 01/23/25 21:49 0.4 mg HS LATA Administration Thiamine HCl 100 mg 12/25/24 09:00 12/25/24 08:08 Thiamine Hcl 100 Mg Tab PO 01/24/25 08:59 100 mg QAM LATA Administration Vitamin D 25 mcg 12/25/24 09:00 12/25/24 08:08 Cholecalciferol 25 Mcg (1000 Units) Tab PO 01/24/25 08:59 25 mcg QAM LATA Administration Past Medical History Medical History (Updated 12/25/24 @ 16:59 by Frankie Pickett MD) Acute upper gastrointestinal bleeding Acute blood loss anemia Hypomagnesemia Hypokalemia Encounter for pre-operative examination Hematemesis GIB (gastrointestinal bleeding) On anticoagulant therapy GERD (gastroesophageal reflux disease) Atrial fibrillation new onset Hypertension Type 2 diabetes mellitus with diabetic polyneuropathy NIDDM Cardiology note 12/24/24: Assessment & Plan (1) Permanent atrial fibrillation: (2) Acute blood loss anemia: (3) Acute upper gastrointestinal bleeding: (4) Melena: (5) Hypomagnesemia: (6) Hypokalemia: Plan 74-year-old male with permanent atrial fibrillation presenting with lightheadedness in the setting of acute on chronic upper GI bleeding, symptomatic anemia, with subsequent atrial fibrillation and rapid ventricular response. Significant electrolyte abnormalities including profound hypomagnesemia and hypokalemia this a.m. noted. Hold Eliquis. Continue current dose of carvedilol 12.5 mg twice daily. Replace magnesium and potassium IV as indicated. Continue telemetry monitoring during hospitalization. Update resting 2D transthoracic echocardiogram. Transfuse to maintain hemoglobin greater than 8.0g/dL. Monitor serial H&H. No cardiovascular contraindication to repeat endoscopy as needed. Past Family History Family History Brother Prostate cancer Father Heart disease Brother Melanoma Past Surgical History Surgical History History of colonoscopy History of tonsillectomy S/P ORIF (open reduction internal fixation) fracture Left Ankle/Heel EGD 12/18/24: MAC/sedation. Tolerated propofol without incident. Social History Smoking Status: Current some day smoker tobacco type: cigars Smoking cigarettes per day: 5-7 cigars weekly Do You Dip or Chew Tobacco: No Hx Alcohol Use: Yes Alcohol type: hard liquor alcohol intake frequency: 0-2 drinks per day Alcohol Intake Frequency Comment: has not had alcohol in 2-3 weeks Hx Substance Use: No substance use type: does not use Physical Exam Vital Signs Last Vital Signs Temp 37 C 12/25/24 16:44 Pulse 93 H 12/25/24 16:44 Resp 18 12/25/24 14:56 BP 99/67 L 12/25/24 16:44 Pulse Ox 97 12/25/24 16:44 O2 Del Method Room Air 12/25/24 14:56 Testing Laboratory Results 12/25/24 14:35 12/25/24 15:45 PT 12.6 Seconds (9.0-12.0) H 12/24/24 16:53 INR 1.2 (0.9-1.1) H 12/24/24 16:53 Blood Type O Positive 12/24/24 17:03 Antibody Screen NEGATIVE 12/24/24 17:03 12/25/24 12:02 POC Glucose 151 H Laboratory Tests 12/25/24 15:45 Potassium 3.5 D Potassium improved to 3.5 on recheck this afternoon. Electrocardiogram Date: 12/24/24 Findings: + AFIB @ A fib with RVR. HR 143. LAD. Anterior infarct. Chest X-Ray Date: 12/24/24 EXAM: X-ray chest one-view portable CLINICAL HISTORY: Near syncope PRIORS: 08/02/2023 TECHNIQUE: AP portable erect FINDINGS: The chest is well-expanded. No airspace consolidation, effusion or congestive changes. Cardiac silhouette moderately enlarged, unchanged. No pneumothorax. Trachea is patent. Atherosclerotic disease of the aortic knob. Osseous structures demonstrate no acute abnormality. No radiopaque foreign body. IMPRESSION: N 1. No plain film evidence of an acute cardiopulmonary process. 2. Moderate enlargement of the cardiac silhouette, unchanged. Echocardiogram Date: 12/25/24 EF 50-55% LA is severely dilated No Mild MR Trace TR No doppler findings to suggest pulmonary hypertension.
[2024-12-25] MEDS ORDERED: PHENYLEPHRINE 100MCG/ML 5ML SYR ONE (17:07)
--- NOTE | 2024-12-25 18:44 | Communication Note ---
Date of Service: December 25, 2024 EGD Performed in the OR. Multiple ulcers related to previous polypectomy. Polypectomy site antrum appeared to be the source of bleeding. Adherent clot. Injected BiCap and coagulated. Also then clipped closed. Other polypectomy sites without stigmata of bleeding. See operative note.
--- NOTE | 2024-12-25 18:44 | GI REPORT ---
[facility] Patient: ISABELLA RIVAS : 1950 Sex at : Male Age: 74 Years Procedure: Upper GI endoscopy Date: 12/25/2024 Attending Physician: Rob Velasco MD Referring MD: Eduardo Haddad Md Indications: - Suspected upper gastrointestinal bleeding - Melena Medications: - Monitored Anesthesia Care Complications: - No immediate complications. Estimated Blood Loss: - Estimated blood loss was minimal. Procedure: - The egd scope was introduced through the mouth and advanced to the second part of the duodenum. - The upper GI endoscopy was accomplished without difficulty. - The patient tolerated the procedure well. Findings: - The examined esophagus was normal. Multiple polypectomy sites through the body and antrum of the stomach. 3 identified by clips. 1 identified by ulceration. In the lesser curvature another polypectomy site was identified with adherent clips. There were polyp in the cardia with superficial ulceration no visible vessels. In the antrum of the stomach there was a polypectomy site to clips were fine and the edges of the ulcer itself without closure. Not uncommon for clips to pull through. At the base of this ulcer there was a dark adherent overlying clot. No oozing identified. This was the most likely source of bleeding after visualization of all other polypectomy sites. The area was injected with 1-10,000 epinephrine in 4 quadrants. BiCap coagulation then was applied. Post BiCap no bleeding. The area then was zipper closed using hemostatic clips x 4. Closure. Intact post. Remainder of the antrum and duodenum appeared normal without bleeding sites. Impression: - Normal esophagus. - Multiple polypectomy sites through the body and antrum of the stomach. 3 identified by clips. 1 identified by ulceration. In the lesser curvature another polypectomy site was identified with adherent clips. There were polyp in the cardia with superficial ulceration no visible vessels. - In the antrum of the stomach there was a polypectomy site to clips were fine and the edges of the ulcer itself without closure. Not uncommon for clips to pull through. At the base of this ulcer there was a dark adherent overlying clot. No oozing identified. This was the most likely source of bleeding after visualization of all other polypectomy sites. The area was injected with 1-10,000 epinephrine in 4 quadrants. BiCap coagulation then was applied. Post BiCap no bleeding. The area then was zipper closed using hemostatic clips x 4. Closure. Intact post. - Remainder of the antrum and duodenum appeared normal without bleeding sites. - No specimens collected. - Suspect antral polypectomy site source of bleeding. Injected cauterized and clipped. Clear liquids. [place] diet tomorrow in the absence of bleeding. Transfuse as needed. Recommendation: Procedure Code(s): - 25861, Esophagogastroduodenoscopy, flexible, transoral; diagnostic, including collection of specimen(s) by brushing or washing, when performed (separate procedure) Diagnosis Code(s): - K92.1, Melena (includes Hematochezia) CPT(R) - 2022 copyright [employer]. All Rights Reserved. The CPT codes, CCI edits and ICD codes generated are intended as suggestions and were generated based on input data. These codes are preliminary and upon mobility architect review may be revised to meet current compliance and payer requirements. The provider is responsible for the final determination of appropriate codes, and modifiers. Rob Velasco MD This document has been electronically signed. Note Initiated:12/25/2024 Note Completed:12/25/2024 6:43 PM \\[email or web address]\[id number]
--- NOTE | 2024-12-25 18:53 | Anesthesiology Progress Note ---
Date of Service December 25, 2024 Anesthesia Post Procedure Vital Signs Vital Signs: Temp Pulse Pulse Resp BP BP BP 12/25/24 18:40 37.0 C 88 16 101/62 12/25/24 17:53 96 H 12/25/24 17:14 37 C 96 H 16 103/52 L 12/25/24 17:12 37 C 96 H 16 103/52 L 12/25/24 16:59 36.9 C 98 H 112/72 12/25/24 16:44 37 C 93 H 99/67 L 12/25/24 16:29 36.9 C 91 H 114/71 12/25/24 14:56 37.2 C 99 H 18 130/79 12/25/24 10:47 36.7 C 95 H 16 98/58 L 12/25/24 08:00 101 H 12/25/24 07:16 36.6 C 94 H 16 116/68 12/25/24 05:49 148/84 H 12/25/24 02:32 37.0 C 89 18 93/55 L 12/24/24 22:20 100 H 145/94 H 12/24/24 21:25 144 H 12/24/24 21:10 36.8 C 95 H 20 145/94 H 12/24/24 20:21 89 16 127/73 12/24/24 19:10 93 H 18 117/92 Pulse Ox O2 Del Method O2 Flow Rate 12/25/24 18:40 100 Oxymask 6 12/25/24 17:53 12/25/24 17:14 93 12/25/24 17:12 93 Room Air 12/25/24 16:59 97 12/25/24 16:44 97 12/25/24 16:29 97 12/25/24 14:56 98 Room Air 12/25/24 10:47 98 Room Air 12/25/24 08:00 12/25/24 07:16 97 Room Air 12/25/24 05:49 12/25/24 02:32 99 Room Air 12/24/24 22:20 12/24/24 21:25 12/24/24 21:10 99 Room Air 12/24/24 20:21 100 Room Air 12/24/24 19:10 99 Room Air Transfer of Care Handoff Completed per policy Notes Mental Status: alert / awake / arousable and participated in evaluation Patient Amnestic to Procedure: Yes Nausea / Vomiting: adequately controlled Pain: adequately controlled Airway Patency, RR, SpO2: stable & adequate BP & HR: stable & adequate Hydration State: stable & adequate Anesthetic Complications: no major complications apparent and Pt Satisfied with anesthetic care
[2024-12-25] MEDS: INSULIN ASPART PER UNIT CHARGE SC SCH ×2 (19:22→20:49)
[2024-12-25 20:19] LABS: Hematocrit (blood only) 28.8 % (42.0-52.0); Hemoglobin 10.0 g/dl (14.0-18.0)
[2024-12-25 20:35] LABS: Anion Gap 8.0 (3-11); Blood Urea Nitrogen 22.0 mg/dl (6-23); Calcium 8.6 mg/dl (8.6-10.3); Carbon Dioxide 26.0 mmol/L (21-32); Chloride 107.0 mmol/L (98-107); Creatinine Clr Calc Pharmacy 52.7 ml/min; Glucose 128.0 mg/dl (70-99(Fasting)); Potassium 3.5 mmol/L (3.5-5.1); Sodium 141.0 mmol/L (136-145)
[2024-12-26 06:18] LABS: Hematocrit (blood only) 23.3 % (42.0-52.0); Hemoglobin 8.0 g/dl (14.0-18.0); Mean Corpuscular Hemoglobin 31.5 pg (25.0-34.0); Mean Corpuscular Volume 91.7 fL (80.0-100.0); Platelet Count 163 K/uL (130-400); RDW Standard Deviation 48.9 fL (36.4-46.3); Red Blood Count 2.54 M/uL (4.70-6.10); White Blood Count 5.44 K/ul (4.8-10.8)
[2024-12-26 06:37] LABS: Anion Gap 5.0 (3-11); Blood Urea Nitrogen 16.0 mg/dl (6-23); Calcium 8.0 mg/dl (8.6-10.3); Carbon Dioxide 27.0 mmol/L (21-32); Chloride 110.0 mmol/L (98-107); Creatinine Clr Calc Pharmacy 56.5 ml/min; Glucose 104.0 mg/dl (70-99(Fasting)); Magnesium 1.8 mg/dl (1.7-2.4); Potassium 3.7 mmol/L (3.5-5.1); Sodium 142.0 mmol/L (136-145)
[2024-12-26 14:44] LABS: Hematocrit (blood only) 24.1 % (42.0-52.0); Hemoglobin 8.3 g/dl (14.0-18.0)
--- NOTE | 2024-12-26 16:16 | Communication Note ---
Date of Service: December 26, 2024 Status post EGD and hemostasis yesterday. Doing well, hemoglobin stable, continue to monitor
--- NOTE | 2024-12-26 16:44 | Hospitalist Progress Note ---
Date of Service December 26, 2024 Assessment & Plan (1) Atrial fibrillation with rapid ventricular response: (2) Hypomagnesemia: (3) GIB (gastrointestinal bleeding): (4) Melena: (5) Diabetes mellitus, type II: (6) Hypertension: (7) Hyperlipidemia: (8) Gout: (9) BPH (benign prostatic hyperplasia): Plan Patient is a 74-year-old male with past medical history significant for type 2 diabetes, metabolic syndrome, gout, dyslipidemia, chronic rhinitis, chronic atrial fibrillation, hypertension, thiamine deficiency, gallstones, right Achilles rupture, degenerative disc disease, neuropathy, iron deficiency anemia, cervical spinal stenosis, alcohol abuse who presents to the ED on 12/24/2024 with dizziness. Acute GI bleed Melena Acute blood loss anemia Patient recently admitted from 12/18-12/19/2024 with hematemesis s/p EGD with no evidence of active bleeding, hematin in gastric body/fundus and duodenum --Repeat EGD: Multiple ulcers related to prior polypectomy. Polypectomy site antrum appeared to be the source of bleeding. Adherent clot noted. Injected BiCap and coagulated. Also clipped closed. Other polypectomy sites without stigmata of bleeding. --S/P 1 unit PRBCs Monitor H&H and transfuse Continue IV Protonix for now Appreciate GI input Avoid NSAIDs/anticoagulation Advance to full liquid diet today GI following Atrial fibrillation RVR Presented with some dizziness likely due to low blood pressure, blood loss anemia Hold eliquis as above Continue carvedilol at 12.5mg BID (decreased overnight due to hypotension) Echo ordered (previous in 2019 revealed LVEF 50-55%, mild dilated left atrium, mild MR) Cardiology consulted, appreciate recs Hypomagnesemia Hypokalemia Replace and monitor DM II Metformin on hold Continue insulin per protocol Monitor blood glucose levels Hypertension Hold amlodipine, hydralazine, benazepril, lasix for now Continue Coreg, tamsulosin for now Monitor and adjust medications as needed Gout Continue allopurinol Hyperlipidemia Continue atorvastatin BPH Continue tamsulosin DVT Px: SCDs Re: GI bleed Code Status: FULL CODE Admission and Anticipated Discharge Date Admission Date: December 24, 2024 Subjective Patient is seen and examined at bedside States having minimal bright light blood Family at bedside Denies any chest pain, dyspnea, nausea, vomiting, abdominal pain Hemoglobin stable today Review of Systems Review of Systems: All systems reviewed & are unremarkable except as noted in Subjective Physical Exam Physical Exam: Physical Exam: Vitals signs as noted above General Appearance:Moderately built and nourished, no apparent distress Head: normocephalic, Atraumatic Eyes: normal inspection, EOMI Neck: supple, Trachea midline Respiratory/Chest: Normal breath sounds, CTA, No accessory muscle use Cardiovascular: Irregularly irregular, No murmur Abdomen/GI:Soft, Non tender, Bowel sounds present Extremities/Musculoskeletal:normal inspection, no edema Neurologic/Psych:AAOX3, grossly no focal neurological deficits Skin: normal color, warm Results & Data Results & Data Vital Signs (Past 12 Hours) Vital Signs Temp Pulse Pulse Resp BP Pulse Ox O2 Del Method 12/26/24 15:06 37.1 C 80 8 L 117/75 98 Room Air 12/26/24 11:24 36.7 C 92 H 18 117/74 93 Room Air 12/26/24 08:00 85 12/26/24 07:32 36.8 C 89 18 119/72 98 Room Air Laboratory Results Short CBC 12/25/24 12/26/24 12/26/24 Range/Units 19:50 05:36 14:16 WBC 5.44 (4.8-10.8) K/ul Hgb 10.0 L 8.0 L 8.3 L (14.0-18.0) g/dl Hct 28.8 L 23.3 L 24.1 L (42.0-52.0) % Plt Count 163 (130-400) K/uL BMP 12/25/24 12/26/24 19:50 05:36 Sodium 141 142 Potassium 3.5 3.7 Chloride 107 110 H Carbon Dioxide 26 27 BUN 22 16 Creatinine 1.27 1.28 Glucose 128 H 104 H Calcium 8.6 8.0 L (6) Hypertension Hypertension type: essential hypertension Qualified Code(s): I10 - Essential (primary) hypertension (7) Hyperlipidemia Hyperlipidemia type: unspecified Qualified Code(s): E78.5 - Hyperlipidemia, unspecified (8) Gout Gout site: unspecified site Gout etiology: unspecified cause Chronicity: unspecified Qualified Code(s): M10.9 - Gout, unspecified
[2024-12-26 22:55] LABS: Hematocrit (blood only) 24.5 % (42.0-52.0); Hemoglobin 8.2 g/dl (14.0-18.0)
[2024-12-27 06:20] LABS: Hematocrit (blood only) 24.1 % (42.0-52.0); Hemoglobin 8.1 g/dl (14.0-18.0); Mean Corpuscular Hemoglobin 31.4 pg (25.0-34.0); Mean Corpuscular Volume 93.4 fL (80.0-100.0); Platelet Count 160 K/uL (130-400); RDW Standard Deviation 48.4 fL (36.4-46.3); Red Blood Count 2.58 M/uL (4.70-6.10); White Blood Count 5.08 K/ul (4.8-10.8)
[2024-12-27 06:39] LABS: Anion Gap 4.0 (3-11); Blood Urea Nitrogen 8.0 mg/dl (6-23); Calcium 8.2 mg/dl (8.6-10.3); Carbon Dioxide 27.0 mmol/L (21-32); Chloride 111.0 mmol/L (98-107); Creatinine Clr Calc Pharmacy 53.1 ml/min; Glucose 105.0 mg/dl (70-99(Fasting)); Magnesium 1.6 mg/dl (1.7-2.4); Potassium 3.7 mmol/L (3.5-5.1); Sodium 142.0 mmol/L (136-145)
[2024-12-27] MEDS: MAGNESIUM SULFATE / D5W 1 GM/100 ML BAG IV SCH (08:34)
--- NOTE | 2024-12-27 08:39 | Hospitalist Progress Note ---
Date of Service December 27, 2024 Assessment & Plan (1) Acute upper gastrointestinal bleeding: Plan: Patient is a 74-year-old male with past medical history significant for type 2 diabetes, metabolic syndrome, gout, dyslipidemia, chronic rhinitis, chronic atrial fibrillation, hypertension, thiamine deficiency, gallstones, right Achilles rupture, degenerative disc disease, neuropathy, iron deficiency anemia, cervical spinal stenosis, alcohol abuse who presents to the ED on 12/24/2024 with dizziness. Acute GI bleed Melena Acute blood loss anemia Patient recently admitted from 12/18-12/19/2024 with hematemesis s/p EGD with no evidence of active bleeding, hematin in gastric body/fundus and duodenum --Repeat EGD: Multiple ulcers related to prior polypectomy. Polypectomy site antrum appeared to be the source of bleeding. Adherent clot noted. Injected BiCap and coagulated. Also clipped closed. Other polypectomy sites without stigmata of bleeding. --S/P 1 unit PRBCs 12/25/24 for Hgb 7.5 Hgb stabilized 8.1 today w/ no evidence melena overnight; Continue to trend H&H and transfuse as needed D/C IV Protonix today and transition to Protonix BID dosing to continue once discharged Discussed plan with GI via [place] text- GI recommended PPI twice daily dosing and resumption of Eliquis tomorrow Avoid NSAIDs/anticoagulation Advanced to diet today-tolerated GI following Atrial fibrillation RVR Presented with some dizziness likely due to low blood pressure, blood loss anemia Hold eliquis as above-> resume tomorrow per GI rec Continue carvedilol at 12.5mg BID (decreased overnight due to hypotension) Echo ordered 12/25 showing LVEF 50-55%, severely dilated left atrium, mild MR, trace tricuspid regurg-> LA dilation change from prev Echo 2019 otherwise unchanged Cardiology consulted, appreciate recs Hypertension Hypotensive episode this admission Holding amlodipine, hydralazine, benazepril, lasix for now; BP 120/68 this morning-> resume once SBP 140 or greater Continue Coreg, tamsulosin for now Monitor and adjust medications as needed Hypomagnesemia Hypokalemia Mag 1.6 with AM labs; Mag 2 gm replacement ordered; Replace and monitor DM II Metformin on hold Continue insulin per protocol Monitor blood glucose levels-> BSG 122 overnight Gout Continue allopurinol Hyperlipidemia Continue atorvastatin BPH Continue tamsulosin DVT Ppx:SCDs Code status: Full PCP: Dr. Mcgraw Dispo: Possible d/c today pending GI recs and tolerance advancing diet Patient seen in collaboration with Dr. Haddad. Please see addendum.I spent a total of 30 minutes coordinating, documenting and providing care for this patient excluding time spent in the performance of separately billed services or time spent by another provider/QHP. DVT Px: SCDs Re: GI bleed (2) Acute blood loss anemia: (3) Melena: (4) Atrial fibrillation with rapid ventricular response: (5) Hypertension: (6) Hypomagnesemia: (7) Diabetes mellitus, type II: (8) Gout: (9) Hyperlipidemia: Admission and Anticipated Discharge Date Admission Date: December 24, 2024 Supervising Physician Co-Signing Physician Notes Patient is seen and examined at bedside. States feeling a lot better today. Denies any dizziness, rectal bleed today. Hemoglobin stable. Offers no complaints. Tolerating current diet. On exam patient is moderately built and nourished, no apparent distress, normocephalic atraumatic, EOMI, normal breath sounds, clear to auscultation, irregularly irregular, no murmur, abdomen soft, nontender, normal bowel sounds, alert, awake, oriented, grossly no focal deficits. Patient is being managed for acute GI bleed, blood loss anemia. S/P PRBCs. EGD showed multiple ulcers related to prior polypectomy. Polypectomy site and trauma appeared to be the source of bleeding which reports coagulated and clipped. IV Protonix transition to p.o. 40 mg twice a day. Monitor H&H and transfuse as needed. Appreciate GI input. Avoid NSAIDs. Needs repeat blood work as outpatient in 1 week. Advance to low fiber diet today. Consideration to resume anticoagulation in 1 to 2 days if no recurrence of bleeding. I personally interviewed and examined the patient at bedside. I have reviewed the advanced practitioner's documentation on the date of service referred in note and agree with plan. Patient's care is coordinated with Jacqui REA. Please refer to the documentation above for details of patient's presentation and for discussion of other issues. I spent a total [id number] coordinating, documenting, and providing care for this patient excluding time spent in the performance of separately billed services or time spent by another provider/QHP. Subjective Patient seen and examined at bedside. Appeared agitated with current hospitalization and feels frustrated with liquid only diet. Discussed advancing his diet today given no melena overnight. Throughout our discussion this morning, his demeanor calmed and he stated his goal is to be discharged to home today. He denies headache, light headedness, dizziness, chest pain, breathing difficulty, nausea, vomiting, blood in urine or stool, ambulation difficulty. States he is always in afib and has not been aggravated by current acute blood loss. He has no palpitations. I returned to the bedside after lunch, patient tolerated soft diet without nausea, vomiting. He has not had a bowel movement since eating. He states he would like to stay in the hospital for another night as this is his second hospitalization for bleeding. We discussed the plan to continue his diet and monitor labs. Currently, several blood pressure meds on hold given hypotensive episodes this admission. Amlodipine, hydralazine, benzepril, and lasix currently on hold. We discussed threshold of systolic BP 140 for resuming anti- hypertensives and he is agreeable to this plan. Plan for discharge tomorrow assuming labs, blood pressure and no melena. Review of Systems Review of Systems: All systems reviewed & are unremarkable except as noted in Subjective Physical Exam Physical Exam: VITALS: Reviewed. WEIGHT/BMI reviewed. GEN: Healthy appearing, well-developed, NAD. PSYCH: Good Judgment. AOx3. Normal memory, mood, and affect. HEENT -Head: NC/AT; -Eyes: PERRL, EOMI. No discharge or redn ess; -Ears: External ears are normal. -Nose: Normal nares. -Mouth and throat: MMM. Normal gums, muc alecia, palate,. Good dentition. NECK: Supple, with no masses. CV: Regularly, irregular rhythm, appreciate S1, S2 without murmur, no peripheral swelling LUNGS: CTAB, no w/r/c. ABD: Soft, NT/ND, NBS, no masses or organomegaly. : N/A SKIN: Warm, well perfused. No skin rashes or abnormal lesions. MSK: No deformities, Normal gait. EXT: No clubbing, cyanosis, or edema. NEURO: CN II-XII grossly intact. No focal deficits. Results & Data Results & Data Vital Signs (Past 12 Hours) Vital Signs Temp Pulse Pulse Resp BP BP Pulse Ox 12/27/24 07:15 37 C 69 19 120/68 97 12/27/24 02:58 36.9 C 90 18 121/74 96 12/26/24 23:00 77 12/26/24 22:54 37.2 C 83 18 122/65 95 O2 Del Method 12/27/24 07:15 Room Air 12/27/24 02:58 Room Air 12/26/24 23:00 12/26/24 22:54 Room Air Laboratory Results Short CBC 12/26/24 12/26/24 12/27/24 Range/Units 14:16 22:33 05:43 WBC 5.08 (4.8-10.8) K/ul Hgb 8.3 L 8.2 L 8.1 L (14.0-18.0) g/dl Hct 24.1 L 24.5 L 24.1 L (42.0-52.0) % Plt Count 160 (130-400) K/uL BMP 12/27/24 05:43 Sodium 142 Potassium 3.7 Chloride 111 H Carbon Dioxide 27 BUN 8 Creatinine 1.26 Glucose 105 H Calcium 8.2 L I have independently reviewed and interpreted patient'smost recent labs including CBC, CMP, PTT, PT/INR, mag and troponin Magnesium 1.6 today. (5) Hypertension Hypertension type: essential hypertension Qualified Code(s): I10 - Essential (primary) hypertension (8) Gout Chronicity: unspecified Gout etiology: unspecified cause Gout site: unspecified site Qualified Code(s): M10.9 - Gout, unspecified (9) Hyperlipidemia Hyperlipidemia type: unspecified Qualified Code(s): E78.5 - Hyperlipidemia, unspecified
--- NOTE | 2024-12-27 13:53 | Communication Note ---
Date of Service: December 27, 2024 GI progress note Subjective: Tolerating diet well with no issues Vital signs stable Labs reviewed with the patient and , stable Physical examination unchanged Assessment and plan: Status post hemostasis for post polypectomy bleeding after reintroduction of Eliquis. Hemoglobin has been stable since last 36 hours. Patient and his are anxious about going home given recurrence of bleeding in last 1 week or so. They wanted to have another hemoglobin done before considering discharge. I suggested avoiding NSAIDs resuming Eliquis in the next 1 to 2 days and continuing to monitor for the signs of fresh bleeding. I also explained to them that all the blood can still pass through the GI system for some time therefore may be prudent to repeat blood counts again early next week with primary care doctor. Patient will also see his electrical test engineer regarding possibility of ablation procedure for atrial fibrillation for the future so that anticoagulants can be avoided.
--- NOTE | 2024-12-27 14:04 | Pharmacy Report ---
Pharmacy Glycemic Sign Off Nt - Date of Service December 27, 2024 - Assessment & Plan ASSESSMENT: * Pharmacy was consulted by RONA Gibbons on 12/24 for glycemic control and to write orders per [facility] inpatient glycemic control protocol. * Major changes made by pharmacy to antidiabetic regimen include: * added novolog scale * Patient has not received any insulin as he refused all doses. Blood sugars reasonably controlled without insulin thus far. PLAN FOR INPATIENT GLYCEMIC CONTROL: * No basal insulin warranted * Continue NovoLog per scale [id number]/Q6hrs while NPO * Goal range = 120-160 mg/dl * CF = 30 mg/dl/unit * CR = 1 unit for ever -- g CHO consumed * Pharmacy is signing off of glycemic consult and will no longer be making adjustments to inpatient regimen. Please feel free to re-consult if needed. Delma diaz.
--- NOTE | 2024-12-28 00:22 | Electrocardiogram Report ---
Test Reason : Blood Pressure : */* mmHG Vent. Rate : 143 BPM Atrial Rate : * BPM P-R Int : * ms QRS Dur : 84 ms QT Int : 308 ms P-R-T Axes : * -35 132 degrees QTcB Int : 475 ms Atrial fibrillation with rapid ventricular response Left axis deviation Minimal voltage criteria for LVH, may be normal variant ( R in aVL ) Anterior infarct (cited on or before 03-Jun-2012) Abnormal ECG When compared with ECG of 17-Dec-2024 23:33, Criteria for Inferior infarct are no longer Present Nonspecific T wave abnormality no longer evident in Inferior leads T wave inversion more evident in Lateral leads Confirmed by Bart Chen ([id number]) on 12/28/2024 12:22:13 AM Referred By: REFERRED SELF Confirmed By: Bart Chen
[2024-12-28 05:51] LABS: Hematocrit (blood only) 25.1 % (42.0-52.0); Hemoglobin 8.2 g/dl (14.0-18.0); Mean Corpuscular Hemoglobin 30.4 pg (25.0-34.0); Mean Corpuscular Volume 93.0 fL (80.0-100.0); Platelet Count 173 K/uL (130-400); RDW Standard Deviation 47.4 fL (36.4-46.3); Red Blood Count 2.70 M/uL (4.70-6.10); White Blood Count 5.29 K/ul (4.8-10.8)
[2024-12-28 06:05] LABS: Anion Gap 4.0 (3-11); Blood Urea Nitrogen 10.0 mg/dl (6-23); Calcium 8.2 mg/dl (8.6-10.3); Carbon Dioxide 26.0 mmol/L (21-32); Chloride 110.0 mmol/L (98-107); Creatinine Clr Calc Pharmacy 46.5 ml/min; Glucose 110.0 mg/dl (70-99(Fasting)); Magnesium 1.8 mg/dl (1.7-2.4); Potassium 3.7 mmol/L (3.5-5.1); Sodium 140.0 mmol/L (136-145)
[2024-12-28 07:30] VITALS: PULSE 79; RESP 21; TEMP 98.1; O2SAT 97
[2024-12-28] MEDS: POTASSIUM CHLORIDE CRTAB 20 MEQ TABCR PO STA (08:20)
[2024-12-28] MEDS: MAGNESIUM SULFATE / D5W 1 GM/100 ML BAG IV SCH (10:47)
[2024-12-28] MEDS: MAGNESIUM OXIDE 400 MG TAB PO ONE (11:30)
[2024-12-28 11:33] VITALS: BP 117/76
--- NOTE | 2024-12-28 11:38 | Discharge Summary ---
Discharge Summary Date of Service December 28, 2024 Principal Dx & Hospital Course #1 = Principal Diagnosis (1) Acute upper gastrointestinal bleeding: (2) Acute blood loss anemia: (3) Melena: (4) Atrial fibrillation with rapid ventricular response: (5) Hypertension: (6) Hypomagnesemia: (7) Diabetes mellitus, type II: (8) Gout: (9) Hyperlipidemia: Plan Patient is a 74-year-old male with past medical history significant for type 2 diabetes, metabolic syndrome, gout, dyslipidemia, chronic rhinitis, chronic atrial fibrillation, hypertension, thiamine deficiency, gallstones, right Achilles rupture, degenerative disc disease, neuropathy, iron deficiency anemia, cervical spinal stenosis, alcohol abuse who presented to the ED on 12/24/2024 with dizziness. Acute GI bleed Melena Patient presented with dizziness and had melena in the ED with positive FOBT s/p EGD on 12/14/2024 with six 12-20mm sessile polyps with no bleeding, stigmata of recent bleeding in gastric body and antrum s/p EGD on 12/18/2024 with hematin in the gastric body/fundus and duodenum GI consulted and repeated EGD on 12/25/2024 with multiple ulcers related to previous polypectomy, polypectomy site antrum appeared to be source of bleeding, adherent clot injected and coagulated and clipped closed, other polypectomy sites without stigmata of bleeding Eliquis held-> okay to resume tonight or tomorrow per GI Continue pantoprazole BID Follow up scheduled with GI on 12/31/2024 Acute blood loss anemia Received 1 unit PRBCs on 12/25/24 for Hgb 7.5 Hgb stabilized after transfusion and was 8.2 on day of discharge Instructed patient to hold Eliquis if recurrence of melena or hematemesis Recommend CBC at PCP follow up Atrial fibrillation Patient found to be in RVR at rate of 143 on admission Carvedilol initially increased but changed back to home dose due to hypotension Continue carvedilol at 12.5mg BID Resume Eliquis as discussed above Echo showed LVEF 50-55%, severely dilated left atrium, mild MR, trace TR-> LA dilation worsened from previous in 2019 otherwise unchanged Follow up with Cardiology outpatient as scheduled Hypomagnesemia and hypokalemia Mag 1.2 on admission and K as low as 2.8 during admission Started on KCl 10meq daily and magnesium supplement at discharge Recommend BMP and Magnesium at PCP follow up Hypotension Hypotensive as low as 90s/50s this admission Patient instructed to resume lasix at daily dosing instead of bid Patient instructed to continue holding hydralazine, benazepril, amlodipine until PCP follow up Recommend close monitoring of BP outpatient and resuming antihypertensive medications as able DM II Continue metformin Gout Continue allopurinol Hyperlipidemia Continue atorvastatin BPH Continue tamsulosin Patient seen in collaboration with Dr. Haddad. Please see addendum. Notes For Next Care Provider 74 year old male with significant PMH who was admitted at [facility] from 12/24- 12/28/2024 for acute GI bleed. Patient with multiple recent EGDs. Underwent additional EGD where a previous polypectomy site was found to be the likely source of bleeding. Patient instructed to resume Eliquis, monitor for bleeding, continue pantoprazole BID, low fiber diet, and follow up with GI this week. A f ib RVR on admission with hypomagnesemia and hypokalemia. Started on KCl and Magnesium at discharge. Will need labs at PCP follow up including CBC, BMP, Mag. Multiple BP meds held due to hypotension. Will need guidance on resumption of BP meds pending evaluation of BP. Medication Changes From Visit Start magnesium and KCl Change lasix from twice daily to once daily Hold amlodipine, benazepril, hydralazine Stop omeprazole Admission HPI Per Admitting Provider 74-year-old male with past medical history significant for type 2 diabetes, metabolic syndrome, gout, dyslipidemia, chronic rhinitis, chronic atrial fibrillation, hypertension, thiamine deficiency, gallstones, right Achilles rupture, degenerative disc disease, neuropathy, iron deficiency anemia, cervical spinal stenosis, alcohol abuse who presents to the ED on 12/24/2024 with dizziness. Patient reports he was in his usual state of health yesterday until this morning when he felt dizzy upon waking. He notes he feels okay if he is resting but as soon as he starts to walk he feels dizzy and near syncopal. Den ies any actual syncope. Checked his BP multiple times today with readings 100-120/60-70s. Has been taking his medications as instructed. Denies fevers, cough, cold symptoms, chest pain, palpitations, SOB, abdominal pain, N/V/D. Has been having one normal bowel movement per day for the past few days. No signs of bleeding in the stool until today in the ED when he had a black tarry stool. Discharge Exam General/Psych: WD/WN, sitting up in bed, NAD, conversing easily Head: normocephalic, atraumatic Eyes: normal inspection, PERRL, conjunctivae pink ENT: external ear and nose normal, oropharynx normal Neck: normal visual inspection, trachea midline Respiratory: normal respiratory effort, lungs clear to auscultation, no wheeze/rales/rhonchi, no accessory muscle use Cardiovascular: irregularly irregular rate and rhythm, no murmur/rub/gallop Extremities: no cyanosis or clubbing, normal peripheral pulses, no BLE edema Abdomen/GI: normal bowel sounds, soft, nontender Neurologic/MSK: A+Ox3, motor strength 5/5, moves all extremities Skin: no rashes, normal color, warm and dry Updated Medication List Medication Instructions Recorded Confirmed Type allopurinol 100 mg tablet 100 mg PO QAM 01/12/19 12/24/24 History (Zyloprim) amlodipine 10 mg tablet (Norvasc) 10 mg PO HS 01/12/19 12/24/24 History atorvastatin 20 mg tablet (Lipitor) 20 mg PO QAM 01/12/19 12/24/24 History benazepril 40 mg tablet (Lotensin) 40 mg PO QAM 01/12/19 12/24/24 History cholecalciferol (vitamin D3) 25 1,000 unit PO QAM 01/12/19 12/24/24 History mcg (1,000 unit) capsule (Vitamin D3) cyanocobalamin (vitamin B-12) 1,000 mcg PO QAM 01/12/19 12/24/24 History 1,000 mcg tablet (Vitamin B-12) tadalafil 5 mg tablet (Cialis) 5 mg PO DIRECTED PRN Sexual 01/12/19 12/24/24 History Activity thiamine mononitrate (vit B1) 100 100 mg PO QAM 01/12/19 12/24/24 History mg tablet (Vitamin B-1 (mononitrate)) folic acid 1 mg tablet 1 mg PO QAM 01/16/19 12/24/24 History apixaban 5 mg tablet (Eliquis) 5 mg PO BID #60 tabs 02/26/20 12/24/24 Rx epinephrine 0.3 mg/0.3 mL 0.3 mg IM DIRECTED PRN 06/06/20 12/24/24 History injection, auto-injector (EpiPen) Anaphylaxis gabapentin 100 mg capsule 100 mg PO TID 06/06/20 12/24/24 History hydralazine 100 mg tablet 100 mg PO TID 06/06/20 12/24/24 History tamsulosin 0.4 mg capsule 0.4 mg PO HS 06/06/20 12/24/24 History carvedilol 12.5 mg tablet 12.5 mg PO BID 12/17/24 12/24/24 History metformin 1,000 mg tablet 1,000 mg PO BIDM 12/17/24 12/24/24 History omega 0-lwp-fke-fish oil 1,000 mg 1 cap PO DAILY 12/17/24 12/24/24 History (120 mg-180 mg) capsule (Fish Oil) pantoprazole 40 mg tablet,delayed 40 mg PO BID #60 tabs 12/19/24 12/24/24 Rx release sucralfate 1 gram tablet 1 g PO ACHS 4 weeks #28 tabs 12/19/24 12/24/24 Rx furosemide 20 mg tablet 20 mg PO DAILY #0 tabs 12/28/24 12/24/24 Rx magnesium oxide 400 mg PO DAILY #30 caps 12/28/24 Rx potassium chloride 10 mEq 10 meq PO DAILY #30 tabs 12/28/24 Rx tablet,extended release Hospital Stay Data Consultations 12/24/24 17:56 ED Decision to Admit Stat 12/24/24 21:50 Consult Gastroenterology Routine 12/25/24 08:00 Consult Cardiology Routine Procedures Performed Operation Date: 12/25/24 15:00 Actual Procedures p Esophagogastroduodenoscopy with hemostasis(Not Applicable) - Rob Velasco MD Diagnostic Imagining Performed Chest X-Ray 12/24/24 18:07 EXAM: X-ray chest one-view portable CLINICAL HISTORY: Near syncope PRIORS: 08/02/2023 TECHNIQUE: AP portable erect FINDINGS: The chest is well-expanded. No airspace consolidation, effusion or congestive changes. Cardiac silhouette moderately enlarged, unchanged. No pneumothorax. Trachea is patent. Atherosclerotic disease of the aortic knob. Osseous structures demonstrate no acute abnormality. No radiopaque foreign body. IMPRESSION: N 1. No plain film evidence of an acute cardiopulmonary process. 2. Moderate enlargement of the cardiac silhouette, unchanged. Electronically signed by Claudia Velazquez 12-24-2024 7:59 PM Pending Results Patient Have Any Pending Studies at Discharge: No Discharge Instructions Given to Patient (Per Discharging Provider) You presented to the hospital with dizziness and weakness, and were admitted for a suspected gastrointestinal bleed. On admission, you were found to be anemic with low hemoglobin levels that required a blood transfusion of packed red blood cells. You hemoglobin was 7.5 on admission to the hospital and after a blood transfusion, your hemoglobin improved and is now 8.2. Since your blood counts have stabilized, we feel this is a safe level for you to go home, but we recommend getting your blood counts checked again when you follow up with your PCP. For the gastrointestinal bleed, we stopped your Eliquis as this can cause additional bleeding. The gastroenterology team repeated an endoscopy study on 12/25/2024. The source of the GI bleed was an old polypectomy site that was repaired with your last polyp removal. An adherent blood clot was also found and this was bleeding was stopped. You can resume your Eliquis today or tomorrow, however, if you experience more rectal bleeding or notice blood in your stool, stop taking Eliquis and contact your GI team. Please maintain a low fiber, easy to digest diet once home. Avoid spicy foods or anything that can aggravate your GI tract. Please follow up with GI as scheduled. You were found to be in atrial fibrillation with a rapid rate. You had an echocardiogram that wasn't significant changed from your prior echo in 2019. Your magnesium and potassium were found to be below the desired threshold for someone with atrial fibrillation. We recommend starting a potassium and magnesium supplement. These levels should be checked as part of your lab work with your PCP at your follow up appointment. MEDICATION CHANGES: The following medications have either been added, changed, continued or stopped. See the following list for details and when to take next dose. START: * Potassium Chloride 10meq once daily * Indication: potassium supplement * Next Dose: 12/29/2024 in am * Magnesium Oxide 400mg once daily * Indication: magnesium supplement * Next Dose: 12/29/2024 in am CHANGED: * Furosemide (lasix) changed from 20mg twice daily to once daily due to low blood pressures. Please check your blood pressures at home and hold the lasix if your upper number is less than 100. HOLD: The below medications were held due to low blood pressures while inpatient. Discuss resuming these at your PCP follow-up. * Amlodipine * Hydralazine * Benazepril STOP: * Omeprazole- No need to continue this medication at home as you are taking pantoprazole instead RECOMMENDATIONS FOR FOLLOW-UP: Follow up with your primary care provider - an appointment will be scheduled for you. We would like you to discuss the following with your primary care provider and/or specialist at your next appointment: * Labs- Will need repeat CBC, BMP, and Magnesium to check blood counts, magnesium and potassium levels * Medications- Please have blood pressure checked and discuss how to resume blood pressure medications that have been placed on hold while in the hospital. See above list. Follow up with Gastroenterology on 12/31/2024 at 2:30pm OTHER INSTRUCTIONS: Seek medical attention if you have: * temperature above 101 * chest pain or trouble breathing * abdominal pain, nausea, vomiting * diarrhea, dark stools or bloody stools * any unanswered questions or concerns Call 911 if symptoms are severe. Please take good care of yourself. It has been a pleasure taking care of you. Please take care of yourself. If you have any questions regarding your recent hospitalization please contact [facility] and request [facility] @ [phone]. Total Time Total Time Spent Total Time Spent (In Minutes): I spent a total of 35 minutes coordinating, documenting and providing care for this patient excluding time spent in the performance of separately billed services or time spent by another provider/QHP. Supervising Physician Co-Signing Physician Notes Patient is seen and examined at bedside. States feeling well today. No recurrence of dizziness. No recurrence of rectal bleed. Eager to get discharged. On exam patient is moderately built and nourished, no apparent distress, normocephalic atraumatic, EOMI, normal breath sounds, clear to auscultation, irregularly irregular, no murmur, abdomen soft, nontender, normal bowel sounds, alert, awake, oriented, grossly no focal deficits. Patient is being managed for acute GI bleed, blood loss anemia. S/P PRBCs. EGD showed multiple ulcers related to prior polypectomy. Polypectomy site and trauma appeared to be the source of bleeding which reports coagulated and clipped. IV Protonix transition to p.o. 40 mg twice a day. Monitor H&H and transfuse as needed. Hemoglobin stable. Discussed with GI, advised to resume anticoagulation on discharge if no recurrence of bleeding. Appreciate GI input. Avoid NSAIDs. Needs repeat blood work as outpatient in 1 week. Tolerated low fiber diet with no issues. Agree with holding antihypertensives as blood pressure has been relatively low while hospitalized contributing to dizziness. Advised to monitor blood pressure on discharge and follow-up with PCP for further adjustment of antihypertensives. I personally interviewed and examined the patient at bedside. I have reviewed the advanced practitioner's documentation on the date of service referred in note and agree with plan. Patient's care is coordinated with Jacqui REA. Please refer to the documentation above for details of patient's presentation and for discussion of other issues. I spent a total [id number] coordinating, documenting, and providing care for this patient excluding time spent in the performance of separately billed services or time spent by another provider/QHP.
== END 2024-12-28 11:54 | disposition home or self-care (01) | DRG 919 ==
LOC: ED 15:38 → 4W 18:46 → SUATTDRO 18:46 → 4W 20:48

== ENCOUNTER 2025-01-12 09:43 | Inpatient (IN) ==
--- NOTE | 2025-01-12 10:35 | XRay Report ---
XR chest 1V portable CLINICAL HISTORY: Chest pain, nonspecific COMPARISON STUDY: 12/24/2024 FINDINGS: Stable mild cardiomegaly with mild pulmonary vascular congestion. No consolidation or pleur al effusion seen. No pneumothorax. IMPRESSION: Mild CHF. ACT 112: Negative or not required by law. Electronically signed by: Benjy Zaldivar M.D. 01/12/2025 10:34 AM
[2025-01-12] MEDS: FAMOTIDINE 20MG IV PUSH 20 MG/5 ML SYR IV STA (10:36)
[2025-01-12] MEDS: SODIUM CHLORIDE 0.9% 500 ML IV ONE ×2 (10:36→14:01)
[2025-01-12] MEDS: ONDANSETRON INJ 2 MG/ML 2 ML VIAL IV STA (10:36)
[2025-01-12 10:48] LABS: Hematocrit (blood only) 29.4 % (42.0-52.0); Hemoglobin 9.7 g/dl (14.0-18.0); Immature Granulocytes # (auto) 0.03 K/uL (0.01-0.20); Immature Granulocytes % (auto) 0.6 %; Mean Corpuscular Hemoglobin 30.1 pg (25.0-34.0); Mean Corpuscular Volume 91.3 fL (80.0-100.0); Platelet Count 135 K/uL (130-400); RDW Standard Deviation 47.7 fL (36.4-46.3); Red Blood Count 3.22 M/uL (4.70-6.10); White Blood Count 4.79 K/ul (4.8-10.8)
[2025-01-12 11:10] LABS: Appearance Urine Clear (Clear); Bacteria Urine Automated 2+ (None Seen); Cast Urine Automated 0-2 /lpf (0-2); Epithelial Cell Urine Auto 0-2 /hpf (0-2); Glucose Urine UA Negative (Negative); WBC Urine Automated >50 /hpf (0-5)
[2025-01-12 11:10] LABS: INR 1.2 (0.9-1.1); Prothrombin Time 13.0 Seconds (9.0-12.0)
[2025-01-12 11:13] LABS: Potassium 4.5 mmol/L (3.5-5.1)
[2025-01-12 11:15] LABS: Alanine Aminotransferase 249.0 U/L (7-52); Albumin Globulin Ratio 1.2 (0.9-2); Albumin Level 3.7 gm/dl (3.4-5.0); Alkaline Phosphatase 187.0 U/L (34-104); Anion Gap 10.0 (3-11); Bilirubin,Total 5.4 mg/dl (0.2-1.0); Blood Urea Nitrogen 14.0 mg/dl (6-23); Calcium 9.0 mg/dl (8.6-10.3); Carbon Dioxide 23.0 mmol/L (21-32); Chloride 104.0 mmol/L (98-107); Creatinine Clr Calc Pharmacy 50.8 ml/min; Globulin 3.1 gm/dl (2.5-4.0); Glucose 140.0 mg/dl (70-99(Fasting)); Lipase 55.0 U/L (11-82); Magnesium 1.8 mg/dl (1.7-2.4); Sodium 137.0 mmol/L (136-145); Total Protein 6.8 gm/dl (6.0-8.3)
[2025-01-12] MEDS: OPTIRAY 320 100ml IV ONE (12:16)
--- NOTE | 2025-01-12 12:53 | CT Scan Report ---
CT SCAN OF THE ABDOMEN AND PELVIS WITH IV CONTRAST CLINICAL HISTORY: Generalized abdominal pain. COMPARISON STUDY: Prior abdominal CT scans, most recently dated 12/18/2024. TECHNIQUE: Following the IV administration of 93 cc of Optiray 320, CT scan of the abdomen and pelvi s is performed from the lung bases to the proximal femora. Images are reviewed in the axial, sagittal , and coronal planes. IV contrast was administered without complication. A dose lowering technique wa s utilized adhering to the principles of ALARA. CT DOSE: 1406.25 mGy.cm FINDINGS: Lung bases: The heart is enlarged and without pericardial effusion. There are small pleural effusions with dependent atelectasis. Interlobular septal thickening in the lower lobes suggests fluid overloa d/congestive change. There is a small hiatal hernia. Liver: The contrast-enhanced liver is normal in size, contour, and attenuation. There is mild intrahe patic biliary ductal dilatation. The hepatic veins and portal veins are patent. Gallbladder: The gallbladder is dilated, measuring up to 10 mm diameter and contains numerous gallsto leanne. The gallbladder is mildly distended, and there is pericholecystic inflammation and fluid. Spleen: Normal in size and attenuation. Pancreas: Unremarkable. Adrenal glands: Unremarkable. Kidneys: The contrast enhanced kidneys are normal in size and without hydronephrosis. The kidneys enh ance symmetrically. Bilateral renal cysts measure up to 5.3 cm. Abdominal vasculature: There is moderate to advanced atherosclerotic calcification and mild ectasia o f the abdominal aorta. Bowel: There is moderate colonic diverticulosis without CT evidence of acute diverticulitis. No bowel obstruction is seen. The appendix is well-visualized and normal. There are numerous clips seen with in the stomach.. Peritoneum: No intraperitoneal free air is identified. There is trace pelvic ascites. Lymphadenopathy: Mildly enlarged retroperitoneal lymph nodes are similar to previous. The largest nod e is seen on image #130 and measures 1.7 x 1.3 cm. Pelvic viscera: The prostate gland is enlarged and heterogeneous. The bladder wall appears thickened/ trabeculated indicating chronic outlet obstruction. There are bilateral fat-containing inguinal herni as, right side larger than left. The right inguinal hernia also contains trace fluid. Skeletal structures: The skeletal structures are osteopenic. There is mild lumbosacral spondylosis. N o lytic or blastic lesions are seen. IMPRESSION: 1. Choledocholithiasis with evidence of acute cholecystitis. 2. Cardiomegaly with evidence of fluid overload/congestive failure and small pleural effusions. 3. There is mild intrahepatic biliary ductal dilatation. 4. Colonic diverticulosis without CT evidence of acute diverticulitis. 5. Trace pelvic ascites. 6. Mildly enlarged retroperitoneal lymph nodes are nonspecific and similar to previous. These have on ly modestly increased in size dating back to 2016. 7. Additional findings as above. ACT 112: Negative or not required by law. Electronically signed by: Jani Bailey M.D. 01/12/2025 12:51 PM
--- NOTE | 2025-01-12 13:24 | Emergency Department Note ---
Impression & Plan Choledocholithiasis with cholecystitis ED Provider Note NAME: ISABELLA RIVAS AGE: 74 SEX: M : 1950 ARRIVES VIA: Walk-In INFORMANT: Patient ED PROVIDER(S): Gerson Garcia MD CHIEF COMPLAINT: PLAN: Disposition: MEDICAL DECISION MAKING: Summary Triage Nursing notes reviewed and agree them. Prior/external medical records reviewed Vital Signs: reviewed Differential diagnosis: ER treatment provided: See below. Diagnostics interpreted by me: ECG: None Cardiac Monitoring: An order for continuous cardiac monitoring was placed and demonstrated Laboratory studies: See below Imaging studies: See below Consultation(s): None HPI: Per MDM. ROS: See above HPI for pertinent positives & negatives. A total of 10 systems reviewed and were otherwise negative. VITALS:See Below PHYSICAL EXAMINATION: ED COURSE: Times/Reassessments: Procedures: None PDMP: Reviewed and no issues Critical Care: None Gerson Garcia MD Past Med/Surg History Problem List (Updated 01/12/25 @ 16:31 by Gerson Garcia MD) Choledocholithiasis with cholecystitis (Acute) (HFpEF) heart failure with preserved ejection fraction Elevated LFTs Choledocholithiasis with acute cholecystitis Permanent atrial fibrillation Atrial fibrillation with rapid ventricular response (Acute) Persistent atrial fibrillation BPH (benign prostatic hyperplasia) Diabetes mellitus, type II (Chronic) Atrial fibrillation (Acute) Hypertension (Chronic) Gout Hyperlipidemia (Chronic) Medical History (Updated 01/12/25 @ 16:31 by Gerson Garcia MD) DVT prophylaxis COVID-19 Near syncope Melena Hypomagnesemia Acute upper gastrointestinal bleeding Acute blood loss anemia Hypomagnesemia Hypokalemia Encounter for pre-operative examination Hematemesis GIB (gastrointestinal bleeding) On anticoagulant therapy GERD (gastroesophageal reflux disease) Atrial fibrillation new onset Hypertension Type 2 diabetes mellitus with diabetic polyneuropathy NIDDM Surgical History History of colonoscopy History of tonsillectomy S/P ORIF (open reduction internal fixation) fracture Left Ankle/Heel Family History Brother Prostate cancer Father Heart disease Brother Melanoma Social History Smoking Status: Current every day smoker Tobacco Type: Cigars Cigarettes Per Day: 5-7 cigars weekly; Second Hand Exposure: No; Do You Dip or Chew Tobacco: No; Hx Alcohol Use: Yes Alcohol type: hard liquor Hx Substance Use: No Preferred Language: Korean Communication Ability: Effective Visual Impairment: Limited Hearing Ability: Normal Quality Control Assistant Required: No Beliefs That Will Affect Care: None and Buddhist marital status: Current Living Situation: Spouse Current Living Situation Comment: lives at home w/ current occupational status: employed Feels Safe at Home: Yes Assistive Devices: None Allergies Allergies Allergy/AdvReac Type Severity Reaction Status Date / Time amoxicillin Allergy Intermediate Rash Verified 01/12/25 15:04 cephalexin [From Keflex] Allergy Unknown ON Verified 01/12/25 15:04 [facility] Tetanus Vaccines and Toxoid AdvReac Intermediate FEVER 104F Verified 01/12/25 15:04 Home Meds Home Medications Medication Instructions Recorded Confirmed allopurinol 100 mg tablet 100 mg PO QAM 01/12/19 01/12/25 (Zyloprim) amlodipine 10 mg tablet (Norvasc) 10 mg PO HS 01/12/19 01/12/25 atorvastatin 20 mg tablet (Lipitor) 20 mg PO QAM 01/12/19 01/12/25 benazepril 40 mg tablet (Lotensin) 40 mg PO QAM 01/12/19 01/12/25 cholecalciferol (vitamin D3) 25 1,000 unit PO QAM 01/12/19 01/12/25 mcg (1,000 unit) capsule (Vitamin D3) cyanocobalamin (vitamin B-12) 1,000 mcg PO QAM 01/12/19 01/12/25 1,000 mcg tablet (Vitamin B-12) tadalafil 5 mg tablet (Cialis) 5 mg PO DIRECTED PRN Sexual 01/12/19 01/12/25 Activity thiamine mononitrate (vit B1) 100 100 mg PO QAM 01/12/19 01/12/25 mg tablet (Vitamin B-1 (mononitrate)) folic acid 1 mg tablet 1 mg PO QAM 01/16/19 01/12/25 epinephrine 0.3 mg/0.3 mL 0.3 mg IM DIRECTED PRN 06/06/20 01/12/25 injection, auto-injector (EpiPen) Anaphylaxis gabapentin 100 mg capsule 100 mg PO TID 06/06/20 01/12/25 hydralazine 100 mg tablet 100 mg PO TID 06/06/20 01/12/25 tamsulosin 0.4 mg capsule 0.4 mg PO HS 06/06/20 01/12/25 carvedilol 12.5 mg tablet 12.5 mg PO BID 12/17/24 01/12/25 metformin 1,000 mg tablet 1,000 mg PO BIDM 12/17/24 01/12/25 omega 4-[id number]-[id number]-fish oil 1,000 mg 1 cap PO DAILY 12/17/24 01/12/25 (120 mg-180 mg) capsule (Fish Oil) ferrous sulfate 325 mg (65 mg 325 mg PO UD 01/12/25 01/12/25 iron) tablet Previous Rx's Medication Instructions Recorded apixaban 5 mg tablet (Eliquis) 5 mg PO BID #60 tabs 02/26/20 pantoprazole 40 mg tablet,delayed 40 mg PO BID #60 tabs 12/19/24 release sucralfate 1 gram tablet 1 g PO ACHS 4 weeks #28 tabs 12/19/24 furosemide 20 mg tablet 20 mg PO DAILY #0 tabs 12/28/24 magnesium oxide 400 mg PO DAILY #30 caps 12/28/24 Results & Data (ED) Vital Signs Vital Signs - 24 hr 01/12/25 09:44 01/12/25 09:44 01/12/25 10:05 Temperature 36.6 C Temperature Source Temporal Artery Scan Pulse Rate 138 H 122 H Pulse Rate [Apical] Pulse Rhythm Pulse Rhythm [Apical] Pulse Strength [Apical] Respiratory Rate 18 18 Respiratory Effort / Characteristics Respiratory Depth Respiratory Pattern Blood Pressure 122/84 Blood Pressure [Right Arm] Blood Pressure Mean 96 Blood Pressure Mean [Right Arm] Blood Pressure Position [Right Arm] Pulse Oximetry 97 Oxygen Delivery Method Sepsis Recent Fever Within 48 Hours No Sepsis New/Unexplained Change in Mental Status N/A Sepsis Action Taken by Nursing No Action Required 01/12/25 10:31 01/12/25 11:00 01/12/25 12:00 Temperature Temperature Source Pulse Rate 122 H Pulse Rate [Apical] 105 H 122 H Pulse Rhythm Irregular Pulse Rhythm [Apical] Irregular Irregular Pulse Strength [Apical] Respiratory Rate 18 14 12 Respiratory Effort / Characteristics Non-Labored Spontaneous Non-Labored Spontaneous Respiratory Depth Normal Normal Respiratory Pattern Regular Regular Blood Pressure Blood Pressure [Right Arm] 153/96 H 151/107 H Blood Pressure Mean Blood Pressure Mean [Right Arm] 115 121 Blood Pressure Position [Right Arm] Pulse Oximetry 98 93 98 Oxygen Delivery Method Room Air Room Air Room Air Sepsis Recent Fever Within 48 Hours Sepsis New/Unexplained Change in Mental Status Sepsis Action Taken by Nursing 01/12/25 13:00 01/12/25 15:04 01/12/25 15:08 Temperature Temperature Source Pulse Rate 107 H Pulse Rate [Apical] 111 H 117 H Pulse Rhythm Pulse Rhythm [Apical] Regular Regular Pulse Strength [Apical] Normal Normal Respiratory Rate 14 26 H Respiratory Effort / Characteristics Non-Labored Spontaneous Non-Labored Respiratory Depth Normal Normal Respiratory Pattern Regular Regular Blood Pressure 142/100 H Blood Pressure [Right Arm] 134/85 142/100 H Blood Pressure Mean Blood Pressure Mean [Right Arm] 101 114 Blood Pressure Position [Right Arm] Lying Pulse Oximetry 99 98 Oxygen Delivery Method Room Air Room Air Sepsis Recent Fever Within 48 Hours Sepsis New/Unexplained Change in Mental Status Sepsis Action Taken by Nursing Laboratory Data 01/12/25 10:22 01/12/25 10:22 Lab Results 01/12/25 01/12/25 01/12/25 Range/Units 10:22 10:29 10:47 WBC 4.79 L (4.8-10.8) K/ul RBC 3.22 L (4.70-6.10) M/uL Hgb 9.7 L (14.0-18.0) g/dl POC Hgb 10.2 L (14.0-18.0) g/dl Hct 29.4 L (42.0-52.0) % POC Hct 30 L (42-52) % MCV 91.3 (80.0-100.0) fL MCH 30.1 (25.0-34.0) pg MCHC 33.0 (32.0-36.0) g/dL RDW Std Deviation 47.7 H (36.4-46.3) fL RDW Coeff of Riley 14.2 (11.5-14.5) % Plt Count 135 (130-400) K/uL MPV 10.4 (9.4-12.4) fL Immature Gran % (Auto) 0.6 % Neut % (Auto) 76.4 % Lymph % (Auto) 10.9 % Wallace % (Auto) 9.2 % Eos % (Auto) 2.7 % Baso % (Auto) 0.2 % Neut # (Auto) 3.66 (1.40-6.50) K/uL Lymph # (Auto) 0.52 L (1.20-3.40) K/uL Wallace # (Auto) 0.44 (0.11-0.59) K/uL Eos # (Auto) 0.13 (0.00-0.50) K/uL Baso # (Auto) 0.01 (0.00-0.20) K/uL Immature Gran # (Auto) 0.03 (0.01-0.20) K/uL PT 13.0 H (9.0-12.0) Seconds INR 1.2 H (0.9-1.1) POC Sodium 139 (135-144) mmol/L Sodium 137 (136-145) mmol/L POC Potassium 4.7 (3.3-5.0) mmol/L Potassium 4.5 (3.5-5.1) mmol/L POC Chloride 105 (101-112) mmol/L Chloride 104 (98-107) mmol/L Carbon Dioxide 23 (21-32) mmol/L POC Total CO2 24 (24-31) mmol/L Anion Gap 10 (3-11) POC Anion Gap 15.0 L (16-25) mmol/L POC BUN 14 (7-18) mg/dl BUN 14 (6-23) mg/dl Creatinine 1.45 H (0.6-1.4) mg/dl POC Creatinine 1.5 H (0.6-1.3) mg/dl Est Cr Clr Drug Dosing 50.8 ml/min eGFR 50.57 BUN/Creatinine Ratio 9.7 L (10-20) Glucose 140 H (70-99(Fasting)) mg/dl POC Glucose (other) 137 H (70-99) mg/dl Calcium 9.0 (8.6-10.3) mg/dl POC Ioniz Calcium Ko 1.08 L (1.12-1.32) mmol/l Magnesium 1.8 (1.7-2.4) mg/dl Total Bilirubin 5.4 H (0.2-1.0) mg/dl Direct Bilirubin 3.8 H (0-0.2) mg/dl AST 302 H (13-39) U/L ALT 249 H (7-52) U/L Alkaline Phosphatase 187 H (34-104) U/L Troponin I High Sens 14.6 (0-20) pg/ml Total Protein 6.8 (6.0-8.3) gm/dl Albumin 3.7 (3.4-5.0) gm/dl Globulin 3.1 (2.5-4.0) gm/dl Albumin/Globulin Ratio 1.2 (0.9-2) Lipase 55 (11-82) U/L Urine Color Dark Yellow Urine Appearance Clear (Clear) Urine pH 7.0 (4.5-7.5) Ur Specific [place] 1.012 (1.000-1.030) Urine Protein Trace H (Negative) Urine Glucose (UA) Negative (Negative) Urine Ketones Negative (Negative) Urine Blood Trace H (Negative) Urine Nitrite Negative (Negative) Urine Bilirubin 1+ H (Negative) Urine Urobilinogen Negative (Negative) Ur Leukocyte Esterase 2+ H (Negative) Urine WBC (Auto) >50 H (0-5) /hpf Urine RBC (Auto) 3-5 H (0-2) /hpf U Hyaline Cast (Auto) 0-2 (0-2) /lpf U Epithel Cells (Auto) 0-2 (0-2) /hpf Urine Bacteria (Auto) 2+ H (None Seen) Urine Comment Administered Medications Discontinued Medications Famotidine (Pepcid 20mg Iv Push) 20 mg in 5 mls @ 2.5 mls/min IV NOW STA Stop: 01/12/25 10:20 Last Admin: 01/12/25 10:36 Dose: 2.5 mls/min Documented By: BLANCA Sodium Chloride (Nss) 500 mls @ 999 mls/hr IV .Q31M ONE Stop: 01/12/25 10:50 Last Infusion: 01/12/25 11:19 Dose: Infused Documented By: Admin: 01/12/25 10:36 Dose: 999 mls/hr Documented By: BLANCA Ceftriaxone Sodium (Rocephin) 2,000 mg in 50 mls @ 100 mls/hr IV NOW STA Stop: 01/12/25 13:52 Last Infusion: 01/12/25 15:30 Dose: Infused Documented By: Admin: 01/12/25 14:01 Dose: 100 mls/hr Documented By: BLANCA Metronidazole (Flagyl) 500 mg in 100 mls @ 100 mls/hr IV NOW STA; Protocol Stop: 01/12/25 14:22 Last Infusion: 01/12/25 16:21 Dose: Infused Documented By: Admin: 01/12/25 15:08 Dose: 100 mls/hr Documented By: CHETNA Sodium Chloride (Nss) 500 mls @ 999 mls/hr IV .Q31M ONE Stop: 01/12/25 13:54 Last Infusion: 01/12/25 15:31 Dose: Infused Documented By: Admin: 01/12/25 14:01 Dose: 999 mls/hr Documented By: BLANCA Ioversol (Optiray 320 100ml) 93 ml IV ONCE ONE Stop: 01/12/25 12:17 Last Admin: 01/12/25 12:16 Dose: 93 ml Documented By: BRENDAN Metoprolol Tartrate (Metoprolol Tartrate 1 Mg/Ml Vial) 5 mg IV NOW STA Stop: 01/12/25 15:05 Last Admin: 01/12/25 15:08 Dose: 5 mg Documented By: CHETNA Ondansetron HCl (Ondansetron Inj 2 Mg/Ml 2 Ml Vial) 4 mg IV NOW STA Stop: 01/12/25 10:21 Last Admin: 01/12/25 10:36 Dose: 4 mg Documented By: BLANCA Imaging Data Radiologist's Impression: Chest X-Ray 01/12/25 10:18 XR chest 1V portable CLINICAL HISTORY: Chest pain, nonspecific COMPARISON STUDY: 12/24/2024 FINDINGS: Stable mild cardiomegaly with mild pulmonary vascular congestion. No consolidation or pleural effusion seen. No pneumothorax. IMPRESSION: Mild CHF. ACT 112: Negative or not required by law. Electronically signed by: Benjy Zaldivar M.D. 01/12/2025 10:34 AM Abdomen/Pelvis CT 01/12/25 11:35 CT SCAN OF THE ABDOMEN AND PELVIS WITH IV CONTRAST CLINICAL HISTORY: Generalized abdominal pain. COMPARISON STUDY: Prior abdominal CT scans, most recently dated 12/18/2024. TECHNIQUE: Following the IV administration of 93 cc of Optiray 320, CT scan of the abdomen and pelvis is performed from the lung bases to the proximal femora. Images are reviewed in the axial, sagittal, and coronal planes. IV contrast was administered without complication. A dose lowering technique was utilized adhering to the principles of ALARA. CT DOSE: 1406.25 mGy.cm FINDINGS: Lung bases: The heart is enlarged and without pericardial effusion. There are small pleural effusions with dependent atelectasis. Interlobular septal thickening in the lower lobes suggests fluid overload/congestive change. There is a small hiatal hernia. Liver: The contrast-enhanced liver is normal in size, contour, and attenuation. There is mild intrahepatic biliary ductal dilatation. The hepatic veins and portal veins are patent. Gallbladder: The gallbladder is dilated, measuring up to 10 mm diameter and contains numerous gallstones. The gallbladder is mildly distended, and there is pericholecystic inflammation and fluid. Spleen: Normal in size and attenuation. Pancreas: Unremarkable. Adrenal glands: Unremarkable. Kidneys: The contrast enhanced kidneys are normal in size and without hydronephrosis. The kidneys enhance symmetrically. Bilateral renal cysts measure up to 5.3 cm. Abdominal vasculature: There is moderate to advanced atherosclerotic calcification and mild ectasia of the abdominal aorta. Bowel: There is moderate colonic diverticulosis without CT evidence of acute diverticulitis. No bowel obstruction is seen. The appendix is well-visualized and normal. There are numerous clips seen within the stomach.. Peritoneum: No intraperitoneal free air is identified. There is trace pelvic ascites. Lymphadenopathy: Mildly enlarged retroperitoneal lymph nodes are similar to previous. The largest node is seen on image #130 and measures 1.7 x 1.3 cm. Pelvic viscera: The prostate gland is enlarged and heterogeneous. The bladder wall appears thickened/trabeculated indicating chronic outlet obstruction. There are bilateral fat-containing inguinal hernias, right side larger than left. The right inguinal hernia also contains trace fluid. Skeletal structures: The skeletal structures are osteopenic. There is mild lumbosacral spondylosis. No lytic or blastic lesions are seen. IMPRESSION: 1. Choledocholithiasis with evidence of acute cholecystitis. 2. Cardiomegaly with evidence of fluid overload/congestive failure and small pleural effusions. 3. There is mild intrahepatic biliary ductal dilatation. 4. Colonic diverticulosis without CT evidence of acute diverticulitis. 5. Trace pelvic ascites. 6. Mildly enlarged retroperitoneal lymph nodes are nonspecific and similar to previous. These have only modestly increased in size dating back to 2016. 7. Additional findings as above. ACT 112: Negative or not required by law. Electronically signed by: Jani Bailey M.D. 01/12/2025 12:51 PM Discharge Plan Visit Data Chief Complaint: Illness Stated Complaint: CHEST PAIN, LOWER ABD PAIN, NAUSEA ED Provider: Gerson Garcia Discharge Problem: Choledocholithiasis with cholecystitis Patient Disposition: Admitted As Inpatient Condition: Serious Forms Stand Alone Forms: My [facility] Prescriptions Prescriptions: No Action atorvastatin [Lipitor] 20 mg tablet 20 mg PO QAM cyanocobalamin (vitamin B-12) [Vitamin B-12] 1,000 mcg Tablet 1,000 mcg PO QAM allopurinol [Zyloprim] 100 mg tablet 100 mg PO QAM amlodipine [Norvasc] 10 mg tablet 10 mg PO HS Hold Instructions: Resume on 01/04/25. Hold until PCP appointment Rx Instructions: STOPPED benazepril [Lotensin] 40 mg tablet 40 mg PO QAM Hold Instructions: Resume on 01/04/25. Hold until PCP appointment Rx Instructions: STOPPED cholecalciferol (vitamin D3) [Vitamin D3] 1,000 unit Capsule 1,000 unit PO QAM tadalafil [Cialis] 5 mg tablet 5 mg PO DIRECTED PRN (Reason: Sexual Activity) thiamine mononitrate (vit B1) [Vitamin B-1 (mononitrate)] 100 mg tablet 100 mg PO QAM folic acid 1 mg tablet 1 mg PO QAM Eliquis 5 mg Tablet 5 mg PO BID Qty: 60 1RF Hold Instructions: Until labs on saturday Rx Instructions: PER PT'S SPOUSE "DID NOT TAKE TODAY". 01/12/25 epinephrine [EpiPen] 0.3 mg/0.3 mL Auto-Injector 0.3 mg IM DIRECTED PRN (Reason: Anaphylaxis) Rx Instructions: FOR BEE STINGS tamsulosin 0.4 mg capsule 0.4 mg PO HS hydralazine 100 mg tablet 100 mg PO TID Hold Instructions: Resume on 01/04/25. Hold until PCP appointment Rx Instructions: STOPPED gabapentin 100 mg capsule 100 mg PO TID carvedilol 12.5 mg tablet 12.5 mg PO BID metformin 1,000 mg tablet 1,000 mg PO BIDM omega [id number]-fish oil [Fish Oil] 1,000 (120-180) mg Capsule 1 cap PO DAILY sucralfate 1 gram tablet 1 g PO ACHS 28 Days Qty: 28 0RF pantoprazole 40 mg tablet,delayed release (DR/EC) 40 mg PO BID Qty: 60 0RF magnesium oxide 400 mg magnesium capsule 400 mg PO DAILY Qty: 30 0RF Rx Instructions: Please take one capsule by mouth once daily furosemide 20 mg tablet 20 mg PO DAILY Qty: 0 0RF ferrous sulfate 325 mg (65 mg iron) tablet 325 mg PO UD Rx Instructions: Takes every other night Referrals Referrals: Eloy Mcgraw MD [Primary Care Provider] -
--- NOTE | 2025-01-12 13:29 | Electrocardiogram Report ---
Test Reason : Blood Pressure : */* mmHG Vent. Rate : 125 BPM Atrial Rate : * BPM P-R Int : * ms QRS Dur : 86 ms QT Int : 338 ms P-R-T Axes : * -18 61 degrees QTcB Int : 487 ms Atrial fibrillation with rapid ventricular response with premature ventricular or aberrantly conducte d complexes Anterior infarct (cited on or before 03-Jun-2012) Abnormal ECG When compared with ECG of 24-Dec-2024 16:28, No significant change was found Confirmed by Dontae Gonzalez ([id number]) on 01/12/2025 1:29:06 PM Referred By: Confirmed By: Dontae Gonzalez
--- NOTE | 2025-01-12 13:58 | History & Physical Report ---
<Statement entered by Naresh Watson DO - 01/12/25 16:21> seen and examined, for ERCP tomorrow, will eventually need GB removed Date of Service January 12, 2025 Assessment & Plan (1) Choledocholithiasis with acute cholecystitis: (2) Elevated LFTs: (3) Permanent atrial fibrillation: (4) (HFpEF) heart failure with preserved ejection fraction: (5) Hypertension: (6) Diabetes mellitus, type II: (7) Gout: (8) Hyperlipidemia: (9) BPH (benign prostatic hyperplasia): Plan 74-year-old male with past medical history significant for type 2 diabetes, metabolic syndrome, gout, dyslipidemia, chronic rhinitis, chronic atrial fibrillation, hypertension, thiamine deficiency, gallstones, right Achilles rupture, degenerative disc disease, neuropathy, iron deficiency anemia, cervical spinal stenosis, alcohol abuse who presented to the ED on 01/12/2025 with abdominal pain. Acute cholecystitis secondary to choledocholithiasis Patient presenting with abdominal pain and associated nausea x1 day CTAP revealed dilated gallbladder up to 10mm diameter containing numerous gallstones with pericholecystic inflammation and fluid, mild intrahepatic biliary ductal dilatation Received ceftriaxone and metronidazole in the ED -> continue GI consulted and planning for ERCP tomorrow NPO at midnight Pain control and antiemetics Elevated LFTs T bili 5.4 with direct 3.8 AST 302 and ALT 249 Alk phos 187 Secondary to cholecystitis as above Recent GI bleed Patient recently admitted for melena and GI bleed from 12/24-12/28/2024 s/p EGD on 12/25/2024 with multiple ulcers related to previous polypectomy, polypectomy site antrum appeared to be source of bleeding, adherent clot injected and coagulated and clipped closed, other polypectomy sites without stigmata of bleeding Continue pantoprazole, sucralfate, iron Atrial fibrillation EKG and residential monitor reveals RVR at rates of 115-130s Order IV Lopressor 5mg x1 Continue carvedilol at 12.5mg BID for now-> prior admission tried to increase dosing due to RVR but blood pressures did not tolerate Eliquis on hold for ERCP tomorrow Heart failure CTAP notes cardiomegaly with evidence of CHF and small pleural effusions Echo 12/25 showed LVEF 50-55%, severely dilated left atrium, mild MR, trace TR-> LA dilation worsened from previous in 2019 otherwise unchanged Patient denies SOB and is on RA Continue lasix per home regimen-> recently decreased from bid to daily due to low blood pressures Hypotension Holding amlodipine, hydralazine, benazepril since previous admission due to low blood pressures Monitor BPs DM II Hold home metformin BSG ACHS and SSI while inpatient Gout Continue allopurinol Hyperlipidemia Continue atorvastatin BPH Continue tamsulosin DVT Prophylaxis: SCDs while Eliquis on hold Code Status: FULL CODE - As per discussion at bedside with the patient. PCP: Eloy Mcgraw Disposition: admit to [facility] Patient seen in collaboration with Dr. Watson. Please see addendum. I spent a total of 70 minutes coordinating, documenting and providing care for this patient excluding time spent in the performance of separately billed services or time spent by another provider/QHP. Admission and Anticipated Discharge Date Admission Date: January 12, 2025 History of Present Illness Chief Complaint: abdominal pain Primary Care Provider: Eloy Mcgraw MD 74-year-old male with past medical history significant for type 2 diabetes, metabolic syndrome, gout, dyslipidemia, chronic rhinitis, chronic atrial fibrillation, hypertension, thiamine deficiency, gallstones, right Achilles rupture, degenerative disc disease, neuropathy, iron deficiency anemia, cervical spinal stenosis, alcohol abuse who presented to the ED on 01/12/2025 with abdominal pain. Patient reports he developed epigastric abdominal pain with radiation down into his lower quadrants with associated nausea yesterday. Given recent history of GI bleeding, he presented to the ED thinking he was having more bleeding. He denies any fevers, chills, chest pain, palpitations, SOB, vomiting, diarrhea, weakness. Continues to hold his blood pressure medications due to hypotension during prior admissions. BPs have been 112-138/70-92 at home. Allergies Allergy/AdvReac Type Severity Reaction Status Date / Time amoxicillin Allergy Intermediate Rash Verified 12/17/24 23:38 cephalexin [From Keflex] Allergy Unknown ON Verified 12/17/24 23:38 [facility] MED LIST Tetanus Vaccines and Toxoid AdvReac Intermediate FEVER 104F Verified 12/17/24 23:38 Home Medications Medication Instructions Recorded Confirmed Type allopurinol 100 mg tablet 100 mg PO QAM 01/12/19 12/24/24 History (Zyloprim) amlodipine 10 mg tablet (Norvasc) 10 mg PO HS 01/12/19 12/24/24 History atorvastatin 20 mg tablet (Lipitor) 20 mg PO QAM 01/12/19 12/24/24 History benazepril 40 mg tablet (Lotensin) 40 mg PO QAM 01/12/19 12/24/24 History cholecalciferol (vitamin D3) 25 1,000 unit PO QAM 01/12/19 12/24/24 History mcg (1,000 unit) capsule (Vitamin D3) cyanocobalamin (vitamin B-12) 1,000 mcg PO QAM 01/12/19 12/24/24 History 1,000 mcg tablet (Vitamin B-12) tadalafil 5 mg tablet (Cialis) 5 mg PO DIRECTED PRN Sexual 01/12/19 12/24/24 History Activity thiamine mononitrate (vit B1) 100 100 mg PO QAM 01/12/19 12/24/24 History mg tablet (Vitamin B-1 (mononitrate)) folic acid 1 mg tablet 1 mg PO QAM 01/16/19 12/24/24 History apixaban 5 mg tablet (Eliquis) 5 mg PO BID #60 tabs 02/26/20 12/24/24 Rx epinephrine 0.3 mg/0.3 mL 0.3 mg IM DIRECTED PRN 06/06/20 12/24/24 History injection, auto-injector (EpiPen) Anaphylaxis gabapentin 100 mg capsule 100 mg PO TID 06/06/20 12/24/24 History hydralazine 100 mg tablet 100 mg PO TID 06/06/20 12/24/24 History tamsulosin 0.4 mg capsule 0.4 mg PO HS 06/06/20 12/24/24 History carvedilol 12.5 mg tablet 12.5 mg PO BID 12/17/24 12/24/24 History metformin 1,000 mg tablet 1,000 mg PO BIDM 12/17/24 12/24/24 History omega 2-kuf-bus-fish oil 1,000 mg 1 cap PO DAILY 12/17/24 12/24/24 History (120 mg-180 mg) capsule (Fish Oil) pantoprazole 40 mg tablet,delayed 40 mg PO BID #60 tabs 12/19/24 12/24/24 Rx release sucralfate 1 gram tablet 1 g PO ACHS 4 weeks #28 tabs 12/19/24 12/24/24 Rx furosemide 20 mg tablet 20 mg PO DAILY #0 tabs 12/28/24 12/24/24 Rx magnesium oxide 400 mg PO DAILY #30 caps 12/28/24 Rx potassium chloride 10 mEq 10 meq PO DAILY #30 tabs 12/28/24 Rx tablet,extended release Past Med/Surg History Problem List (Updated 01/12/25 @ 14:44 by RONA De León) (HFpEF) heart failure with preserved ejection fraction Elevated LFTs Choledocholithiasis with acute cholecystitis Permanent atrial fibrillation Atrial fibrillation with rapid ventricular response (Acute) Persistent atrial fibrillation BPH (benign prostatic hyperplasia) Diabetes mellitus, type II (Chronic) Atrial fibrillation (Acute) Hypertension (Chronic) Gout Hyperlipidemia (Chronic) Medical History (Updated 01/12/25 @ 14:44 by RONA De León) DVT prophylaxis COVID-19 Near syncope Melena Hypomagnesemia Acute upper gastrointestinal bleeding Acute blood loss anemia Hypomagnesemia Hypokalemia Encounter for pre-operative examination Hematemesis GIB (gastrointestinal bleeding) On anticoagulant therapy GERD (gastroesophageal reflux disease) Atrial fibrillation new onset Hypertension Type 2 diabetes mellitus with diabetic polyneuropathy NIDDM Surgical History History of colonoscopy History of tonsillectomy S/P ORIF (open reduction internal fixation) fracture Left Ankle/Heel Family History Brother Prostate cancer Father Heart disease Brother Melanoma Social History Smoking Status: Current every day smoker Tobacco Type: Cigars Cigarettes Per Day: 5-7 cigars weekly; Second Hand Exposure: No; Do You Dip or Chew Tobacco: No; Hx Alcohol Use: Yes Alcohol type: hard liquor Hx Substance Use: No Preferred Language: Hungarian Communication Ability: Effective Visual Impairment: Limited Hearing Ability: Normal Plant Operator Control Room Operator Required: No Beliefs That Will Affect Care: None and Nondenominational marital status: Current Living Situation: Spouse Current Living Situation Comment: lives at home w/ current occupational status: employed Feels Safe at Home: Yes Assistive Devices: None Review of Systems Review of Systems: All systems reviewed & are unremarkable except as noted in HPI & below Physical Exam Physical Exam: General/Psych: WD/WN, sitting up in bed, NAD, conversing easily, euthymic affect Head: normocephalic, atraumatic Eyes: normal inspection, PERRL, conjunctivae pink, anicteric sclerae ENT: external ear and nose normal, oropharynx normal Neck: normal visual inspection, trachea midline Respiratory: normal respiratory effort, lungs with mild crackles in left lower base, no accessory muscle use Cardiovascular: irregularly irregular rate and rhythm, no murmur/rub/gallop Extremities: no cyanosis or clubbing, normal peripheral pulses, no BLE edema Abdomen/GI: normal bowel sounds, soft, nontender, negative Burkett's sign Neurologic/MSK: A+Ox3, motor strength 5/5, moves all extremities Skin: no rashes, warm and dry, +jaundiced Results & Data Results & Data Vital Signs (Past 12 Hours) Vital Signs Temp Pulse Pulse Resp BP BP Pulse Ox 01/12/25 12:00 122 H 12 151/107 H 98 01/12/25 11:00 105 H 14 153/96 H 93 01/12/25 10:31 122 H 18 98 01/12/25 10:05 122 H 01/12/25 09:44 18 01/12/25 09:44 36.6 C 138 H 18 122/84 97 O2 Del Method 01/12/25 12:00 Room Air 01/12/25 11:00 Room Air 01/12/25 10:31 Room Air 01/12/25 10:05 01/12/25 09:44 01/12/25 09:44 Laboratory Results Short CBC 01/12/25 Range/Units 10:22 WBC 4.79 L (4.8-10.8) K/ul Hgb 9.7 L (14.0-18.0) g/dl Hct 29.4 L (42.0-52.0) % Plt Count 135 (130-400) K/uL BMP 01/12/25 10:22 Sodium 137 Potassium 4.5 Chloride 104 Carbon Dioxide 23 BUN 14 Creatinine 1.45 H Glucose 140 H Calcium 9.0 Liver Function 01/12/25 Range/Units 10:22 Total Bilirubin 5.4 H (0.2-1.0) mg/dl Direct Bilirubin 3.8 H (0-0.2) mg/dl AST 302 H (13-39) U/L ALT 249 H (7-52) U/L Alkaline Phosphatase 187 H (34-104) U/L Albumin 3.7 (3.4-5.0) gm/dl Urine 01/12/25 Range/Units 10:47 Urine Color Dark Yellow Urine Appearance Clear (Clear) Urine pH 7.0 (4.5-7.5) Ur Specific [place] 1.012 (1.000-1.030) Urine Protein Trace H (Negative) Urine Glucose (UA) Negative (Negative) I have independently reviewed and interpreted patient's admitting labs including CBC, CMP, PTT, PT/INR, mag, troponin, lipase, UA Diagnostic Findings Chest X-Ray 01/12/25 10:18 XR chest 1V portable CLINICAL HISTORY: Chest pain, nonspecific COMPARISON STUDY: 12/24/2024 FINDINGS: Stable mild cardiomegaly with mild pulmonary vascular congestion. No consolidation or pleural effusion seen. No pneumothorax. IMPRESSION: Mild CHF. ACT 112: Negative or not required by law. Electronically signed by: Benjy Zaldivar M.D. 01/12/2025 10:34 AM Abdomen/Pelvis CT 01/12/25 11:35 CT SCAN OF THE ABDOMEN AND PELVIS WITH IV CONTRAST CLINICAL HISTORY: Generalized abdominal pain. COMPARISON STUDY: Prior abdominal CT scans, most recently dated 12/18/2024. TECHNIQUE: Following the IV administration of 93 cc of Optiray 320, CT scan of the abdomen and pelvis is performed from the lung bases to the proximal femora. Images are reviewed in the axial, sagittal, and coronal planes. IV contrast was administered without complication. A dose lowering technique was utilized adhering to the principles of ALARA. CT DOSE: 1406.25 mGy.cm FINDINGS: Lung bases: The heart is enlarged and without pericardial effusion. There are small pleural effusions with dependent atelectasis. Interlobular septal thickening in the lower lobes suggests fluid overload/congestive change. There i s a small hiatal hernia. Liver: The contrast-enhanced liver is normal in size, contour, and attenuation. There is mild intrahepatic biliary ductal dilatation. The hepatic veins and portal veins are patent. Gallbladder: The gallbladder is dilated, measuring up to 10 mm diameter and contains numerous gallstones. The gallbladder is mildly distended, and there is pericholecystic inflammation and fluid. Spleen: Normal in size and attenuation. Pancreas: Unremarkable. Adrenal glands: Unremarkable. Kidneys: The contrast enhanced kidneys are normal in size and without hydronephrosis. The kidneys enhance symmetrically. Bilateral renal cysts measure up to 5.3 cm. Abdominal vasculature: There is moderate to advanced atherosclerotic calcification and mild ectasia of the abdominal aorta. Bowel: There is moderate colonic diverticulosis without CT evidence of acute diverticulitis. No bowel obstruction is seen. The appendix is well-visualized and normal. There are numerous clips seen within the stomach.. Peritoneum: No intraperitoneal free air is identified. There is trace pelvic ascites. Lymphadenopathy: Mildly enlarged retroperitoneal lymph nodes are similar to previous. The largest node is seen on image #130 and measures 1.7 x 1.3 cm. Pelvic viscera: The prostate gland is enlarged and heterogeneous. The bladder wall appears thickened/trabeculated indicating chronic outlet obstruction. There are bilateral fat-containing inguinal hernias, right side larger than left. The right inguinal hernia also contains trace fluid. Skeletal structures: The skeletal structures are osteopenic. There is mild lumbosacral spondylosis. No lytic or blastic lesions are seen. IMPRESSION: 1. Choledocholithiasis with evidence of acute cholecystitis. 2. Cardiomegaly with evidence of fluid overload/congestive failure and small pleural effusions. 3. There is mild intrahepatic biliary ductal dilatation. 4. Colonic diverticulosis without CT evidence of acute diverticulitis. 5. Trace pelvic ascites. 6. Mildly enlarged retroperitoneal lymph nodes are nonspecific and similar to previous. These have only modestly increased in size dating back to 2016. 7. Additional findings as above. ACT 112: Negative or not required by law. Electronically signed by: Jani Bailey M.D. 01/12/2025 12:51 PM ECG Additional Comments: I have independently reviewed and interpreted patient's admitting EKG which revealed: A fib RVR with premature complexes at a rate of 125bpm Code Status & VTE Plan Code Status Full Code (5) Hypertension Hypertension type: essential hypertension Qualified Code(s): I10 - Essential (primary) hypertension (7) Gout Gout site: unspecified site Gout etiology: unspecified cause Chronicity: unspecified Qualified Code(s): M10.9 - Gout, unspecified (8) Hyperlipidemia Hyperlipidemia type: unspecified Qualified Code(s): E78.5 - Hyperlipidemia, unspecified
[2025-01-12] MEDS: cefTRIAXone SODIUM 2,000 MG/50 ML BAG IV STA (14:01)
--- NOTE | 2025-01-12 14:14 | Gastrointestinal Consultation ---
Date of Consultation January 12, 2025 Assessment & Plan (1) Choledocholithiasis with acute cholecystitis: Patient Plan Patient with new choledocholithiasis with acute cholecystitis. Currently, feeling better. Last dose of eliquis was 10pm on 01/11. - monitor labs. - will need to wait 48 hours before ERCP given eliquis usage. Will plan to have an ERCP on 01/14. - Further recommendations to come with Supervising GI provider on medical rounds. Please see co-signature comments. Supervising Physician Co-Signing Physician Notes I saw and examined this patient with our nurse practitioner and agree with her assessment and plan. Clinical picture consistent with biliary colic. Imaging demonstrates choledocholithiasis as well as cholelithiasis. No signs of cholangitis at the present time. Will need ERCP once Eliquis washout is completed tentative date January 14. May need to intervene sooner if develops signs of more significant infection. Continue empiric antibiotics. Monitor liver enzymes. History of Present Illness Reason for Consultation: choledocholithiasis Requesting Physician: ED History of Present Illness Patient is a 74 year old male with past medical history significant for type II diabetes, metabolic syndrome, gout, dyslipidemia, chronic rhinitis, chronic atrial fibrillation(on eliquis - last dose 10pm 01/11), hypertension, thiamine deficiency, gallstones, right Achilles rupture, degenerative disc disease, neuropathy, iron deficiency anemia, cervical spinal stenosis, alcohol abuse who presented to the ED on 01/12/2025 with complains of nausea and mid epigastric abdominal pain with bloating. he also notes yellowing of his skin and dark urine. Upon evaluation, he was found to have a stone in his bile duct as well as cholecystitis. he tells me nausea and pain is somewhat better since coming to the ED. The remainder of the GI ROS were unremarkable. 01/12/25 wbc 4.79, hgb 9.7, hct 29.4, plts 135, INR 1.2, Na 137, K 4.5, BUN 14, Cr 1.5, T bili 5.4, D bili 3.8, AST 302, ALT 249, ALK 187, lipase 55. CT 01/12/25 - 1. Choledocholithiasis with evidence of acute cholecystitis. 2. Cardiomegaly with evidence of fluid overload/congestive failure and small pleural effusions. 3. There is mild intrahepatic biliary ductal dilatation. 4. Colonic diverticulosis without CT evidence of acute diverticulitis. 5. Trace pelvic ascites. 6. Mildly enlarged retroperitoneal lymph nodes are nonspecific and similar to previous. These have only modestly increased in size dating back to 2016. Allergies Allergy/AdvReac Type Severity Reaction Status Date / Time amoxicillin Allergy Intermediate Rash Verified 01/12/25 15:04 cephalexin [From Keflex] Allergy Unknown ON Verified 01/12/25 15:04 [facility] Tetanus Vaccines and Toxoid AdvReac Intermediate FEVER 104F Verified 01/12/25 15:04 Home Medications Medication Instructions Recorded Confirmed Type allopurinol 100 mg tablet 100 mg PO QAM 01/12/19 01/12/25 History (Zyloprim) amlodipine 10 mg tablet (Norvasc) 10 mg PO HS 01/12/19 01/12/25 History atorvastatin 20 mg tablet (Lipitor) 20 mg PO QAM 01/12/19 01/12/25 History benazepril 40 mg tablet (Lotensin) 40 mg PO QAM 01/12/19 01/12/25 History cholecalciferol (vitamin D3) 25 1,000 unit PO QAM 01/12/19 01/12/25 History mcg (1,000 unit) capsule (Vitamin D3) cyanocobalamin (vitamin B-12) 1,000 mcg PO QAM 01/12/19 01/12/25 History 1,000 mcg tablet (Vitamin B-12) tadalafil 5 mg tablet (Cialis) 5 mg PO DIRECTED PRN Sexual 01/12/19 01/12/25 History Activity thiamine mononitrate (vit B1) 100 100 mg PO QAM 01/12/19 01/12/25 History mg tablet (Vitamin B-1 (mononitrate)) folic acid 1 mg tablet 1 mg PO QAM 01/16/19 01/12/25 History apixaban 5 mg tablet (Eliquis) 5 mg PO BID #60 tabs 02/26/20 01/12/25 Rx epinephrine 0.3 mg/0.3 mL 0.3 mg IM DIRECTED PRN 06/06/20 01/12/25 History injection, auto-injector (EpiPen) Anaphylaxis gabapentin 100 mg capsule 100 mg PO TID 06/06/20 01/12/25 History hydralazine 100 mg tablet 100 mg PO TID 06/06/20 01/12/25 History tamsulosin 0.4 mg capsule 0.4 mg PO HS 06/06/20 01/12/25 History carvedilol 12.5 mg tablet 12.5 mg PO BID 12/17/24 01/12/25 History metformin 1,000 mg tablet 1,000 mg PO BIDM 12/17/24 01/12/25 History omega 9-nyk-mdi-fish oil 1,000 mg 1 cap PO DAILY 12/17/24 01/12/25 History (120 mg-180 mg) capsule (Fish Oil) pantoprazole 40 mg tablet,delayed 40 mg PO BID #60 tabs 12/19/24 01/12/25 Rx release sucralfate 1 gram tablet 1 g PO ACHS 4 weeks #28 tabs 12/19/24 01/12/25 Rx furosemide 20 mg tablet 20 mg PO DAILY #0 tabs 12/28/24 01/12/25 Rx magnesium oxide 400 mg PO DAILY #30 caps 12/28/24 01/12/25 Rx ferrous sulfate 325 mg (65 mg 325 mg PO UD 01/12/25 01/12/25 History iron) tablet Patient History Medical History (Updated 01/12/25 @ 14:44 by RONA De León) DVT prophylaxis COVID-19 Near syncope Melena Hypomagnesemia Acute upper gastrointestinal bleeding Acute blood loss anemia Hypomagnesemia Hypokalemia Encounter for pre-operative examination Hematemesis GIB (gastrointestinal bleeding) On anticoagulant therapy GERD (gastroesophageal reflux disease) Atrial fibrillation new onset Hypertension Type 2 diabetes mellitus with diabetic polyneuropathy NIDDM Surgical History History of colonoscopy History of tonsillectomy S/P ORIF (open reduction internal fixation) fracture Left Ankle/Heel Family History Brother Prostate cancer Father Heart disease Brother Melanoma Social History Smoking Status: Current every day smoker Tobacco Type: Cigars Cigarettes Per Day: 5-7 cigars weekly; Second Hand Exposure: No; Do You Dip or Chew Tobacco: No; Hx Alcohol Use: Yes Alcohol type: hard liquor Hx Substance Use: No Preferred Language: Malay Communication Ability: Effective Visual Impairment: Limited Hearing Ability: Normal Weight Control Lecturer Required: No Beliefs That Will Affect Care: None and Sabianism marital status: Current Living Situation: Spouse Current Living Situation Comment: lives at home w/ current occupational status: employed Feels Safe at Home: Yes Assistive Devices: None Review of Systems Review of Systems: All systems reviewed & are unremarkable except as noted in HPI & below Physical Exam Constitutional: WD/WN, vitals as above Respiratory: normal respiratory effort, lungs clear to auscultation Cardiovascular: Rate/Rhythm: regular rate and regular rhythm Gastrointestinal (Abdomen): normal bowel sounds, soft, nontender, no hepatosplenomegaly Skin: jaundiced. Psychiatric: Orientation: alert and oriented x 3 Affect: euthymic affect Results & Data Vital Signs (Past 12 Hours) Vital Signs Temp Pulse Pulse Resp BP BP Pulse Ox 01/12/25 13:00 111 H 14 134/85 99 01/12/25 12:00 122 H 12 151/107 H 98 01/12/25 11:00 105 H 14 153/96 H 93 01/12/25 10:31 122 H 18 98 01/12/25 10:05 122 H 01/12/25 09:44 18 01/12/25 09:44 97.9 F 138 H 18 122/84 97 O2 Del Method 01/12/25 13:00 Room Air 01/12/25 12:00 Room Air 01/12/25 11:00 Room Air 01/12/25 10:31 Room Air 01/12/25 10:05 01/12/25 09:44 01/12/25 09:44 Laboratory Results Laboratory Results - last 48 hr 01/12/25 01/12/25 01/12/25 10:22 10:29 10:47 WBC 4.79 L RBC 3.22 L Hgb 9.7 L POC Hgb 10.2 L Hct 29.4 L POC Hct 30 L MCV 91.3 MCH 30.1 MCHC 33.0 RDW Std Deviation 47.7 H RDW Coeff of [place] 14.2 Plt Count 135 MPV 10.4 Immature Gran % (Auto) 0.6 Neut % (Auto) 76.4 Lymph % (Auto) 10.9 [place] % (Auto) 9.2 Eos % (Auto) 2.7 Baso % (Auto) 0.2 Neut # (Auto) 3.66 Lymph # (Auto) 0.52 L [place] # (Auto) 0.44 Eos # (Auto) 0.13 Baso # (Auto) 0.01 Immature Gran # (Auto) 0.03 PT 13.0 H INR 1.2 H POC Sodium 139 Sodium 137 POC Potassium 4.7 Potassium 4.5 POC Chloride 105 Chloride 104 Carbon Dioxide 23 POC Total CO2 24 Anion Gap 10 POC Anion Gap 15.0 L POC BUN 14 BUN 14 Creatinine 1.45 H POC Creatinine 1.5 H Est Cr Clr Drug Dosing 50.8 eGFR 50.57 BUN/Creatinine Ratio 9.7 L Glucose 140 H POC Glucose (other) 137 H Calcium 9.0 POC Ioniz Calcium Ko 1.08 L Magnesium 1.8 Total Bilirubin 5.4 H Direct Bilirubin 3.8 H AST 302 H ALT 249 H Alkaline Phosphatase 187 H Troponin I High Sens 14.6 Total Protein 6.8 Albumin 3.7 Globulin 3.1 Albumin/Globulin Ratio 1.2 Lipase 55 Urine Color Dark Yellow Urine Appearance Clear Urine pH 7.0 Ur Specific [place] 1.012 Urine Protein Trace H Urine Glucose (UA) Negative Urine Ketones Negative Urine Blood Trace H Urine Nitrite Negative Urine Bilirubin 1+ H Urine Urobilinogen Negative Ur Leukocyte Esterase 2+ H Urine WBC (Auto) >50 H Urine RBC (Auto) 3-5 H U Hyaline Cast (Auto) 0-2 U Epithel Cells (Auto) 0-2 Urine Bacteria (Auto) 2+ H Urine Comment Diagnostic Findings Chest X-Ray 01/12/25 10:18 XR chest 1V portable CLINICAL HISTORY: Chest pain, nonspecific COMPARISON STUDY: 12/24/2024 FINDINGS: Stable mild cardiomegaly with mild pulmonary vascular congestion. No consolidation or pleural effusion seen. No pneumothorax. IMPRESSION: Mild CHF. ACT 112: Negative or not required by law. Electronically signed by: Benjy Zaldivar M.D. 01/12/2025 10:34 AM Abdomen/Pelvis CT 01/12/25 11:35 CT SCAN OF THE ABDOMEN AND PELVIS WITH IV CONTRAST CLINICAL HISTORY: Generalized abdominal pain. COMPARISON STUDY: Prior abdominal CT scans, most recently dated 12/18/2024. TECHNIQUE: Following the IV administration of 93 cc of Optiray 320, CT scan of the abdomen and pelvis is performed from the lung bases to the proximal femora. Images are reviewed in the axial, sagittal, and coronal planes. IV contrast was administered without complication. A dose lowering technique was utilized adhering to the principles of ALARA. CT DOSE: 1406.25 mGy.cm FINDINGS: Lung bases: The heart is enlarged and without pericardial effusion. There are small pleural effusions with dependent atelectasis. Interlobular septal thickening in the lower lobes suggests fluid overload/congestive change. There is a small hiatal hernia. Liver: The contrast-enhanced liver is normal in size, contour, and attenuation. There is mild intrahepatic biliary ductal dilatation. The hepatic veins and portal veins are patent. Gallbladder: The gallbladder is dilated, measuring up to 10 mm diameter and contains numerous gallstones. The gallbladder is mildly distended, and there is pericholecystic inflammation and fluid. Spleen: Normal in size and attenuation. Pancreas: Unremarkable. Adrenal glands: Unremarkable. Kidneys: The contrast enhanced kidneys are normal in size and without hydronephrosis. The kidneys enhance symmetrically. Bilateral renal cysts measure up to 5.3 cm. Abdominal vasculature: There is moderate to advanced atherosclerotic calcif ication and mild ectasia of the abdominal aorta. Bowel: There is moderate colonic diverticulosis without CT evidence of acute diverticulitis. No bowel obstruction is seen. The appendix is well-visualized and normal. There are numerous clips seen within the stomach.. Peritoneum: No intraperitoneal free air is identified. There is trace pelvic ascites. Lymphadenopathy: Mildly enlarged retroperitoneal lymph nodes are similar to previous. The largest node is seen on image #130 and measures 1.7 x 1.3 cm. Pelvic viscera: The prostate gland is enlarged and heterogeneous. The bladder wall appears thickened/trabeculated indicating chronic outlet obstruction. There are bilateral fat-containing inguinal hernias, right side larger than left. The right inguinal hernia also contains trace fluid. Skeletal structures: The skeletal structures are osteopenic. There is mild lumbosacral spondylosis. No lytic or blastic lesions are seen. IMPRESSION: 1. Choledocholithiasis with evidence of acute cholecystitis. 2. Cardiomegaly with evidence of fluid overload/congestive failure and small pleural effusions. 3. There is mild intrahepatic biliary ductal dilatation. 4. Colonic diverticulosis without CT evidence of acute diverticulitis. 5. Trace pelvic ascites. 6. Mildly enlarged retroperitoneal lymph nodes are nonspecific and similar to previous. These have only modestly increased in size dating back to 2016. 7. Additional findings as above. ACT 112: Negative or not required by law. Electronically signed by: Jani Bailey M.D. 01/12/2025 12:51 PM Coding Level of Care Code 51742 INT INP/OBS CARE Diagnoses Choledocholithiasis with acute cholecystitis K80.42
[2025-01-12] MEDS: metroNIDAZOLE 500 MG/100 ML BAG IV STA (15:08)
[2025-01-12] MEDS: METOPROLOL TARTRATE 1 MG/ML VIAL IV STA (15:08)
[2025-01-12] MEDS ORDERED: GLUCOSE 40% GEL 15 GM TUBE PO PRN (17:10)
[2025-01-12] MEDS ORDERED: GLUCOSE 10 TAB/TUBE PO PRN (17:10)
[2025-01-12] MEDS ORDERED: CARBOHYDRATES FOR HYPOGLYCEMIA PO PRN (17:10)
[2025-01-12] MEDS ORDERED: DEXTROSE 50% 50 ML SYRINGE IV PRN (17:10)
[2025-01-12] MEDS ORDERED: MoRPHine SULFATE 4 MG/ML 1 ML CARP\\VIAL IV PRN (17:10)
[2025-01-12] MEDS ORDERED: ACETAMINOPHEN 500 MG TAB PO PRN (17:10)
[2025-01-12] MEDS ORDERED: GLUCAGON FOR INJ 1 MG VIAL SQ PRN (17:10)
[2025-01-12] MEDS: SUCRALFATE 1 GM TAB PO SCH (18:04)
[2025-01-12] MEDS: INSULIN ASPART PER UNIT CHARGE SC SCH (18:04)
[2025-01-12] MEDS: GABAPENTIN 100 MG CAP PO SCH (21:06)
[2025-01-12] MEDS: TAMSULOSIN HCL 0.4 MG CAP PO SCH (21:06)
[2025-01-12] MEDS: FERROUS SULFATE 325 MG TAB PO SCH (21:06)
[2025-01-12] MEDS: metroNIDAZOLE 500 MG/100 ML BAG IV SCH (23:04)
[2025-01-13 06:42] LABS: Hematocrit (blood only) 26.9 % (42.0-52.0); Hemoglobin 8.7 g/dl (14.0-18.0); Mean Corpuscular Hemoglobin 29.8 pg (25.0-34.0); Mean Corpuscular Volume 92.1 fL (80.0-100.0); Platelet Count 109 K/uL (130-400); RDW Standard Deviation 48.4 fL (36.4-46.3); Red Blood Count 2.92 M/uL (4.70-6.10); White Blood Count 4.07 K/ul (4.8-10.8)
[2025-01-13 07:08] LABS: Alanine Aminotransferase 189.0 U/L (7-52); Albumin Globulin Ratio 1.2 (0.9-2); Albumin Level 3.3 gm/dl (3.4-5.0); Alkaline Phosphatase 159.0 U/L (34-104); Anion Gap 8.0 (3-11); Bilirubin,Total 4.4 mg/dl (0.2-1.0); Blood Urea Nitrogen 14.0 mg/dl (6-23); Calcium 8.5 mg/dl (8.6-10.3); Carbon Dioxide 25.0 mmol/L (21-32); Chloride 106.0 mmol/L (98-107); Creatinine Clr Calc Pharmacy 45.0 ml/min; Globulin 2.8 gm/dl (2.5-4.0); Glucose 110.0 mg/dl (70-99(Fasting)); Magnesium 1.9 mg/dl (1.7-2.4); Potassium 4.1 mmol/L (3.5-5.1); Sodium 139.0 mmol/L (136-145); Total Protein 6.1 gm/dl (6.0-8.3)
[2025-01-13] MEDS: CYANOCOBALAMIN (B-12) 500 MCG TABLET PO SCH (08:05)
[2025-01-13] MEDS: CHOLECALCIFEROL 25 MCG (1000 UNITS) TAB PO SCH (08:05)
[2025-01-13] MEDS: FUROSEMIDE 20 MG TAB PO SCH (08:05)
[2025-01-13] MEDS: cefTRIAXone SODIUM 2,000 MG/50 ML BAG IV SCH (08:05)
[2025-01-13] MEDS: MAGNESIUM OXIDE 400 MG TAB PO SCH (08:05)
[2025-01-13] MEDS: ATORVASTATIN 20 MG TAB PO SCH (08:05)
[2025-01-13] MEDS: THIAMINE HCL 100 MG TAB PO SCH (08:05)
[2025-01-13] MEDS: FOLIC ACID 1 MG TAB PO SCH (08:05)
--- NOTE | 2025-01-13 09:14 | Hospitalist Progress Note ---
Date of Service January 13, 2025 Assessment & Plan (1) Choledocholithiasis with acute cholecystitis: (2) Elevated LFTs: (3) Permanent atrial fibrillation: (4) (HFpEF) heart failure with preserved ejection fraction: (5) Hypertension: (6) Diabetes mellitus, type II: (7) Gout: (8) Hyperlipidemia: (9) BPH (benign prostatic hyperplasia): Plan Per admitting provider w/addendum: 74-year-old male with past medical history significant for type 2 diabetes, metabolic syndrome, gout, dyslipidemia, chronic rhinitis, chronic atrial fibrillation, hypertension, thiamine deficiency, gallstones, right Achilles rupture, degenerative disc disease, neuropathy, iron deficiency anemia, cervical spinal stenosis, alcohol abuse who presented to the ED on 01/12/2025 with abdominal pain. Acute cholecystitis secondary to choledocholithiasis Patient presenting with abdominal pain and associated nausea day CTAP revealed dilated gallbladder up to 10mm diameter containing numerous gallstones with pericholecystic inflammation and fluid, mild intrahepatic biliary ductal dilatation Received ceftriaxone and metronidazole in the ED -> continue GI consulted and planning for ERCP tomorrow (01/14) NPO at midnight Pain control and antiemetics Gen surgery consulted and discussed with - likely for cholecystectomy on Saturday Elevated LFTs T bili 5.4 with direct 3.8 AST 302 and ALT 249 Alk phos 187 Secondary to cholecystitis as above LFTs improved, cont. to monitor Recent GI bleed Patient recently admitted for melena and GI bleed from 12/24-12/28/2024 s/p EGD on 12/25/2024 with multiple ulcers related to previous polypectomy, polypectomy site antrum appeared to be source of bleeding, adherent clot injected and coagulated and clipped closed, other polypectomy sites without stigmata of bleeding Continue pantoprazole, sucralfate, iron Atrial fibrillation EKG and cardiac cath lab technologist reveals RVR at rates of 115-130s Order IV Lopressor 5mg x1 Continue carvedilol at 12.5mg BID for now-> prior admission tried to increase dosing due to RVR but blood pressures did not tolerate Eliquis on hold for ERCP tomorrow Heart failure CTAP notes cardiomegaly with evidence of CHF and small pleural effusions Echo 12/25 showed LVEF 50-55%, severely dilated left atrium, mild MR, trace TR-> LA dilation worsened from previous in 2019 otherwise unchanged Patient denies SOB and is on RA Continue lasix per home regimen-> recently decreased from bid to daily due to low blood pressures Hypotension Holding amlodipine, hydralazine, benazepril since previous admission due to low blood pressures Monitor BPs Current BP 160/93, cont. to monitor DM II Hold home metformin BSG ACHS and SSI while inpatient Gout Continue allopurinol Hyperlipidemia Continue atorvastatin BPH Continue tamsulosin DVT Prophylaxis: SCDs while Eliquis on hold Code Status: FULL CODE - As per discussion at bedside with the patient. PCP: Dr. Eloy Mcgraw Disposition: med tele Admission and Anticipated Discharge Date Admission Date: January 12, 2025 Subjective Pt seen in follow up of cholecystitis, choledocholithiasis Eliquis on hold Currently sitting up in bed in NAD, overall says he feels well, much better from yesterday Pt's present at the bedside and also provides history Pt had chills yesterday and nausea, abd. discomfort. Recently was hospitalized here for GI bleed so was concerned if that was happening to him again. Review of Systems Review of Systems: All systems reviewed & are unremarkable except as noted in Subjective Physical Exam Physical Exam: General/Psych: WD/WN, sitting up in bed, NAD, conversing easily Head: normocephalic, atraumatic Eyes: normal inspection, PERRL ENT: external ear and nose normal, oropharynx normal Neck: normal visual inspection Respiratory: normal respiratory effort, lungs with mild crackles in left lower base, no accessory muscle use Cardiovascular: irregularly irregular rate and rhythm, no murmur/rub/gallop Extremities: no BLE edema, moves extremities Abdomen/GI: normal bowel sounds, soft, nontender, negative Burkett's sign Neurologic/MSK: A+Ox3, answers appropriately, speech fluent, moves all extremities Skin: no rashes, warm and dry, +jaundiced Results & Data Results & Data Vital Signs (Past 12 Hours) Vital Signs Temp Pulse Pulse Resp BP Pulse Ox O2 Del Method 01/13/25 07:44 36.7 C 107 H 18 160/93 H 96 Room Air 01/13/25 03:19 36.7 C 107 H 18 135/94 96 Room Air 01/12/25 23:11 36.9 C 110 H 18 151/99 H 93 Room Air 01/12/25 21:54 113 H Laboratory Results 01/13/25 01/13/25 01/12/25 Range/Units 07:57 06:21 21:15 WBC 4.07 L (4.8-10.8) K/ul RBC 2.92 L (4.70-6.10) M/uL Hgb 8.7 L (14.0-18.0) g/dl POC Hgb (14.0-18.0) g/dl Hct 26.9 L (42.0-52.0) % POC Hct (42-52) % MCV 92.1 (80.0-100.0) fL MCH 29.8 (25.0-34.0) pg MCHC 32.3 (32.0-36.0) g/dL RDW Std Deviation 48.4 H (36.4-46.3) fL RDW Coeff of Riley 14.5 (11.5-14.5) % Plt Count 109 L (130-400) K/uL MPV 10.4 (9.4-12.4) fL Immature Gran % (Auto) % Neut % (Auto) % Lymph % (Auto) % [place] % (Auto) % Eos % (Auto) % Baso % (Auto) % Neut # (Auto) (1.40-6.50) K/uL Lymph # (Auto) (1.20-3.40) K/uL [place] # (Auto) (0.11-0.59) K/uL Eos # (Auto) (0.00-0.50) K/uL Baso # (Auto) (0.00-0.20) K/uL Immature Gran # (Auto) (0.01-0.20) K/uL PT (9.0-12.0) Seconds INR (0.9-1.1) POC Sodium (135-144) mmol/L Sodium 139 (136-145) mmol/L POC Potassium (3.3-5.0) mmol/L Potassium 4.1 (3.5-5.1) mmol/L POC Chloride (101-112) mmol/L Chloride 106 (98-107) mmol/L Carbon Dioxide 25 (21-32) mmol/L POC Total CO2 (24-31) mmol/L Anion Gap 8 (3-11) POC Anion Gap (16-25) mmol/L POC BUN (7-18) mg/dl BUN 14 (6-23) mg/dl Creatinine 1.61 H (0.6-1.4) mg/dl POC Creatinine (0.6-1.3) mg/dl Est Cr Clr Drug Dosing 45.0 ml/min eGFR 44.60 BUN/Creatinine Ratio 8.7 L (10-20) Glucose 110 H (70-99(Fasting)) mg/dl POC Glucose 115 H 126 H (70-99) mg/dl POC Glucose (other) (70-99) mg/dl Calcium 8.5 L (8.6-10.3) mg/dl POC Ioniz Calcium Ko (1.12-1.32) mmol/l Magnesium 1.9 (1.7-2.4) mg/dl Total Bilirubin 4.4 H (0.2-1.0) mg/dl Direct Bilirubin (0-0.2) mg/dl AST 170 H (13-39) U/L ALT 189 H (7-52) U/L Alkaline Phosphatase 159 H (34-104) U/L Troponin I High Sens (0-20) pg/ml Total Protein 6.1 (6.0-8.3) gm/dl Albumin 3.3 L (3.4-5.0) gm/dl Globulin 2.8 (2.5-4.0) gm/dl Albumin/Globulin Ratio 1.2 (0.9-2) Lipase (11-82) U/L Urine Color Urine Appearance (Clear) Urine pH (4.5-7.5) Ur Specific [place] (1.000-1.030) Urine Protein (Negative) Urine Glucose (UA) (Negative) Urine Ketones (Negative) Urine Blood (Negative) Urine Nitrite (Negative) Urine Bilirubin (Negative) Urine Urobilinogen (Negative) Ur Leukocyte Esterase (Negative) Urine WBC (Auto) (0-5) /hpf Urine RBC (Auto) (0-2) /hpf U Hyaline Cast (Auto) (0-2) /lpf U Epithel Cells (Auto) (0-2) /hpf Urine Bacteria (Auto) (None Seen) Urine Comment 01/12/25 01/12/25 01/12/25 Range/Units 17:15 10:47 10:29 WBC (4.8-10.8) K/ul RBC (4.70-6.10) M/uL Hgb (14.0-18.0) g/dl POC Hgb 10.2 L (14.0-18.0) g/dl Hct (42.0-52.0) % POC Hct 30 L (42-52) % MCV (80.0-100.0) fL MCH (25.0-34.0) pg MCHC (32.0-36.0) g/dL RDW Std Deviation (36.4-46.3) fL RDW Coeff of Riley (11.5-14.5) % Plt Count (130-400) K/uL MPV (9.4-12.4) fL Immature Gran % (Auto) % Neut % (Auto) % Lymph % (Auto) % [place] % (Auto) % Eos % (Auto) % Baso % (Auto) % Neut # (Auto) (1.40-6.50) K/uL Lymph # (Auto) (1.20-3.40) K/uL [place] # (Auto) (0.11-0.59) K/uL Eos # (Auto) (0.00-0.50) K/uL Baso # (Auto) (0.00-0.20) K/uL Immature Gran # (Auto) (0.01-0.20) K/uL PT (9.0-12.0) Seconds INR (0.9-1.1) POC Sodium 139 (135-144) mmol/L Sodium (136-145) mmol/L POC Potassium 4.7 (3.3-5.0) mmol/L Potassium (3.5-5.1) mmol/L POC Chloride 105 (101-112) mmol/L Chloride (98-107) mmol/L Carbon Dioxide (21-32) mmol/L POC Total CO2 24 (24-31) mmol/L Anion Gap (3-11) POC Anion Gap 15.0 L (16-25) mmol/L POC BUN 14 (7-18) mg/dl BUN (6-23) mg/dl Creatinine (0.6-1.4) mg/dl POC Creatinine 1.5 H (0.6-1.3) mg/dl Est Cr Clr Drug Dosing ml/min eGFR BUN/Creatinine Ratio (10-20) Glucose (70-99(Fasting)) mg/dl POC Glucose 122 H (70-99) mg/dl POC Glucose (other) 137 H (70-99) mg/dl Calcium (8.6-10.3) mg/dl POC Ioniz Calcium Ko 1.08 L (1.12-1.32) mmol/l Magnesium (1.7-2.4) mg/dl Total Bilirubin (0.2-1.0) mg/dl Direct Bilirubin (0-0.2) mg/dl AST (13-39) U/L ALT (7-52) U/L Alkaline Phosphatase (34-104) U/L Troponin I High Sens (0-20) pg/ml Total Protein (6.0-8.3) gm/dl Albumin (3.4-5.0) gm/dl Globulin (2.5-4.0) gm/dl Albumin/Globulin Ratio (0.9-2) Lipase (11-82) U/L Urine Color Dark Yellow Urine Appearance Clear (Clear) Urine pH 7.0 (4.5-7.5) Ur Specific [place] 1.012 (1.000-1.030) Urine Protein Trace H (Negative) Urine Glucose (UA) Negative (Negative) Urine Ketones Negative (Negative) Urine Blood Trace H (Negative) Urine Nitrite Negative (Negative) Urine Bilirubin 1+ H (Negative) Urine Urobilinogen Negative (Negative) Ur Leukocyte Esterase 2+ H (Negative) Urine WBC (Auto) >50 H (0-5) /hpf Urine RBC (Auto) 3-5 H (0-2) /hpf U Hyaline Cast (Auto) 0-2 (0-2) /lpf U Epithel Cells (Auto) 0-2 (0-2) /hpf Urine Bacteria (Auto) 2+ H (None Seen) Urine Comment 01/12/25 Range/Units 10:22 WBC 4.79 L (4.8-10.8) K/ul RBC 3.22 L (4.70-6.10) M/uL Hgb 9.7 L (14.0-18.0) g/dl POC Hgb (14.0-18.0) g/dl Hct 29.4 L (42.0-52.0) % POC Hct (42-52) % MCV 91.3 (80.0-100.0) fL MCH 30.1 (25.0-34.0) pg MCHC 33.0 (32.0-36.0) g/dL RDW Std Deviation 47.7 H (36.4-46.3) fL RDW Coeff of Riley 14.2 (11.5-14.5) % Plt Count 135 (130-400) K/uL MPV 10.4 (9.4-12.4) fL Immature Gran % (Auto) 0.6 % Neut % (Auto) 76.4 % Lymph % (Auto) 10.9 % [place] % (Auto) 9.2 % Eos % (Auto) 2.7 % Baso % (Auto) 0.2 % Neut # (Auto) 3.66 (1.40-6.50) K/uL Lymph # (Auto) 0.52 L (1.20-3.40) K/uL [place] # (Auto) 0.44 (0.11-0.59) K/uL Eos # (Auto) 0.13 (0.00-0.50) K/uL Baso # (Auto) 0.01 (0.00-0.20) K/uL Immature Gran # (Auto) 0.03 (0.01-0.20) K/uL PT 13.0 H (9.0-12.0) Seconds INR 1.2 H (0.9-1.1) POC Sodium (135-144) mmol/L Sodium 137 (136-145) mmol/L POC Potassium (3.3-5.0) mmol/L Potassium 4.5 (3.5-5.1) mmol/L POC Chloride (101-112) mmol/L Chloride 104 (98-107) mmol/L Carbon Dioxide 23 (21-32) mmol/L POC Total CO2 (24-31) mmol/L Anion Gap 10 (3-11) POC Anion Gap (16-25) mmol/L POC BUN (7-18) mg/dl BUN 14 (6-23) mg/dl Creatinine 1.45 H (0.6-1.4) mg/dl POC Creatinine (0.6-1.3) mg/dl Est Cr Clr Drug Dosing 50.8 ml/min eGFR 50.57 BUN/Creatinine Ratio 9.7 L (10-20) Glucose 140 H (70-99(Fasting)) mg/dl POC Glucose (70-99) mg/dl POC Glucose (other) (70-99) mg/dl Calcium 9.0 (8.6-10.3) mg/dl POC Ioniz Calcium Ko (1.12-1.32) mmol/l Magnesium 1.8 (1.7-2.4) mg/dl Total Bilirubin 5.4 H (0.2-1.0) mg/dl Direct Bilirubin 3.8 H (0-0.2) mg/dl AST 302 H (13-39) U/L ALT 249 H (7-52) U/L Alkaline Phosphatase 187 H (34-104) U/L Troponin I High Sens 14.6 (0-20) pg/ml Total Protein 6.8 (6.0-8.3) gm/dl Albumin 3.7 (3.4-5.0) gm/dl Globulin 3.1 (2.5-4.0) gm/dl Albumin/Globulin Ratio 1.2 (0.9-2) Lipase 55 (11-82) U/L Urine Color Urine Appearance (Clear) Urine pH (4.5-7.5) Ur Specific [place] (1.000-1.030) Urine Protein (Negative) Urine Glucose (UA) (Negative) Urine Ketones (Negative) Urine Blood (Negative) Urine Nitrite (Negative) Urine Bilirubin (Negative) Urine Urobilinogen (Negative) Ur Leukocyte Esterase (Negative) Urine WBC (Auto) (0-5) /hpf Urine RBC (Auto) (0-2) /hpf U Hyaline Cast (Auto) (0-2) /lpf U Epithel Cells (Auto) (0-2) /hpf Urine Bacteria (Auto) (None Seen) Urine Comment Medications Administered Current Inpatient Medications Acetaminophen (Acetaminophen 500 Mg Tab) 1,000 mg PO Q8 PRN PRN Reason: Mild Pain (Scale 1, 2, 3) Stop: 02/11/25 17:09 Allopurinol (Allopurinol 100 Mg Tab) 100 mg PO [facility] Stop: 02/12/25 08:59 Last Admin: 01/13/25 08:05 Dose: 100 mg Atorvastatin Calcium (Atorvastatin 20 Mg Tab) 20 mg PO [facility] Stop: 02/12/25 08:59 Last Admin: 01/13/25 08:05 Dose: 20 mg Carvedilol (Carvedilol 12.5 Mg Tab) 12.5 mg PO BID [facility] Stop: 02/11/25 20:59 Last Admin: 01/13/25 08:05 Dose: 12.5 mg Cyanocobalamin (Cyanocobalamin (B-12) 500 Mcg Tablet) 1,000 mcg PO QAM [facility] Stop: 02/12/25 08:59 Last Admin: 01/13/25 08:05 Dose: 1,000 mcg Dextrose (Dextrose 50% 50 Ml Syringe) 25 - 50 ml IV UD PRN; Protocol PRN Reason: Hypoglycemia Protocol Stop: 02/11/25 17:09 Ferrous Sulfate (Ferrous Sulfate 325 Mg Tab) 325 mg PO Q2D@2100 [facility] Stop: 02/11/25 20:59 Last Admin: 01/12/25 21:06 Dose: 325 mg Folic Acid (Folic Acid 1 Mg Tab) 1 mg PO QAM [facility] Stop: 02/12/25 08:59 Last Admin: 01/13/25 08:05 Dose: 1 mg Furosemide (Furosemide 20 Mg Tab) 20 mg PO DAILY [facility] Stop: 02/12/25 08:59 Last Admin: 01/13/25 08:05 Dose: 20 mg Gabapentin (Gabapentin 100 Mg Cap) 100 mg PO TID [facility] Stop: 02/11/25 20:59 Last Admin: 01/13/25 08:05 Dose: 100 mg Glucagon (Glucagon For Inj 1 Mg Vial) 1 mg SQ UD PRN; Protocol PRN Reason: Hypoglycemia Protocol Stop: 02/11/25 17:09 Glucose (Glucose 40% Gel 15 Gm Tube) 15 - 30 gm PO UD PRN; Protocol PRN Reason: Hypoglycemia Protocol Stop: 02/11/25 17:09 Glucose (Glucose 10 Tab/Tube) 4 - 8 tab PO UD PRN; Protocol PRN Reason: Hypoglycemia Protocol Stop: 02/11/25 17:09 Ceftriaxone Sodium (Rocephin) 2,000 mg in 50 mls @ 100 mls/hr IV Q24H [facility] Stop: 01/23/25 07:59 Last Admin: 01/13/25 08:05 Dose: 100 mls/hr Metronidazole (Flagyl) 500 mg in 100 mls @ 100 mls/hr IV Q8H [facility]; Protocol Stop: 01/22/25 22:59 Last Infusion: 01/13/25 07:41 Dose: Infused Insulin Aspart (Insulin Aspart Per Unit Charge) 0 units SC [facility] Stop: 02/11/25 17:09 Last Admin: 01/13/25 08:57 Dose: Not Given Magnesium Oxide (Magnesium Oxide 400 Mg Tab) 400 mg PO DAILY [facility] Stop: 02/12/25 08:59 Last Admin: 01/13/25 08:05 Dose: 400 mg Miscellaneous (Carbohydrates For Hypoglycemia ) 15 - 30 gm PO UD PRN PRN Reason: Hypoglycemia Protocol Stop: 02/11/25 17:09 Morphine Sulfate (Morphine Sulfate 4 Mg/Ml 1 Ml Carp\Vial) 2 mg IV Q4 PRN PRN Reason: Mod-Sev Pain (Scale 4-10) Stop: 01/26/25 17:09 Ondansetron HCl (Ondansetron Inj 2 Mg/Ml 2 Ml Vial) 4 mg IV Q6H PRN PRN Reason: Nausea Stop: 02/11/25 17:09 Oxycodone HCl (Oxycodone Hcl Ir 5 Mg Tab (Immediate Release)) 5 mg PO Q4 PRN PRN Reason: Mod-Sev Pain (Scale 4-10) Stop: 01/26/25 17:09 Pantoprazole Sodium (Pantoprazole 40 Mg Tab) 40 mg PO BID [facility] Stop: 02/11/25 20:59 Last Admin: 01/13/25 08:05 Dose: 40 mg Pneumococcal 20-Valent Conj Vacc (Pneumococcal Vaccine (Pcv20) 20-Genia Conj-Dip Crm/Pf 0.5 Ml Syr) 0.5 ml IM .ONCE ONE Stop: 01/15/25 08:01 Sucralfate (Sucralfate 1 Gm Tab) 1 gm PO ACHS [facility] Stop: 02/11/25 17:09 Last Admin: 01/13/25 08:05 Dose: 1 gm Tamsulosin HCl (Tamsulosin Hcl 0.4 Mg Cap) 0.4 mg PO HS [facility] Stop: 02/11/25 20:59 Last Admin: 01/12/25 21:06 Dose: 0.4 mg Thiamine HCl (Thiamine Hcl 100 Mg Tab) 100 mg PO QAM [facility] Stop: 02/12/25 08:59 Last Admin: 01/13/25 08:05 Dose: 100 mg Vitamin D (Cholecalciferol 25 Mcg (1000 Units) Tab) 25 mcg PO QAM [facility] Stop: 02/12/25 08:59 Last Admin: 01/13/25 08:05 Dose: 25 mcg (5) Hypertension Hypertension type: essential hypertension Qualified Code(s): I10 - Essential (primary) hypertension (7) Gout Chronicity: unspecified Gout etiology: unspecified cause Gout site: unspecified site Qualified Code(s): M10.9 - Gout, unspecified (8) Hyperlipidemia Hyperlipidemia type: unspecified Qualified Code(s): E78.5 - Hyperlipidemia, unspecified
--- NOTE | 2025-01-13 10:53 | Gastroenterology Progress Note ---
Date of Service January 13, 2025 Assessment & Plan (1) Choledocholithiasis with cholecystitis: Plan Will plan to proceed with ERCP tomorrow. Admission and Anticipated Discharge Date Admission Date: January 12, 2025 Supervising Physician Co-Signing Physician Notes I saw and examined this patient with our nurse practitioner and agree with her assessment and plan. No signs of cholangitis no abdominal pain. Liver enzymes improved. Continue empiric antibiotic therapy plan for ERCP tomorrow for stone extraction. Subjective Patient tells me that he is feeling well. he denies any nausea, vomiting, abdomianl pain, heartburn, changes in bowels. no chest pain or sob. awaiting ERCP tomorrow given recent eliquis usage. 01/13/25 wbc 4.07, hgb 8.7, hct 26.9, plts 109, T bili 4.4, AST 170, ALT 189, ALK 159. Review of Systems Review of Systems: All systems reviewed & are unremarkable except as noted in HPI & below Physical Exam Constitutional: WD/WN, vitals as above Respiratory: normal respiratory effort, lungs clear to auscultation Cardiovascular: Rate/Rhythm: regular rate and regular rhythm Gastrointestinal (Abdomen): normal bowel sounds, soft, nontender, no hepatosplenomegaly Psychiatric: Orientation: alert and oriented x 3 Affect: euthymic affect Results & Data Results & Data Vital Signs (Past 12 Hours) Vital Signs Temp Pulse Resp BP Pulse Ox O2 Del Method 01/13/25 07:44 98.1 F 107 H 18 160/93 H 96 Room Air 01/13/25 03:19 98.1 F 107 H 18 135/94 96 Room Air 01/12/25 23:11 98.4 F 110 H 18 151/99 H 93 Room Air Laboratory Results Laboratory Results - last 48 hr 01/12/25 01/12/25 01/12/25 10:22 10:29 10:47 WBC 4.79 L RBC 3.22 L Hgb 9.7 L POC Hgb 10.2 L Hct 29.4 L POC Hct 30 L MCV 91.3 MCH 30.1 MCHC 33.0 RDW Std Deviation 47.7 H RDW Coeff of Riley 14.2 Plt Count 135 MPV 10.4 Immature Gran % (Auto) 0.6 Neut % (Auto) 76.4 Lymph % (Auto) 10.9 [place] % (Auto) 9.2 Eos % (Auto) 2.7 Baso % (Auto) 0.2 Neut # (Auto) 3.66 Lymph # (Auto) 0.52 L [place] # (Auto) 0.44 Eos # (Auto) 0.13 Baso # (Auto) 0.01 Immature Gran # (Auto) 0.03 PT 13.0 H INR 1.2 H POC Sodium 139 Sodium 137 POC Potassium 4.7 Potassium 4.5 POC Chloride 105 Chloride 104 Carbon Dioxide 23 POC Total CO2 24 Anion Gap 10 POC Anion Gap 15.0 L POC BUN 14 BUN 14 Creatinine 1.45 H POC Creatinine 1.5 H Est Cr Clr Drug Dosing 50.8 eGFR 50.57 BUN/Creatinine Ratio 9.7 L Glucose 140 H POC Glucose POC Glucose (other) 137 H Calcium 9.0 POC Ioniz Calcium Ko 1.08 L Magnesium 1.8 Total Bilirubin 5.4 H Direct Bilirubin 3.8 H AST 302 H ALT 249 H Alkaline Phosphatase 187 H Troponin I High Sens 14.6 Total Protein 6.8 Albumin 3.7 Globulin 3.1 Albumin/Globulin Ratio 1.2 Lipase 55 Urine Color Dark Yellow Urine Appearance Clear Urine pH 7.0 Ur Specific [place] 1.012 Urine Protein Trace H Urine Glucose (UA) Negative Urine Ketones Negative Urine Blood Trace H Urine Nitrite Negative Urine Bilirubin 1+ H Urine Urobilinogen Negative Ur Leukocyte Esterase 2+ H Urine WBC (Auto) >50 H Urine RBC (Auto) 3-5 H U Hyaline Cast (Auto) 0-2 U Epithel Cells (Auto) 0-2 Urine Bacteria (Auto) 2+ H Urine Comment 01/12/25 01/12/25 01/13/25 17:15 21:15 06:21 WBC 4.07 L RBC 2.92 L Hgb 8.7 L POC Hgb Hct 26.9 L POC Hct MCV 92.1 MCH 29.8 MCHC 32.3 RDW Std Deviation 48.4 H RDW Coeff of [place] 14.5 Plt Count 109 L MPV 10.4 Immature Gran % (Auto) Neut % (Auto) Lymph % (Auto) [place] % (Auto) Eos % (Auto) Baso % (Auto) Neut # (Auto) Lymph # (Auto) [place] # (Auto) Eos # (Auto) Baso # (Auto) Immature Gran # (Auto) PT INR POC Sodium Sodium 139 POC Potassium Potassium 4.1 POC Chloride Chloride 106 Carbon Dioxide 25 POC Total CO2 Anion Gap 8 POC Anion Gap POC BUN BUN 14 Creatinine 1.61 H POC Creatinine Est Cr Clr Drug Dosing 45.0 eGFR 44.60 BUN/Creatinine Ratio 8.7 L Glucose 110 H POC Glucose 122 H 126 H POC Glucose (other) Calcium 8.5 L POC Ioniz Calcium Ko Magnesium 1.9 Total Bilirubin 4.4 H Direct Bilirubin AST 170 H ALT 189 H Alkaline Phosphatase 159 H Troponin I High Sens Total Protein 6.1 Albumin 3.3 L Globulin 2.8 Albumin/Globulin Ratio 1.2 Lipase Urine Color Urine Appearance Urine pH Ur Specific [place] Urine Protein Urine Glucose (UA) Urine Ketones Urine Blood Urine Nitrite Urine Bilirubin Urine Urobilinogen Ur Leukocyte Esterase Urine WBC (Auto) Urine RBC (Auto) U Hyaline Cast (Auto) U Epithel Cells (Auto) Urine Bacteria (Auto) Urine Comment 01/13/25 01/13/25 07:57 11:39 WBC RBC Hgb POC Hgb Hct POC Hct MCV MCH MCHC RDW Std Deviation RDW Coeff of [place] Plt Count MPV Immature Gran % (Auto) Neut % (Auto) Lymph % (Auto) [place] % (Auto) Eos % (Auto) Baso % (Auto) Neut # (Auto) Lymph # (Auto) [place] # (Auto) Eos # (Auto) Baso # (Auto) Immature Gran # (Auto) PT INR POC Sodium Sodium POC Potassium Potassium POC Chloride Chloride Carbon Dioxide POC Total CO2 Anion Gap POC Anion Gap POC BUN BUN Creatinine POC Creatinine Est Cr Clr Drug Dosing eGFR BUN/Creatinine Ratio Glucose POC Glucose 115 H 118 H POC Glucose (other) Calcium POC Ioniz Calcium Ko Magnesium Total Bilirubin Direct Bilirubin AST ALT Alkaline Phosphatase Troponin I High Sens Total Protein Albumin Globulin Albumin/Globulin Ratio Lipase Urine Color Urine Appearance Urine pH Ur Specific [place] Urine Protein Urine Glucose (UA) Urine Ketones Urine Blood Urine Nitrite Urine Bilirubin Urine Urobilinogen Ur Leukocyte Esterase Urine WBC (Auto) Urine RBC (Auto) U Hyaline Cast (Auto) U Epithel Cells (Auto) Urine Bacteria (Auto) Urine Comment Coding Level of Care Code 95500 SUB INP/OBS CARE 04/04MIN Diagnoses Choledocholithiasis with cholecystitis K80.40
--- NOTE | 2025-01-13 11:41 | Surgery Consultation ---
Date of Consultation January 13, 2025 Assessment & Plan (1) Choledocholithiasis with cholecystitis: Patient is 74 year old male who was admitted to the medical service for findings of choledocholithiasis and cholecystitis. Patient does take Eliquis for history of A-fib, currently on hold. Patient is being seen by GI and planning for ERCP tomorrow and will tentatively plan for patient to undergo cholecystectomy on 01/15/[address] Guzmán. For now patient can have a diet from a surgical standpoint, would recommend NPO at midnight for ERCP tomorrow and NPO after midnight prior to surgery on Saturday morning. Continue IV antibiotic coverage Okay for DVT prophylaxis from our standpoint Continue medical management per primary team, surgery to follow Supervising Physician Co-Signing Physician Notes Patient discussed with LEANA, labs and imaging reviewed, agree with above. Admitted with abdominal pain, choledocholithiasis on CT scan along with acute cholecystitis. Currently on antibiotics. ERCP planned for tomorrow by GI, were waiting for Eliquis therapy to subside. Due to timing constraints, we will plan on potential cholecystectomy on Saturday versus as an outpatient. Continue antibiotics, follow-up ERCP tomorrow. History of Present Illness Reason for Consultation: Choledocholithiasis Attending Physician: Douglas Calabrese MD History of Present Illness Patient is a 74 old male with complaints of upper epigastric/chest pain who was admitted to the medical service for concerns of choledocholithiasis and acute cholecystis. To note, the patient recently underwent EGD for removal of 6 gastric polyps on 12/14 by [facility] GI team and in turn needed to be hospitalized on 12/18 for concerns of hematemesis and he underwent repeat EGD with our GI team however no evidence of active bleeding was found and patient was discharged the following day. However, the patient states that he needed to be admitted again on 12/24 with concerns lightheadedness, dizziness, and near syncopal episodes. The patient during that time also had concerns of GI bleeding and positive heme stools, he underwent repeat EGD which showed a previous polypectomy site appeared to be the source of bleeding. After a few days in the hospital the patient was ultimately discharged on 12/28. He states that since then he has been feeling in his usual state of health, however on 01/11/2025 he started again with epigastric pain that radiated into his chest and into his lo wer abdomen and due to his recent events he came back to the emergency room for evaluation. Workup revealed signs of choledocholithiasis with acute cholecystitis. The patient has been admitted to the medical service with GI and surgery teams consulted. The patient was seen and evaluated this afternoon at bedside, he is resting comfortably in bed, vital signs stable, and is nontoxic-appearing. The patient states that since being admitted his abdominal pain has started to subside and believes that because of IV antibiotics. GI team following and plan to do ERCP tomorrow. Patient states that other than recent EGDs that he has had no additional abdominal surgery in the past. Allergies Allergy/AdvReac Type Severity Reaction Status Date / Time amoxicillin Allergy Intermediate Rash Verified 01/12/25 15:04 cephalexin [From Keflex] Allergy Unknown ON Verified 01/12/25 15:04 [email or web address] MED LIST Tetanus Vaccines and Toxoid AdvReac Intermediate FEVER 104F Verified 01/12/25 15:04 Home Medications Medication Instructions Recorded Confirmed Type allopurinol 100 mg tablet 100 mg PO QAM 01/12/19 01/12/25 History (Zyloprim) amlodipine 10 mg tablet (Norvasc) 10 mg PO HS 01/12/19 01/12/25 History atorvastatin 20 mg tablet (Lipitor) 20 mg PO QAM 01/12/19 01/12/25 History benazepril 40 mg tablet (Lotensin) 40 mg PO QAM 01/12/19 01/12/25 History cholecalciferol (vitamin D3) 25 1,000 unit PO QAM 01/12/19 01/12/25 History mcg (1,000 unit) capsule (Vitamin D3) cyanocobalamin (vitamin B-12) 1,000 mcg PO QAM 01/12/19 01/12/25 History 1,000 mcg tablet (Vitamin B-12) tadalafil 5 mg tablet (Cialis) 5 mg PO DIRECTED PRN Sexual 01/12/19 01/12/25 History Activity thiamine mononitrate (vit B1) 100 100 mg PO QAM 01/12/19 01/12/25 History mg tablet (Vitamin B-1 (mononitrate)) folic acid 1 mg tablet 1 mg PO QAM 01/16/19 01/12/25 History apixaban 5 mg tablet (Eliquis) 5 mg PO BID #60 tabs 02/26/20 01/12/25 Rx epinephrine 0.3 mg/0.3 mL 0.3 mg IM DIRECTED PRN 06/06/20 01/12/25 History injection, auto-injector (EpiPen) Anaphylaxis gabapentin 100 mg capsule 100 mg PO TID 06/06/20 01/12/25 History hydralazine 100 mg tablet 100 mg PO TID 06/06/20 01/12/25 History tamsulosin 0.4 mg capsule 0.4 mg PO HS 06/06/20 01/12/25 History carvedilol 12.5 mg tablet 12.5 mg PO BID 12/17/24 01/12/25 History metformin 1,000 mg tablet 1,000 mg PO BIDM 12/17/24 01/12/25 History omega 4-chp-etq-fish oil 1,000 mg 1 cap PO DAILY 12/17/24 01/12/25 History (120 mg-180 mg) capsule (Fish Oil) pantoprazole 40 mg tablet,delayed 40 mg PO BID #60 tabs 12/19/24 01/12/25 Rx release sucralfate 1 gram tablet 1 g PO ACHS 4 weeks #28 tabs 12/19/24 01/12/25 Rx furosemide 20 mg tablet 20 mg PO DAILY #0 tabs 12/28/24 01/12/25 Rx magnesium oxide 400 mg PO DAILY #30 caps 12/28/24 01/12/25 Rx ferrous sulfate 325 mg (65 mg 325 mg PO UD 01/12/25 01/12/25 History iron) tablet Patient History Medical History (Updated 01/12/25 @ 16:31 by Gerson Garcia MD) DVT prophylaxis COVID-19 Near syncope Melena Hypomagnesemia Acute upper gastrointestinal bleeding Acute blood loss anemia Hypomagnesemia Hypokalemia Encounter for pre-operative examination Hematemesis GIB (gastrointestinal bleeding) On anticoagulant therapy GERD (gastroesophageal reflux disease) Atrial fibrillation new onset Hypertension Type 2 diabetes mellitus with diabetic polyneuropathy NIDDM Surgical History History of colonoscopy History of tonsillectomy S/P ORIF (open reduction internal fixation) fracture Left Ankle/Heel Family History Brother Prostate cancer Father Heart disease Brother Melanoma Social History Smoking Status: Current some day smoker Tobacco Type: Cigars Cigarettes Per Day: 5-7 cigars weekly; Second Hand Exposure: No; Do You Dip or Chew Tobacco: No; Hx Alcohol Use: Yes Alcohol type: hard liquor Hx Substance Use: No Preferred Language: Nepali Communication Ability: Effective Visual Impairment: Limited Hearing Ability: Normal Belt Brander Required: No Beliefs That Will Affect Care: None marital status: Current Living Situation: Spouse Current Living Situation Comment: lives at home w/ current occupational status: employed Feels Safe at Home: Yes Assistive Devices: Cane, Glasses and Walker Review of Systems Review of Systems: All systems reviewed & are unremarkable except as noted in HPI & below Physical Exam Constitutional: WD/WN, vitals as above Respiratory: normal respiratory effort, lungs clear to auscultation Cardiovascular: Rate/Rhythm: + tachycardic (HR 101) Gastrointestinal (Abdomen): Abdomen soft, nondistended, mild TTP in the epigastric/RUQ region. No rebound, guarding, or signs of peritonitis Results & Data Vital Signs (Past 12 Hours) Vital Signs Temp Pulse Resp BP Pulse Ox O2 Del Method 01/13/25 07:44 36.7 C 107 H 18 160/93 H 96 Room Air 01/13/25 03:19 36.7 C 107 H 18 135/94 96 Room Air Diagnostic Findings CT SCAN OF THE ABDOMEN AND PELVIS WITH IV CONTRAST CLINICAL HISTORY: Generalized abdominal pain. COMPARISON STUDY: Prior abdominal CT scans, most recently dated 12/18/2024. TECHNIQUE: Following the IV administration of 93 cc of Optiray 320, CT scan of the abdomen and pelvis is performed from the lung bases to the proximal femora. Images are reviewed in the axial, sagittal, and coronal planes. IV contrast was administered without complication. A dose lowering technique was utilized adhering to the principles of ALARA. CT DOSE: 1406.25 mGy.cm FINDINGS: Lung bases: The heart is enlarged and without pericardial effusion. There are small pleural effusions with dependent atelectasis. Interlobular septal thickening in the lower lobes suggests fluid overload/congestive change. There is a small hiatal hernia. Liver: The contrast-enhanced liver is normal in size, contour, and attenuation. There is mild intrahepatic biliary ductal dilatation. The hepatic veins and portal veins are patent. Gallbladder: The gallbladder is dilated, measuring up to 10 mm diameter and contains numerous gallstones. The gallbladder is mildly distended, and there is pericholecystic inflammation and fluid. Spleen: Normal in size and attenuation. Pancreas: Unremarkable. Adrenal glands: Unremarkable. Kidneys: The contrast enhanced kidneys are normal in size and without hydronephrosis. The kidneys enhance symmetrically. Bilateral renal cysts measure up to 5.3 cm. Abdominal vasculature: There is moderate to advanced atherosclerotic calcification and mild ectasia of the abdominal aorta. Bowel: There is moderate colonic diverticulosis without CT evidence of acute diverticulitis. No bowel obstruction is seen. The appendix is well-visualized and normal. There are numerous clips seen within the stomach.. Peritoneum: No intraperitoneal free air is identified. There is trace pelvic ascites. Lymphadenopathy: Mildly enlarged retroperitoneal lymph nodes are similar to previous. The largest node is seen on image #130 and measures 1.7 x 1.3 cm. Pelvic viscera: The prostate gland is enlarged and heterogeneous. The bladder wall appears thickened/trabeculated indicating chronic outlet obstruction. There are bilateral fat-containing inguinal hernias, right side larger than left. The right inguinal hernia also contains trace fluid. Skeletal structures: The skeletal structures are osteopenic. There is mild lumbosacral spondylosis. No lytic or blastic lesions are seen. IMPRESSION: 1. Choledocholithiasis with evidence of acute cholecystitis. 2. Cardiomegaly with evidence of fluid overload/congestive failure and small pleural effusions. 3. There is mild intrahepatic biliary ductal dilatation. 4. Colonic diverticulosis without CT evidence of acute diverticulitis. 5. Trace pelvic ascites. 6. Mildly enlarged retroperitoneal lymph nodes are nonspecific and similar to previous. These have only modestly increased in size dating back to 2016. 7. Additional findings as above. PG Care Time/CCT Total # of Minutes Spent Total Time Spent with Patient: Total time spent is greater than 50% in coordination of care (as documented) at patient's floor/unit and/or counseling patient: [place] [address] INT INP/OBS CARE 1/40MIN Patient Type New Medical Decision Making Straight Forward Diagnoses Choledocholithiasis with cholecystitis K80.40
[2025-01-13] MEDS: HEPARIN SOD 5,000 UNIT/0.5 ML VIAL SQ ONE (13:58)
[2025-01-14] MEDS ORDERED: Nursing to Pharmacy Communication SCH (06:15)
[2025-01-14] MEDS: INSULIN ASPART PER UNIT CHARGE SC SCH (06:26)
[2025-01-14 06:52] LABS: Hematocrit (blood only) 28.6 % (42.0-52.0); Hemoglobin 9.0 g/dl (14.0-18.0); Mean Corpuscular Hemoglobin 29.1 pg (25.0-34.0); Mean Corpuscular Volume 92.6 fL (80.0-100.0); Platelet Count 109 K/uL (130-400); RDW Standard Deviation 49.0 fL (36.4-46.3); Red Blood Count 3.09 M/uL (4.70-6.10); White Blood Count 3.99 K/ul (4.8-10.8)
[2025-01-14 07:15] LABS: Alanine Aminotransferase 136.0 U/L (7-52); Albumin Globulin Ratio 1.1 (0.9-2); Albumin Level 3.3 gm/dl (3.4-5.0); Alkaline Phosphatase 162.0 U/L (34-104); Anion Gap 7.0 (3-11); Bilirubin,Total 2.0 mg/dl (0.2-1.0); Blood Urea Nitrogen 12.0 mg/dl (6-23); Calcium 8.7 mg/dl (8.6-10.3); Carbon Dioxide 27.0 mmol/L (21-32); Chloride 107.0 mmol/L (98-107); Creatinine Clr Calc Pharmacy 47.7 ml/min; Globulin 3.0 gm/dl (2.5-4.0); Glucose 102.0 mg/dl (70-99(Fasting)); Magnesium 2.0 mg/dl (1.7-2.4); Potassium 4.0 mmol/L (3.5-5.1); Sodium 141.0 mmol/L (136-145); Total Protein 6.3 gm/dl (6.0-8.3)
--- NOTE | 2025-01-14 08:08 | Hospitalist Progress Note ---
Date of Service January 14, 2025 Assessment & Plan (1) Choledocholithiasis with acute cholecystitis: (2) Elevated LFTs: (3) Permanent atrial fibrillation: (4) (HFpEF) heart failure with preserved ejection fraction: (5) Hypertension: (6) Diabetes mellitus, type II: (7) Gout: (8) Hyperlipidemia: (9) BPH (benign prostatic hyperplasia): Plan Per admitting provider w/addendum: 74-year-old male with past medical history significant for type 2 diabetes, metabolic syndrome, gout, dyslipidemia, chronic rhinitis, chronic atrial fibrillation, hypertension, thiamine deficiency, gallstones, right Achilles rupture, degenerative disc disease, neuropathy, iron deficiency anemia, cervical spinal stenosis, alcohol abuse who presented to the ED on 01/12/2025 with abdominal pain. Acute cholecystitis secondary to choledocholithiasis Patient presenting with abdominal pain and associated nausea x1 day CTAP revealed dilated gallbladder up to 10mm diameter containing numerous gallstones with pericholecystic inflammation and fluid, mild intrahepatic biliary ductal dilatation Received ceftriaxone and metronidazole in the ED -> continue GI consulted and planning for ERCP today (01/14) Pt been NPO since MN Pain control and antiemetics Gen surgery consulted and discussed with - likely for cholecystectomy on Saturday Elevated LFTs T bili 5.4 with direct 3.8 AST 302 and ALT 249 Alk phos 187 Secondary to cholecystitis as above LFTs improved, cont. to monitor, current Tbili down to 2 Recent GI bleed Patient recently admitted for melena and GI bleed from 12/24-12/28/2024 s/p EGD on 12/25/2024 with multiple ulcers related to previous polypectomy, polypectomy site antrum appeared to be source of bleeding, adherent clot injected and coagulated and clipped closed, other polypectomy sites without stigmata of bleeding Continue pantoprazole, sucralfate, iron Hgb stable Atrial fibrillation EKG and engine monitor reveals RVR at rates of 115-130s Order IV Lopressor 5mg x1 Continue carvedilol at 12.5mg BID for now-> prior admission tried to increase dosing due to RVR but blood pressures did not tolerate Eliquis on hold for ERCP tomorrow Heart failure CTAP notes cardiomegaly with evidence of CHF and small pleural effusions Echo 12/25 showed LVEF 50-55%, severely dilated left atrium, mild MR, trace TR-> LA dilation worsened from previous in 2019 otherwise unchanged Patient denies SOB and is on RA Continue lasix per home regimen-> recently decreased from bid to daily due to low blood pressures Hypotension Holding amlodipine, hydralazine, benazepril since previous admission due to low blood pressures Monitor BPs Current BP 149/93, cont. to monitor DM II Hold home metformin BSG ACHS and SSI while inpatient Gout Continue allopurinol Hyperlipidemia Continue atorvastatin BPH Continue tamsulosin DVT Prophylaxis: SCDs , received one dose 5,000 unit subq heparin yesterday (Eliquis on hold) Code Status: FULL CODE PCP: Dr. Eloy Mcgraw Disposition: med tele Admission and Anticipated Discharge Date Admission Date: January 12, 2025 Subjective Pt seen in follow up of cholecystitis, choledocholithiasis Eliquis on hold Currently sitting up in bed in NAD, overall says he feels well, much improved Pt had chills prior to coming to hospital and nausea, abd. discomfort. Recently was hospitalized here for GI bleed so was concerned if that was happening to him again. Tmax 37.7 C last evening. Tbili improved , down to 2 from 4.4 on admission. Hgb stable. Plan for ERCP today w/ GI Review of Systems Review of Systems: All systems reviewed & are unremarkable except as noted in Subjective Physical Exam Physical Exam: General/Psych: WD/WN, sitting up in bed, NAD, conversing easily Head: normocephalic, atraumatic Eyes: normal inspection, PERRL ENT: external ear and nose normal, oropharynx normal Neck: normal visual inspection Respiratory: normal respiratory effort, lungs with mild crackles in left lower base, no accessory muscle use Cardiovascular: irregularly irregular rate and rhythm, no murmur/rub/gallop Extremities: no BLE edema, moves extremities Abdomen/GI: normal bowel sounds, soft, nontender, negative Burkett's sign Neurologic/MSK: A+Ox3, answers appropriately, speech fluent, moves all extremities Skin: no rashes, warm and dry Results & Data Results & Data Vital Signs (Past 12 Hours) Vital Signs Temp Pulse Pulse Resp BP BP Pulse Ox 01/14/25 07:48 36.7 C 84 18 149/93 H 97 01/14/25 05:20 94 H 01/14/25 03:39 36.8 C 93 H 20 147/91 H 94 01/14/25 00:13 36.9 C 78 20 128/82 97 O2 Del Method 01/14/25 07:48 Room Air 01/14/25 05:20 01/14/25 03:39 Room Air 01/14/25 00:13 Room Air Laboratory Results 01/14/25 01/13/25 01/13/25 Range/Units 06: 20:03 17:04 WBC 3.99 L (4.8-10.8) K/ul RBC 3.09 L (4.70-6.10) M/uL Hgb 9.0 L (14.0-18.0) g/dl Hct 28.6 L (42.0-52.0) % MCV 92.6 (80.0-100.0) fL MCH 29.1 (25.0-34.0) pg MCHC 31.5 L (32.0-36.0) g/dL RDW Std Deviation 49.0 H (36.4-46.3) fL RDW Coeff of Riley 14.6 H (11.5-14.5) % Plt Count 109 L (130-400) K/uL MPV 10.7 (9.4-12.4) fL Sodium 141 (136-145) mmol/L Potassium 4.0 (3.5-5.1) mmol/L Chloride 107 (98-107) mmol/L Carbon Dioxide 27 (21-32) mmol/L Anion Gap 7 (3-11) BUN 12 (6-23) mg/dl Creatinine 1.52 H (0.6-1.4) mg/dl Est Cr Clr Drug Dosing 47.7 ml/min eGFR 47.79 BUN/Creatinine Ratio 7.9 L (10-20) Glucose 102 H (70-99(Fasting)) mg/dl POC Glucose 104 H 154 H 120 H (70-99) mg/dl Calcium 8.7 (8.6-10.3) mg/dl Phosphorus 3.8 (2.5-4.9) mg/dl Magnesium 2.0 (1.7-2.4) mg/dl Total Bilirubin 2.0 H D (0.2-1.0) mg/dl AST 82 H (13-39) U/L ALT 136 H (7-52) U/L Alkaline Phosphatase 162 H (34-104) U/L Total Protein 6.3 (6.0-8.3) gm/dl Albumin 3.3 L (3.4-5.0) gm/dl Globulin 3.0 (2.5-4.0) gm/dl Albumin/Globulin Ratio 1.1 (0.9-2) 01/13/25 Range/Units 11:39 WBC (4.8-10.8) K/ul RBC (4.70-6.10) M/uL Hgb (14.0-18.0) g/dl Hct (42.0-52.0) % MCV (80.0-100.0) fL MCH (25.0-34.0) pg MCHC (32.0-36.0) g/dL RDW Std Deviation (36.4-46.3) fL RDW Coeff of Riley (11.5-14.5) % Plt Count (130-400) K/uL MPV (9.4-12.4) fL Sodium (136-145) mmol/L Potassium (3.5-5.1) mmol/L Chloride (98-107) mmol/L Carbon Dioxide (21-32) mmol/L Anion Gap (3-11) BUN (6-23) mg/dl Creatinine (0.6-1.4) mg/dl Est Cr Clr Drug Dosing ml/min eGFR BUN/Creatinine Ratio (10-20) Glucose (70-99(Fasting)) mg/dl POC Glucose 118 H (70-99) mg/dl Calcium (8.6-10.3) mg/dl Phosphorus (2.5-4.9) mg/dl Magnesium (1.7-2.4) mg/dl Total Bilirubin (0.2-1.0) mg/dl AST (13-39) U/L ALT (7-52) U/L Alkaline Phosphatase (34-104) U/L Total Protein (6.0-8.3) gm/dl Albumin (3.4-5.0) gm/dl Globulin (2.5-4.0) gm/dl Albumin/Globulin Ratio (0.9-2) Medications Administered Current Inpatient Medications Acetaminophen (Acetaminophen 500 Mg Tab) 1,000 mg PO Q8 PRN PRN Reason: Mild Pain (Scale 1, 2, 3) Stop: 02/11/25 17:09 Allopurinol (Allopurinol 100 Mg Tab) 100 mg PO QAM [facility] Stop: 02/12/25 08:59 Last Admin: 01/13/25 08:05 Dose: 100 mg Atorvastatin Calcium (Atorvastatin 20 Mg Tab) 20 mg PO QAM [facility] Stop: 02/12/25 08:59 Last Admin: 01/13/25 08:05 Dose: 20 mg Carvedilol (Carvedilol 12.5 Mg Tab) 12.5 mg PO BID [facility] Stop: 02/11/25 20:59 Last Admin: 01/13/25 20:26 Dose: 12.5 mg Cyanocobalamin (Cyanocobalamin (B-12) 500 Mcg Tablet) 1,000 mcg PO QAM [facility] Stop: 02/12/25 08:59 Last Admin: 01/13/25 08:05 Dose: 1,000 mcg Dextrose (Dextrose 50% 50 Ml Syringe) 25 - 50 ml IV UD PRN; Protocol PRN Reason: Hypoglycemia Protocol Stop: 02/11/25 17:09 Ferrous Sulfate (Ferrous Sulfate 325 Mg Tab) 325 mg PO Q2D@2100 [facility] Stop: 02/11/25 20:59 Last Admin: 01/12/25 21:06 Dose: 325 mg Folic Acid (Folic Acid 1 Mg Tab) 1 mg PO QAM [facility] Stop: 02/12/25 08:59 Last Admin: 01/13/25 08:05 Dose: 1 mg Furosemide (Furosemide 20 Mg Tab) 20 mg PO DAILY [facility] Stop: 02/12/25 08:59 Last Admin: 01/13/25 08:05 Dose: 20 mg Gabapentin (Gabapentin 100 Mg Cap) 100 mg PO TID [facility] Stop: 02/11/25 20:59 Last Admin: 01/13/25 20:27 Dose: 100 mg Glucagon (Glucagon For Inj 1 Mg Vial) 1 mg SQ UD PRN; Protocol PRN Reason: Hypoglycemia Protocol Stop: 02/11/25 17:09 Glucose (Glucose 40% Gel 15 Gm Tube) 15 - 30 gm PO UD PRN; Protocol PRN Reason: Hypoglycemia Protocol Stop: 02/11/25 17:09 Glucose (Glucose 10 Tab/Tube) 4 - 8 tab PO UD PRN; Protocol PRN Reason: Hypoglycemia Protocol Stop: 02/11/25 17:09 Ceftriaxone Sodium (Rocephin) 2,000 mg in 50 mls @ 100 mls/hr IV Q24H [facility] Stop: 01/23/25 07:59 Last Infusion: 01/13/25 09:39 Dose: Infused Metronidazole (Flagyl) 500 mg in 100 mls @ 100 mls/hr IV Q8H [facility]; Protocol Stop: 01/22/25 22:59 Last Infusion: 01/14/25 07:35 Dose: Infused Indomethacin (Indomethacin 50 Mg Supp) 100 mg [place] ONCE ONE Stop: 01/14/25 13:01 Insulin Aspart (Insulin Aspart Per Unit Charge) 0 units SC Q6 [facility] Stop: 02/13/25 06:14 Last Admin: 01/14/25 06:26 Dose: Not Given Magnesium Oxide (Magnesium Oxide 400 Mg Tab) 400 mg PO DAILY [facility] Stop: 02/12/25 08:59 Last Admin: 01/13/25 08:05 Dose: 400 mg Miscellaneous (Carbohydrates For Hypoglycemia ) 15 - 30 gm PO UD PRN PRN Reason: Hypoglycemia Protocol Stop: 02/11/25 17:09 Morphine Sulfate (Morphine Sulfate 4 Mg/Ml 1 Ml Carp\Vial) 2 mg IV Q4 PRN PRN Reason: Mod-Sev Pain (Scale 4-10) Stop: 01/26/25 17:09 Ondansetron HCl (Ondansetron Inj 2 Mg/Ml 2 Ml Vial) 4 mg IV Q6H PRN PRN Reason: Nausea Stop: 02/11/25 17:09 Oxycodone HCl (Oxycodone Hcl Ir 5 Mg Tab (Immediate Release)) 5 mg PO Q4 PRN PRN Reason: Mod-Sev Pain (Scale 4-10) Stop: 01/26/25 17:09 Pantoprazole Sodium (Pantoprazole 40 Mg Tab) 40 mg PO BID [facility] Stop: 02/11/25 20:59 Last Admin: 01/13/25 20:27 Dose: 40 mg Pneumococcal 20-Valent Conj Vacc (Pneumococcal Vaccine (Pcv20) 20-Genia Conj-Dip Crm/Pf 0.5 Ml Syr) 0.5 ml IM .ONCE ONE Stop: 01/15/25 08:01 Sucralfate (Sucralfate 1 Gm Tab) 1 gm PO ACHS [facility] Stop: 02/11/25 17:09 Last Admin: 01/13/25 20:26 Dose: 1 gm Tamsulosin HCl (Tamsulosin Hcl 0.4 Mg Cap) 0.4 mg PO HS [facility] Stop: 02/11/25 20:59 Last Admin: 01/13/25 20:27 Dose: 0.4 mg Thiamine HCl (Thiamine Hcl 100 Mg Tab) 100 mg PO QAM [facility] Stop: 02/12/25 08:59 Last Admin: 01/13/25 08:05 Dose: 100 mg Vitamin D (Cholecalciferol 25 Mcg (1000 Units) Tab) [facility] [place]: 02/12/25 08:59 Last Admin: 01/13/25 08:05 Dose: 25 mcg (5) Hypertension Hypertension type: essential hypertension Qualified Code(s): I10 - Essential (primary) hypertension (7) Gout Chronicity: unspecified Gout etiology: unspecified cause Gout site: unspecified site Qualified Code(s): M10.9 - Gout, unspecified (8) Hyperlipidemia Hyperlipidemia type: unspecified Qualified Code(s): E78.5 - Hyperlipidemia, unspecified
--- NOTE | 2025-01-14 08:21 | History & Physical Bridge Note ---
Date of Service January 14, 2025 History & Physical Bridge Note I have examined the patient, reviewed the History & Physical and in the interval since the performance of the History & Physical I have noted the following changes of clinical significance: no changes noted Spoke with patient today. He's doing well. He is NPO. Plan to proceed with ERCP Supervising Physician Co-Signing Physician Notes I saw and examined this patient with our nurse practitioner and agree with her assessment and plan. Clinically stable no significant abdominal pain no fever. Will proceed with ERCP today.
--- NOTE | 2025-01-14 08:58 | Surgery Progress Note ---
Date of Service January 14, 2025 Assessment & Plan (1) Choledocholithiasis with cholecystitis: Plan: Patient is 74 year old male who was admitted to the medical service for findings of choledocholithiasis and cholecystitis. - Plans for ERCP today with GI team, will follow-up results this afternoon. -Continue antibiotics -Trend LFTs -Will discuss possible cholecystectomy tomorrow vs in the outpatient setting once ERCP is done -Medical management per primary team, surgery will continue to follow Admission and Anticipated Discharge Date Admission Date: January 12, 2025 Supervising Physician Co-Signing Physician Notes Patient seen and examined, labs and imaging reviewed, agree with above. Admitted with choledocholithiasis and cholecystitis. He is scheduled for ERCP today. Labs stable, patient jaundiced, abdomen soft, mildly tender to palpation in epigastrium and right upper quadrant. Choledocholithiasis with acute cholecystitis ERCP today plan for robotic assisted laparoscopic cholecystectomy, possibly tomorrow or could be done as an outpatient risks discussed to include but not limited to bleeding, infection, retained stone, bile leak, open surgery, damage to surrounding structures including bile duct, need for future or more extensive surgery, failure to treat symptoms, and risks of anesthesia. Follow-up ERCP results and labs Continue n.p.o. after midnight Hold anticoagulation Subjective Patient seen and evaluated this morning, states that he is feeling well. Denies any worsening abdominal pain, nausea or vomiting Vital signs stable Afebrile and continues on IV abx Tbili down to 2.0 from 4.4 yesterday, plans for ERCP by GI team today Physical Exam Constitutional: WD/WN, vitals as above Respiratory: normal respiratory effort, lungs clear to auscultation Cardiovascular: Rate/Rhythm: regular rate Gastrointestinal (Abdomen): Abdomen soft, nondistended, nontender to palpation Results & Data Vital Signs (Past 12 Hours) Vital Signs Temp Pulse Pulse Resp BP BP Pulse Ox 01/14/25 07:48 36.7 C 84 18 149/93 H 97 01/14/25 05:20 94 H 01/14/25 03:39 36.8 C 93 H 20 147/91 H 94 01/14/25 00:13 36.9 C 78 20 128/82 97 O2 Del Method 01/14/25 07:48 Room Air 01/14/25 05:20 01/14/25 03:39 Room Air 01/14/25 00:13 Room Air PG Care Time/CCT Total # of Minutes Spent Total Time Spent with Patient: Total time spent is greater than 50% in coordination of care (as documented) at patient's floor/unit and/or counseling patient: Coding [place] [address] SUB INP/OBS CARE 04/04MIN Patient Type Established Medical Decision Making Straight Forward Diagnoses Choledocholithiasis with cholecystitis K80.40
[2025-01-14] MEDS: INDOMETHACIN 50 MG SUPP PR ONE (13:35)
[2025-01-14] MEDS ORDERED: ONDANSETRON INJ 2 MG/ML 2 ML VIAL ONE (13:57)
[2025-01-14] MEDS ORDERED: LIDOCAINE 2% 2 ML VIAL/AMP(20MG/ML) INFIL ONE (13:57)
[2025-01-14] MEDS ORDERED: PROPOFOL IV EMULSION 10 MG/ML 20 ML VIAL IV ONE (13:57)
[2025-01-14] MEDS ORDERED: ROCURONIUM BROMIDE 10 MG/ML 5 ML VIAL IV ONE (13:57)
[2025-01-14] MEDS ORDERED: SUCCINYLCHOLINE CHLORIDE 20 MG/ML 10 ML VIAL IV ONE (13:57)
--- NOTE | 2025-01-14 14:30 | Anesthesiology Consultation ---
Date of Service January 14, 2025 Assessment & Plan (1) Encounter for pre-operative examination: Chart Review Chart Review: Acceptable Risk for Surgery History Surgery Operation Date: 01/14/25 08:20 Proposed Procedures p Endoscopic Retrograde Cholangiopancreatogram - Tadeo Ortiz MD Operation Date: 01/15/25 09:05 Proposed Procedures p Robotic Laparoscopic Cholecystectomy - Benjy Guzmán DO, FACS Height/Weight Height: 5 ft 10 in Weight: 88.1 kg Allergies Allergy/AdvReac Type Severity Reaction Status Date / Time amoxicillin Allergy Intermediate Rash Verified 01/12/25 15:04 cephalexin [From Keflex] Allergy Unknown ON Verified 01/12/25 15:04 [facility] MED LIST Tetanus Vaccines and Toxoid AdvReac Intermediate FEVER 104F Verified 01/12/25 15:04 Medications Home Medications Medication Instructions Recorded Confirmed Last Taken allopurinol 100 mg tablet 100 mg PO QAM 01/12/19 01/12/25 01/12/25 (Zyloprim) amlodipine 10 mg tablet (Norvasc) 10 mg PO HS 01/12/19 01/12/25 12/16/24 atorvastatin 20 mg tablet (Lipitor) 20 mg PO QAM 01/12/19 01/12/25 01/12/25 benazepril 40 mg tablet (Lotensin) 40 mg PO QAM 01/12/19 01/12/25 12/17/24 cholecalciferol (vitamin D3) 25 1,000 unit PO QAM 01/12/19 01/12/25 01/12/25 mcg (1,000 unit) capsule (Vitamin D3) cyanocobalamin (vitamin B-12) 1,000 mcg PO QAM 01/12/19 01/12/25 01/12/25 1,000 mcg tablet (Vitamin B-12) tadalafil 5 mg tablet (Cialis) 5 mg PO DIRECTED PRN Sexual 01/12/19 01/12/25 Unknown Activity thiamine mononitrate (vit B1) 100 100 mg PO QAM 01/12/19 01/12/25 01/12/25 mg tablet (Vitamin B-1 (mononitrate)) folic acid 1 mg tablet 1 mg PO QAM 01/16/19 01/12/25 01/12/25 apixaban 5 mg tablet (Eliquis) 5 mg PO BID #60 tabs 02/26/20 01/12/25 01/11/25 epinephrine 0.3 mg/0.3 mL 0.3 mg IM DIRECTED PRN 06/06/20 01/12/25 Unknown injection, auto-injector (EpiPen) Anaphylaxis gabapentin 100 mg capsule 100 mg PO TID 06/06/20 01/12/25 01/12/25 hydralazine 100 mg tablet 100 mg PO TID 06/06/20 01/12/25 12/17/24 12:00 tamsulosin 0.4 mg capsule 0.4 mg PO HS 06/06/20 01/12/25 01/12/25 carvedilol 12.5 mg tablet 12.5 mg PO BID 12/17/24 01/12/25 01/12/25 metformin 1,000 mg tablet 1,000 mg PO BIDM 12/17/24 01/12/25 01/12/25 omega [id number]-fish oil 1,000 mg 1 cap PO DAILY 12/17/24 01/12/25 01/12/25 (120 mg-180 mg) capsule (Fish Oil) pantoprazole 40 mg tablet,delayed 40 mg PO BID #60 tabs 12/19/24 01/12/25 01/12/25 release sucralfate 1 gram tablet 1 g PO ACHS 4 weeks #28 tabs 12/19/24 01/12/25 01/12/25 furosemide 20 mg tablet 20 mg PO DAILY #0 tabs 12/28/24 01/12/25 01/12/25 magnesium oxide 400 mg PO DAILY #30 caps 12/28/24 01/12/25 01/12/25 ferrous sulfate 325 mg (65 mg 325 mg PO UD 01/12/25 01/12/25 01/12/25 iron) tablet Active Medications Generic Name Dose Route Start Last Admin Trade Name Freq PRN Reason Stop Dose Admin Allopurinol 100 mg 01/13/25 09:00 01/14/25 08:40 Allopurinol 100 Mg Tab PO 02/12/25 08:59 100 mg QAM LATA Administration Atorvastatin Calcium 20 mg 01/13/25 09:00 01/14/25 08:39 Atorvastatin 20 Mg Tab PO 02/12/25 08:59 20 mg QAM LATA Administration Carvedilol 12.5 mg 01/12/25 21:00 01/14/25 09:19 Carvedilol 12.5 Mg Tab PO 02/11/25 20:59 12.5 mg BID LATA Administration Cyanocobalamin 1,000 mcg 01/13/25 09:00 01/14/25 08:40 Cyanocobalamin (B-12) 500 Mcg Tablet PO 02/12/25 08:59 1,000 mcg QAM LATA Administration Ferrous Sulfate 325 mg 01/12/25 21:00 01/12/25 21:06 Ferrous Sulfate 325 Mg Tab PO 02/11/25 20:59 325 mg Q2D@2100 LATA Administration Folic Acid 1 mg 01/13/25 09:00 01/14/25 08:40 Folic Acid 1 Mg Tab PO 02/12/25 08:59 1 mg QAM LATA Administration Furosemide 20 mg 01/13/25 09:00 01/14/25 08:40 Furosemide 20 Mg Tab PO 02/12/25 08:59 20 mg DAILY LATA Administration Gabapentin 100 mg 01/12/25 21:00 01/14/25 13:35 Gabapentin 100 Mg Cap PO 02/11/25 20:59 100 mg TID LATA Administration Ceftriaxone Sodium 2,000 mg in 50 mls @ 100 mls/hr 01/13/25 08:00 01/14/25 09:16 Rocephin IV 01/23/25 07:59 Infused Q24H [facility] Infusion Metronidazole 500 mg in 100 mls @ 100 mls/hr 01/12/25 23:00 01/14/25 14:02 Flagyl IV 01/22/25 22:59 Not Given Q8H [facility] Protocol Insulin Aspart 0 units 01/14/25 06:15 01/14/25 11:40 Insulin Aspart Per Unit Charge SC 02/13/25 06:14 Not Given Q6 LATA Magnesium Oxide 400 mg 01/13/25 09:00 01/14/25 08:40 Magnesium Oxide 400 Mg Tab PO 02/12/25 08:59 400 mg DAILY LATA Administration Pantoprazole Sodium 40 mg 01/12/25 21:00 01/14/25 08:41 Pantoprazole 40 Mg Tab PO 02/11/25 20:59 40 mg BID LATA Administration Sucralfate 1 gm 01/12/25 17:10 01/14/25 11:08 Sucralfate 1 Gm Tab PO 02/11/25 17:09 1 gm ACHS LATA Administration Tamsulosin HCl 0.4 mg 01/12/25 21:00 01/13/25 20:27 Tamsulosin Hcl 0.4 Mg Cap PO 02/11/25 20:59 0.4 mg HS LATA Administration Thiamine HCl 100 mg 01/13/25 09:00 01/14/25 08:40 Thiamine Hcl 100 Mg Tab PO 02/12/25 08:59 100 mg QAM LATA Administration Vitamin D 25 mcg 01/13/25 09:00 01/14/25 08:39 Cholecalciferol 25 Mcg (1000 Units) Tab PO 02/12/25 08:59 25 mcg QAM LATA Administration Past Medical History Medical History (Updated 01/14/25 @ 14:30 by Delfino Martin MD) CKD (chronic kidney disease) (HFpEF) heart failure with preserved ejection fraction DVT prophylaxis COVID-19 Near syncope Melena Hypomagnesemia Acute upper gastrointestinal bleeding Acute blood loss anemia Hypomagnesemia Hypokalemia Hematemesis GIB (gastrointestinal bleeding) On anticoagulant therapy GERD (gastroesophageal reflux disease) Atrial fibrillation new onset Hypertension Type 2 diabetes mellitus with diabetic polyneuropathy NIDDM Past Family History Family History Brother Prostate cancer Father Heart disease Brother Melanoma Past Surgical History Surgical History History of colonoscopy History of tonsillectomy S/P ORIF (open reduction internal fixation) fracture Left Ankle/Heel Social History Smoking Status: Current some day smoker tobacco type: cigars Smoking cigarettes per day: 5-7 cigars weekly Do You Dip or Chew Tobacco: No Hx Alcohol Use: Yes Alcohol type: hard liquor alcohol intake frequency: 0-2 drinks per day Hx Substance Use: No substance use type: does not use Physical Exam Vital Signs Last Vital Signs Temp 36.7 C 01/14/25 11:08 Pulse 91 H 01/14/25 11:08 Resp 18 01/14/25 11:08 BP 127/81 01/14/25 11:08 Pulse Ox 96 01/14/25 11:08 O2 Del Method Room Air 01/14/25 11:08 Testing Laboratory Results 01/14/25 06:25 01/14/25 06:25 PT 13.0 Seconds (9.0-12.0) H 01/12/25 10:22 INR 1.2 (0.9-1.1) H 01/12/25 10:22 Urine Color Dark Yellow 01/12/25 10:47 Urine Appearance Clear (Clear) 01/12/25 10:47 Urine pH 7.0 (4.5-7.5) 01/12/25 10:47 Ur Specific [place] 1.012 (1.000-1.030) 01/12/25 10:47 Urine Protein Trace (Negative) H 01/12/25 10:47 Urine Glucose (UA) Negative (Negative) 01/12/25 10:47 Urine Ketones Negative (Negative) 01/12/25 10:47 Urine Nitrite Negative (Negative) 01/12/25 10:47 Ur Leukocyte Esterase 2+ (Negative) H 01/12/25 10:47 Urine WBC (Auto) >50 /hpf (0-5) H 01/12/25 10:47 Urine RBC (Auto) 3-5 /hpf (0-2) H 01/12/25 10:47 U Hyaline Cast (Auto) 0-2 /lpf (0-2) 01/12/25 10:47 U Epithel Cells (Auto) 0-2 /hpf (0-2) 01/12/25 10:47 Urine Bacteria (Auto) 2+ (None Seen) H 01/12/25 10:47 01/12/25 10:47 Urine Culture - Final Urine,Clean Catch Enterococcus faecalis 01/14/25 01/14/25 01/14/25 11:39 08:14 08:13 POC Glucose 115 H 124 H 128 H 01/14/25 01/14/25 08:12 06:25 POC Glucose 49 L* 104 H Electrocardiogram Date: 01/12/25 Findings: + AFIB @ (125) and + UT (old anterior) Echocardiogram Date: 12/25/24 EF: 50-55% LV Function: normal Valvular Disease: + no significant valvular disease
[2025-01-14] MEDS ORDERED: LABETALOL HCL IV 5 MG/ML 20ML IV PRN (14:46)
[2025-01-14] MEDS ORDERED: ATROPINE SULFATE 0.1 MG/ML 10ML SYR IV PRN (14:46)
[2025-01-14] MEDS ORDERED: ONDANSETRON INJ 2 MG/ML 2 ML VIAL IV PRN (14:46)
[2025-01-14] MEDS ORDERED: ESMOLOL HCL INJ 10 MG/ML 10ML VIAL IV ONE ×2 (15:08→15:28)
[2025-01-14] MEDS ORDERED: PHENYLEPHRINE 100MCG/ML 5ML SYR ONE (15:16)
[2025-01-14] MEDS ORDERED: SUGAMMADEX SODIUM 200 MG/2 ML VIAL IV ONE (15:28)
[2025-01-14] MEDS ORDERED: PHENYLEPHRINE HCL 10 MG/ML VIAL ONE (15:28)
--- NOTE | 2025-01-14 15:46 | GI REPORT ---
[facility] Patient: ISABELLA RIVAS : 1950 Sex at : Male Age: 74 Years Procedure: ERCP Date: 01/14/2025 Attending Physician: Tadeo Ortiz MD Referring MD: Referred Self; Douglas Calabrese Md Indications: - Bile duct stone(s) - Elevated liver enzymes Medications: - General Anesthesia - Indomethacin 100 mg [place] - See the Anesthesia note for documentation of the administered medications Complications: - No immediate complications. Estimated Blood Loss: - Estimated blood loss was minimal. Procedure: - Prior to the procedure, a History and Physical was performed, and patient medications, allergies and sensitivities were reviewed. The patient's tolerance of previous anesthesia was reviewed. - Patient identification and proposed procedure were verified prior to the procedure by the physician. The procedure was verified in the procedure room. - The risks and benefits of the procedure and the sedation options and risks were discussed with the patient. All questions were answered and informed consent was obtained. - The ercp scope was introduced through the mouth and advanced to the duodenum and used to inject contrast into the bile duct. - The ERCP was accomplished without difficulty. - The patient tolerated the procedure well. Findings: - The bile duct was deeply cannulated with the short-nosed sphincterotome. Contrast was injected. I personally interpreted the bile duct images. Image quality was excellent. The lower third of the main duct contained filling defect(s) thought to be a multiple stones. The main bile duct was mildly dilated, with stones causing an obstruction. The largest diameter was 10 mm. The pancreatic duct was not cannulated. - A biliary sphincterotomy was made with a short nose sphincterotome. There was no post-sphincterotomy bleeding. - The biliary tree was swept with a 8.5 mm-12 mm balloon starting at the bifurcation. Many large stones were removed. No stones remained. Impression: - A filling defect consistent with a stone was seen on the cholangiogram. - The entire main bile duct was mildly dilated, with a stone causing an obstruction. - Choledocholithiasis was found. Complete removal was accomplished by biliary sphincterotomy and balloon extraction. - A biliary sphincterotomy was performed. - The biliary tree was swept. Recommendation: - Continue present medications. - Watch for pancreatitis, bleeding, perforation, and cholangitis. - Clear liquid diet. Procedure Code(s): - 74220, Endoscopic retrograde cholangiopancreatography (ERCP); with removal of calculi/debris from biliary/pancreatic duct(s) - 65425, Endoscopic retrograde cholangiopancreatography (ERCP); with sphincterotomy/papillotomy - 23664, Endoscopic catheterization of the biliary ductal system, radiological supervision and interpretation Diagnosis Code(s): - R74.8, Abnormal levels of other serum enzymes - R93.2, Abnormal findings on diagnostic imaging of liver and biliary tract - K80.51, Calculus of bile duct without cholangitis or cholecystitis with obstruction CPT(R) - 202 copyright [employer]. All Rights Reserved. The CPT codes, CCI edits and ICD codes generated are intended as suggestions and were generated based on input data. These codes are preliminary and upon cement storage worker review may be revised to meet current compliance and payer requirements. The provider is responsible for the final determination of appropriate codes, and modifiers. Tadeo Ortiz MD This document has been electronically signed. Note Initiated:01/14/2025 Note Completed:01/14/2025 3:45 PM [id number]
--- NOTE | 2025-01-14 16:21 | Anesthesiology Progress Note ---
Date of Service January 14, 2025 Anesthesia Post Procedure Vital Signs Vital Signs: Temp Pulse Pulse Pulse Resp BP BP 01/14/25 16:10 36.8 C 97 H 16 154/87 H 01/14/25 16:00 101 H 18 153/97 H 01/14/25 15:50 95 H 10 L 140/93 01/14/25 15:44 36.0 C L 87 12 134/86 01/14/25 14:41 36.2 C L 109 H 20 144/111 H 01/14/25 13:12 103 H 01/14/25 11:08 36.7 C 91 H 18 127/81 01/14/25 07:48 36.7 C 84 18 149/93 H 01/14/25 05:20 94 H 01/14/25 03:39 36.8 C 93 H 20 147/91 H 01/14/25 00:13 36.9 C 78 20 128/82 01/13/25 19:38 37.7 C H 99 H 20 140/87 Pulse Ox O2 Del Method O2 Flow Rate 01/14/25 16:10 96 Room Air 01/14/25 16:00 97 Room Air 01/14/25 15:50 100 Oxymask 4 01/14/25 15:44 100 Oxymask 10 01/14/25 14:41 97 Room Air 01/14/25 13:12 01/14/25 11:08 96 Room Air 01/14/25 07:48 97 Room Air 01/14/25 05:20 01/14/25 03:39 94 Room Air 01/14/25 00:13 97 Room Air 01/13/25 19:38 94 Room Air Transfer of Care Handoff Completed per policy Notes Mental Status: alert / awake / arousable Patient Amnestic to Procedure: Yes Nausea / Vomiting: adequately controlled Pain: adequately controlled Airway Patency, RR, SpO2: stable & adequate BP & HR: stable & adequate Hydration State: stable & adequate Anesthetic Complications: no major complications apparent
[2025-01-14] MEDS: NITROFURANTOIN MONOHYDRATE 100 MG CAP PO SCH (22:22)
--- NOTE | 2025-01-15 07:21 | Gastroenterology Progress Note ---
Date of Service January 15, 2025 Assessment & Plan (1) Choledocholithiasis with cholecystitis: Plan: Stable post ERCP with stone extraction. No signs of cholangitis or pancreatitis. Plan for cholecystectomy later today. Call if any further issues. Admission and Anticipated Discharge Date Admission Date: January 12, 2025 Subjective Resting comfortably denies abdominal pain shortness of breath or chest pain Physical Exam Physical Exam: No acute distress Respiratory rate regular Cardiac rhythm regular Abdomen soft nontender Results & Data Results & Data Vital Signs (Past 12 Hours) Vital Signs Temp Pulse Pulse Resp BP Pulse Ox O2 Del Method 01/15/25 04:20 36.7 C 74 18 142/86 H 95 Room Air 01/14/25 23:14 36.9 C 109 H 18 155/91 H 97 Room Air 01/14/25 22:03 99 H 01/14/25 19:22 36.8 C 113 H 18 115/65 96 Room Air PG Care Time/CCT Total # of Minutes Spent Total Time Spent with Patient: Total time spent is greater than 50% in coordination of care (as documented) at patient's floor/unit and/or counseling patient: Coding Level of Care Code 82599 SUB INP/OBS CARE MIN Diagnoses Choledocholithiasis with cholecystitis K80.40
--- NOTE | 2025-01-15 07:37 | Hospitalist Progress Note ---
Date of Service January 15, 2025 Assessment & Plan (1) Choledocholithiasis with acute cholecystitis: (2) Elevated LFTs: (3) Permanent atrial fibrillation: (4) (HFpEF) heart failure with preserved ejection fraction: (5) Hypertension: (6) Diabetes mellitus, type II: (7) Gout: (8) Hyperlipidemia: (9) BPH (benign prostatic hyperplasia): Plan Per admitting provider w/addendum: 74-year-old male with past medical history significant for type 2 diabetes, metabolic syndrome, gout, dyslipidemia, chronic rhinitis, chronic atrial fibrillation, hypertension, thiamine deficiency, gallstones, right Achilles rupture, degenerative disc disease, neuropathy, iron deficiency anemia, cervical spinal stenosis, alcohol abuse who presented to the ED on 01/12/2025 with abdominal pain. Acute cholecystitis secondary to choledocholithiasis Patient presenting with abdominal pain and associated nausea x1 day CTAP revealed dilated gallbladder up to 10mm diameter containing numerous gallstones with pericholecystic inflammation and fluid, mild intrahepatic biliary ductal dilatation Received ceftriaxone and metronidazole in the ED -> continue GI consulted and pt is s/p ERCP with stone extraction (01/14) Gen surgery consulted and discussed with - plan for cholecystectomy today (01/15) Elevated LFTs T bili 5.4 with direct 3.8 AST 302 and ALT 249 Alk phos 187 Secondary to cholecystitis as above LFTs improved, cont. to monitor, current Tbili down to 2 Recent GI bleed Patient recently admitted for melena and GI bleed from 12/24-12/28/2024 s/p EGD on 12/25/2024 with multiple ulcers related to previous polypectomy, polypectomy site antrum appeared to be source of bleeding, adherent clot injected and coagulated and clipped closed, other polypectomy sites without stigmata of bleeding Continue pantoprazole, sucralfate, iron Hgb stable Atrial fibrillation EKG and cardiac rn reveals RVR at rates of 115-130s Order IV Lopressor 5mg x1 Continue carvedilol at 12.5mg BID for now-> prior admission tried to increase dosing due to RVR but blood pressures did not tolerate Eliquis on hold for now Heart failure CTAP notes cardiomegaly with evidence of CHF and small pleural effusions Echo 12/25 showed LVEF 50-55%, severely dilated left atrium, mild MR, trace TR-> LA dilation worsened from previous in 2019 otherwise unchanged Patient denies SOB and is on RA Continue lasix per home regimen-> recently decreased from bid to daily due to low blood pressures Hypotension Holding amlodipine, hydralazine, benazepril since previous admission due to low blood pressures Monitor BPs Current BP 149/93, cont. to monitor DM II Hold home metformin BSG ACHS and SSI while inpatient Gout Continue allopurinol Hyperlipidemia Continue atorvastatin BPH Continue tamsulosin DVT Prophylaxis: SCDs , (Eliquis on hold) Code Status: FULL CODE PCP: Dr. Eloy Mcgraw Disposition: med tele Admission and Anticipated Discharge Date Admission Date: January 12, 2025 Subjective Pt seen in follow up of cholecystitis, choledocholithiasis Eliquis on hold Currently sitting up in bed in NAD, overall says he feels well, much improved. Had ERCP yesterday. Prior to coming to the hospital had chills, nausea, abd. discomfort. Recently was hospitalized here for GI bleed so was concerned if that was happening to him again. Plan for cholecystectomy today. Review of Systems 2 Review of Systems: All systems reviewed & are unremarkable except as noted in Subjective Physical Exam Physical Exam: General/Psych: WD/WN, sitting up in bed, NAD, conversing easily Head: normocephalic, atraumatic Eyes: normal inspection, PERRL ENT: external ear and nose normal, oropharynx normal Neck: normal visual inspection Respiratory: normal respiratory effort, lungs with mild crackles in left lower base, no accessory muscle use Cardiovascular: irregularly irregular rate and rhythm, no murmur/rub/gallop Extremities: no BLE edema, moves extremities Abdomen/GI: normal bowel sounds, soft, nontender, negative Burkett's sign Neurologic/MSK: A+Ox3, answers appropriately, speech fluent, moves all extremities Skin: no rashes, warm and dry Results & Data Results & Data Vital Signs (Past 12 Hours) Vital Signs Temp Pulse Pulse Resp BP Pulse Ox O2 Del Method 01/15/25 04:20 36.7 C 74 18 142/86 H 95 Room Air 01/14/25 23:14 36.9 C 109 H 18 155/91 H 97 Room Air 01/14/25 22:03 99 H Laboratory Results 01/15/25 01/15/25 01/14/25 Range/Units 06:57 06:06 23:35 WBC 3.48 L (4.8-10.8) K/ul RBC 3.01 L (4.70-6.10) M/uL Hgb 9.0 L (14.0-18.0) g/dl Hct 27.9 L (42.0-52.0) % MCV 92.7 (80.0-100.0) fL MCH 29.9 (25.0-34.0) pg MCHC 32.3 (32.0-36.0) g/dL RDW Std Deviation 48.8 H (36.4-46.3) fL RDW Coeff of Riley 14.6 H (11.5-14.5) % Plt Count 119 L (130-400) K/uL MPV 11.4 (9.4-12.4) fL Sodium Pending Potassium Pending Chloride Pending Carbon Dioxide Pending Anion Gap Pending BUN Pending Creatinine Pending Est Cr Clr Drug Dosing Pending eGFR Pending BUN/Creatinine Ratio Pending Glucose Pending POC Glucose 100 H 113 H (70-99) mg/dl Calcium Pending Phosphorus Pending Magnesium Pending Total Bilirubin Pending AST Pending ALT Pending Alkaline Phosphatase Pending Total Protein Pending Albumin Pending Globulin Pending Albumin/Globulin Ratio Pending 01/14/25 01/14/25 01/14/25 Range/Units 20:24 16:49 15:48 WBC (4.8-10.8) K/ul RBC (4.70-6.10) M/uL Hgb (14.0-18.0) g/dl Hct (42.0-52.0) % MCV (80.0-100.0) fL MCH (25.0-34.0) pg MCHC (32.0-36.0) g/dL RDW Std Deviation (36.4-46.3) fL RDW Coeff of Riley (11.5-14.5) % Plt Count (130-400) K/uL MPV (9.4-12.4) fL Sodium Potassium Chloride Carbon Dioxide Anion Gap BUN Creatinine Est Cr Clr Drug Dosing eGFR BUN/Creatinine Ratio Glucose POC Glucose 152 H 140 H 177 H (70-99) mg/dl Calcium Phosphorus Magnesium Total Bilirubin AST ALT Alkaline Phosphatase Total Protein Albumin Globulin Albumin/Globulin Ratio 01/14/25 01/14/25 01/14/25 Range/Units 11:39 08:14 08:13 WBC (4.8-10.8) K/ul RBC (4.70-6.10) M/uL Hgb (14.0-18.0) g/dl Hct (42.0-52.0) % MCV (80.0-100.0) fL MCH (25.0-34.0) pg MCHC (32.0-36.0) g/dL RDW Std Deviation (36.4-46.3) fL RDW Coeff of Riley (11.5-14.5) % Plt Count (130-400) K/uL MPV (9.4-12.4) fL Sodium Potassium Chloride Carbon Dioxide Anion Gap BUN Creatinine Est Cr Clr Drug Dosing eGFR BUN/Creatinine Ratio Glucose POC Glucose 115 H 124 H 128 H (70-99) mg/dl Calcium Phosphorus Magnesium Total Bilirubin AST ALT Alkaline Phosphatase Total Protein Albumin Globulin Albumin/Globulin Ratio 01/14/25 Range/Units 08:12 WBC (4.8-10.8) K/ul RBC (4.70-6.10) M/uL Hgb (14.0-18.0) g/dl Hct (42.0-52.0) % MCV (80.0-100.0) fL MCH (25.0-34.0) pg MCHC (32.0-36.0) g/dL RDW Std Deviation (36.4-46.3) fL RDW Coeff of Riley (11.5-14.5) % Plt Count (130-400) K/uL MPV (9.4-12.4) fL Sodium Potassium Chloride Carbon Dioxide Anion Gap BUN Creatinine Est Cr Clr Drug Dosing eGFR BUN/Creatinine Ratio Glucose POC Glucose 49 L* (70-99) mg/dl Calcium Phosphorus Magnesium Total Bilirubin AST ALT Alkaline Phosphatase Total Protein Albumin Globulin Albumin/Globulin Ratio Medications Administered Current Inpatient Medications Acetaminophen (Acetaminophen 500 Mg Tab) 1,000 mg PO Q8 PRN PRN Reason: Mild Pain (Scale 1, 2, 3) Stop: 02/11/25 17:09 Allopurinol (Allopurinol 100 Mg Tab) 100 mg PO QAM [facility] Stop: 02/12/25 08:59 Last Admin: 01/14/25 08:40 Dose: 100 mg Atorvastatin Calcium (Atorvastatin 20 Mg Tab) 20 mg PO QAM [facility] Stop: 02/12/25 08:59 Last Admin: 01/14/25 08:39 Dose: 20 mg Carvedilol (Carvedilol 12.5 Mg Tab) 12.5 mg PO BID [facility] Stop: 02/11/25 20:59 Last Admin: 01/14/25 22:22 Dose: 12.5 mg Cyanocobalamin (Cyanocobalamin (B-12) 500 Mcg Tablet) 1,000 mcg PO QAM [facility] Stop: 02/12/25 08:59 Last Admin: 01/14/25 08:40 Dose: 1,000 mcg Dextrose (Dextrose 50% 50 Ml Syringe) 25 - 50 ml IV UD PRN; Protocol PRN Reason: Hypoglycemia Protocol Stop: 02/11/25 17:09 Ferrous Sulfate (Ferrous Sulfate 325 Mg Tab) 325 mg PO Q2D@2100 [facility] Stop: 02/11/25 20:59 Last Admin: 01/14/25 22:22 Dose: 325 mg Folic Acid (Folic Acid 1 Mg Tab) 1 mg PO QAM [facility] Stop: 02/12/25 08:59 Last Admin: 01/14/25 08:40 Dose: 1 mg Furosemide (Furosemide 20 Mg Tab) 20 mg PO DAILY [facility] Stop: 02/12/25 08:59 Last Admin: 01/14/25 08:40 Dose: 20 mg Gabapentin (Gabapentin 100 Mg Cap) 100 mg PO TID [facility] Stop: 02/11/25 20:59 Last Admin: 01/14/25 22:22 Dose: 100 mg Glucagon (Glucagon For Inj 1 Mg Vial) 1 mg SQ UD PRN; Protocol PRN Reason: Hypoglycemia Protocol Stop: 02/11/25 17:09 Glucose (Glucose 40% Gel 15 Gm Tube) 15 - 30 gm PO UD PRN; Protocol PRN Reason: Hypoglycemia Protocol Stop: 02/11/25 17:09 Glucose (Glucose 10 Tab/Tube) 4 - 8 tab PO UD PRN; Protocol PRN Reason: Hypoglycemia Protocol Stop: 02/11/25 17:09 Ceftriaxone Sodium (Rocephin) 2,000 mg in 50 mls @ 100 mls/hr IV Q24H [facility] Stop: 01/23/25 07:59 Last Infusion: 01/14/25 09:16 Dose: Infused Metronidazole (Flagyl) 500 mg in 100 mls @ 100 mls/hr IV Q8H [facility]; Protocol Stop: 01/22/25 22:59 Last Admin: 01/15/25 06:38 Dose: 100 mls/hr Insulin Aspart (Insulin Aspart Per Unit Charge) 0 units SC Q6 [facility] Stop: 02/13/25 06:14 Last Admin: 01/15/25 06:10 Dose: Not Given Magnesium Oxide (Magnesium Oxide 400 Mg Tab) 400 mg PO DAILY [facility] Stop: 02/12/25 08:59 Last Admin: 01/14/25 08:40 Dose: 400 mg Miscellaneous (Carbohydrates For Hypoglycemia ) 15 - 30 gm PO UD PRN PRN Reason: Hypoglycemia Protocol Stop: 02/11/25 17:09 Morphine Sulfate (Morphine Sulfate 4 Mg/Ml 1 Ml Carp\Vial) 2 mg IV Q4 PRN PRN Reason: Mod-Sev Pain (Scale 4-10) Stop: 01/26/25 17:09 Nitrofurantoin Macrocrystals (Nitrofurantoin Monohydrate 100 Mg Cap) 100 mg PO BID [facility] Stop: 01/19/25 20:59 Last Admin: 01/14/25 22:22 Dose: 100 mg Ondansetron HCl (Ondansetron Inj 2 Mg/Ml 2 Ml Vial) 4 mg IV Q6H PRN PRN Reason: Nausea Stop: 02/11/25 17:09 Oxycodone HCl (Oxycodone Hcl Ir 5 Mg Tab (Immediate Release)) 5 mg PO Q4 PRN PRN Reason: Mod-Sev Pain (Scale 4-10) Stop: 01/26/25 17:09 Pantoprazole Sodium (Pantoprazole 40 Mg Tab) 40 mg PO BID [facility] Stop: 02/11/25 20:59 Last Admin: 01/14/25 22:23 Dose: 40 mg Pneumococcal 20-Valent Conj Vacc (Pneumococcal Vaccine (Pcv20) 20-Genia Conj-Dip Crm/Pf 0.5 Ml Syr) 0.5 ml IM .ONCE ONE Stop: 01/15/25 08:01 Sucralfate (Sucralfate 1 Gm Tab) 1 gm PO ACHS [facility] Stop: 02/11/25 17:09 Last Admin: 01/14/25 22:23 Dose: 1 gm Tamsulosin HCl (Tamsulosin Hcl 0.4 Mg Cap) 0.4 mg PO HS [facility] Stop: 02/11/25 20:59 Last Admin: 01/14/25 22:23 Dose: 0.4 mg Thiamine HCl (Thiamine Hcl 100 Mg Tab) [facility] Stop: 02/12/25 08:59 Last Admin: 01/14/25 08:40 Dose: 100 mg Vitamin D (Cholecalciferol 25 Mcg (1000 Units) Tab) 25 mcg PO QAM [facility] Stop: 02/12/25 08:59 Last Admin: 01/14/25 08:39 Dose: 25 mcg (5) Hypertension Hypertension type: essential hypertension Qualified Code(s): I10 - Essential (primary) hypertension (7) Gout Chronicity: unspecified Gout etiology: unspecified cause Gout site: unspecified site Qualified Code(s): M10.9 - Gout, unspecified (8) Hyperlipidemia Hyperlipidemia type: unspecified Qualified Code(s): E78.5 - Hyperlipidemia, unspecified
[2025-01-15 08:03] LABS: Hematocrit (blood only) 27.9 % (42.0-52.0); Hemoglobin 9.0 g/dl (14.0-18.0); Mean Corpuscular Hemoglobin 29.9 pg (25.0-34.0); Mean Corpuscular Volume 92.7 fL (80.0-100.0); Platelet Count 119 K/uL (130-400); RDW Standard Deviation 48.8 fL (36.4-46.3); Red Blood Count 3.01 M/uL (4.70-6.10); White Blood Count 3.48 K/ul (4.8-10.8)
[2025-01-15] MEDS ORDERED: LIDOCAINE 2% 2 ML VIAL/AMP(20MG/ML) INFIL ONE (08:13)
[2025-01-15] MEDS ORDERED: PROPOFOL IV EMULSION 10 MG/ML 20 ML VIAL IV ONE (08:13)
[2025-01-15] MEDS ORDERED: ONDANSETRON INJ 2 MG/ML 2 ML VIAL ONE (08:13)
[2025-01-15] MEDS ORDERED: DEXAMETHASONE SOD INJ 4 MG/ML VIAL ONE (08:13)
[2025-01-15] MEDS ORDERED: ROCURONIUM BROMIDE 10 MG/ML 5 ML VIAL IV ONE ×2 (08:13→10:00)
[2025-01-15] MEDS ORDERED: MIDAZOLAM HCL 1 MG/ML 2ML VIAL ONE (08:14)
[2025-01-15 08:16] LABS: Alanine Aminotransferase 99.0 U/L (7-52); Albumin Globulin Ratio 1.1 (0.9-2); Albumin Level 3.3 gm/dl (3.4-5.0); Alkaline Phosphatase 172.0 U/L (34-104); Anion Gap 10.0 (3-11); Bilirubin,Total 1.7 mg/dl (0.2-1.0); Blood Urea Nitrogen 12.0 mg/dl (6-23); Calcium 8.3 mg/dl (8.6-10.3); Carbon Dioxide 24.0 mmol/L (21-32); Chloride 107.0 mmol/L (98-107); Creatinine Clr Calc Pharmacy 50.9 ml/min; Globulin 2.9 gm/dl (2.5-4.0); Glucose 85.0 mg/dl (70-99(Fasting)); Potassium 3.6 mmol/L (3.5-5.1); Sodium 141.0 mmol/L (136-145); Total Protein 6.2 gm/dl (6.0-8.3)
--- NOTE | 2025-01-15 08:21 | Fluoroscopy Report ---
[place] ERCP biliary ductal CLINICAL HISTORY: ERCP COMPARISON STUDY: CT of 01/12/2025 FLUOROSCOPY TIME: 2 minutes 39 seconds FLUOROSCOPY IMAGES: 6 EXPOSURE DOSE: 25 mGy FINDINGS: Endoscope is at the upper abdomen and the common bile duct is cannulated and contrast injec maddy. On the initial images there are multiple common bile duct stones. These are no longer seen on th e final images after balloon sweeping. IMPRESSION: Fluoroscopy for ERCP. ACT 112: Negative or not required by law. Electronically signed by: Benjy Zaldivar M.D. 01/15/2025 8:20 AM
[2025-01-15] MEDS: LACTATED RINGER'S 1,000 ML IV SCH (08:34)
--- NOTE | 2025-01-15 08:34 | Anesthesiology Consultation ---
Date of Service January 15, 2025 Assessment & Plan Chart Review Chart Review: Acceptable Risk for Surgery and Patient NOT seen in Pre Admission Testing Consults Requested none ASA ASA4 Proposed Anesthesia Anesthesia Type: General History Surgery Operation Date: 01/14/25 08:20 Proposed Procedures p Endoscopic Retrograde Cholangiopancreatogram - Tadeo Ortiz MD Operation Date: 01/15/25 09:05 Proposed Procedures p Robotic Laparoscopic Cholecystectomy - Benjy Guzmán DO, FACS Height/Weight Height: 5 ft 10 in Weight: 89.1 kg Allergies Allergy/AdvReac Type Severity Reaction Status Date / Time amoxicillin Allergy Intermediate Rash Verified 01/15/25 08:18 cephalexin [From Keflex] Allergy Unknown ON Verified 01/15/25 08:18 [employer] Tetanus Vaccines and Toxoid AdvReac Intermediate FEVER 104F Verified 01/15/25 08:18 Medications Home Medications Medication Instructions Recorded Confirmed Last Taken allopurinol 100 mg tablet 100 mg PO QAM 01/12/19 01/12/25 01/12/25 (Zyloprim) amlodipine 10 mg tablet (Norvasc) 10 mg PO HS 01/12/19 01/12/25 12/16/24 atorvastatin 20 mg tablet (Lipitor) 20 mg PO QAM 01/12/19 01/12/25 01/12/25 benazepril 40 mg tablet (Lotensin) 40 mg PO QAM 01/12/19 01/12/25 12/17/24 cholecalciferol (vitamin D3) 25 1,000 unit PO QAM 01/12/19 01/12/25 01/12/25 mcg (1,000 unit) capsule (Vitamin D3) cyanocobalamin (vitamin B-12) 1,000 mcg PO QAM 01/12/19 01/12/25 01/12/25 1,000 mcg tablet (Vitamin B-12) tadalafil 5 mg tablet (Cialis) 5 mg PO DIRECTED PRN Sexual 01/12/19 01/12/25 Unknown Activity thiamine mononitrate (vit B1) 100 100 mg PO QAM 01/12/19 01/12/25 01/12/25 mg tablet (Vitamin B-1 (mononitrate)) folic acid 1 mg tablet 1 mg PO QAM 01/16/19 01/12/25 01/12/25 apixaban 5 mg tablet (Eliquis) 5 mg PO BID #60 tabs 02/26/20 01/12/25 01/11/25 epinephrine 0.3 mg/0.3 mL 0.3 mg IM DIRECTED PRN 06/06/20 01/12/25 Unknown injection, auto-injector (EpiPen) Anaphylaxis gabapentin 100 mg capsule 100 mg PO TID 06/06/20 01/12/25 01/12/25 hydralazine 100 mg tablet 100 mg PO TID 06/06/20 01/12/25 12/17/24 12:00 tamsulosin 0.4 mg capsule 0.4 mg PO HS 06/06/20 01/12/25 01/12/25 carvedilol 12.5 mg tablet 12.5 mg PO BID 12/17/24 01/12/25 01/12/25 metformin 1,000 mg tablet 1,000 mg PO BIDM 12/17/24 01/12/25 01/12/25 omega 8-[id number]-exc-fish oil 1,000 mg 1 cap PO DAILY 12/17/24 01/12/25 01/12/25 (120 mg-180 mg) capsule (Fish Oil) pantoprazole 40 mg tablet,delayed 40 mg PO BID #60 tabs 12/19/24 01/12/25 01/12/25 release sucralfate 1 gram tablet 1 g PO ACHS 4 weeks #28 tabs 12/19/24 01/12/25 01/12/25 furosemide 20 mg tablet 20 mg PO DAILY #0 tabs 12/28/24 01/12/25 01/12/25 magnesium oxide 400 mg PO DAILY #30 caps 12/28/24 01/12/25 01/12/25 ferrous sulfate 325 mg (65 mg 325 mg PO UD 01/12/25 01/12/25 01/12/25 iron) tablet Active Medications Generic Name Dose Route Start Last Admin Trade Name Freq PRN Reason Stop Dose Admin Allopurinol 100 mg 01/13/25 09:00 01/14/25 08:40 Allopurinol 100 Mg Tab PO 02/12/25 08:59 100 mg QAM LATA Administration Atorvastatin Calcium 20 mg 01/13/25 09:00 01/14/25 08:39 Atorvastatin 20 Mg Tab PO 02/12/25 08:59 20 mg QAM [facility]ATA Administration Carvedilol 12.5 mg 01/12/25 21:00 01/14/25 22:22 Carvedilol 12.5 Mg Tab PO 02/11/25 20:59 12.5 mg BID LATA Administration Cyanocobalamin 1,000 mcg 01/13/25 09:00 01/14/25 08:40 Cyanocobalamin (B-12) 500 Mcg Tablet PO 02/12/25 08:59 1,000 mcg QAM [facility]ATA Administration Ferrous Sulfate 325 mg 01/12/25 21:00 01/14/25 22:22 Ferrous Sulfate 325 Mg Tab PO 02/11/25 20:59 325 mg Q2D@2100 [facility] Administration Folic Acid 1 mg 01/13/25 09:00 01/14/25 08:40 Folic Acid 1 Mg Tab PO 02/12/25 08:59 1 mg QAM [facility] Administration Furosemide 20 mg 01/13/25 09:00 01/14/25 08:40 Furosemide 20 Mg Tab PO 02/12/25 08:59 20 mg DAILY [facility] Administration Gabapentin 100 mg 01/12/25 21:00 01/14/25 22:22 Gabapentin 100 Mg Cap PO 02/11/25 20:59 100 mg TID [facility] Administration Ceftriaxone Sodium 2,000 mg in 50 mls @ 100 mls/hr 01/13/25 08:00 01/15/25 07:51 Rocephin IV 01/23/25 07:59 100 mls/hr Q24H [facility] Administration Metronidazole 500 mg in 100 mls @ 100 mls/hr 01/12/25 23:00 01/15/25 07:51 Flagyl IV 01/22/25 22:59 Infused Q8H [facility] Infusion Protocol Insulin Aspart 0 units 01/14/25 06:15 01/15/25 06:10 Insulin Aspart Per Unit Charge SC 02/13/25 06:14 Not Given Q6 [facility]ATA Magnesium Oxide 400 mg 01/13/25 09:00 01/14/25 08:40 Magnesium Oxide 400 Mg Tab PO 02/12/25 08:59 400 mg DAILY [facility] Administration Nitrofurantoin Macrocrystals 100 mg 01/14/25 21:00 01/14/25 22:22 Nitrofurantoin Monohydrate 100 Mg Cap PO 01/19/25 20:59 100 mg BID [facility] Administration Pantoprazole Sodium 40 mg 01/12/25 21:00 01/14/25 22:23 Pantoprazole 40 Mg Tab PO 02/11/25 20:59 40 mg BID [facility] Administration Sucralfate 1 gm 01/12/25 17:10 01/14/25 22:23 Sucralfate 1 Gm Tab PO 02/11/25 17:09 1 gm ACHS [facility] Administration Tamsulosin HCl 0.4 mg 01/12/25 21:00 01/14/25 22:23 Tamsulosin Hcl 0.4 Mg Cap PO 02/11/25 20:59 0.4 mg HS [facility]ATA Administration Thiamine HCl 100 mg 01/13/25 09:00 01/14/25 08:40 Thiamine Hcl 100 Mg Tab PO 02/12/25 08:59 100 mg QAM [facility] Administration Vitamin D 25 mcg 01/13/25 09:00 01/14/25 08:39 Cholecalciferol 25 Mcg (1000 Units) Tab PO 02/12/25 08:59 25 mcg QAM [facility] Administration NPO Last Intake of Solids Comment: clear liquids since admission on 01/12/25 Past Medical History Medical History CKD (chronic kidney disease) (HFpEF) heart failure with preserved ejection fraction DVT prophylaxis COVID-19 Near syncope Melena Hypomagnesemia Acute upper gastrointestinal bleeding Acute blood loss anemia Hypomagnesemia Hypokalemia Hematemesis GIB (gastrointestinal bleeding) On anticoagulant therapy GERD (gastroesophageal reflux disease) Atrial fibrillation new onset Hypertension Type 2 diabetes mellitus with diabetic polyneuropathy NIDDM ASCVD Ao COPD Exercise / Class Metabolic Activity III < 4 Walking/Shop/Light housework Past Family History Family History Brother Prostate cancer Father Heart disease Brother Melanoma Past Surgical History Surgical History History of colonoscopy History of tonsillectomy S/P ORIF (open reduction internal fixation) fracture Left Ankle/Heel Past Anesthesia History No Hx of Anesthesia Complications and No Family Hx of Anesthesia Complications History of PONV No Hx of PONV and No Hx of Motion Sickness Social History Smoking Status: Current some day smoker tobacco type: cigars Smoking cigarettes per day: 5-7 cigars weekly Do You Dip or Chew Tobacco: No Hx Alcohol Use: Yes Alcohol type: hard liquor alcohol intake frequency: 0-2 drinks per day Hx Substance Use: No substance use type: does not use Physical Exam Vital Signs Last Vital Signs Temp 36.5 C 01/15/25 08:25 Pulse 112 H 01/15/25 08:25 Resp 20 01/15/25 08:25 BP 165/100 H 01/15/25 08:25 Pulse Ox 98 01/15/25 08:25 O2 Del Method Room Air 01/15/25 08:25 O2 Flow Rate 4 01/14/25 15:50 Testing Laboratory Results 01/15/25 06:57 01/15/25 06:57 PT 13.0 Seconds (9.0-12.0) H 01/12/25 10:22 INR 1.2 (0.9-1.1) H 01/12/25 10:22 Urine Color Dark Yellow 01/12/25 10:47 Urine Appearance Clear (Clear) 01/12/25 10:47 Urine pH 7.0 (4.5-7.5) 01/12/25 10:47 Ur Specific [place] 1.012 (1.000-1.030) 01/12/25 10:47 Urine Protein Trace (Negative) H 01/12/25 10:47 Urine Glucose (UA) Negative (Negative) 01/12/25 10:47 Urine Ketones Negative (Negative) 01/12/25 10:47 Urine Nitrite Negative (Negative) 01/12/25 10:47 Ur Leukocyte Esterase 2+ (Negative) H 01/12/25 10:47 Urine WBC (Auto) >50 /hpf (0-5) H 01/12/25 10:47 Urine RBC (Auto) 3-5 /hpf (0-2) H 01/12/25 10:47 U Hyaline Cast (Auto) 0-2 /lpf (0-2) 01/12/25 10:47 U Epithel Cells (Auto) 0-2 /hpf (0-2) 01/12/25 10:47 Urine Bacteria (Auto) 2+ (None Seen) H 01/12/25 10:47 01/12/25 10:47 Urine Culture - Final Urine,Clean Catch Enterococcus faecalis 01/15/25 01/14/25 06:06 23:35 POC Glucose 100 H 113 H
[2025-01-15] MEDS ORDERED: ONDANSETRON INJ 2 MG/ML 2 ML VIAL IV PRN (08:40)
[2025-01-15] MEDS ORDERED: NALOXONE HCL 0.4 MG/1 ML VIAL/CARP IV PRN (08:40)
[2025-01-15] MEDS ORDERED: PROMETHAZINE HCL 6.25 MG in SODIUM CHLORIDE 0.9% 50 ML IV PRN (08:40)
[2025-01-15] MEDS ORDERED: FLUMAZENIL 0.1 MG/1 ML 10 ML VIAL IV PRN (08:40)
[2025-01-15] MEDS ORDERED: HYDROmorphone INJ 1 MG/ML SYRINGE IV PRN (08:40)
[2025-01-15] MEDS ORDERED: ATROPINE SULFATE 0.1 MG/ML 10ML SYR IV PRN (08:40)
[2025-01-15] MEDS: INDOCYANINE GREEN 25 MG VIAL INJ ONE (08:57)
--- NOTE | 2025-01-15 09:10 | Surgery Progress Note ---
Date of Service January 15, 2025 Assessment & Plan (1) Choledocholithiasis with acute cholecystitis: Plan: Choledocholithiasis status post ERCP plan for laparoscopic cholecystectomy risks discussed to include but not limited to bleeding, infection, retained sto ne, bile leak, open surgery, damage to surrounding structures including bile duct, need for future or more extensive surgery, failure to treat symptoms, and risks of anesthesia. Admission and Anticipated Discharge Date Admission Date: January 12, 2025 Subjective Status post ERCP yesterday with removal of stone and sphincterotomy, feels better. No overnight events Physical Exam Constitutional: WD/WN, vitals as above Respiratory: normal respiratory effort, lungs clear to auscultation Cardiovascular: RRR, no murmur, no edema Gastrointestinal (Abdomen): normal bowel sounds, soft, nontender, no hepatosplenomegaly Skin: + jaundice Results & Data Vital Signs (Past 12 Hours) Vital Signs Temp Pulse Pulse Resp BP Pulse Ox O2 Del Method 01/15/25 08:25 36.5 C 112 H 20 165/100 H 98 Room Air 01/15/25 04:20 36.7 C 74 18 142/86 H 95 Room Air 01/14/25 23:14 36.9 C 109 H 18 155/91 H 97 Room Air 01/14/25 22:03 99 H Laboratory Results Laboratory Results - last 24 hr 01/14/25 01/14/25 01/14/25 11:39 15:48 16:49 WBC RBC Hgb Hct MCV MCH MCHC RDW Std Deviation RDW Coeff of Riley Plt Count MPV Sodium Potassium Chloride Carbon Dioxide Anion Gap BUN Creatinine Est Cr Clr Drug Dosing eGFR BUN/Creatinine Ratio Glucose POC Glucose 115 H 177 H 140 H Calcium Phosphorus Magnesium Total Bilirubin AST ALT Alkaline Phosphatase Total Protein Albumin Globulin Albumin/Globulin Ratio 01/14/25 01/14/25 01/15/25 20:24 23:35 06:06 WBC RBC Hgb Hct MCV MCH MCHC RDW Std Deviation RDW Coeff of Riley Plt Count MPV Sodium Potassium Chloride Carbon Dioxide Anion Gap BUN Creatinine Est Cr Clr Drug Dosing eGFR BUN/Creatinine Ratio Glucose POC Glucose 152 H 113 H 100 H Calcium Phosphorus Magnesium Total Bilirubin AST ALT Alkaline Phosphatase Total Protein Albumin Globulin Albumin/Globulin Ratio 01/15/25 06:57 WBC 3.48 L RBC 3.01 L Hgb 9.0 L Hct 27.9 L MCV 92.7 MCH 29.9 MCHC 32.3 RDW Std Deviation 48.8 H RDW Coeff of Riley 14.6 H Plt Count 119 L MPV 11.4 Sodium 141 Potassium 3.6 Chloride 107 Carbon Dioxide 24 Anion Gap 10 BUN 12 Creatinine 1.43 H Est Cr Clr Drug Dosing 50.9 eGFR 51.42 BUN/Creatinine Ratio 8.4 L Glucose 85 POC Glucose Calcium 8.3 L Phosphorus 3.7 Magnesium Pending Total Bilirubin 1.7 H AST 54 H ALT 99 H Alkaline Phosphatase 172 H Total Protein 6.2 Albumin 3.3 L Globulin 2.9 Albumin/Globulin Ratio 1.1 PG Care Time/CCT Total # of Minutes Spent Total Time Spent with Patient: Total time spent is greater than 50% in coordination of care (as documented) at patient's floor/unit and/or counseling patient: Coding Level of Care Code 51938 SUB INP/OBS CARE MIN Diagnoses Choledocholithiasis with acute cholecystitis K80.42
[2025-01-15 09:12] LABS: Magnesium 1.9 mg/dl (1.7-2.4)
[2025-01-15] MEDS ORDERED: METOPROLOL TARTRATE 1 MG/ML VIAL IV ONE (09:21)
[2025-01-15] MEDS ORDERED: ACETAMINOPHEN 1000 MG/100 ML IV IV ONE (09:42)
[2025-01-15] MEDS: BUPIVACAINE 0.5 % 5 MG/1 ML MPF 30ML VIAL ONE (10:35)
[2025-01-15] MEDS ORDERED: SUGAMMADEX SODIUM 200 MG/2 ML VIAL IV ONE (10:38)
[2025-01-15] MEDS ORDERED: LABETALOL HCL IV 5 MG/ML 20ML IV ONE (10:46)
--- NOTE | 2025-01-15 11:01 | Operative Report ---
PG Post Operative Report Pre & Post Diagnosis Operation Date: 01/15/25 09:05 Pre-Op Diagnosis: Choledocholithiasis with acute cholecystitis Post-Op Diagnosis: Choledocholithiasis with acute cholecystitis I identified the patient and participated in the time-out.: Yes Procedure Operation Date: 01/15/25 09:05 Actual Procedures p Robotic Laparoscopic Cholecystectomy(Not Applicable) - Benjy Guzmán DO, LAWANDA Surgeon Benjy Guzmán DO, LAWANDA Labor Operator Rod Peralta; Fozia Venegas Estimated Blood Loss 5 Findings Consistent with Post-Op Diagnosis Acute on chronic cholecystitis. Critical view of safety obtained. Cystic duct and artery doubly clipped and divided. Specimens Gallbladder Anesthesia Type General Complications none Disposition Accompanied Patient To Recovery: No Disposition: Recovery Room Indications 74-year-old male with choledocholithiasis and cholecystitis status post ERCP, plan for robotic cholecystectomy. The risks of the procedure were discussed, al l questions were answered, and the patient agreed to proceed with surgery as planned. Description of Procedure The patient was properly identified, consented, and taken to the operating room where he was placed in the supine position. 2.5 mg of indocyanine green were administered IV approximately 45 min prior to the surgery. General endotracheal anesthesia was induced. SCDs and a safety belt were placed. Preoperative antibiotics were administered. The patient's abdomen was prepped and draped in the standard sterile fashion. A surgical timeout was performed and all parties were in agreement that this was the correct patient and procedure to be performed and we continued as planned. An incision was made just above the umbilicus and to the right of midline. Veress needle was inserted and saline drop test confirmed entry to the abdomen. The abdomen was insufflated with carbon dioxide which the patient tolerated incident. Veress needle was removed and the abdomen is entered using the Optiview technique and a 5 mm camera. The introducer was removed and the abdomen inspected. No damage from initial trocar placement or Veress needle placement was identified. There were no significant abnormalities to the 4 quadrants of the abdomen. 8 mm robotic ports were then placed on the left and right. An additional 5 mm bankruptcy legal assistant port was placed in the lateral right subcostal position. The patient was placed in reverse Trendelenburg position and rotated towards the left. The robot was then docked and the camera and robotic instruments were inserted. The gallbladder was significantly inflamed, and it appeared to be both acute and chronic. The dome of the gallbladder was grasped by the bankruptcy legal assistant and retracted towards the left upper quadrant and the infundibulum was retracted toward the right lower quadrant revealing Calot's triangle. Peritoneal attachments were taken down with electrocautery and blunt dissection. The cystic duct and artery were circumferentially dissected. A window of safety was obtained showing the cystic duct entering the gallbladder with no aberrant structures noted. We were able to identify the cystic duct utilizing the ICG. The cystic duct and artery were doubly clipped and divided. The gallbladder was then lifted off the gallbladder fossa with electrocautery. The right upper quadrant was irrigated and hemostasis was found to be good. The gallbladder was placed in an Endo Catch bag and removed through the one of the port sites. An 0 Vicryl suture was utilized to close the fascia of the extraction site utilizing the Alex- Greta device. The instruments were removed and the robot was undocked. The trochars were removed and the abdomen was allowed to collapse. The skin of all ports was closed with 4-0 Monocryl subcuticular sutures. Dermabond was placed over the wounds. The patient was extubated in the operating room and taken to the PACU where he recovered without apparent incident. All sponge, instrument and needle counts were correct at the conclusion of the procedure. The patient tolerated the procedure well. The physician's bankruptcy legal assistant was present and scrubbed for the entirety of the case and was essential in positioning the patient, prepping and draping, retraction and exposure, driving the laparoscope, exchange of the robotic instruments removal of the gallbladder, closure of the incisions, and placement of the dressings. I attest to the content of the Intraoperative Record and any orders documented therein. Any exceptions are noted below.
[2025-01-15] MEDS ORDERED: MoRPHine SULFATE 4 MG/ML 1 ML CARP\\VIAL IV PRN (12:07)
--- NOTE | 2025-01-15 12:12 | Anesthesiology Progress Note ---
Date of Service January 15, 2025 Anesthesia Post Procedure Vital Signs Vital Signs: Temp Pulse Pulse Pulse Resp BP BP 01/15/25 12:00 36.5 C 117 H 18 136/97 01/15/25 11:50 120 H 17 148/87 H 01/15/25 11:40 105 H 12 151/103 H 01/15/25 11:30 105 H 12 156/103 H 01/15/25 11:20 98 H 12 161/105 H 01/15/25 11:14 36.9 C 112 H 13 139/111 H 01/15/25 08:25 36.5 C 112 H 20 165/100 H 01/15/25 04:20 36.7 C 74 18 142/86 H 01/14/25 23:14 36.9 C 109 H 18 155/91 H 01/14/25 22:03 99 H 01/14/25 19:22 36.8 C 113 H 18 115/65 01/14/25 18:30 36.6 C 103 H 18 148/97 H 01/14/25 16:59 36.5 C 94 H 18 176/82 H 01/14/25 16:30 36.5 C 98 H 18 155/89 H 01/14/25 16:10 36.8 C 97 H 16 154/87 H 01/14/25 16:00 101 H 18 153/97 H 01/14/25 15:50 95 H 10 L 140/93 01/14/25 15:44 36.0 C L 87 12 134/86 01/14/25 15:30 36.4 C L 99 H 18 140/92 01/14/25 14:41 36.2 C L 109 H 20 144/111 H 01/14/25 13:12 103 H Pulse Ox O2 Del Method O2 Flow Rate 01/15/25 12:00 98 Room Air 01/15/25 11:50 98 Room Air 01/15/25 11:40 94 Room Air 01/15/25 11:30 100 Oxymask 10 01/15/25 11:20 97 Oxymask 10 01/15/25 11:14 94 Oxymask 10 01/15/25 08:25 98 Room Air 01/15/25 04:20 95 Room Air 01/14/25 23:14 97 Room Air 01/14/25 22:03 01/14/25 19:22 96 Room Air 01/14/25 18:30 96 Room Air 01/14/25 16:59 95 Room Air 01/14/25 16:30 97 Room Air 01/14/25 16:10 96 Room Air 01/14/25 16:00 97 Room Air 01/14/25 15:50 100 Oxymask 4 01/14/25 15:44 100 Oxymask 10 01/14/25 15:30 96 Room Air 01/14/25 14:41 97 Room Air 01/14/25 13:12 Transfer of Care Handoff Completed per policy Notes Mental Status: alert / awake / arousable Patient Amnestic to Procedure: Yes Nausea / Vomiting: adequately controlled Pain: adequately controlled Airway Patency, RR, SpO2: stable & adequate BP & HR: stable & adequate Hydration State: stable & adequate Anesthetic Complications: no major complications apparent
[2025-01-15] MEDS: ONDANSETRON INJ 2 MG/ML 2 ML VIAL IV PRN (12:27)
[2025-01-15] MEDS ORDERED: Nursing to Pharmacy Communication SCH (12:45)
[2025-01-15] MEDS: METOPROLOL TARTRATE 1 MG/ML VIAL IV STA ×3 (14:37→17:09)
[2025-01-15] MEDS: SODIUM CHLORIDE 0.9% 500 ML IV ONE (15:06)
[2025-01-15 15:25] LABS: Hematocrit (blood only) 36.8 % (42.0-52.0); Hemoglobin 11.8 g/dl (14.0-18.0)
[2025-01-15] MEDS: MAGNESIUM SULFATE / D5W 1 GM/100 ML BAG IV ONE (16:03)
[2025-01-15] MEDS: POTASSIUM CHLORIDE PWD 20 MEQ PACK PO STA (16:21)
[2025-01-15] MEDS: INSULIN ASPART PER UNIT CHARGE SC SCH (18:08)
--- NOTE | 2025-01-15 19:42 | XRay Report ---
EXAM: Portable AP chest radiograph TECHNIQUE: AP portable radiograph of the chest was obtained. INDICATION: Shortness of breath Comparison: Chest radiograph January 12, 2025. FINDINGS: LINES and TUBES: None CARDIOVASCULAR: Cardiac silhouette is stably enlarged in size. Atherosclerosis of the thoracic aorta. LUNGS/PLEURA: No focal consolidation identified. Mild pulmonary vascular congestion and chronic interstitial lung changes appear similar to the previous radiograph. No significant pleural fluid. No discernible pneumothorax. OSSEOUS/OTHER: No displaced acute osseous process identified. IMPRESSION: Similar congestive changes of the cardiovascular system compared to the previous radiograph dated January 12, 2025. Electronically signed by Geovanny Mina 01-15-2025 7:42 PM
[2025-01-15 19:57] LABS: Hematocrit (blood only) 33.0 % (42.0-52.0); Hemoglobin 10.9 g/dl (14.0-18.0); Mean Corpuscular Hemoglobin 30.3 pg (25.0-34.0); Mean Corpuscular Volume 91.7 fL (80.0-100.0); Platelet Count 206 K/uL (130-400); RDW Standard Deviation 49.1 fL (36.4-46.3); Red Blood Count 3.60 M/uL (4.70-6.10); White Blood Count 4.28 K/ul (4.8-10.8)
[2025-01-15] MEDS: METOPROLOL TARTRATE 25 MG TAB PO ONE (21:18)
[2025-01-15] MEDS: SODIUM CHLORIDE 0.9% 1,000 ML IV SCH (21:30)
[2025-01-15 21:50] LABS: Alanine Aminotransferase 90.0 U/L (7-52); Albumin Globulin Ratio 0.9 (0.9-2); Albumin Level 3.0 gm/dl (3.4-5.0); Alkaline Phosphatase 165.0 U/L (34-104); Anion Gap 10.0 (3-11); Bilirubin,Total 1.5 mg/dl (0.2-1.0); Blood Urea Nitrogen 15.0 mg/dl (6-23); Calcium 8.1 mg/dl (8.6-10.3); Carbon Dioxide 20.0 mmol/L (21-32); Chloride 107.0 mmol/L (98-107); Creatinine Clr Calc Pharmacy 53.5 ml/min; Globulin 3.4 gm/dl (2.5-4.0); Glucose 183.0 mg/dl (70-99(Fasting)); Magnesium 2.1 mg/dl (1.7-2.4); Potassium 4.4 mmol/L (3.5-5.1); Sodium 137.0 mmol/L (136-145); Total Protein 6.4 gm/dl (6.0-8.3)
--- NOTE | 2025-01-16 06:34 | Hospitalist Progress Note ---
Date of Service January 16, 2025 Assessment & Plan (1) Choledocholithiasis with acute cholecystitis: (2) Elevated LFTs: (3) Permanent atrial fibrillation: (4) (HFpEF) heart failure with preserved ejection fraction: (5) Hypertension: (6) Diabetes mellitus, type II: (7) Gout: (8) Hyperlipidemia: (9) BPH (benign prostatic hyperplasia): Plan Per admitting provider w/addendum: 74-year-old male with past medical history significant for type 2 diabetes, metabolic syndrome, gout, dyslipidemia, chronic rhinitis, chronic atrial fibrillation, hypertension, thiamine deficiency, gallstones, right Achilles rupture, degenerative disc disease, neuropathy, iron deficiency anemia, cervical spinal stenosis, alcohol abuse who presented to the ED on 01/12/2025 with abdominal pain. Acute cholecystitis secondary to choledocholithiasis Patient presenting with abdominal pain and associated nausea x1 day CTAP revealed dilated gallbladder up to 10mm diameter containing numerous gallstones with pericholecystic inflammation and fluid, mild intrahepatic biliary ductal dilatation Received ceftriaxone and metronidazole in the ED -> continue GI consulted and pt is s/p ERCP with stone extraction (01/14) Gen surgery consulted and pt is s/p cholecystectomy (01/15) Elevated LFTs T bili 5.4 with direct 3.8 AST 302 and ALT 249 Alk phos 187 Secondary to cholecystitis as above LFTs improved, cont. to monitor, current Tbili down to 1.2 Recent GI bleed Patient recently admitted for melena and GI bleed from 12/24-12/28/2024 s/p EGD on 12/25/2024 with multiple ulcers related to previous polypectomy, polypectomy site antrum appeared to be source of bleeding, adherent clot injected and coagulated and clipped closed, other polypectomy sites without s tigmata of bleeding Continue pantoprazole, sucralfate, iron Hgb stable Atrial fibrillation EKG and hall monitor reveals RVR at rates of 115-130s Order IV Lopressor 5mg x1 Continue carvedilol at 12.5mg BID for now-> prior admission tried to increase dosing due to RVR but blood pressures did not tolerate Eliquis on hold for now Had again Afib RVR yesterday after cholecystectomy, required iv lopressor, now HR improved Heart failure CTAP notes cardiomegaly with evidence of CHF and small pleural effusions Echo 12/25 showed LVEF 50-55%, severely dilated left atrium, mild MR, trace TR-> LA dilation worsened from previous in 2019 otherwise unchanged Patient denies SOB and is on RA Continued lasix per home regimen-> recently decreased from bid to daily due to low blood pressures Hypotension Holding amlodipine, hydralazine, benazepril since previous admission due to low blood pressures Monitor BPs Current BP 151/98, cont. to monitor DM II Hold home metformin BSG ACHS and SSI while inpatient Gout Continue allopurinol Hyperlipidemia Continue atorvastatin BPH Continue tamsulosin DVT Prophylaxis: SCDs , (Eliquis on hold) Code Status: FULL CODE PCP: Dr. Eloy Mcgraw Disposition: med tele Admission and Anticipated Discharge Date Admission Date: January 12, 2025 Subjective Pt seen in follow up of cholecystitis, choledocholithiasis Prior to coming to the hospital had chills, nausea, abd. discomfort. Recently was hospitalized here for GI bleed so was concerned if that was happening to him again. Kymquis on hold Currently sitting up in bed in NAD, overall says he feels well, much improved. Pt is s/p ERCP (01/14) , and s/p cholecystectomy (01/15) Last evening , after his cholecystectomy pt in Afib w/ RVR, coreg was held prior to surgery. Now resumed. HR improved. Review of Systems Review of Systems: All systems reviewed & are unremarkable except as noted in Subjective Physical Exam Physical Exam: General/Psych: WD/WN, sitting up in bed, NAD, conversing easily Head: normocephalic, atraumatic Eyes: normal inspection, PERRL ENT: external ear and nose normal Neck: normal visual inspection Respiratory: normal respiratory effort, no accessory muscle use Cardiovascular: irregularly irregular Extremities: no BLE edema, moves extremities Abdomen/GI: normal bowel sounds, soft, nontender Neurologic/MSK: A+Ox3, answers appropriately, speech fluent, moves all extremities Skin: no rashes, warm and dry Results & Data Results & Data Vital Signs (Past 12 Hours) Vital Signs Temp Pulse Pulse Resp BP Pulse Ox O2 Del Method 01/16/25 02:47 36.6 C 100 H 18 136/90 96 Room Air 01/15/25 22:52 37.1 C 70 18 111/64 94 Room Air 01/15/25 21:44 Room Air 01/15/25 21:41 144 H 01/15/25 21:00 36.6 C 132 H 18 142/92 H 94 Room Air 01/15/25 20:47 123 H 01/15/25 19:49 36.6 C 130 H 20 128/85 96 Room Air Laboratory Results 01/15/25 01/15/25 01/15/25 Range/Units 21:10 20:50 19:38 WBC 4.28 L (4.8-10.8) K/ul RBC 3.60 L (4.70-6.10) M/uL Hgb 10.9 L (14.0-18.0) g/dl Hct 33.0 L (42.0-52.0) % MCV 91.7 (80.0-100.0) fL MCH 30.3 (25.0-34.0) pg MCHC 33.0 (32.0-36.0) g/dL RDW Std Deviation 49.1 H (36.4-46.3) fL RDW Coeff of Riley 14.8 H (11.5-14.5) % Plt Count 206 D (130-400) K/uL MPV 12.3 (9.4-12.4) fL Sodium 137 Cancelled (136-145) mmol/L Potassium 4.4 D Cancelled (3.5-5.1) mmol/L Chloride 107 Cancelled (98-107) mmol/L Carbon Dioxide 20 L Cancelled (21-32) mmol/L Anion Gap 10 Cancelled (3-11) BUN 15 Cancelled (6-23) mg/dl Creatinine 1.36 Cancelled (0.6-1.4) mg/dl Est Cr Clr Drug Dosing 53.5 Cancelled ml/min eGFR 54.61 Cancelled BUN/Creatinine Ratio 11.0 Cancelled (10-20) Glucose 183 H Cancelled (70-99(Fasting)) mg/dl POC Glucose 177 H (70-99) mg/dl Calcium 8.1 L Cancelled (8.6-10.3) mg/dl Phosphorus 3.6 Cancelled (2.5-4.9) mg/dl Magnesium 2.1 Cancelled (1.7-2.4) mg/dl Total Bilirubin 1.5 H Cancelled (0.2-1.0) mg/dl AST 54 H Cancelled (13-39) U/L ALT 90 H Cancelled (7-52) U/L Alkaline Phosphatase 165 H Cancelled (34-104) U/L Total Protein 6.4 Cancelled (6.0-8.3) gm/dl Albumin 3.0 L Cancelled (3.4-5.0) gm/dl Globulin 3.4 Cancelled (2.5-4.0) gm/dl Albumin/Globulin Ratio 0.9 Cancelled (0.9-2) 01/15/25 01/15/25 01/15/25 Range/Units 17:26 15:11 12:17 WBC (4.8-10.8) K/ul RBC (4.70-6.10) M/uL Hgb 11.8 L (14.0-18.0) g/dl Hct 36.8 L (42.0-52.0) % MCV (80.0-100.0) fL MCH (25.0-34.0) pg MCHC (32.0-36.0) g/dL RDW Std Deviation (36.4-46.3) fL RDW Coeff of Riley (11.5-14.5) % Plt Count (130-400) K/uL MPV (9.4-12.4) fL Sodium (136-145) mmol/L Potassium (3.5-5.1) mmol/L Chloride (98-107) mmol/L Carbon Dioxide (21-32) mmol/L Anion Gap (3-11) BUN (6-23) mg/dl Creatinine (0.6-1.4) mg/dl Est Cr Clr Drug Dosing ml/min eGFR BUN/Creatinine Ratio (10-20) Glucose (70-99(Fasting)) mg/dl POC Glucose 216 H 162 H (70-99) mg/dl Calcium (8.6-10.3) mg/dl Phosphorus (2.5-4.9) mg/dl Magnesium (1.7-2.4) mg/dl Total Bilirubin (0.2-1.0) mg/dl AST (13-39) U/L ALT (7-52) U/L Alkaline Phosphatase (34-104) U/L Total Protein (6.0-8.3) gm/dl Albumin (3.4-5.0) gm/dl Globulin (2.5-4.0) gm/dl Albumin/Globulin Ratio (0.9-2) 01/15/25 01/15/25 Range/Units 11:22 06:57 WBC 3.48 L (4.8-10.8) K/ul RBC 3.01 L (4.70-6.10) M/uL Hgb 9.0 L (14.0-18.0) g/dl Hct 27.9 L (42.0-52.0) % MCV 92.7 (80.0-100.0) fL MCH 29.9 (25.0-34.0) pg MCHC 32.3 (32.0-36.0) g/dL RDW Std Deviation 48.8 H (36.4-46.3) fL RDW Coeff of Riley 14.6 H (11.5-14.5) % Plt Count 119 L (130-400) K/uL MPV 11.4 (9.4-12.4) fL Sodium 141 (136-145) mmol/L Potassium 3.6 (3.5-5.1) mmol/L Chloride 107 (98-107) mmol/L Carbon Dioxide 24 (21-32) mmol/L Anion Gap 10 (3-11) BUN 12 (6-23) mg/dl Creatinine 1.43 H (0.6-1.4) mg/dl Est Cr Clr Drug Dosing 50.9 ml/min eGFR 51.42 BUN/Creatinine Ratio 8.4 L (10-20) Glucose 85 (70-99(Fasting)) mg/dl POC Glucose 139 H (70-99) mg/dl Calcium 8.3 L (8.6-10.3) mg/dl Phosphorus 3.7 (2.5-4.9) mg/dl Magnesium 1.9 (1.7-2.4) mg/dl Total Bilirubin 1.7 H (0.2-1.0) mg/dl AST 54 H (13-39) U/L ALT 99 H (7-52) U/L Alkaline Phosphatase 172 H (34-104) U/L Total Protein 6.2 (6.0-8.3) gm/dl Albumin 3.3 L (3.4-5.0) gm/dl Globulin 2.9 (2.5-4.0) gm/dl Albumin/Globulin Ratio 1.1 (0.9-2) Medications Administered Current Inpatient Medications Acetaminophen (Acetaminophen 500 Mg Tab) 1,000 mg PO Q8 PRN PRN Reason: Mild Pain (Scale 1, 2, 3) Stop: 02/11/25 17:09 Allopurinol (Allopurinol 100 Mg Tab) 100 mg PO QAM [facility] Stop: 02/12/25 08:59 Last Admin: 01/15/25 10:13 Dose: Not Given Atorvastatin Calcium (Atorvastatin 20 Mg Tab) 20 mg PO QAM [facility]1983 Stop: 02/12/25 08:59 Last Admin: 01/15/25 10:13 Dose: Not Given Carvedilol (Carvedilol 12.5 Mg Tab) 12.5 mg PO BID [facility], [facility]1983 Stop: 02/11/25 20:59 Last Admin: 01/15/25 21:33 Dose: 12.5 mg Cyanocobalamin (Cyanocobalamin (B-12) 500 Mcg Tablet) 1,000 mcg PO QAM [facility]1983 Stop: 02/12/25 08:59 Last Admin: 01/15/25 10:13 Dose: Not Given Dextrose (Dextrose 50% 50 Ml Syringe) 25 - 50 ml IV UD PRN; Protocol PRN Reason: Hypoglycemia Protocol Stop: 02/11/25 17:09 Ferrous Sulfate (Ferrous Sulfate 325 Mg Tab) 325 mg PO Q2D@2100 [facility], [facility]1983 Stop: 02/11/25 20:59 Last Admin: 01/14/25 22:22 Dose: 325 mg Folic Acid (Folic Acid 1 Mg Tab) 1 mg PO QAM [facility]1983 Stop: 02/12/25 08:59 Last Admin: 01/15/25 10:13 Dose: Not Given Furosemide (Furosemide 20 Mg Tab) 20 mg PO DAILY LATA Stop: 02/12/25 08:59 Last Admin: 01/15/25 10:13 Dose: Not Given Gabapentin (Gabapentin 100 Mg Cap) 100 mg PO TID LATA Stop: 02/11/25 20:59 Last Admin: 01/15/25 21:32 Dose: 100 mg Glucagon (Glucagon For Inj 1 Mg Vial) 1 mg SQ UD PRN; Protocol PRN Reason: Hypoglycemia Protocol Stop: 02/11/25 17:09 Glucose (Glucose 40% Gel 15 Gm Tube) 15 - 30 gm PO UD PRN; Protocol PRN Reason: Hypoglycemia Protocol Stop: 02/11/25 17:09 Glucose (Glucose 10 Tab/Tube) 4 - 8 tab PO UD PRN; Protocol PRN Reason: Hypoglycemia Protocol Stop: 02/11/25 17:09 Ceftriaxone Sodium (Rocephin) 2,000 mg in 50 mls @ 100 mls/hr IV Q24H [facility]1983 Stop: 01/23/25 07:59 Last Infusion: 01/15/25 08:55 Dose: Infused Metronidazole (Flagyl) 500 mg in 100 mls @ 100 mls/hr IV Q8H LATA; Protocol Stop: 01/22/25 22:59 Last Infusion: 01/15/25 23:13 Dose: Infused Sodium Chloride (Nss) 1,000 mls @ 125 mls/hr IV .Q8H [facility]1983 Stop: 01/18/25 20:44 Last Admin: 01/15/25 21:30 Dose: 125 mls/hr Insulin Aspart (Insulin Aspart Per Unit Charge) 0 units SC ACHS [facility]1983 Stop: 02/13/25 06:14 Last Admin: 01/15/25 20:55 Dose: Not Given Magnesium Oxide (Magnesium Oxide 400 Mg Tab) 400 mg PO DAILY [facility]1983 Stop: 02/12/25 08:59 Last Admin: 01/15/25 10:14 Dose: Not Given Miscellaneous (Carbohydrates For Hypoglycemia ) 15 - 30 gm PO UD PRN PRN Reason: Hypoglycemia Protocol Stop: 02/11/25 17:09 Morphine Sulfate (Morphine Sulfate 4 Mg/Ml 1 Ml Carp\Vial) 4 mg IV Q4H PRN PRN Reason: Breakthrough Pain Stop: 01/29/25 12:06 Nitrofurantoin Macrocrystals (Nitrofurantoin Monohydrate 100 Mg Cap) 100 mg PO BID [facility]1983 Stop: 01/19/25 20:59 Last Admin: 01/15/25 21:33 Dose: 100 mg Ondansetron HCl (Ondansetron Inj 2 Mg/Ml 2 Ml Vial) 4 mg IV Q6H PRN PRN Reason: Nausea Stop: 02/11/25 17:09 Last Admin: 01/15/25 12:27 Dose: 4 mg Oxycodone HCl (Oxycodone Hcl Ir 5 Mg Tab (Immediate Release)) 5 mg PO Q4 PRN PRN Reason: Mod-Sev Pain (Scale 4-10) Stop: 01/26/25 17:09 Pantoprazole Sodium (Pantoprazole 40 Mg Tab) 40 mg PO BID LATA Stop: 02/11/25 20:59 Last Admin: 01/15/25 21:33 Dose: 40 mg Sucralfate (Sucralfate 1 Gm Tab) 1 gm PO ACHS LATA Stop: 02/11/25 17:09 Last Admin: 01/15/25 12:34 Dose: Not Given Tamsulosin HCl (Tamsulosin Hcl 0.4 Mg Cap) 0.4 mg PO HS [facility]1983 Stop: 02/11/25 20:59 Last Admin: 01/15/25 21:33 Dose: 0.4 mg Thiamine HCl (Thiamine Hcl 100 Mg Tab) 100 mg PO QAM [facility]1983 Stop: 02/12/25 08:59 Last Admin: 01/15/25 10:14 Dose: Not Given Vitamin D (Cholecalciferol 25 Mcg (1000 Units) Tab) 25 mcg PO QAM LATA Stop: 02/12/25 08:59 Last Admin: 01/15/25 10:13 Dose: Not Given (5) Hypertension Hypertension type: essential hypertension Qualified Code(s): I10 - Essential (primary) hypertension (7) Gout Chronicity: unspecified Gout etiology: unspecified cause Gout site: unspecified site Qualified Code(s): M10.9 - Gout, unspecified (8) Hyperlipidemia Hyperlipidemia type: unspecified Qualified Code(s): E78.5 - Hyperlipidemia, unspecified
[2025-01-16 08:21] LABS: Hematocrit (blood only) 33.2 % (42.0-52.0); Hemoglobin 10.5 g/dl (14.0-18.0); Mean Corpuscular Hemoglobin 29.2 pg (25.0-34.0); Mean Corpuscular Volume 92.2 fL (80.0-100.0); Platelet Count 165 K/uL (130-400); RDW Standard Deviation 50.0 fL (36.4-46.3); Red Blood Count 3.60 M/uL (4.70-6.10); White Blood Count 8.73 K/ul (4.8-10.8)
[2025-01-16 08:35] LABS: Alanine Aminotransferase 73.0 U/L (7-52); Albumin Globulin Ratio 1.0 (0.9-2); Albumin Level 3.1 gm/dl (3.4-5.0); Alkaline Phosphatase 137.0 U/L (34-104); Anion Gap 7.0 (3-11); Bilirubin,Total 1.2 mg/dl (0.2-1.0); Blood Urea Nitrogen 17.0 mg/dl (6-23); Calcium 8.1 mg/dl (8.6-10.3); Carbon Dioxide 21.0 mmol/L (21-32); Chloride 109.0 mmol/L (98-107); Creatinine Clr Calc Pharmacy 47.3 ml/min; Globulin 3.1 gm/dl (2.5-4.0); Glucose 142.0 mg/dl (70-99(Fasting)); Magnesium 2.2 mg/dl (1.7-2.4); Potassium 4.3 mmol/L (3.5-5.1); Sodium 137.0 mmol/L (136-145); Total Protein 6.2 gm/dl (6.0-8.3)
--- NOTE | 2025-01-16 10:01 | Surgery Progress Note ---
<Statement entered by Jose Newsome MD - 01/16/25 13:58> I saw and examined the patient and I agree with the assessment and plan of care Date of Service January 16, 2025 Assessment & Plan (1) S/P cholecystectomy: Plan: POD #1 s/p Robotic Cholecystectomy with Dr. Guzmán. POD #2 ERCP. Sea is feeling better this morning. He reports that he is tolerating his breakfast. He reports some expected abdominal pain at incision sites. Incisions are healing well. He was encouraged to ambulate in the hallway. H and H are stable and from a surgical perspective can resume Eliquis tonight. Would recommend that patient stay at least until tomorrow. Patient seen and examined with Dr. Newsome. Admission and Anticipated Discharge Date Admission Date: January 12, 2025 Subjective Patient sitting at bedside eating breakfast. He reports that he is doing well, does admit to some abdominal pain at incision sites, especially when he goes from a laying to sitting or standing position. He denies any post-op nausea. He reports that he is tolerating his diet well. No new concerns overnight. Physical Exam Constitutional: WD/WN, vitals as above Gastrointestinal (Abdomen): Abdominal incisions are healing well- all are CDI. There are no signs of infection. Abdomen is tender at incision sites as expected. Results & Data Vital Signs (Past 12 Hours) Vital Signs Temp Pulse Pulse Resp BP Pulse Ox O2 Del Method 01/16/25 07:38 36.7 C 97 H 17 151/98 H 97 Room Air 01/16/25 07:05 106 H 01/16/25 02:47 36.6 C 100 H 18 136/90 96 Room Air 01/15/25 22:52 37.1 C 70 18 111/64 94 Room Air PG Care Time/CCT Total # of Minutes Spent Total Time Spent with Patient: Total time spent is greater than 50% in coordination of care (as documented) at patient's floor/unit and/or counseling patient: Coding Level of Care Code 55133 Post Operative Follow-Up Diagnoses S/P cholecystectomy Z90.49
[2025-01-16 20:04] VITALS: RESP 18
[2025-01-16] MEDS: APIXABAN 5 MG TABLET PO SCH (20:05)
[2025-01-17 06:31] LABS: Hematocrit (blood only) 33.5 % (42.0-52.0); Hemoglobin 10.2 g/dl (14.0-18.0); Mean Corpuscular Hemoglobin 28.8 pg (25.0-34.0); Mean Corpuscular Volume 94.6 fL (80.0-100.0); Platelet Count 159 K/uL (130-400); RDW Standard Deviation 52.1 fL (36.4-46.3); Red Blood Count 3.54 M/uL (4.70-6.10); White Blood Count 7.82 K/ul (4.8-10.8)
[2025-01-17 06:48] LABS: Alanine Aminotransferase 54.0 U/L (7-52); Albumin Globulin Ratio 1.0 (0.9-2); Albumin Level 2.9 gm/dl (3.4-5.0); Alkaline Phosphatase 109.0 U/L (34-104); Anion Gap 6.0 (3-11); Bilirubin,Total 1.0 mg/dl (0.2-1.0); Blood Urea Nitrogen 20.0 mg/dl (6-23); Calcium 7.9 mg/dl (8.6-10.3); Carbon Dioxide 20.0 mmol/L (21-32); Chloride 113.0 mmol/L (98-107); Creatinine Clr Calc Pharmacy 49.4 ml/min; Globulin 2.8 gm/dl (2.5-4.0); Glucose 114.0 mg/dl (70-99(Fasting)); Magnesium 1.9 mg/dl (1.7-2.4); Potassium 4.1 mmol/L (3.5-5.1); Sodium 139.0 mmol/L (136-145); Total Protein 5.7 gm/dl (6.0-8.3)
--- NOTE | 2025-01-17 10:32 | Surgery Progress Note ---
<Statement entered by Jose Newsome MD - 01/17/25 15:49> I independently saw the patient, and I agree with the assessment and plan of care. Date of Service January 17, 2025 Assessment & Plan (1) S/P cholecystectomy: Plan: POD #2 s/p Robotic Cholecystectomy with Dr. Guzmán. POD #3 ERCP WBC 7.8, Hbg 10.2 (10.5). Vitals show tachycardia, otherwise stable Tolerating diet, pain controlled He is resumed on his eliquis Needs f/u in the office with Dr. Guzmán in 1-2 weeks We will follow peripherally, but call back with any questions/concerns Admission and Anticipated Discharge Date Admission Date: January 12, 2025 Subjective Patient offers no complaints. Feeling fairly well after cholecystectomy. Physical Exam Physical Exam: awake/alert, no distress Gastrointestinal (Abdomen): Inspection/Auscultation: + abdominal surgical incision (c/d/i dermabond) Results & Data Vital Signs (Past 12 Hours) Vital Signs Temp Pulse Resp BP Pulse Ox O2 Del Method 01/17/25 07:31 98.1 F 112 H 18 132/93 98 Room Air 01/17/25 03:57 97.5 F L 115 H 18 136/90 98 Room Air 01/16/25 23:05 98.1 F 121 H 18 125/71 97 Room Air PG Care Time/CCT Total # of Minutes Spent Total Time Spent with Patient: Total time spent is greater than 50% in coordination of care (as documented) at patient's floor/unit and/or counseling patient: Coding Level of Care Code 89883 Post Operative Follow-Up Diagnoses S/P cholecystectomy Z90.49
--- NOTE | 2025-01-17 12:07 | Cardiology Consultation ---
Date of Consultation January 17, 2025 Assessment & Plan (1) Atrial fibrillation with rapid ventricular response: (2) Choledocholithiasis with cholecystitis: (3) S/P cholecystectomy: Plan Assessment: 74 year old male with known permanent atrial fibrillation admitted for abdominal pain, elevated LFTs and acute choledocholithiasis with cholecystitis. S/P ERCP and laparscopic cholecystectomy. Cardiology consulted for elevated heart rates. 1. Atrial fibrillation with RVR -Known history of permanent atrial fibrillation with elevated rates at baseline. Now exacerbated by an acute infectious process and post surgical state. patient with brief elevated rates int the 150's, non-sustained during a verbal altercation with staff -Resting rates currently 100-130bpm, burst into 140's with activity. -Resting comfortably in bed without complaint. -Recent echocardiogram shows preserved LVEF, No wall motion abnormalities and no significant valvular disease -Prior protracted cardiac monitoring shows that patient's resting heart rate was often in excess of 110bpm. This dates back to 2020 -Currently receiving Coreg 12.5mg PO BID. Recommend patient receive an additional dose of Coreg 12.5mg PO x1 dose now (making a total of 25mg this AM). He is to then receive his current 12.5mg dose this evening -Starting tomorrow, patient is to take Coreg 25mg PO QAM, and 12.5mg PO QPM. He has been advised to periodically check home blood pressures 2 hours after AM medications. -Upon discharge, patient is aware that our cardiology office will contact him to arrange for a nurse visit and 14 day zio patch to assess response to dose adjustments. Will arrange for closer follow up pending zio results. 2. Choledocholithiasis with cholecystitis 3. s/p cholecystectomy -patient is tolerating a regular diabetic diet today. Endorses mild abdominal discomfort from surgical site -Ongoing management per Primary team/GI/General surgery Case has been discussed with Dr. Clayton. Further recommendations regarding plan of care as per his assessment. I spent a total of 50 minutes on the date of service in preparation, delivery, documentation of the care provided to the patient excluding any time spent in the performance of separately billed services. RONA Luna [facility] Supervising Physician Co-Signing Physician Notes Attending attestation: Case reviewed with the advanced practitioner. I have personally performed a history and physical examination on the patient. I have reviewed the advanced practitioner's documentation on the date of service referenced in note, and I agree with, and take responsibility for the plan of care. Subjective: Patient seen in room 460-2. Spouse is at the bedside whom I have also seen as a patient in the past. Patient notes no subjective sensation when his heart rate is elevated without subjective palpitation or recently worsening dyspnea. Exam: Cardiovascular: Irregular rhythm, no murmurs, no edema Impression/ Plan: Permanent atrial fibrillation History of difficult to control hypertension however blood pressure has been low since December, Cholecystitis, status post ERCP and cholecystectomy -Of note, patient's outpatient treatment with benazepril amlodipine and hydralazine have all been on hold since December. -He had previously been prescribed carvedilol at a dose of 25 mg twice daily but the dose was subsequently reduced to 12.5 mg twice daily due to fatigue. -Will continue to hold benazepril, hydralazine and amlodipine. -Slightly increased dose of carvedilol for blood pressure and rate control with a.m. dose of 25 mg, p.m. dose of 12.5 mg. Spouse states that they have enough pills at home to proceed with a trial of this dose increase without needing a new prescription. -Stable from cardiac perspective for discharge Luis Clayton DO History of Present Illness Reason for Consultation: A-fib with RVR Requesting Physician: Du daleist Attending Physician: Douglas Calabrese MD History of Present Illness HPI: Patient is a 74 year old male with PMHx as outlined below that presented to the ER on 01/12/[address] of abdomen and Pelvis revealed dilated gallbladder up to 10mm containing numerous gallstones and pericholecystic inflammation and fluid. Patient was started on IV antibiotics, GI was consulted. Patient ultimately underwent an ERCP on 01/14/25 with biliary sphincterostomy and balloon extraction. He went on to have a Robotic Laparoscopic Cholecystectomy with Dr. Guzmán on 01/15/2025. Cardiac Problem list: 1. Chronic afib on chronic Eliquis 2. DM 3. Peripheral neuropathy 4. HTN 5. dyslipidemia EKG on admission shows A-fib with RVR Rate 125bpm. On 01/16/2025, patient had a verbal altercation with staff with regards to his hospital stay and telemetry reports heart rates in the 150's. EKG obtained at 2007 demonstrates A-fib with RVR rate 114bpm. Cardiology services were requested to further assess and evaluate patient this morning. Upon seeing patient in consultation he is resting comfortably in bed. Endorses mild post operative abdominal pain. Family at bedside. He denies any chest pain, pressure or palpitations. Denies any shortness of breath, PND, pre-syncope, syncope or edema. Review of OP records show resting heart rates of recent in the 90's. Last protracted cardiac monitoring dates back to 2020 which demonstrates 100% A-fib burden with ventricular rates from 6am-10pm in excess of 110bpm 34% of the time. Patient was recently hospitalized December 2024 for acute GI bleed requiring transfusion. A-fib with RVR at that time (rates 140's), he was treated for the GI bleeding and discharge on home cardiac regimen which including coreg 12.5mg PO BID as well as his home regimen of Eliquis. Review of telemetry shows A-fib variable rates 100-140bpm Allergies Allergy/AdvReac Type Severity Reaction Status Date / Time amoxicillin Allergy Intermediate Rash Verified 01/15/25 08:18 cephalexin [From Keflex] Allergy Unknown ON Verified 01/15/25 08:18 Joust LIST Tetanus Vaccines and Toxoid AdvReac Intermediate FEVER 104F Verified 01/15/25 08:18 Home Medications Medication Instructions Recorded Confirmed Type allopurinol 100 mg tablet 100 mg PO QAM 01/12/19 01/12/25 History (Zyloprim) amlodipine 10 mg tablet (Norvasc) 10 mg PO HS 01/12/19 01/12/25 History atorvastatin 20 mg tablet (Lipitor) 20 mg PO QAM 01/12/19 01/12/25 History benazepril 40 mg tablet (Lotensin) 40 mg PO QAM 01/12/19 01/12/25 History cholecalciferol (vitamin D3) 25 1,000 unit PO QAM 01/12/19 01/12/25 History mcg (1,000 unit) capsule (Vitamin D3) cyanocobalamin (vitamin B-12) 1,000 mcg PO QAM 01/12/19 01/12/25 History 1,000 mcg tablet (Vitamin B-12) tadalafil 5 mg tablet (Cialis) 5 mg PO DIRECTED PRN Sexual 01/12/19 01/12/25 History Activity thiamine mononitrate (vit B1) 100 100 mg PO QAM 01/12/19 01/12/25 History mg tablet (Vitamin B-1 (mononitrate)) folic acid 1 mg tablet 1 mg PO QAM 01/16/19 01/12/25 History apixaban 5 mg tablet (Eliquis) 5 mg PO BID #60 tabs 02/26/20 01/12/25 Rx epinephrine 0.3 mg/0.3 mL 0.3 mg IM DIRECTED PRN 06/06/20 01/12/25 History injection, auto-injector (EpiPen) Anaphylaxis gabapentin 100 mg capsule 100 mg PO TID 06/06/20 01/12/25 History hydralazine 100 mg tablet 100 mg PO TID 06/06/20 01/12/25 History tamsulosin 0.4 mg capsule 0.4 mg PO HS 06/06/20 01/12/25 History metformin 1,000 mg tablet 1,000 mg PO BIDM 12/17/24 01/12/25 History omega 3-usk-mzp-fish oil 1,000 mg 1 cap PO DAILY 12/17/24 01/12/25 History (120 mg-180 mg) capsule (Fish Oil) pantoprazole 40 mg tablet,delayed 40 mg PO BID #60 tabs 12/19/24 01/12/25 Rx release sucralfate 1 gram tablet 1 g PO ACHS 4 weeks #28 tabs 12/19/24 01/12/25 Rx furosemide 20 mg tablet 20 mg PO DAILY #0 tabs 12/28/24 01/12/25 Rx magnesium oxide 400 mg PO DAILY #30 caps 12/28/24 01/12/25 Rx ferrous sulfate 325 mg (65 mg 325 mg PO UD 01/12/25 01/12/25 History iron) tablet carvedilol 12.5 mg tablet 12.5 mg PO PM #0 tabs 01/17/25 01/12/25 Rx carvedilol 25 mg tablet 25 mg PO QAM #30 tabs 01/17/25 Rx nitrofurantoin 100 mg PO BID 3 days #6 caps 01/17/25 Rx monohydrate/macrocrystals 100 mg capsule (Macrobid) oxycodone 5 mg tablet 5 mg PO Q4 PRN pain #7 tabs 01/17/25 Rx Patient History Medical History CKD (chronic kidney disease) (HFpEF) heart failure with preserved ejection fraction DVT prophylaxis COVID-19 Near syncope Melena Hypomagnesemia Acute upper gastrointestinal bleeding Acute blood loss anemia Hypomagnesemia Hypokalemia Hematemesis GIB (gastrointestinal bleeding) On anticoagulant therapy GERD (gastroesophageal reflux disease) Atrial fibrillation new onset Hypertension Type 2 diabetes mellitus with diabetic polyneuropathy NIDDM Surgical History (Updated 01/16/25 @ 09:57 by Jana Antonio PA-C) Hx laparoscopic cholecystectomy (01/15/25) Robotic Laparoscopic Cholecystectomy(Not Applicable) - Benjy Guzmán DO, FACS History of colonoscopy History of tonsillectomy S/P ORIF (open reduction internal fixation) fracture Left Ankle/Heel Family History Brother Prostate cancer Father Heart disease Brother Melanoma Social History Smoking Status: Current some day smoker Tobacco Type: Cigars Cigarettes Per Day: 5-7 cigars weekly; Second Hand Exposure: No; Do You Dip or Chew Tobacco: No; Hx Alcohol Use: Yes Alcohol type: hard liquor Hx Substance Use: No Preferred Language: B[place] Communication Ability: Effective Visual Impairment: Limited Hearing Ability: Normal Manual Arts Therapist Required: No Beliefs That Will Affect Care: None marital status: Current Living Situation: Spouse Current Living Situation Comment: lives at home w/ current occupational status: employed Feels Safe at Home: Yes Assistive Devices: None Review of Systems Review of Systems: All systems reviewed & are unremarkable except as noted in HPI & below Physical Exam Constitutional: well developed and well nourished; no acute distress Neck: normal visual inspection and trachea midline Respiratory: normal respiratory effort, lungs clear to auscultation Cardiovascular: Rate/Rhythm: + tachycardic and + irregularly irregular Hea rt Sounds: normal S1, normal S2 and + murmur (+1/6 systolic) Vessels: dorsalis pedis pulses present; no JVD Extremities: no edema Skin: no rashes, warm and dry Psychiatric: Orientation: alert and oriented x 3 Affect: + anxious affect Results & Data Vital Signs (Past 12 Hours) Vital Signs Temp Pulse Resp BP Pulse Ox O2 Del Method 01/17/25 10:46 36.5 C 113 H 18 131/81 100 Room Air 01/17/25 07:31 36.7 C 112 H 18 132/93 98 Room Air 01/17/25 03:57 36.4 C L 115 H 18 136/90 98 Room Air Laboratory Results Cardiac Enzymes 01/17/25 Range/Units 06:06 AST 37 (13-39) U/L CBC 01/17/25 Range/Units 06:06 WBC 7.82 (4.8-10.8) K/ul RBC 3.54 L (4.70-6.10) M/uL Hgb 10.2 L (14.0-18.0) g/dl Hct 33.5 L (42.0-52.0) % Plt Count 159 (130-400) K/uL Comprehensive Metabolic Panel 01/17/25 Range/Units 06:06 Sodium 139 (136-145) mmol/L Potassium 4.1 (3.5-5.1) mmol/L Chloride 113 H (98-107) mmol/L Carbon Dioxide 20 L (21-32) mmol/L BUN 20 (6-23) mg/dl Creatinine 1.53 H (0.6-1.4) mg/dl Glucose 114 H (70-99(Fasting)) mg/dl Calcium 7.9 L (8.6-10.3) mg/dl AST 37 (13-39) U/L ALT 54 H (7-52) U/L Alkaline Phosphatase 109 H (34-104) U/L Total Protein 5.7 L (6.0-8.3) gm/dl Albumin 2.9 L (3.4-5.0) gm/dl Intake and Output 01/16/25 01/17/25 01/17/25 22:59 06:59 14:59 Intake Total 1100 / 4140 1340 / 4140 150 / 150 Output Total Balance 1100 / 4139 1339 / 4139 150 / 150 Intake: IV 1100 / 3350 1100 / 3350 150 / 150 Sodium Chloride 0.9% 1,000 ml @ 1000 / 3000 1000 / 3000 125 mls/hr IV .Q8H [facility] Rx#: [id number] cefTRIAXone SODIUM 2,000 mg In 50 / 50 50 ml @ 100 mls/hr IV Q24H [facility] Rx#:[id number] metroNIDAZOLE 500 mg In 100 ml 100 / 300 100 / 300 100 / 100 @ 100 mls/hr IV Q8H [facility] Rx#: [id number] Oral 240 / 790 Output: # Bowel Movements / Other: # Unmeasured Voids 2 2 Weight 96.5 kg Weight Measurement Method Built in [facility] Diagnostic Findings Echocardiogram 12/25/2024: LVEF 50-55% Left atrium severely dilated Aortic valve sclerosis mild without evidence of aortic stenosis Mild mitral regurgitation Trace Tricuspid regurgitation Doppler findings do not suggest pulmonary hypertension PG Care Time/CCT Total # of Minutes Spent Total Time Spent with Patient: Total time spent is greater than 50% in coordination of care (as documented) at patient's floor/unit and/or counseling patient: Coding Level of Care Code 11589 IN/OBS CONSULT LVL 5,80M Diagnoses Atrial fibrillation with rapid ventricular response I48.91 Choledocholithiasis with cholecystitis K80.40 S/P cholecystectomy Z90.49 Time Spent (min) 55
[2025-01-17 15:25] VITALS: TEMP 97.3; O2SAT 98
[2025-01-17] MEDS: PNEUMOCOCCAL VACCINE (PCV20) 20-VAL CONJ-DIP CRM/PF 0.5 ML SYR IM ONE (15:44)
--- NOTE | 2025-01-17 16:43 | Discharge Summary ---
Date of Service January 17, 2025 Admission HPI Per Admitting Provider 74-year-old male with past medical history significant for type 2 diabetes, metabolic syndrome, gout, dyslipidemia, chronic rhinitis, chronic atrial fibrillation, hypertension, thiamine deficiency, gallstones, right Achilles rupture, degenerative disc disease, neuropathy, iron deficiency anemia, cervical spinal stenosis, alcohol abuse who presented to the ED on 01/12/2025 with abdominal pain. Patient reports he developed epigastric abdominal pain with radiation down into his lower quadrants with associated nausea yesterday. Given recent history of GI bleeding, he presented to the ED thinking he was having mor e bleeding. He denies any fevers, chills, chest pain, palpitations, SOB, vomiting, diarrhea, weakness. Continues to hold his blood pressure medications due to hypotension during prior admissions. BPs have been 112-138/70-92 at home. Admission Exam Per Admitting Provider General/Psych: WD/WN, sitting up in bed, NAD, conversing easily, euthymic affect Head: normocephalic, atraumatic Eyes: normal inspection, PERRL, conjunctivae pink, anicteric sclerae ENT: external ear and nose normal, oropharynx normal Neck: normal visual inspection, trachea midline Respiratory: normal respiratory effort, lungs with mild crackles in left lower base, no accessory muscle use Cardiovascular: irregularly irregular rate and rhythm, no murmur/rub/gallop Extremities: no cyanosis or clubbing, normal peripheral pulses, no BLE edema Abdomen/GI: normal bowel sounds, soft, nontender, negative Burkett's sign Neurologic/MSK: A+Ox3, motor strength 5/5, moves all extremities Skin: no rashes, warm and dry, +jaundiced Principal Diagnosis Choledocholithiasis with acute cholecystitis s/p ERCP and s/p robotic cholecystectomy Atrial fibrillation with RVR Discharge Exam General/Psych: WD/WN, sitting up in bed, NAD, conversing easily Head: normocephalic, atraumatic Eyes: normal inspection, PERRL ENT: external ear and nose normal Neck: normal visual inspection Respiratory: normal respiratory effort, no accessory muscle use Cardiovascular: irregularly irregular Extremities: no BLE edema, moves extremities Abdomen/GI: normal bowel sounds, soft, nontender Neurologic/MSK: A+Ox3, answers appropriately, speech fluent, moves all extremities Skin: no rashes, warm and dry Discharge Data Allergies Allergy/AdvReac Type Severity Reaction Status Date / Time amoxicillin Allergy Intermediate Rash Verified 01/15/25 08:18 cephalexin [From Keflex] Allergy Unknown ON Verified 01/15/25 08:18 Mashed Pixel Tetanus Vaccines and Toxoid AdvReac Intermediate FEVER 104F Verified 01/15/25 08:18 Consultations 01/12/25 13:53 ED Decision to Admit Stat 01/12/25 17:10 Consult Gastroenterology Routine 01/13/25 09:18 Consult General Surgery Routine 01/17/25 08:41 Consult Cardiology Routine Procedures Performed Operation Date: 01/15/25 09:05 Actual Procedures p Robotic Laparoscopic Cholecystectomy(Not Applicable) - Benjy Guzmán, DO, FACS Ordered Studies 01/12/25 11:35 CT abd pelvis IV con only Stat FINDINGS: Lung bases: The heart is enlarged and without pericardial effusion. There are small pleural effusions with dependent atelectasis. Interlobular septal thickening in the lower lobes suggests fluid overload/congestive change. There is a small hiatal hernia. Liver: The contrast-enhanced liver is normal in size, contour, and attenuation. There is mild intrahepatic biliary ductal dilatation. The hepatic veins and portal veins are patent. Gallbladder: The gallbladder is dilated, measuring up to 10 mm diameter and contains numerous gallstones. The gallbladder is mildly distended, and there is pericholecystic inflammation and fluid. Spleen: Normal in size and attenuation. Pancreas: Unremarkable. Adrenal glands: Unremarkable. Kidneys: The contrast enhanced kidneys are normal in size and without hydronephrosis. The kidneys enhance symmetrically. Bilateral renal cysts measure up to 5.3 cm. Abdominal vasculature: There is moderate to advanced atherosclerotic calcification and mild ectasia of the abdominal aorta. Bowel: There is moderate colonic diverticulosis without CT evidence of acute diverticulitis. No bowel obstruction is seen. The appendix is well-visualized and normal. There are numerous clips seen within the stomach.. Peritoneum: No intraperitoneal free air is identified. There is trace pelvic ascites. Lymphadenopathy: Mildly enlarged retroperitoneal lymph nodes are similar to previous. The largest node is seen on image #130 and measures 1.7 x 1.3 cm. Pelvic viscera: The prostate gland is enlarged and heterogeneous. The bladder wall appears thickened/trabeculated indicating chronic outlet obstruction. There are bilateral fat-containing inguinal hernias, right side larger than left. The right inguinal hernia also contains trace fluid. Skeletal structures: The skeletal structures are osteopenic. There is mild lumbosacral spondylosis. No lytic or blastic lesions are seen. IMPRESSION: 1. Choledocholithiasis with evidence of acute cholecystitis. 2. Cardiomegaly with evidence of fluid overload/congestive failure and small pleural effusions. 3. There is mild intrahepatic biliary ductal dilatation. 4. Colonic diverticulosis without CT evidence of acute diverticulitis. 5. Trace pelvic ascites. 6. Mildly enlarged retroperitoneal lymph nodes are nonspecific and similar to previous. These have only modestly increased in size dating back to 2016. 7. Additional findings as above. 01/14/25 14:00 FL ERCP biliary ductal Routine Hospital Course (1) Choledocholithiasis with acute cholecystitis: (2) Elevated LFTs: (3) Permanent atrial fibrillation: (4) (HFpEF) heart failure with preserved ejection fraction: (5) Hypertension: (6) Diabetes mellitus, type II: (7) Gout: (8) Hyperlipidemia: (9) BPH (benign prostatic hyperplasia): Plan 74-year-old male with past medical history significant for type 2 diabetes, metabolic syndrome, gout, dyslipidemia, chronic rhinitis, chronic atrial fibrillation, hypertension, thiamine deficiency, gallstones, right Achilles rupture, degenerative disc disease, neuropathy, iron deficiency anemia, cervical spinal stenosis, alcohol abuse who presented to the ED on 01/12/2025 with abdom inal pain. Acute cholecystitis secondary to choledocholithiasis Patient presenting with abdominal pain and associated nausea x1 day CTAP revealed dilated gallbladder up to 10mm diameter containing numerous gallstones with pericholecystic inflammation and fluid, mild intrahepatic biliary ductal dilatation Received ceftriaxone and metronidazole in the ED -> continue GI consulted and pt is s/p ERCP with stone extraction (01/14) Gen surgery consulted and pt is s/p cholecystectomy (01/15) Elevated LFTs T bili 5.4 with direct 3.8 AST 302 and ALT 249 Alk phos 187 Secondary to cholecystitis as above LFTs improved, cont. to monitor, current Tbili down to 1.2 Recent GI bleed Patient recently admitted for melena and GI bleed from 12/24-12/28/2024 s/p EGD on 12/25/2024 with multiple ulcers related to previous polypectomy, polypectomy site antrum appeared to be source of bleeding, adherent clot injected and coagulated and clipped closed, other polypectomy sites without stigmata of bleeding Continue pantoprazole, sucralfate, iron Hgb stable Atrial fibrillation EKG and environmental health inspector reveals RVR at rates of 115-130s Order IV Lopressor 5mg x1 Continue carvedilol at 12.5mg BID for now-> prior admission tried to increase dosing due to RVR but blood pressures did not tolerate Eliquis on hold for now Had again Afib RVR after cholecystectomy, required iv lopressor, then HR improved Discussed with cardiology as HR persistently up - plan to DC on coreg 25 mg AM, 12.5 mg PM. Plan for zio patch as outpt. Heart failure CTAP notes cardiomegaly with evidence of CHF and small pleural effusions Echo 12/25 showed LVEF 50-55%, severely dilated left atrium, mild MR, trace TR-> LA dilation worsened from previous in 2019 otherwise unchanged Patient denies SOB and is on RA Continued lasix per home regimen-> recently decreased from bid to daily due to low blood pressures Hypotension Holding amlodipine, hydralazine, benazepril since previous admission due to low blood pressures Monitor BPs Current BP 134/93, cont. to monitor DM II Hold home metformin BSG ACHS and SSI while inpatient Gout Continue allopurinol Hyperlipidemia Continue atorvastatin BPH Continue tamsulosin Total Time Total Time Spent Total Time Spent (In Minutes): 40 Discharge Plan Discharge Items Patient Disposition: Home - Self-Care Reason For Visit: CHOLECYSSTITIS Discharge Diagnosis: Choledocholithiasis with acute cholecystitis s/p ERCP and s/p robotic cholecystectomy Atrial fibrillation with RVR Condition on Discharge: Good Activity: Per Instructions section Lifting: No more than 10 pounds Bathing Comment: may shower starting 01/16; no soaking in tubs/pools x 2 weeks Exercise/Sports: Wait until after follow-up appointment Driving/Machine Use: no driving while taking narcotics for pain Non-emergency contact: Primary Care Provider and Surgeon Call non-emergency contact if: you have any medication questions, your symptoms worsen, your pain is worsening, you have a fever, your temperature is above 101.5, your wound has increased redness, your wound has increased drainage and your wound pain has increased Follow-up/Referrals: Benjy Guzmán DO, FACS [Physician] - (please call to schedule follow up in the office in 2 weeks) lEoy Mcgraw MD [Primary Care Provider] - Diet: Regular Addtl Attending Provider Instructions: Follow up with primary care physician, surgeon and senior master scheduler. You should be seen by primary care physician within 1 week. Take carvedilol (coreg) 25 mg in the morning and 12.5 mg in the evening. For now, do not take hydralazine. You will be contacted from cardiology office about environmental health inspector (Zio patch). PER SURGERY: SPECIAL CARE INSTRUCTIONS: * You have skin glue over your incisions called dermabond. you may shower with this on. It will tend to dissolve and fall off within a couple weeks. Do not pick at the skin glue * You may shower 01/16 . NO soaking in pools or baths for 2 weeks * No lifting greater than 10lbs. No strenuous exercise until cleared by surgeon. Light walking is accepted. * No driving while taking narcotic pain medication; wait at least 3 days * No drinking alcohol while taking narcotic pain medication * You may resume your Eliquis * May use Tylenol over the counter for pain as tolerated. Do not exceed 3grams of Tylenol per 24 hours * Expect some swelling and bruising. * Diet- you may resume your regular diet Call your doctor if: * Temperature above 101 degrees, nausea/vomiting, fever/chills * Pain not relieved by pain medicine ordered * There is increased drainage or redness from any incision * You have any unanswered questions or concerns [phone]. FOLLOW UP VISIT: If not already scheduled, please call the office for a follow-up visit. Office Pending Studies at Discharge: Yes Studies:: surgical pathology Stand-Alone Forms: [facility], Smoking Cessation Medications and DC Order Prescriptions: New nitrofurantoin monohyd/m-cryst [Macrobid] 100 mg Capsule 100 mg PO BID 3 Days Qty: 6 0RF carvedilol 25 mg Tablet 25 mg PO QAM Qty: 30 0RF oxycodone 5 mg Tablet 5 mg PO Q4 PRN (Reason: pain) Qty: 7 0RF Continued atorvastatin [Lipitor] 20 mg tablet 20 mg PO QAM cyanocobalamin (vitamin B-12) [Vitamin B-12] 1,000 mcg Tablet 1,000 mcg PO QAM allopurinol [Zyloprim] 100 mg tablet 100 mg PO QAM amlodipine [Norvasc] 10 mg tablet 10 mg PO HS Hold Instructions: Resume on 01/04/25. Hold until PCP appointment Rx Instructions: STOPPED benazepril [Lotensin] 40 mg tablet 40 mg PO QAM Hold Instructions: Resume on 01/04/25. Hold until PCP appointment Rx Instructions: STOPPED cholecalciferol (vitamin D3) [Vitamin D3] 1,000 unit Capsule 1,000 unit PO QAM tadalafil [Cialis] 5 mg tablet 5 mg PO DIRECTED PRN (Reason: Sexual Activity) thiamine mononitrate (vit B1) [Vitamin B-1 (mononitrate)] 100 mg tablet 100 mg PO QAM folic acid 1 mg tablet 1 mg PO QAM Eliquis 5 mg Tablet 5 mg PO BID Qty: 60 1RF Hold Instructions: Until labs on saturday Rx Instructions: PER PT'S SPOUSE "DID NOT TAKE TODAY". 01/12/25 epinephrine [EpiPen] 0.3 mg/0.3 mL Auto-Injector 0.3 mg IM DIRECTED PRN (Reason: Anaphylaxis) Rx Instructions: FOR BEE STINGS tamsulosin 0.4 mg capsule 0.4 mg PO HS gabapentin 100 mg capsule 100 mg PO TID metformin 1,000 mg tablet 1,000 mg PO BIDM sucralfate 1 gram tablet 1 g PO ACHS 28 Days Qty: 28 0RF pantoprazole 40 mg tablet,delayed release (DR/EC) 40 mg PO BID Qty: 60 0RF magnesium oxide 400 mg magnesium capsule 400 mg PO DAILY Qty: 30 0RF Rx Instructions: Please take one capsule by mouth once daily ferrous sulfate 325 mg (65 mg iron) tablet 325 mg PO UD Rx Instructions: Takes every other night Changed carvedilol 12.5 mg tablet 12.5 mg PO PM Qty: 0 0RF Held hydralazine 100 mg tablet 100 mg PO TID Hold Instructions: Resume on 01/25/25. discuss further with your providers if/ when to resume Rx Instructions: STOPPED omega 1-zfp-uol-fish oil [Fish Oil] 1,000 (120-180) mg Capsule 1 cap PO DAILY Hold Instructions: Resume on 01/25/25. discuss with your primary care physician when to resume furosemide 20 mg tablet 20 mg PO DAILY Qty: 0 0RF Hold Instructions: Resume on 01/20/25. Discharge Orders: Discharge Order (Routine); Ordered 01/17/25 Ordered By: Douglas Calabrese Admission Data Admit Date/Time: 01/12/25 15:00 Attending Provider: Douglas Calabrese Admit Provider: Naresh Watson Primary Care Provider: Eloy Mcgraw Other Providers: Naresh Watson; Tadeo Ortiz I; Benjy Guzmán; Luis Clayton
[2025-01-17 16:44] VITALS: BP 131/92; PULSE 95
--- NOTE | 2025-01-19 09:50 | Electrocardiogram Report ---
Test Reason : Blood Pressure : */* mmHG Vent. Rate : 114 BPM Atrial Rate : * BPM P-R Int : * ms QRS Dur : 86 ms QT Int : 364 ms P-R-T Axes : * -17 149 degrees QTcB Int : 501 ms Atrial fibrillation with rapid ventricular response Nonspecific T wave abnormality Abnormal ECG When compared with ECG of 12-Jan-2025 09:57, No significant change was found Confirmed by Bart Chen ([id number]) on 01/19/2025 9:50:24 AM Referred By: REFERRED SELF Confirmed By: Bart Chen
== END 2025-01-17 17:46 | disposition home or self-care (01) | DRG 418 ==
LOC: ED 09:43 → SUATTDRO 15:00 → 2N 15:00 → 4W 01-15 20:22